=== PATIENT | female | born 1960 | race Caucasian/White ===

== ENCOUNTER 2017-12-06 08:52 | Emergency (ER) | payer MEDICAID, SELFPAY ==
[2017-12-06 09:07] VITALS: BP 156/81; PULSE 72; RESP 14; TEMP 36.6; O2SAT 96
[2017-12-06 09:58] LABS: Abs Immature Grans 0.02 k/cumm (0.0-0.09); Absolute Basophil Count 0.05 k/cumm (0.0-0.2); Absolute Eosinophil Count 0.11 k/cumm (0.0-0.7); Absolute Lymphocyte Count 1.39 k/cumm (1.2-3.4); Absolute Monocyte Count 0.47 k/cumm (0.11-0.7); Absolute Neutrophil Count 5.14 k/cumm (1.2-6.7); Basophils % 0.7; Eosinophils % 1.5; HCT 44.2 % (36.0-46.0); HGB 15.1 g/dL (12.0-15.5); Immature Grans % 0.3; Lymphocytes % 19.4; Mean Corp. HGB Concentration 34.2 g/dL (32.0-36.0); Mean Corpuscular Volume 96.5 fL (80-95); Mean Platelet Volume 9.9 fL (8.0-11.0); Monocytes % 6.5; Neutrophils % 71.6; Platelet Count 199 x1000/uL (130-400); RBC 4.58 m/cumm (4.00-5.20); RBC Distribution Width 12.3 % (11.7-14.6); White Blood Cell Count 7.18 k/cumm (4.4-10.8)
[2017-12-06] MEDS: Normal Saline 1,000 ML 1000 ML IV (10:01)
[2017-12-06] MEDS: Ketorolac 30 MG/ML VIAL IM (10:02)
[2017-12-06] MEDS: methylPREDNISolone SUCC 125 MG VIAL IVP (10:02)
[2017-12-06] MEDS: diphenhydrAMINE 50 MG/ML VIAL 25 MG IVP (10:04)
[2017-12-06] MEDS: Metoclopramide 10 MG/2 ML VIAL IVP (10:05)
[2017-12-06] MEDS: Acetaminophen 500 MG TAB 1000 MG PO (10:06)
[2017-12-06 10:13] LABS: ALT 24 U/L (12-78); AST 14 U/L (15-37); Albumin 3.6 g/dL (3.4-5.0); Alkaline Phosphatase 65 U/L (46-116); Anion Gap 9.1 mmol/L (3-11); BUN 12 mg/dL (7-18); Bilirubin, Total 0.4 mg/dL (0.2-1.0); CO2 24.9 mmol/L (21.0-32.0); CREATININE 0.87 mg/dL (0.55-1.02); Calcium 9.3 mg/dL (8.5-10.1); Chloride 106 mmol/L (98-107); Glucose 108 mg/dL (70-100); Lipase 142 U/L (73-393); Sodium 140 mmol/L (136-145); Total Protein 7.5 g/dL (6.4-8.2)
--- NOTE | 2017-12-06 10:36 | ED.GENADUL_ITS ---
Disposition Clinical Impression: Migraine Disposition: HOME Condition: Good Instructions: Migraine Headache (ED) Additional Instructions: If you notice any worsening of your symptoms, or any new symptoms such as vomiting, diarrhea, fever, chills, shortness of breath, chest pain, numbness, weakness, or fainting , please return immediately to the emergency department for reevaluation. Please follow up with your primary care provider as soon as possible for reassessment and reevaluation. As always, it was a pleasure participating in your medical care today. Referrals: Moira Arriaza MD [Primary Care Provider] - Medical Decision Making - Lab Data Laboratory Tests 12/06/17 12/06/17 09:49 09:49 WBC 7.18 RBC 4.58 Hgb 15.1 Hct 44.2 MCV 96.5 H MCH 33.0 MCHC 34.2 RDW 12.3 Plt Count 199 MPV 9.9 Immature Gran % 0.3 Neutrophils % 71.6 Lymphocytes % 19.4 Monocytes % 6.5 Eosinophils % 1.5 Basophils % 0.7 Absolute Neutrophils 5.14 Absolute Lymphocytes 1.39 Absolute Monocytes 0.47 Absolute Eosinophils 0.11 Absolute Basophils 0.05 Lipase Cancelled - Medical Decision Making This is a 57-year-old female with a past medical history of hypertension, and migraines who presents for evaluation of headache. The patient states that she has had a headache since this morning, it was gradual in onset, it was not thunderclap in onset. It is not the worst headache she has ever experienced. It is similar to her previous migraines. She did have one episode of nausea and vomiting, with some associated chills and sweats which she states is a little atypical for her. Physical exam demonstrates no red flags concerning for meningitis, no signs of trauma. She has no chest pain , pleuritic chest pain arm or neck pain. We will treat with migraine cocktail. Because of her diaphoresis I feel it is unlikely to be caused by a cardiac etiology, but with her family history and risk factors of obesity, and tobacco abuse and hypertension we will get an EKG and troponin although I feel this is not the cause of her current symptoms. If the patient's headache improves after rehydration a migraine cocktail and her workup is benign I feel she can be safely discharged home with close follow-up. Of note the patient's presentation name was Suzan Frank, however the name was changed during her stay to Suzan hamlin. Patient's laboratory workup has returned normal. EKG is benign. Troponin is negative. The patient's headache is completely resolved. I feel her symptoms are secondary to a migraine. Patient's neurologic exam remains intact and normal. Patient will be discharged home with close follow-up with her PCP. We discussed red flags which to return she understands. I have extensively reviewed the treatment plan and discharge instructions with the patient. I have addressed all patient concerns at this time. The patient was made aware of what symptoms to monitor for that would warrant a return to the emergency department. Discussed the plan with the patient, they demonstrate verbal understanding and agreement with our assessment and plan at this time. EKG 9: 45 Rate 66, intervals normal, normal sinus rhythm. No ST elevations or depressions. No T wave inversions. No Q waves. History of Present Illness - General Chief complaint: Headache Stated complaint: COLD SWEATS/NAUSEA/HEADACHE Time Seen by Provider: 12/06/17 09:21 - History of Present Illness Initial comments: A 57-year-old female with a past medical history of hypertension, tobacco abuse, and chronic migraines who presents for evaluation of headache, and one episode of nausea, vomiting. She does admit to recent episode of cold sweats that also occurred during this episode. She had no associated chest pain arm pain neck pain. She denies any numbness, tingling, weakness, vision changes. She states that this headache is very similar to her other ones that she often has. Patient does report having a negative CT scan within the last 6 months. She denies any previous cardiac history. She does admit to a family history of cardiac disease. She denies any recent surgeries, pertinent family history of polycystic kidney disease, Marfan syndrome, Hiram-Danlos syndrome, intracranial aneurysms. She has no other complaints at this time. - Related Data Albuterol Sulfate [Proair Hfa] 1 puff IH Q4H PRN inhaler 06/02/16 Furosemide [Lasix] 20 mg PO DAILY PRN tab-cap 06/02/16 Hydrocodone/Acetaminophen [Hydrocodone-Acetamin 7.5-325] 1 tab-cap PO Q4H PRN tab-cap 06/02/16 Lorazepam 0.5 mg PO BID PRN tab-cap 06/02/16 Ergocalciferol [Vitamin D] 50,000 unit PO .2 X WEEK/winter06/25/16 Lisinopril [Prinivil] 5 mg PO QAM 08/05/17 Omeprazole [PriLOSEC] 1 tab PO DAILY 08/05/17 Ranitidine [Zantac] 150 mg PO HS 12/06/17 Allergies Allergy/AdvReac Type Severity Reaction Status Date / Time adhesive Allergy Unverified 08/05/17 21:06 amphetamine aspartate Allergy Unverified 08/05/17 21:06 [From Adderall] amphetamine sulfate Allergy Unverified 08/05/17 21:06 [From Adderall] bupropion HCl Allergy Unverified 08/05/17 21:06 [From Wellbutrin] dextroamphetamine saccharate Allergy Unverified 08/05/17 21:06 [From Adderall] dextroamphetamine sulfate Allergy Unverified 08/05/17 21:06 [From Adderall] divalproex sodium Allergy Unverified 08/05/17 21:06 [From Depakote] sertraline HCl [From Zoloft] Allergy Unverified 08/05/17 21:06 sumatriptan [From Imitrex] Allergy Unverified 08/05/17 21:06 sumatriptan succinate Allergy Unverified 08/05/17 21:06 [From Imitrex] eggs Allergy Uncoded 08/05/17 21:06 Review of Systems Other: 10 point review of systems was performed, pertinent positives and negatives are noted in the history of present illness. Past Medical History - Past Medical History Medical history: GERD, hypertension ibs, hypertension - Social History Alcohol use: rarely Drug use: none General Exam - Other Other exam information: 1.Const: Well-nourished, Well-developed, appearing stated age 2.Eyes: PERRL, no conjunctival injection, and symmetrical lids. 3.ENT: Atraumatic external nose and ears. Moist MM. Neck: Symmetric, trachea midline, No thyromegaly. Patient demonstrates good movement of cervical neck. There is no nuchal rigidity, no nuchal tenderness. Patient is able to flex the neck without any difficulty or significant pain. Negative Kernig's and Brudzinski sign. 4.CVS: +S1/S2, No murmurs or gallops. Peripheral pulses 2+ and equal in all extremities. Brisk capillary refill in all extremities. 5.RESP: Unlabored respiratory effort. Clear to auscultation bilaterally. No wheezes rales or rhonchi 6.GI: Soft, Nontender/Nondistended, No hepatosplenomegaly. No guarding or rebound. 7.MSK: Normocephalic/Atraumatic, Extremities w/o deformity or ttp No cyanosis or clubbing, Normal movement of all extremities 8.Skin: Warm, Dry. No rashes or lesions. 9.Neuro: cook station II-XII grossly intact. Sensation grossly intact, no focal neurologic deficits. All 6 cardinal planes of vision or fully intact. No evidence of horizontal or vertical nystagmus. The patient demonstrated a normal [id number], good dexterity. There was no evidence of dysdiadochokinesia. Patient was able to ambulate without difficulty. There was no wide-based gait. Romberg, and cqdm-[id number] are both normal on testing. Sensation was intact bilaterally as well as muscle strength bilaterally for all extremities. Patient was able to verbalize butter cup with no slurring, or miss pronunciation. 10.Psych: (AAO) x3. Appropriate mood and affect Course Vital Signs - 24 hr 12/06/17 09:07 Temperature 36.6 C Pulse 72 Respiratory 14 Rate Blood Pressure 156/81 Pulse Oximetry 96
[2017-12-06 10:37] LABS: Troponin I < 0.02 ng/mL (0.00-0.06)
[2017-12-06 10:48] VITALS: BP 134/69; PULSE 68; RESP 14; TEMP 36.6; O2SAT 94
[2017-12-06 10:56] VITALS: BP 134/69; PULSE 68; RESP 14; TEMP 36.6; O2SAT 94
== END 2017-12-06 11:00 | disposition home or self-care (01) ==
PROVIDERS: Emergency Provider Student in an Organized Health Care Education/Training Program; PCP Family Medicine
DX: G43.909 Migraine, unspecified, not intractable, without status migrainosus (principal); R11.2 Nausea with vomiting, unspecified; I10 Essential (primary) hypertension; F17.210 Nicotine dependence, cigarettes, uncomplicated; Z82.49 Family history of ischemic heart disease and other diseases of the circulatory system
CPT/HCPCS: 36415; 80053; 83690; 93005; 96361; 96372; 96374; 96375; 99284; 84484; 85025; 93010; 99285; J1200; J1885; J2765; J2930

== ENCOUNTER 2018-05-26 13:24 | Emergency (ER) | payer OTHER, SELFPAY ==
[2018-05-26 13:32] VITALS: BP 115/68; PULSE 90; RESP 18; TEMP 36.6; O2SAT 93
--- NOTE | 2018-05-26 14:03 | ED.GENADUL_ITS ---
Discharge Plan Disposition Patient Disposition: HOME Condition: Fair Discharge Details Chief Complaint: RespSymp Clinical Impression: Flu-like symptoms Primary Care Provider: Moira Arriaza V ED Provider: Janice Jiménez Home Meds and New Rx's Prescriptions: New ipratropium-albuterol 0.5 mg-3 mg(2.5 mg base)/3 mL solution for nebulization 3 ml IH QID PRN (Reason: shortness of breath or wheezing) Qty: 15 RF: 0 Continued lorazepam 0.5 MG tablet 0.5 mg PO BID PRNRF: 0 hydrocodone-acetaminophen 1 EACH tablet 1 tab-cap PO Q4H PRN RF: 0 furosemide [Lasix] 20 MG tablet 20 mg PO DAILY PRNRF: 0 ProAir HFA 8.5 GM HFA aerosol inhaler 1 puff Inhalation Q4H PRN RF: 0 ergocalciferol (vitamin D2) [Vitamin D2] 50,000 UNITS capsule 50,000 unit PO .2 X WEEK/WINTER RF: 0 omeprazole 40 MG capsule,delayed release(DR/EC) 1 tab PO DAILY RF: 0 lisinopril 10 MG tablet 5 mg PO QAM RF: 0 ranitidine HCl [Zantac] 150 MG tablet 150 mg PO HS RF: 0 Discharge Instructions Instructions: Influenza (ED) Additional Instructions: Encourage hydration. Tylenol and/or ibuprofen as needed for discomfort. He may try lozenges, honey and warm water to help soothe your sore throat. Duo nebulizer as previously prescribed, you may use this every 6 hours as needed. If you develop shortness of breath, difficulty breathing, chest pain, inability to stay hydrated or other new/worsening symptoms please seek care urgently once again. This is very contagious, please wash your hands frequently and try to limit people you expose. Please follow up with primary care if not improving in one week. Referrals: Moira Arriaza MD [Primary Care Provider] - Discharge Data Discharge Date/Time-TO BE ENTERED AT DEPARTURE: 05/26/18 14:16 Medical Decision Making Patient is a 58 year old female, accompanied by , with c/c of flu like illness. She reports a significant 4 days ago. States she had a sudden onset of fevers, chills, cough, sore throat and body aches. Reports that symptoms have remained the same since onset. Is feeling quite fatigued. Diminished appetite but has been hydrating well. States is been using [id number] medications to help symptomatic management. Was previously prescribed duo nebulizer states her medications approximate 5 years old. States that this has helped with symptomatic management. Patient is a active smoker. No diagnosis of respiratory illness. Has albuterol inhaler she uses daily. States she has had SOB with cough. On exam, lungs are clear. She does appear fatigued. Appears well-hydrated. Oxygen is only 93% on room air, this is typical for the patient on review of her previous visits. History exam is most consistent with diagnosis of influenza. However, the patient is out of the window for treatment. I do not find any physical exam findings concerning for pneumonia. No respiratory distress. Patient is requesting that I refill her DuoNeb and this has been working well for her at home. We will do this. Encourage hydration. Tylenol and ibuprofen as needed for discomfort. We discussed new/worsening symptoms when to seek care urgently once again. All of her questions and concerns were addressed and she is in agreement this plan HPI General Mode of arrival: ambulatory . Date/Time Provider Initiated Documentation: 05/26/18 13:26 . Limitations to Documentation: no limitations . Information obtained by: patient, family and RN notes reviewed . History of Present Illness 58 year old F presents to the emergency department with the chief complaint of flu like illness, described as moderate, Quality is described as aching (diffuse body aches), Patient started experiencing this day(s) (4) and it has been constant. other things that improve symptom(s), (felt improved this AM after duoneb) No exacerbating factors reported . Patient notes cough, fever/chills, loss of appetite and shortness of breath (associates primrily with cough); denies chest pain, headaches, nausea/vomiting, rash and weakness. Patient did receive the following treatments prior to arrival, NSAID Related Data Home Medications Medication Instructions Recorded Confirmed ProAir HFA 1 puff INHALATION Q4H PRN inhaler 06/02/16 05/26/18 furosemide [Lasix] 20 mg PO DAILY PRN tab-cap 06/02/16 05/26/18 hydrocodone-acetaminophen 1 tab-cap PO Q4H PRN tab-cap 06/02/16 05/26/18 lorazepam 0.5 mg PO BID PRN tab-cap 06/02/16 05/26/18 ergocalciferol (vitamin D2) 50,000 unit PO .2 X WEEK/winter06/25/16 05/26/18 [Vitamin D2] lisinopril 5 mg PO QAM 08/05/17 05/26/18 omeprazole 1 tab PO DAILY 08/05/17 05/26/18 ranitidine HCl [Zantac] 150 mg PO HS 12/06/17 05/26/18 ipratropium-albuterol 3 ml IH QID PRN #15 ml 05/26/18 Previous Rx's Medication Instructions Recorded ipratropium-albuterol 3 ml IH QID PRN #15 ml 05/26/18 Allergies Allergy/AdvReac Type Severity Reaction Status Date / Time adhesive Allergy Unverified 05/26/18 14:04 amphetamine aspartate Allergy Unverified 05/26/18 14:04 [From Adderall] amphetamine sulfate Allergy Unverified 05/26/18 14:04 [From Adderall] bupropion HCl Allergy Unverified 05/26/18 14:04 [From Wellbutrin] dextroamphetamine saccharate Allergy Unverified 05/26/18 14:04 [From Adderall] dextroamphetamine sulfate Allergy Unverified 05/26/18 14:04 [From Adderall] divalproex sodium Allergy Unverified 05/26/18 14:04 [From Depakote] sertraline HCl [From Zoloft] Allergy Unverified 05/26/18 14:04 sumatriptan [From Imitrex] Allergy Unverified 05/26/18 14:04 sumatriptan succinate Allergy Unverified 05/26/18 14:04 [From Imitrex] eggs Allergy Uncoded 05/26/18 14:04 General Stated Complaint: RespSymp CLINT: 4 Review of Systems Constitutional Reports as per HPI, Reports chills, Reports fatigue, Reports fever(s), Denies headache(s) and Reports poor appetite Eyes Reports as per HPI, Denies eye discharge and Denies irritation ENT Denies change in voice, Denies ear discharge, Denies otalgia, Denies headache(s), Reports nasal congestion, Reports nasal discharge, Reports sinus pressure, Reports sore throat (worse with cough), Denies throat swelling and Denies tongue swelling Cardiovascular Reports as per HPI, Denies chest pain and Reports dyspnea (with cough) Respiratory Reports as per HPI, Reports cough, Denies hemoptysis, Reports dyspnea (with cough), Denies stridor and Reports wheezing Gastrointestinal Reports as per HPI, Denies abdominal pain, Denies change in bowel habits, Denies nausea and Denies vomiting Integumentary/Breasts Reports as per HPI and Denies rash Neurologic Denies headache(s) Endocrine Reports fatigue Allergic/Immunologic Denies throat swelling, Denies tongue swelling and Reports wheezing Exam Const General: cooperative, healthy appearing, comfortable, no acute distress, well developed and well groomed Nutritional Appearance: well nourished and overweight Orientation: alert and awake [facility] Head: normal to inspection, normocephalic and atraumatic Ears: hearing grossly normal bilaterally, external ears normal and TM's normal bilaterally General nose exam: external nose normal and nares normal Face and sinus: normal facial exam, sinuses nontender and face symmetric Mouth: oral mucosae normal, lip normal, tongue normal, oropharynx normal and moist mucous membranes Teeth and gingiva: dentition normal Throat: posterior oropharynx normal, tonsils normal and uvula midline Eyes General: appearance normal, both eyes and all related structures Neck Neck: normal visual inspection, full ROM, no lymphadenopathy and no meningeal signs Resp Effort & Inspection: normal respiratory effort, able to speak in complete sentences and no respiratory distress Auscultation: clear to auscultation bilaterally, no rales, no rhonchi and no wheezes Cardio Rate: regular rate Rhythm: regular rhythm Heart Sounds: S1 normal and S2 normal Skin General skin exam: no rashes or lesions noted Neuro General: alert and awake Cognition: normal cognition Speech: speech normal Gait: normal gait Psych Appearance: grossly normal and well kempt Mental Status: mental status grossly normal Speech and Movement: speech and movement normal Course Vital Signs Temperature 36.6 C 05/26/18 13:32 Pulse 90 05/26/18 13:32 Respiratory Rate 18 05/26/18 13:32 Blood Pressure 115/68 05/26/18 13:32 Pulse Oximetry 93 L 05/26/18 13:32 Temperature 36.6 C 05/26/18 13:32 Pulse 90 05/26/18 13:32 Respiratory Rate 18 05/26/18 13:32 Blood Pressure 115/68 05/26/18 13:32 Pulse Oximetry 93 L 05/26/18 13:32 Oxygen Delivery Method Room Air 05/26/18 13:32 Oxygen Flow Rate 0 05/26/18 13:32 Pain Level 3 05/26/18 13:32 Comment 05/26/18 13:32
== END 2018-05-26 14:16 | disposition home or self-care (01) ==
LOC: ER 14:07
PROVIDERS: Emergency Provider Physician Assistant; PCP Family Medicine
DX: J11.1 Influenza due to unidentified influenza virus with other respiratory manifestations (principal); R06.02 Shortness of breath
CPT/HCPCS: 99283

== ENCOUNTER 2018-07-11 15:22 | Outpatient (REF) | payer OTHER, SELFPAY ==
[2018-07-11 22:15] LABS: FREE T4 0.98 ng/dL (0.76-1.46); Hemoglobin A1C 6.1 % (4.5-6.2)
== END 2018-07-11 15:42 ==
LOC: NCHCN 15:22
PROVIDERS: PCP Family Medicine; Visit Provider Family Medicine
DX: R73.09 Other abnormal glucose (principal); R63.5 Abnormal weight gain
CPT/HCPCS: 83036; 84439; 84443

== ENCOUNTER 2018-11-02 22:34 | Emergency (ER) | payer OTHER, SELFPAY ==
[2018-11-02] VITALS (8 sets, daily range): BP systolic 145–156; BP diastolic 87–92; PULSE 66–82; RESP 10–22; TEMP 36.7; O2SAT 93–97
--- NOTE | 2018-11-02 22:35 | DI.COMBO_ITS ---
SYMPTOM/DIAGNOSIS: SYNCOPAL EPISODE, RT HEAD TRAUMA AP AND LATERAL CHEST: The heart is not enlarged. There are some linear radiodensities in the left lower lung field which may represent areas of atelectasis or scarring. Otherwise the lungs are clear. No pleural effusion is seen. CONCLUSION: Left basilar atelectasis versus scarring, findings may be a little more prominent than on examination of 08/05/17. Follow up film may be obtained if clinically appropriate. NONCONTRAST HEAD CT: A noncontrast cranial CT was performed. There are subtle questionable patchy areas of decreased attenuation in periventricular white matter raising the possibility of microvascular ischemic change. Otherwise the brain is unremarkable. No evidence of acute intracranial hemorrhage, mass effect or midline shift. Mild mucoperiosteal thickening noted in ethmoid air cells. Otherwise paranasal sinuses and mastoid air cells are clear. The orbital and temporal bone structures appear intact. CONCLUSION: No evidence of acute intracranial injury.
--- NOTE | 2018-11-02 22:36 | W.ED.GENAD ---
Discharge Plan Disposition Patient Disposition: HOME Condition: Stable Discharge Details Clinical Impression: Vasovagal syncope Primary Care Provider: Moira Arriaza V ED Provider: Yoel Roa Home Meds and New Rx's Prescriptions: Continued lorazepam 0.5 MG tablet 0.5 mg PO BID PRNRF: 0 hydrocodone-acetaminophen 1 EACH tablet 1 tab-cap PO Q4H PRN RF: 0 furosemide [Lasix] 20 MG tablet 20 mg PO DAILY PRNRF: 0 albuterol sulfate [ProAir HFA] 8.5 GM HFA aerosol inhaler 1 puff Inhalation Q4H PRN RF: 0 ergocalciferol (vitamin D2) [Vitamin D2] 50,000 UNITS capsule 50,000 unit PO .2 X WEEK/WINTER RF: 0 omeprazole 40 MG capsule,delayed release(DR/EC) 1 tab PO DAILY RF: 0 lisinopril 10 MG tablet 5 mg PO QAM RF: 0 ranitidine HCl [Zantac] 150 MG tablet 150 mg PO HS RF: 0 ipratropium-albuterol 0.5 mg-3 mg(2.5 mg base)/3 mL solution for nebulization 3 ml IH QID PRN (Reason: shortness of breath or wheezing) Qty: 15 RF: 0 Discharge Instructions Instructions: Syncope (ED) Additional Instructions: Home to rest today. Your CAT scan of the head, chest x-ray, blood work were reassuring. Small, frequent sips of fluids to maintain hydration. Return to the emergency department for any acute concerns. Medical Decision Making 58-year-old female presents from home with attending to her niece of whom she has guardianship. While here, she became lightheaded and had a brief witnessed syncopal event in which she struck a piece of furniture with her right baptism. She did not have a prolonged loss of consciousness. There is no vomiting, chest pain, palpitations. She was witnessed to resume her normal mental status within seconds. She was placed on a monitoring coordinator, IV access established. She noted being out in the hot sun all day and fluids were initiated empirically. Screening EKG, laboratories, chest x-ray, CT scan of the head obtained. Patient's diagnostic studies are reassuring. CT scan of the head, chest x-ray unremarkable. Laboratory analysis with negative troponin, reassuring chemistries, unremarkable CBC. Improved with IV fluid. She is stable and appropriate discharged home. Consistent with a vagal mediated reaction Lab Data Lab results reviewed: Yes I reviewed the patient's lab results. Laboratory Results - last 24 hr 11/02/18 11/02/18 22:40 22:40 WBC 10.21 RBC 4.67 Hgb 15.7 H Hct 45.2 MCV 96.8 H MCH 33.6 H MCHC 34.7 RDW 12.1 Plt Count 213 MPV 9.9 Immature Gran % 0.3 Neutrophils % 48.2 Lymphocytes % 40.8 Monocytes % 6.3 Eosinophils % 3.5 Basophils % 0.9 Absolute Neutrophils 4.92 Absolute Lymphocytes 4.17 H Absolute Monocytes 0.64 Absolute Eosinophils 0.36 Absolute Basophils 0.09 Sodium 141 Potassium 4.1 Chloride 106 Carbon Dioxide 24.9 Anion Gap 10.1 BUN 11 Creatinine 0.93 Estimated GFR/1.73 m2 >= 60.00 Glucose 96 Calcium 9.7 Magnesium 1.9 Total Bilirubin 0.3 AST 16 ALT 29 Alkaline Phosphatase 63 Troponin I < 0.05 Total Protein 7.5 Albumin 3.8 ECG Data Attestation: I personally reviewed and interpreted this ECG (s) as follows: Interpretation: Normal sinus rhythm with a rate of 73, the QRS is narrow, there is no ST segment elevation present HPI General Mode of arrival: ambulatory. Date/Time Provider Initiated Documentation: 11/02/18 22:35. Limitations to Documentation: no limitations. Information obtained by: patient. History of Present Illness 58 year old F presents to the emergency department with the chief complaint of syncopal event while with family in ER, described as mild, and is localized to the head. Patient reports no radiation. Patient started experiencing this minute(s) and it has been now resolved. No relieving factors improve symptom(s), No exacerbating factors reported . Patient notes denies chest pain, diaphoresis, headaches, loss of appetite and nausea/vomiting. Patient did receive the following treatments prior to arrival, none Related Data Home Medications Medication Instructions Recorded Confirmed albuterol sulfate [ProAir HFA] 1 puff INHALATION Q4H PRN inhaler 06/02/16 11/02/18 furosemide [Lasix] 20 mg PO DAILY PRN tab-cap 06/02/16 11/02/18 hydrocodone-acetaminophen 1 tab-cap PO Q4H PRN tab-cap 06/02/16 11/02/18 lorazepam 0.5 mg PO BID PRN tab-cap 06/02/16 11/02/18 ergocalciferol (vitamin D2) 50,000 unit PO .2 X WEEK/winter06/25/16 11/02/18 [Vitamin D2] lisinopril 5 mg PO QAM 08/05/17 11/02/18 omeprazole 1 tab PO DAILY 08/05/17 11/02/18 ranitidine HCl [Zantac] 150 mg PO HS 12/06/17 11/02/18 ipratropium-albuterol 3 ml IH QID PRN #15 ml 05/26/18 11/02/18 Previous Rx's Medication Instructions Recorded ipratropium-albuterol 3 ml IH QID PRN #15 ml 05/26/18 Allergies Allergy/AdvReac Type Severity Reaction Status Date / Time adhesive Allergy Unverified 11/02/18 22:45 amphetamine aspartate Allergy Unverified 11/02/18 22:45 [From Adderall] amphetamine sulfate Allergy Unverified 11/02/18 22:45 [From Adderall] bupropion HCl Allergy Unverified 11/02/18 22:45 [From Wellbutrin] dextroamphetamine saccharate Allergy Unverified 11/02/18 22:45 [From Adderall] dextroamphetamine sulfate Allergy Unverified 11/02/18 22:45 [From Adderall] divalproex sodium Allergy Unverified 11/02/18 22:45 [From Depakote] sertraline HCl [From Zoloft] Allergy Unverified 11/02/18 22:45 sumatriptan [From Imitrex] Allergy Unverified 11/02/18 22:45 sumatriptan succinate Allergy Unverified 11/02/18 22:45 [From Imitrex] eggs Allergy Uncoded 11/02/18 22:45 General CLINT: 4 Review of Systems Review of Systems Denies chest pain, palpitations. Now improved. Struck her right head. Witnessed by staff. 6 systems reviewed and otherwise [facility] Medical History Cholecystectomy planned (Acute) History of IBS (Acute) Social History Smoking/Tobacco Use Status: Current every day Alcohol Intake: current Alcohol Intake frequency: a few times a week Alcohol type: wine Substance use type: does not use Do you feel safe at home: Yes Do you feel safe in your relationship?: Yes Exam Narrative Exam Narrative: GEN: awake, alert, oriented 3. Pleasant, well groomed, interactive. HEAD: Normocephalic, atraumatic, tender right baptism, no underlying bony focal tenderness ENT: Mucous membranes moist, oropharynx unremarkable, External ear exam unremarkable EYES: PERRL, EOMI NECK: Full ROM, no JASMIN, no menigismus CHEST/RESP: Nontender, clear to auscultation bilateral, no wheeze/rhonchi/rales CARDIOVASCULAR: RRR, no murmur, rub na. 2+ Rad pulse bilateral ABDOMEN: Soft, nontender, no mass. +Bowel sounds EXT: Full ROM, no edema, no rash Neuro: Grossly normal neurologic exam, conversant, interactive. Cranial nerves II through XII intact Psych: Speech fluent, thoughts congruent, affect normal
--- NOTE | 2018-11-02 22:39 | ED.GENADUL_ITS ---
Discharge Plan Disposition Patient Disposition: HOME Condition: Stable Discharge Details Clinical Impression: Vasovagal syncope Primary Care Provider: Moira Arriaza V ED Provider: Yoel Roa Home Meds and New Rx's Prescriptions: Continued lorazepam 0.5 MG tablet 0.5 mg PO BID PRNRF: 0 hydrocodone-acetaminophen 1 EACH tablet 1 tab-cap PO Q4H PRN RF: 0 furosemide [Lasix] 20 MG tablet 20 mg PO DAILY PRNRF: 0 albuterol sulfate [ProAir HFA] 8.5 GM HFA aerosol inhaler 1 puff Inhalation Q4H PRN RF: 0 ergocalciferol (vitamin D2) [Vitamin D2] 50,000 UNITS capsule 50,000 unit PO .2 X WEEK/WINTER RF: 0 omeprazole 40 MG capsule,delayed release(DR/EC) 1 tab PO DAILY RF: 0 lisinopril 10 MG tablet 5 mg PO QAM RF: 0 ranitidine HCl [Zantac] 150 MG tablet 150 mg PO HS RF: 0 ipratropium-albuterol 0.5 mg-3 mg(2.5 mg base)/3 mL solution for nebulization 3 ml IH QID PRN (Reason: shortness of breath or wheezing) Qty: 15 RF: 0 Discharge Instructions Instructions: Syncope (ED) Additional Instructions: Home to rest today. Your CAT scan of the head, chest x-ray, blood work were reassuring. Small, frequent sips of fluids to maintain hydration. Return to the emergency department for any acute concerns. Medical Decision Making 58-year-old female presents from home with attending to her niece of whom she has guardianship. While here, she became lightheaded and had a brief witnessed syncopal event in which she struck a piece of furniture with her right mormonism. She did not have a prolonged loss of consciousness. There is no vomiting, chest pain, palpitations. She was witnessed to resume her normal mental status within seconds. She was placed on a phototypesetting equipment monitor, IV access established. She noted being out in the hot sun all day and fluids were initiated empirically. Screening EKG, laboratories, chest x-ray, CT scan of the head obtained. Patient's diagnostic studies are reassuring. CT scan of the head, chest x-ray unremarkable. Laboratory analysis with negative troponin, reassuring chemistries, unremarkable CBC. Improved with IV fluid. She is stable and appropriate discharged home. Consistent with a vagal mediated reaction Lab Data Lab results reviewed: Yes I reviewed the patient's lab results. Laboratory Results - last 24 hr 11/02/18 11/02/18 22:40 22:40 WBC 10.21 RBC 4.67 Hgb 15.7 H Hct 45.2 MCV 96.8 H MCH 33.6 H MCHC 34.7 RDW 12.1 Plt Count 213 MPV 9.9 Immature Gran % 0.3 Neutrophils % 48.2 Lymphocytes % 40.8 Monocytes % 6.3 Eosinophils % 3.5 Basophils % 0.9 Absolute Neutrophils 4.92 Absolute Lymphocytes 4.17 H Absolute Monocytes 0.64 Absolute Eosinophils 0.36 Absolute Basophils 0.09 Sodium 141 Potassium 4.1 Chloride 106 Carbon Dioxide 24.9 Anion Gap 10.1 BUN 11 Creatinine 0.93 Estimated GFR/1.73 m2 >= 60.00 Glucose 96 Calcium 9.7 Magnesium 1.9 Total Bilirubin 0.3 AST 16 ALT 29 Alkaline Phosphatase 63 Troponin I < 0.05 Total Protein 7.5 Albumin 3.8 ECG Data Attestation: I personally reviewed and interpreted this ECG (s) as follows: Interpretation: Normal sinus rhythm with a rate of 73, the QRS is narrow, there is no ST segment elevation present HPI General Mode of arrival: ambulatory . Date/Time Provider Initiated Documentation: 11/02/18 22:35 . Limitations to Documentation: no limitations . Information obtained by: patient . History of Present Illness 58 year old F presents to the emergency department with the chief complaint of syncopal event while with family in ER, described as mild, and is localized to the head. Patient reports no radiation. Patient started experiencing this minute(s) and it has been now resolved. No relieving factors improve symptom(s), No exacerbating factors reported . Patient notes denies chest pain, diaphoresis, headaches, loss of appetite and nausea/vomiting. Patient did receive the following treatments prior to arrival, none Related Data Home Medications Medication Instructions Recorded Confirmed albuterol sulfate [ProAir HFA] 1 puff INHALATION Q4H PRN inhaler 06/02/16 11/02/18 furosemide [Lasix] 20 mg PO DAILY PRN tab-cap 06/02/16 11/02/18 hydrocodone-acetaminophen 1 tab-cap PO Q4H PRN tab-cap 06/02/16 11/02/18 lorazepam 0.5 mg PO BID PRN tab-cap 06/02/16 11/02/18 ergocalciferol (vitamin D2) 50,000 unit PO .2 X WEEK/winter06/25/16 11/02/18 [Vitamin D2] lisinopril 5 mg PO QAM 08/05/17 11/02/18 omeprazole 1 tab PO DAILY 08/05/17 11/02/18 ranitidine HCl [Zantac] 150 mg PO HS 12/06/17 11/02/18 ipratropium-albuterol 3 ml IH QID PRN #15 ml 05/26/18 11/02/18 Previous Rx's Medication Instructions Recorded ipratropium-albuterol 3 ml IH QID PRN #15 ml 05/26/18 Allergies Allergy/AdvReac Type Severity Reaction Status Date / Time adhesive Allergy Unverified 11/02/18 22:45 amphetamine aspartate Allergy Unverified 11/02/18 22:45 [From Adderall] amphetamine sulfate Allergy Unverified 11/02/18 22:45 [From Adderall] bupropion HCl Allergy Unverified 11/02/18 22:45 [From Wellbutrin] dextroamphetamine saccharate Allergy Unverified 11/02/18 22:45 [From Adderall] dextroamphetamine sulfate Allergy Unverified 11/02/18 22:45 [From Adderall] divalproex sodium Allergy Unverified 11/02/18 22:45 [From Depakote] sertraline HCl [From Zoloft] Allergy Unverified 11/02/18 22:45 sumatriptan [From Imitrex] Allergy Unverified 11/02/18 22:45 sumatriptan succinate Allergy Unverified 11/02/18 22:45 [From Imitrex] eggs Allergy Uncoded 11/02/18 22:45 General CLINT: 4 Review of Systems Review of Systems Denies chest pain, palpitations. Now improved. Struck her right head. Witnessed by staff. 6 systems reviewed and otherwise [facility] Medical History Cholecystectomy planned (Acute) History of IBS (Acute) Social History Smoking/Tobacco Use Status: Current every day Alcohol Intake: current Alcohol Intake frequency: a few times a week Alcohol type: wine Substance use type: does not use Do you feel safe at home: Yes Do you feel safe in your relationship?: Yes Exam Narrative Exam Narrative: GEN: awake, alert, oriented 3. Pleasant, well groomed, interactive. HEAD: Normocephalic, atraumatic, tender right mormonism, no underlying bony focal tenderness ENT: Mucous membranes moist, oropharynx unremarkable, External ear exam unremarkable EYES: PERRL, EOMI NECK: Full ROM, no JASMIN, no menigismus CHEST/RESP: Nontender, clear to auscultation bilateral, no wheeze/rhonchi/rales CARDIOVASCULAR: RRR, no murmur, rub na. 2+ Rad pulse bilateral ABDOMEN: Soft, nontender, no mass. +Bowel sounds EXT: Full ROM, no edema, no rash Neuro: Grossly normal neurologic exam, conversant, interactive. Cranial nerves II through XII intact Psych: Speech fluent, thoughts congruent, affect normal
[2018-11-02 22:45] LABS: Abs Immature Grans 0.03 k/cumm (0.0-0.09); Absolute Basophil Count 0.09 k/cumm (0.0-0.2); Absolute Eosinophil Count 0.36 k/cumm (0.0-0.7); Absolute Lymphocyte Count 4.17 k/cumm (1.2-3.4); Absolute Monocyte Count 0.64 k/cumm (0.11-0.7); Absolute Neutrophil Count 4.92 k/cumm (1.2-6.7); Basophils % 0.9; Eosinophils % 3.5; HCT 45.2 % (36.0-46.0); HGB 15.7 g/dL (12.0-15.5); Immature Grans % 0.3; Lymphocytes % 40.8; Mean Corp. HGB Concentration 34.7 g/dL (32.0-36.0); Mean Corpuscular Hemoglobin 33.6 pg (27.0-33.0); Mean Corpuscular Volume 96.8 fL (80-95); Mean Platelet Volume 9.9 fL (8.0-11.0); Monocytes % 6.3; Neutrophils % 48.2; Platelet Count 213 x1000/uL (130-400); RBC 4.67 m/cumm (4.00-5.20); RBC Distribution Width 12.1 % (11.7-14.6); White Blood Cell Count 10.21 k/cumm (4.4-10.8)
[2018-11-02] MEDS: Ondansetron O.D.T. 4 MG TABEF (22:53)
[2018-11-02] MEDS: Normal Saline 1,000 ML 1000 ML IV (22:53)
[2018-11-02 23:07] LABS: ALT 29 U/L (12-78); AST 16 U/L (15-37); Albumin 3.8 g/dL (3.4-5.0); Alkaline Phosphatase 63 U/L (46-116); Anion Gap 10.1 mmol/L (3-11); BUN 11 mg/dL (7-18); Bilirubin, Total 0.3 mg/dL (0.2-1.0); CO2 24.9 mmol/L (21.0-32.0); CREATININE 0.93 mg/dL (0.55-1.02); Calcium 9.7 mg/dL (8.5-10.1); Chloride 106 mmol/L (98-107); Glucose 96 mg/dL (70-100); Magnesium 1.9 mg/dL (1.8-2.4); Potassium 4.1 mmol/L (3.5-5.1); Sodium 141 mmol/L (136-145); Total Protein 7.5 g/dL (6.4-8.2); Troponin I < 0.05 ng/mL (0.00-0.06)
--- NOTE | 2018-11-02 23:21 | DI.VRAD_ITS ---
EXAM: CT Head Without Contrast EXAM DATE/TIME: 11/02/2018 10:36 PM CLINICAL HISTORY: 58 years old, female; Syncope and collapse; Patient HX: Syncopal episode, right head trauma TECHNIQUE: Imaging protocol: Axial computed tomography images of the head without contrast. Coronal and sagittal reformatted images were created and reviewed. COMPARISON: MRI - BRAIN WO CONTRAST 01/17/2017 11:18 AM FINDINGS: Brain: There are areas of diminished density in the white matter bilaterally consistent with chronic small vessel ischemic changes. Vann-white matter differentiation is intact and unremarkable. No mass lesion. No evidence of intracranial hemorrhage. Ventricles: Normal. No ventriculomegaly. Bones/joints: No evidence of fracture. Sinuses: Mild mucosal thickening in bilateral ethmoid sinus. No fluid level. Mastoid air cells: Visualized mastoid air cells are well aerated. No mastoid effusion. Soft tissues: Unremarkable. IMPRESSION: 1. No evidence of fracture. No evidence of acute intracranial bleed. 2. Chronic ischemic changes bilaterally. Dictated and Authenticated by: Sheila Brown MD. Ordering:GINNY Diallo MD
--- NOTE | 2018-11-02 23:22 | DI.VRAD_ITS ---
EXAM: XR Chest, 2 Views EXAM DATE/TIME: 11/02/2018 10:36 PM CLINICAL HISTORY: 58 years old, female; Patient HX: Syncopal episode with right head trauma TECHNIQUE: Imaging protocol: XR of the chest, 2 views. COMPARISON: CR CHEST 2 VIEWS PA,LAT 08/05/2017 9:37 PM FINDINGS: Lungs: Left lower lobe atelectasis versus scarring. No infiltrates. No mass lesion or nodule seen. Pleural space: Unremarkable. No pleural effusion. No pneumothorax. Heart/Mediastinum: Unremarkable. No cardiomegaly. Bones/joints: Unremarkable. IMPRESSION: No evidence of acute pathology. Dictated and Authenticated by: Sheila Brown MD. Ordering:GINNY Diallo MD
== END 2018-11-02 23:39 | disposition home or self-care (01) ==
PROVIDERS: Emergency Provider Emergency Medicine; PCP Family Medicine
DX: R55 Syncope and collapse (principal)
CPT/HCPCS: 36415; 80053; 93005; 96360; 99285; 70450; 71046; 83735; 84484; 85025; 93010; 99284

== ENCOUNTER 2018-11-18 08:43 | Outpatient (CLI) | payer OTHER, SELFPAY | END 2018-11-18 09:03 | PROVIDERS: PCP Family Medicine; Visit Provider Family Medicine | DX: R69 Illness, unspecified (principal) ==

== ENCOUNTER 2018-11-29 14:23 | Outpatient (CLI) | payer OTHER, SELFPAY ==
[2018-11-29 16:45] LABS: Clarity Clear (Clear)
[2018-11-29 16:46] LABS: Glucose Negative (Negative); Ketones Negative (Negative); Leukocyte Esterase Negative (Negative); Nitrite Negative (Negative); Urobilinogen 0.2 EU/dL (Up TO 0.2); pH 6.5 (5-8)
[2018-11-29 16:47] LABS: Bilirubin Negative (Negative); Blood Trace (Negative)
[2018-11-29 16:48] LABS: Bacteria Few HPF (Negative); Epithelial Cells Rare HPF (Negative); RBC 0-2 (0-2); WBC Negative HPF (0-5)
[2018-11-29 16:49] LABS: C & S Indicated? No; Casts Negative LPF (Negative); Crystals Negative HPF (Negative); Mucus Negative (Negative)
== END 2018-11-29 14:43 ==
PROVIDERS: PCP Family Medicine; Visit Provider Family Medicine
DX: M54.9 Dorsalgia, unspecified (principal)
CPT/HCPCS: 81003; 81015

== ENCOUNTER 2019-02-23 20:43 | Emergency (ER) | payer MEDICAID, SELFPAY ==
[2019-02-23 20:52] VITALS: BP 124/74; PULSE 85; RESP 18; TEMP 37.1; O2SAT 97
--- NOTE | 2019-02-23 20:54 | W.ED.GENAD ---
Discharge Plan Disposition Patient Disposition: HOME Condition: Stable Discharge Details Chief Complaint: Chest Pain Clinical Impression: Chest pain, Gastroesophageal reflux disease, Abnormality of lung Primary Care Provider: Moira Arriaza V ED Provider: Don Baca Home Meds and New Rx's Prescriptions: No Action lorazepam 0.5 MG tablet 0.5 mg PO BID PRNRF: 0 hydrocodone-acetaminophen 1 EACH tablet 1 tab-cap PO Q4H PRN RF: 0 furosemide [Lasix] 20 MG tablet 20 mg PO DAILY PRNRF: 0 albuterol sulfate [ProAir HFA] 8.5 GM HFA aerosol inhaler 1 puff Inhalation Q4H PRN RF: 0 ergocalciferol (vitamin D2) [Vitamin D2] 50,000 UNITS capsule 50,000 unit PO .2 X WEEK/WINTER RF: 0 omeprazole 40 MG capsule,delayed release(DR/EC) 1 tab PO DAILY RF: 0 lisinopril 10 MG tablet 5 mg PO QAM RF: 0 ranitidine HCl [Zantac] 150 MG tablet 150 mg PO HS RF: 0 ipratropium-albuterol 0.5 mg-3 mg(2.5 mg base)/3 mL solution for nebulization 3 ml IH QID PRN (Reason: shortness of breath or wheezing) Qty: 15 RF: 0 Discharge Instructions Instructions: Chest Pain (ED), Gastroesophageal Reflux Disease (ED) Additional Instructions: At this time your cardiac work-up shows no evidence of an acute heart attack. This is likely secondary to the your reflux, however as we discussed you do have significant risk factors for heart disease. We are scheduling a stress test for you. Please do not miss this appointment. Please avoid any tomato-based foods, citrus foods, mint foods, or spicy foods. If you notice any worsening of your symptoms, or any new symptoms such as vomiting, diarrhea, fever, chills, shortness of breath, chest pain, numbness, weakness, or fainting , please return immediately to the emergency department for reevaluation. Please follow up with your primary care provider as soon as possible for reassessment and reevaluation. As always, it was a pleasure participating in your medical care today. Referrals: Moira Arriaza MD [Primary Care Provider] - Medical Decision Making This is a pleasant 58-year-old female with a past medical history of hypertension, tobacco abuse, strong family history of cardiac disease who presents today for evaluation of burning sensation in her chest which radiates straight to her back in conjunction with a mild tearing sensation. She denies any nausea vomiting diarrhea cough fever or chills. Vital signs are unremarkable. Pain does seem to come and go but only for a brief moment. She denies any history of symptoms like this in the past. At this time pain is notably improved on its own. EKG shows no evidence of STEMI. Exam is otherwise unremarkable with normal pulses and blood pressures throughout. Signs and symptoms are most concerning for severe reflux, however differential certainly does include aortic pathology as well as cardiac pathology and atypical ACS. She does not want anything for pain at this time. We will give her GI cocktail, evaluate for concerning life-threatening chest etiologies, and reassess. 12:48 AM Patient's laboratory work-up has returned, serial troponins and serial EKGs are unremarkable and unchanged. No white count, no bandemia or left shift. Electrolytes normal, renal function normal. proBNP is normal. CT angios of the chest demonstrates no evidence of pulmonary embolism. The patient's right ear was evaluated and using suction pituitary hemostats wax was removed, and the patient had complete resolution of her hearing. Patient continues to be symptom-free, she does have a small bit of mild burning sensation in her left chest which she attributes to reflux. With the patient's benign cardiac work-up and repeat troponins, I did discuss with her my recommendations for admission, continued evaluation and cardiac stress testing. She did have a stress test a year and a half ago which was normal at that time. However I still feel that observation is indicated in this scenario. However despite my request, patient requested to be discharged. We had a long discussion regarding the risks and benefits of this, at this time understanding the risks and benefits including the potential for missing etiology which could cause and lifelong disability the patient understands and is still requesting to be discharged. Patient is of sound mind. We will respect her wishes. We will set up an outpatient stress test for her. I have extensively reviewed the treatment plan and discharge instructions with the patient and their family. I have addressed all patient concerns at this time. The patient and family was made aware of what symptoms to monitor for that would warrant a return to the emergency department. Discussed the plan with the patient and family, they demonstrate verbal understanding and agreement with our assessment and plan at this time. Also of note the patient's CT scan shows evidence of subsegmental atelectasis in the pulmonary bases as well as a 1 cm thyroid nodule and an irregular contour of the left kidney. Recommended repeat imaging in 3 months. I did discuss all of these findings with the patient and her at bedside, and discussed with her also the importance of follow-up and repeat imaging. The patient's primary care provider will be copied to the note as well. EKG 20: 51 Rate 84, intervals normal, sinus rhythm, no significant ST elevations or depressions, no T wave inversions, no Q waves. EKG 00: 17 Rate 77, IL 140, QTc 466, sinus rhythm, no significant ST elevations or depressions, no significant T wave inversions. No changes from prior EKG earlier today. No evidence of STEMI. FINDINGS: Pulmonary arteries: Subsegmental atelectatic changes at the pulmonary bases. Aorta: 1 cm or less left thyroid nodules aortic atherosclerosis. Lungs: 1.2 cm nodule in the apical segment of the right lower lobe (4/24). 5 mm nodule along the left major fissure (4/41). Pleural space: Unremarkable. No pneumothorax. No pleural effusion. Heart: Unremarkable. No cardiomegaly. No pericardial effusion. Gallbladder and bile ducts: Cholecystectomy. Kidneys and ureters: Partially viewed irregular contour of the anterior left kidney. Underlying mass is not excluded. Consider dedicated exam. Lymph nodes: Unremarkable. No enlarged lymph nodes. Bones/joints: Unremarkable. No acute fracture. Soft tissues: Unremarkable. IMPRESSION: 1. Subsegmental atelectatic changes at the pulmonary bases. For both low risk and high risk patients, consider CT at 3 months, PET/CT or biopsy. (Cierra et al., Fleischner Society, 2017) 2. Pulmonary nodules. 3. 1 cm or less left thyroid nodules aortic atherosclerosis. 4. Partially viewed irregular contour of the anterior left kidney. Underlying mass is not excluded. Consider dedicated exam. Thank you for allowing us to participate in the care of your patient. Dictated and Authenticated by: Fred Keith MD 02/23/2019 11:04 PM Eastern Time ([place] & [place]) HPI General Date/Time Provider Initiated Documentation: 02/23/19 20:44. HPI Narrative: This is a 58-year-old female with a past medical history of reflux, reactive airway disease, notable bowel syndrome, hypertension, and chronic migraines who presents today for evaluation of chest pain. The patient states that 20 to 30 minutes ago she developed a sudden onset burning ripping pain in her right chest that radiates to her back. She states that it feels atypical from her normal reflux as that usually occurs on the left and does not radiate to the back at all. She denies any shortness of breath. She denies any fever, chills, headache, neck pain, cough, vomiting or diarrhea. She denies any recent trauma. She is a tobacco smoker. She denies any history of symptoms like this before. Past family history is positive for STEMI at the age of 32 and her mother. She denies any aggravating or relieving factors. She does note that the pain will sometimes go away but then comes back shortly thereafter. Patient denies any other complaints at this time. Of note the patient is on amoxicillin for a right-sided ear infection. Related Data Home Medications Medication Instructions Recorded Confirmed albuterol sulfate [ProAir HFA] 1 puff INHALATION Q4H PRN inhaler 06/02/16 11/02/18 furosemide [Lasix] 20 mg PO DAILY PRN tab-cap 06/02/16 02/23/19 hydrocodone-acetaminophen 1 tab-cap PO Q4H PRN tab-cap 06/02/16 02/23/19 lorazepam 0.5 mg PO BID PRN tab-cap 06/02/16 02/23/19 ergocalciferol (vitamin D2) 50,000 unit PO .2 X WEEK/winter06/25/16 02/23/19 [Vitamin D2] lisinopril 5 mg PO QAM 08/05/17 02/23/19 omeprazole 1 tab PO DAILY 08/05/17 02/23/19 ranitidine HCl [Zantac] 150 mg PO HS 12/06/17 02/23/19 ipratropium-albuterol 3 ml IH QID PRN #15 ml 05/26/18 02/23/19 Previous Rx's Medication Instructions Recorded ipratropium-albuterol 3 ml IH QID PRN #15 ml 05/26/18 Allergies Allergy/AdvReac Type Severity Reaction Status Date / Time adhesive Allergy Unverified 02/23/19 20:55 amphetamine aspartate Allergy Unverified 02/23/19 20:55 [From Adderall] amphetamine sulfate Allergy Unverified 02/23/19 20:55 [From Adderall] bupropion HCl Allergy Unverified 02/23/19 20:55 [From Wellbutrin] dextroamphetamine saccharate Allergy Unverified 02/23/19 20:55 [From Adderall] dextroamphetamine sulfate Allergy Unverified 02/23/19 20:55 [From Adderall] divalproex sodium Allergy Unverified 02/23/19 20:55 [From Depakote] sertraline HCl [From Zoloft] Allergy Unverified 02/23/19 20:55 sumatriptan [From Imitrex] Allergy Unverified 02/23/19 20:55 sumatriptan succinate Allergy Unverified 02/23/19 20:55 [From Imitrex] eggs Allergy Uncoded 02/23/19 20:55 General CLINT: 2 Review of Systems All systems reviewed & are unremarkable except as noted in HPI and below PFSH Medical History (Updated 11/02/18 @ 22:45 by Manuelito Ambrose) Cholecystectomy planned (Acute) History of IBS (Acute) Social History Smoking/Tobacco Use Status: Current every day Alcohol Intake: current Alcohol Intake frequency: a few times a week Alcohol type: wine Drug use: Never Substance use type: does not use Do you feel safe at home: Yes Do you feel safe in your relationship?: Yes Exam Narrative Exam Narrative: 1.Const: Well-nourished, Well-developed, appearing stated age 2.Eyes: PERRL, no conjunctival injection, and symmetrical lids. 3.ENT: Atraumatic external nose and ears. Moist MM. Neck: Symmetric, trachea midline, No thyromegaly. Left ear demonstrates a abbott unremarkable tympanic membrane, right ear demonstrates notable cerumen obstruction. No evidence of drainage or discharge. 4.CVS: +S1/S2, No murmurs or gallops. Peripheral pulses 2+ and equal in all extremities. Brisk capillary refill in all extremities. 5.RESP: Unlabored respiratory effort. Clear to auscultation bilaterally. No wheezes rales or rhonchi 6.GI: Soft, Nontender/Nondistended, No hepatosplenomegaly. No guarding or rebound. No epigastric pain or tenderness. 7.MSK: Normocephalic/Atraumatic, Extremities w/o deformity or ttp No cyanosis or clubbing, Normal movement of all extremities 8.Skin: Warm, Dry. No rashes or lesions. 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 Sensation grossly intact, no focal neurologic deficits. 10.Psych: (AAO) x3. Appropriate mood and affect
[2019-02-23 21:05] VITALS: RESP 18
[2019-02-23] MEDS: Aspirin 81 MG CHEW 324 MG CH (21:12)
[2019-02-23 21:13] LABS: Abs Immature Grans 0.03 k/cumm (0.0-0.09); Absolute Basophil Count 0.06 k/cumm (0.0-0.2); Absolute Eosinophil Count 0.34 k/cumm (0.0-0.7); Absolute Lymphocyte Count 3.72 k/cumm (1.2-3.4); Absolute Monocyte Count 0.74 k/cumm (0.11-0.7); Absolute Neutrophil Count 4.46 k/cumm (1.2-6.7); Basophils % 0.6; Eosinophils % 3.6; HCT 43.3 % (36.0-46.0); HGB 14.5 g/dL (12.0-15.5); Immature Grans % 0.3; Lymphocytes % 39.8; Mean Corp. HGB Concentration 33.5 g/dL (32.0-36.0); Mean Corpuscular Hemoglobin 33.2 pg (27.0-33.0); Mean Corpuscular Volume 99.1 fL (80-95); Mean Platelet Volume 9.6 fL (8.0-11.0); Monocytes % 7.9; Neutrophils % 47.8; Platelet Count 248 x1000/uL (130-400); RBC 4.37 m/cumm (4.00-5.20); RBC Distribution Width 12.6 % (11.7-14.6); White Blood Cell Count 9.35 k/cumm (4.4-10.8)
[2019-02-23 21:17] LABS: PTT Activated 26.7 sec (21.0-31.4); Prothrombin Time 9.7 sec (9.3-11.0)
[2019-02-23 21:28] LABS: ALT 32 U/L (14-59); AST 16 U/L (15-37); Albumin 3.6 g/dL (3.4-5.0); Alkaline Phosphatase 59 U/L (46-116); Anion Gap 9.1 mmol/L (3-11); BUN 13 mg/dL (7-18); Bilirubin, Total 0.2 mg/dL (0.2-1.0); CO2 24.9 mmol/L (21.0-32.0); CREATININE 1.09 mg/dL (0.55-1.02); Calcium 9.6 mg/dL (8.5-10.1); Chloride 105 mmol/L (98-107); Estimated GFR 51.92 (mL/min/1.73m2); Glucose 99 mg/dL (70-100); Lipase 154 U/L (73-393); NT-proBNP 30 pg/mL; Potassium 3.9 mmol/L (3.5-5.1); Sodium 139 mmol/L (136-145); Total Protein 7.4 g/dL (6.4-8.2)
[2019-02-23 21:31] LABS: Troponin I < 0.05 ng/mL (0.00-0.06)
--- NOTE | 2019-02-23 22:27 | DI.CT_ITS ---
EXAM: CT THORAX CTA CLINICAL HISTORY: tearing chest pain radiating to back TECHNIQUE: Axial CT angiography was performed with multi-slice acquisition and multi-planar and/or 3 D reconstructions. The exam was performed according to the usual protocol with 100 cc's of Omnipaque 350. COMPARISON: No exams were available for comparison FINDINGS: The thoracic aorta is intact. No aneurysm or dissection is present. The visualized pulmonary arterie s appear grossly unremarkable. Heart size is within normal limits. No pericardial effusion is seen. No pleural effusion or pneumothorax is present. Dependent atelectasis is seen in the lung bases. No focal consolidating infiltrates are present to suggest pneumonia. There is a 1.2 cm noncalcified pulmonary nodule in the superior segment of the right lower lobe. There is a 0.5 cm nodule along the left major fissure inferiorly. In the upper abdomen, there is an irregular contour at the inferior most images of the left kidney. This may represent renal scarring but mass cannot be excluded. The patient is status post cholecystectomy. Degenerative changes are seen in the spine. Left thyroid no dules are present. IMPRESSION: 1. No evidence of thoracic aortic injury. 2. 1.2 cm noncalcified pulmonary nodule in the superior segment of the right lower lobe. Follow-up i s recommended based on patient's risk factors. Consider repeat CT scan in 3 months or PET/CT or biop sy. 3. Irregular contour of the left kidney anteriorly. This is only partially imaged on this examinatio n. Consider dedicated examination. This may include a CT scan of the abdomen or ultrasound.
[2019-02-23] MEDS: Omnipaque 350 MG/ML 100 ML BTL IJ (22:29)
--- NOTE | 2019-02-23 23:04 | DI.VRAD_ITS ---
PROCEDURE INFORMATION: Exam: CT Angiography Chest With Contrast Exam date and time: 02/23/2019 10:20 PM Clinical history: 58 years old, female; Chest pain; Type not specified TECHNIQUE: Imaging protocol: Computed tomographic angiography of the chest with intravenous contrast. 3D rendering: MIP reconstructed images were created and reviewed. Radiation optimization: All CT scans at this facility use at least one of these dose optimization techniques: automated exposure control; mA and/or kV adjustment per patient size (includes targeted exams where dose is matched to clinical indication); or iterative reconstruction. Contrast material: [id number]; Contrast volume: 100 ml; Contrast route: IV; COMPARISON: CR XR CHEST 2V PA LATERAL 11/02/2018 11:03 PM FINDINGS: Pulmonary arteries: Subsegmental atelectatic changes at the pulmonary bases. Aorta: 1 cm or less left thyroid nodules aortic atherosclerosis. Lungs: 1.2 cm nodule in the apical segment of the right lower lobe (4/24). 5 mm nodule along the left major fissure (4/41). Pleural space: Unremarkable. No pneumothorax. No pleural effusion. Heart: Unremarkable. No cardiomegaly. No pericardial effusion. Gallbladder and bile ducts: Cholecystectomy. Kidneys and ureters: Partially viewed irregular contour of the anterior left kidney. Underlying mass is not excluded. Consider dedicated exam. Lymph nodes: Unremarkable. No enlarged lymph nodes. Bones/joints: Unremarkable. No acute fracture. Soft tissues: Unremarkable. IMPRESSION: 1. Subsegmental atelectatic changes at the pulmonary bases. For both low risk and high risk patients, consider CT at 3 months, PET/CT or biopsy. (Cierra et al., Fleischner Society, 2017) 2. Pulmonary nodules. 3. 1 cm or less left thyroid nodules aortic atherosclerosis. 4. Partially viewed irregular contour of the anterior left kidney. Underlying mass is not excluded. Consider dedicated exam. Dictated and Authenticated by: Fred Keith MD. Ordering:CONSTANTINE Ochoa MD
[2019-02-24 02:00] VITALS: BP 124/74; PULSE 85; RESP 18; TEMP 37.1; O2SAT 97
== END 2019-02-24 01:10 | disposition home or self-care (01) ==
PROVIDERS: Emergency Provider Student in an Organized Health Care Education/Training Program; PCP Family Medicine
DX: R07.9 Chest pain, unspecified (principal); R91.8 Other nonspecific abnormal finding of lung field; K21.9 Gastro-esophageal reflux disease without esophagitis; I10 Essential (primary) hypertension
CPT/HCPCS: 36415; 71275; 80053; 83690; 93005; 99285; 83880; 84484; 85025; 85610; 85730; 93010; J3490

== ENCOUNTER 2019-03-04 01:28 | Outpatient (CLI) | payer MEDICAID, SELFPAY ==
--- NOTE | 2019-03-04 09:00 | DI.US_ITS ---
EXAM: US RENAL CLINICAL HISTORY: F/U ABNL FINDINGS ON DIAGNOSTIC IMAGING OF LT KIDNEY,R93.422 TECHNIQUE: Ultrasound performed using standard protocol. COMPARISON: ABDOMEN ULTRASOUND from 07/26/2009 CT THORAX CTA from 02/23/2019 FINDINGS: The CT questioned a contour deformity of the left kidney. The right kidney measures 11.6 cm in layton th. The left kidney measures 10.2 cm in length. There is normal renal parenchymal thickness and ech ogenicity. There is a duplex collecting system bilaterally. There is a slight lobulation of the con tour of the left kidney. This appears unchanged when compared with an ultrasound from 2009. No mass or hydronephrosis is seen. The prevoid bladder volume measured 84 cc. There is a 6 cc postvoid res idual. Both ureteral jets were visualized. IMPRESSION: Mildly lobulated contour of the left kidney. No evidence of a mass. A duplex collecting system is seen.
== END 2019-03-04 01:48 ==
PROVIDERS: PCP Family Medicine; Visit Provider Family Medicine
DX: R93.422 Abnormal radiologic findings on diagnostic imaging of left kidney (principal); N28.89 Other specified disorders of kidney and ureter
CPT/HCPCS: 76770

== ENCOUNTER 2019-12-03 19:52 | Outpatient (REF) | payer MEDICAID, SELFPAY ==
[2019-12-03 21:30] LABS: Abs Immature Grans 0.03 10^3/uL (0.0-0.06); Absolute Basophil Count 0.11 10^3/uL (0.0-0.2); Absolute Eosinophil Count 0.28 10^3/uL (0.0-0.7); Absolute Lymphocyte Count 3.44 10^3/uL (1.2-3.4); Absolute Monocyte Count 0.66 10^3/uL (0.1-0.8); Absolute Neutrophil Count 4.83 10^3/uL (1.2-6.7); Basophils % 1.2; HCT 46.8 % (36.0-46.0); HGB 15.2 g/dL (11.2-15.7); Immature Grans % 0.3; Lymphocytes % 36.8; MCH 32.1 pg (27.0-33.0); MCHC 32.5 % (32.0-36.0); MCV 98.7 fL (80-95); MPV 10.4 fL (8.0-11.0); Monocytes % 7.1; Neutrophils % 51.6; Nucleated RBC 0 %; Platelet Count 259 10^3/uL (130-400); RBC 4.74 10^6/uL (3.93-5.22); RDW 11.9 % (11.7-14.6); RDW-SD 43.5 fL; WBC 9.35 10^3/uL (4.4-10.8)
[2019-12-03 21:48] LABS: TSH (W/Ref FT4) 1.83 uIU/mL (0.36-3.74)
== END 2019-12-03 20:12 ==
LOC: NCHCN 19:52
PROVIDERS: PCP Family Medicine; Visit Provider Physician Assistant Medical
DX: R22.1 Localized swelling, mass and lump, neck (principal)
CPT/HCPCS: 84443; 85025

== ENCOUNTER 2019-12-15 00:44 | Outpatient (CLI) | payer MEDICAID, SELFPAY ==
--- NOTE | 2019-12-15 | DI.US_ITS ---
EXAM: US SOFT TISSUE HEAD OR NECK CLINICAL HISTORY: NECK MASS,R22.1. TECHNIQUE: Ultrasound was performed using standard protocol. COMPARISON: US CAROTID ULTRASOUND from 08/18/2013 FINDINGS: Sonographic assessment utilizing grayscale and color Doppler imaging was performed and targeted to th e area of clinical concern. The left lateral neck, there is a hypoechoic ovoid circumscribed lesion measuring 2.7 x 1.3 x 1.4 cm . There is a small amount of internal blood flow. The findings could represent a necrotic or reacti ve lymph node. Malignancy cannot be excluded. There is an adjacent lymph node which maintains a fat ty hilum measuring 1.2 cm. IMPRESSION: 2.7 centimeter low-density lesion may represent an abnormally enlarged lymph node. Biopsy could be c onsidered for further evaluation. DATA REPOSITORY:
== END 2019-12-15 01:04 ==
PROVIDERS: PCP Family Medicine; Visit Provider Physician Assistant Medical
DX: R22.1 Localized swelling, mass and lump, neck (principal)
CPT/HCPCS: 76536

== ENCOUNTER 2019-12-30 00:50 | Outpatient (CLI) | payer MEDICAID, SELFPAY ==
--- NOTE | 2019-12-30 14:42 | DI.MAMMO_ITS ---
EXAM: MG MAMMO SCREENING CLINICAL HISTORY: SCREENING, Z12.31 TECHNIQUE: Bilateral full field digital CC and MLO mammographic images were obtained with 3D tomosyn thesis and utilizing computer aided detection (CAD). COMPARISON: Available for comparison. FINDINGS: Masses/Architectural Distortion: None seen. Microcalcifications: No suspicious pleomorphic-type are seen. Skin Thickening/Nipple Retraction: None. IMPRESSION: 1. No significant interval change with no specific features of malignancy noted. 2. Unless there is more urgent need, screening mammography is recommended, as per [employer] guidelines. BI-RADS Category 1 - Negative Breast Density - Category A - Almost entirely fatty A negative radiographic report should not delay biopsy if a dominant or clinically suspicious mass is present. Up to ten percent of cancers are not identified on mammography. A negative report may reinforce clinical impression. Adenosis and dense breasts may obscure an underlying neoplasm. False positive reports average 6 to 10%. Patient will receive a letter notifying them of these results.
== END 2019-12-30 01:10 ==
PROVIDERS: PCP Family Medicine; Visit Provider Family Medicine
DX: Z12.31 Encounter for screening mammogram for malignant neoplasm of breast (principal)
CPT/HCPCS: 77063; 77067

== ENCOUNTER 2020-03-12 14:21 | Outpatient (REF) | payer MEDICAID, SELFPAY ==
[2020-03-12 20:18] LABS: Anion Gap 9.6 mmol/L (3-11); BUN 11 mg/dL (7-18); CO2 25.4 mmol/L (21.0-32.0); CREATININE 0.86 mg/dL (0.55-1.02); Calcium 9.7 mg/dL (8.5-10.1); Chloride 105 mmol/L (98-107); Glucose 90 mg/dL (74-106); Potassium 4.8 mmol/L (3.5-5.1); Sodium 140 mmol/L (136-145)
[2020-03-12 20:43] LABS: Hemoglobin A1C 5.9 % (<5.7)
== END 2020-03-12 14:41 ==
LOC: NCHCN 14:21
PROVIDERS: PCP Family Medicine; Visit Provider Family Medicine
DX: N28.9 Disorder of kidney and ureter, unspecified (principal); R73.03 Prediabetes
CPT/HCPCS: 80048; 83036

== ENCOUNTER 2020-07-13 01:20 | Outpatient (CLI) | payer MEDICAID, SELFPAY ==
--- NOTE | 2020-07-13 09:15 | DI.CT_ITS ---
EXAM: CT CHEST WO CLINICAL HISTORY: F/U LUNG NODULE, R91.8 TECHNIQUE: CT examination of the chest was performed without contrast administration. COMPARISON: CT CT THORAX CTA from 02/23/2019 FINDINGS: Images obtained through the upper abdomen show unremarkable appearance of visualized portions of the liver and spleen. Note is made of a prior cholecystectomy. Visualized portions of the pancreas, ad renals, and kidneys appear normal. There is no mediastinal or hilar adenopathy. Mediastinal vascular structures appear intact by noncon trast criteria. Tracheobronchial tree appears intact. No pleural effusion or pleural-based mass. The lungs are predominantly clear. A previously described 12 millimeter in diameter well-circumscrib ed mildly lobulated pulmonary nodule of the superior segment of the right lower lobe is again seen an d is essentially unchanged in appearance comparison with prior CT of January 2019. No other focal in trapulmonary nodule identified. IMPRESSION: Stable 12 millimeter right intrapulmonary nodule. No other significant findings. If the patient is a smoker, annual screening chest CT would be recommended. RADIATION DOSE DELIVERED: LINK-TO-SR Total DLP 837.49mGy.cm Total DLP
== END 2020-07-13 01:40 ==
PROVIDERS: PCP Family Medicine; Visit Provider Nurse Practitioner Family
DX: R91.1 Solitary pulmonary nodule (principal)
CPT/HCPCS: 71250

== ENCOUNTER 2020-07-15 18:47 | Outpatient (REF) | payer MEDICAID, SELFPAY ==
[2020-07-20 13:11] LABS: Codeine Negative ng/mL (Cutoff: 25); Dihydrocodeine 25 ng/mL (Cutoff: 25); Hydrocodone Negative ng/mL (Cutoff: 25); Hydromorphone Negative ng/mL (Cutoff: 25); Morphine Negative ng/mL (Cutoff: 25); Naloxone Negative ng/mL (Cutoff: 25); Norhydrocodone 42 ng/mL (Cutoff: 25); Noroxycodone Negative ng/mL (Cutoff: 25); Noroxymorphone Negative ng/mL (Cutoff: 25); Opiates Interpretation Positive.
== END 2020-07-15 18:48 | disposition home or self-care (01) ==
LOC: NCHCN 18:47
PROVIDERS: PCP Family Medicine; Visit Provider Family Medicine
DX: Z79.899 Other long term (current) drug therapy (principal)
CPT/HCPCS: 80361; 80362

== ENCOUNTER 2020-09-16 20:51 | Outpatient (REF) | payer MEDICAID, SELFPAY ==
[2020-09-16 18:36] LABS: Bilirubin Negative (Negative); Blood Small (Negative); Clarity Clear (Clear); Glucose Negative (Negative); Ketones Negative (Negative); Leukocyte Esterase Negative (Negative); Nitrite Negative (Negative); Specific Gravity 1.015 (1.005-1.025); Urobilinogen 0.2 EU/dL (Up TO 0.2); pH 5.5 (5-8)
[2020-09-16 18:55] LABS: Bacteria Negative HPF (Negative); Crystals Negative HPF (Negative); Epithelial Cells Few HPF (Negative); Mucus Negative (Negative)
[2020-09-16 18:56] LABS: C & S Indicated? No; Casts Negative LPF (Negative)
== END 2020-09-16 20:52 | disposition home or self-care (01) ==
LOC: NCHCN 20:51
PROVIDERS: PCP Family Medicine; Visit Provider Family Medicine
DX: R31.29 Other microscopic hematuria (principal)
CPT/HCPCS: 81003; 81015

== ENCOUNTER 2020-11-09 02:08 | Outpatient (CLI) | payer MEDICAID, SELFPAY ==
--- NOTE | 2020-11-09 08:30 | DI.CT_ITS ---
Exam(s) CT ABDOMEN PELVIS WO/W EXAM: CT ABDOMEN PELVIS WO/W TECHNIQUE: Imaging Protocol: Axial computed tomography images with coronal and sagittal reformatted images were created and reviewed CONTRAST MATERIAL: Intravenous: Omnipaque 350 Contrast volume:100 cc Oral:no COMPARISON: CT CT THORAX CTA from 02/23/2019 FINDINGS: ABDOMEN: Lung Bases: Normal where visualized. Liver: Enlarged. Fatty infiltration.. No measurable mass. Gallbladder and biliary tract: Status post cholecystectomy no radiodense calculus or dilation. Pancreas: Normal density, no abnormal calcifications or inflammatory process. Spleen: Normal. Kidneys: Significant scarring lower pole left kidney. Duplex left collecting system. Parapelvic cys t lower pole left kidney.. 9 millimeter stone lower pole left kidney. Mild scarring posterior infer ior right kidney. No masses seen. Adrenal glands: No masses seen. Lymph nodes: Within normal limits. Abdominal Aorta: Abdominal portion non-dilated. Moderate atherosclerotic changes mid to lower abdomi nal aorta and common iliac arteries. Soft tissues: Small fatty containing hernia superior to the umbilicus. PELVIS: Bladder: Symmetric distention, no gross wall thickening. No focal mass or calcification. Bowel: Appendix normal. Diverticulosis prominent in the descending and sigmoid colon. No diverticul itis. No obstruction or bowel wall thickening. Peritoneal cavity: No ascites, collection or mesenteric inflammatory response. Bones: Degenerative changes greater in the lower lumbar spine. Reproductive organs: Within normal limits. IMPRESSION: 9 millimeter nonobstructing stone lower pole left kidney. Left renal scarring and duplex collecting system. Parapelvic cyst lower pole left kidney. RADIATION DOSE DELIVERED: 3,493.31mGy.cm Total DLP DATA REPOSITORY: All CT scans at this facility are submitted to the National Radiology Data Registry (NRDR) Dose Index Registry (DIR) with the [employer] (A[employer]). RADIATION OPTIMIZATION: All CT scans at this facility use at least one of these dose optimization te chniques: automated exposure control; mA and/or kV adjustment per patient size (includes targeted exa ms where dose is matched to clinical indication); or iterative reconstruction.
[2020-11-09 09:44] LABS: Estimated GFR 56.95 (mL/min/1.73m2)
[2020-11-09] MEDS: Normal Saline - Diluent 50 ML VIAL IV (10:59)
[2020-11-09] MEDS: Omnipaque 350 MG/ML 100 ML BTL IJ (10:59)
[2020-11-09] MEDS: Normal Saline Flush 10 ML SYR IVP (11:00)
== END 2020-11-09 02:28 ==
PROVIDERS: PCP Family Medicine; Visit Provider Nurse Practitioner Gerontology
DX: N20.0 Calculus of kidney (principal); N28.1 Cyst of kidney, acquired; N28.89 Other specified disorders of kidney and ureter
CPT/HCPCS: 74178; 82565; J3490

== ENCOUNTER 2020-11-19 03:04 | Outpatient (CLI) | payer MEDICAID, SELFPAY ==
[2020-11-19 11:36] LABS: Source Nasal/Nares
[2020-11-19 15:04] LABS: COVID-19 PCR Negative (Negative)
== END 2020-11-19 03:05 | disposition home or self-care (01) ==
LOC: LBO 03:04
PROVIDERS: Urology; PCP Family Medicine; Visit Provider Nurse Practitioner Gerontology
DX: Z20.822 Contact with and (suspected) exposure to COVID-19 (principal); Z01.818 Encounter for other preprocedural examination
CPT/HCPCS: 87635

== ENCOUNTER 2020-11-22 07:17 | Day surgery (SDC) | payer MEDICAID, SELFPAY ==
[2020-11-22] VITALS (8 sets, daily range): BP systolic 117–160; BP diastolic 74–99; PULSE 66–79; RESP 16–24; TEMP 36.2–36.8; O2SAT 6–96; BMI 41.7
--- NOTE | 2020-11-22 08:00 | ANES.PREOP_ITS ---
General Info Date of Service Date Performed: 11/22/20 Height: 5 ft 4.75 in Weight: 112.8 kg Body Mass Index (BMI): 41.7 Surgical Procedure: Operation Date: 11/22/20 08:40 Proposed Procedures Side Surgeon p Cystoscopy/Laser/Retrograde/Ureteroscopy, STONE MANIPULATION Left Castillo Hill MD s Transurethral Resection Bladder Tumor, POSSIBLE Castillo Hill MD Meds Allergies and Home Medications Allergies Allergy/AdvReac Type Severity Reaction Status Date / Time adhesive Allergy Verified 11/22/20 07:27 amphetamine aspartate Allergy Verified 11/22/20 07:27 [From Adderall] amphetamine sulfate Allergy Verified 11/22/20 07:27 [From Adderall] bupropion HCl Allergy Verified 11/22/20 07:27 [From Wellbutrin] dextroamphetamine saccharate Allergy Verified 11/22/20 07:27 [From Adderall] dextroamphetamine sulfate Allergy Verified 11/22/20 07:27 [From Adderall] divalproex sodium Allergy Verified 11/22/20 07:27 [From Depakote] sertraline HCl [From Zoloft] Allergy Verified 11/22/20 07:27 sumatriptan [From Imitrex] Allergy Verified 11/22/20 07:27 sumatriptan succinate Allergy Verified 11/22/20 07:27 [From Imitrex] eggs Allergy Uncoded 11/22/20 07:27 Home Medication Medication Instructions Recorded albuterol sulfate [ProAir HFA] 1 puff INHALATION Q4H PRN inhaler 06/02/16 hydrocodone-acetaminophen 1 tab-cap PO Q4H PRN tab-cap 06/02/16 lorazepam 0.5 mg PO BID PRN tab-cap 06/02/16 ergocalciferol (vitamin D2) 50,000 unit PO .2 X WEEK/winter06/25/16 [Vitamin D2] losartan 25 mg tablet 25 mg PO DAILY 08/25/19 cetirizine 10 mg capsule 10 mg PO DAILY PRN 09/22/20 fluticasone propionate 50 2 spray INTRANASAL DAILY 09/22/20 mcg/actuation nasal spray,suspension [id number] 3.3 4 drp OTIC (EAR) TID 09/22/20 mg-3 mg-10 mg-0.5 mg/mL ear drops,susp Current Visit Medications: Current Medications Generic Name Dose Route Start Last Admin Trade Name Godfrey PRN Reason Stop Dose Admin Ringer's Solution 1,000 mls @ 80 mls/hr 11/22/20 06:00 IV 12/19/20 23:59 INFUSION WALTER Cefazolin Sodium/Dextrose 1 gm in 50 mls @ 100 mls/hr 11/22/20 06:00 Ancef Duplex IVPB 11/22/20 16:00 PREOP WALTER IV Miscellaneous Supplies 1 each 11/22/20 06:00 Iv Access IV 12/19/20 23:59 DIRECTED WALTER Sodium Chloride 0 ml 11/22/20 06:00 Normal Saline Flush 10 Ml Syr IV 12/19/20 23:59 PRN PRN Sodium Chloride 0 ml 11/22/20 06:00 Normal Saline 10 Ml Vial IJ 12/19/20 23:59 DIRECTED PRN Sterile Water 0 ml 11/22/20 06:00 Water,Injection,Sterile 10 Ml Vial IJ 12/19/20 23:59 DIRECTED PRN PFSH Active Problems Active Problems: Problem Status Onset Code 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 states this is related to lower esophagus acid reflux, had it fully worked up Irritable bowel syndrome Lightheadedness Lipoma of intrathoracic organs Mild memory disturbance pt. unsure of this Parotid mass Prediabetes PTSD (post-traumatic stress disorder) Rectocele Renal insufficiency Right knee pain Situational anxiety Sleep apnea Tension headache Thoracic aortic aneurysm pt. stated they are monitoring it and it is not large enough to operate Thyroid nodule Vertigo Warthin's tumor Weight gain Tobacco Smoking/Tobacco Use Status: Current every day Tobacco Type: cigarettes Smoking cigarettes per day: 15 Alcohol Alcohol Intake: current Alcohol intake frequency: a few times a week Alcohol type: wine Substance Use Substance use: Never Substance use type: does not use Vital Signs and Lab Results Vital Signs Most Recent Vital Signs in EMR: Most Recent Vital Signs Temp Pulse Resp BP Pulse Ox 36.4 C L 70 18 117/74 94 11/22/20 07:44 11/22/20 07:44 11/22/20 07:44 11/22/20 07:44 11/22/20 07:44 Lab Results Blood Type / Crossmatch: No Data to Display Complete Blood Count: No Data to Display Complete Metabolic Panel: Creatinine 1.0 mg/dL (0.55-1.02) 11/09/20 09:20 11/09/20 Estimated GFR/1.73 m2 56.95 (mL/min/1.73m2) 11/09/20 09:20 11/09/20 Liver Function Panel: No Data to Display Coagulation Panel: No Data to Display Cardiac Panel: No Data to Display Arterial Blood Gas: No Data to Display Venous Blood Gas: No Data to Display Pancreas Panel: No Data to Display Thyroid Panel: No Data to Display Infectious Disease: Coronavirus (COVID-19)(PCR) Negative (Negative) 11/19/20 08:35 11/19/20 Coronavirus 2019 Source Nasal/Nares 11/19/20 08:35 11/19/20 Blood Cultures: No Data to Display Toxicology Panel: No Data to Display Imaging and Studies Imaging and Studies Stress Test Summary: 2019: normal study after maximal exercise. Echocardiogram Summary: 04/2020: mild concentric hypertrophy, no LVOT. LVEF 62%. no hemodynamically sig valve lesions. 4.4 cm ascending Ao dilation. CT Summary: [address]: 1.2 cm pulmonary nodule. Carotid Artery Summary:: 2013 no evidence of significant stenosis. Anesthesia Assessment and Plan Anesthesia History Personal History: No History of Anesthesia Complications Family History: No Family History of Anesthesia Complications Exercise Tolerance Exercise Tolerance: Metabolic Equivalents>4 Cardiac & Pulmonary Exam Cardiac Exam: Normal S1/S2 Heart Sounds Pulmonary Exam: Clear Bilateral Breath Sounds Airway Exam Known Difficult Airway: No Mallampati Class: 4 Mouth Opening: Narrow (< 3cm) Thyromental Distance: Less than 3 cm Neck Range of Motion: Limited ROM Neck Circumference: Thick Teeth Condition: Normal Dentition ASA Classification ASA Score: ASA 3 Emergency Case?: No NPO Status NPO Status: NPO Clears >2 hours, Solids >8 hours Anesthesia Plan Resuscitation Status: Full Code Anesthesia Technique: General Anesthesia Airway Planned: LMA Monitors Used: Standard Monitors Preoperative Comments:: 60 yo female for kidney stone. significant PMhx for GERD (well controlled, no meds noted), HTN (losartan), sleep apnea (uses CPAP), 4.4 ascedning Ao dilation (being watched at this time), and parotid tumor (scheduled for surgury at [facility] [place]).
[2020-11-22] MEDS: Lactated Ringers 1,000 ML 80 ML IV (08:03)
--- NOTE | 2020-11-22 08:13 | W.PM.HP.N ---
Date of service: 11/22/20 Time of Service: 08:14 Assessment and Plan Assessment and plan (1) Microscopic hematuria: Status: Acute (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 Assessment and plan: We will perform cystoscopy to rule out any lower urinary tract issues. As long as there is no evidence of bladder tumor, we will do a left retrograde pyelogram and attempt to pass the flexible ureteroscope up to the lower pole moiety on the left side. If we can visualize her stone, we will treated with holmium laser and likely leave a ureteral stent. History of Present Illness History of Present Illness Chief Complaint: Microscopic hematuria Narrative: This is a 60-year-old woman who was being evaluated for microscopic hematuria. She underwent a CT urogram which showed a duplicated system on the left with loss of paranchyma and a 9 mm stone in the lower pole moiety. She presents now for cystoscopy to complete her hematuria work-up. We will attempt to run a flexible ureteroscope up to the lower pole moiety in the left kidney. If we are able to visualize the stone, we can treat it with the holmium laser. Review of Systems Narrative: No fevers or chills Sinus drainage. No vision change or dysphasia No diabetes or thyroid Chronic cough, shortness of breath. No hemoptysis No chest pain or palpitations No nausea, vomiting, hepatitis, ulcers, jaundice Migraine FIGUEROA. No seizures, strokes or peripheral neuropathy No bleeding disorders or anemia No gout PFSH Medical History (Updated 11/22/20 @ 08:21 by Castillo Hill MD) Abdominal pain ADD (attention deficit disorder) Cholecystectomy planned Chronic diarrhea Depression with anxiety GERD (gastroesophageal reflux disease) Hemoptysis Hernia History of IBS Hypertension Hypoglycemia Intermittent chest pain Pt. states this is related to lower esophagus acid reflux, had it fully worked up Irritable bowel syndrome Lightheadedness Lipoma of intrathoracic organs Mild memory disturbance pt. unsure of this Parotid mass Prediabetes PTSD (post-traumatic stress disorder) Rectocele Renal insufficiency Right knee pain Situational anxiety Sleep apnea Tension headache Thoracic aortic aneurysm pt. stated they are monitoring it and it is not large enough to operate Thyroid nodule Vertigo Warthin's tumor Weight gain Social History Smoking/Tobacco Use Status: Current every day Tobacco Type: cigarettes Smoking risk assessment performed?: Yes Alcohol Intake: current Alcohol Intake frequency: a few times a week Alcohol type: wine Drug use: Never Substance use type: does not use Do you feel safe at home: Yes Do you feel safe in your relationship?: Yes Meds Allergies and Home Medications Allergies Allergy/AdvReac Type Severity Reaction Status Date / Time adhesive Allergy Verified 11/22/20 07:27 amphetamine aspartate Allergy Verified 11/22/20 07:27 [From Adderall] amphetamine sulfate Allergy Verified 11/22/20 07:27 [From Adderall] bupropion HCl Allergy Verified 11/22/20 07:27 [From Wellbutrin] dextroamphetamine saccharate Allergy Verified 11/22/20 07:27 [From Adderall] dextroamphetamine sulfate Allergy Verified 11/22/20 07:27 [From Adderall] divalproex sodium Allergy Verified 11/22/20 07:27 [From Depakote] sertraline HCl [From Zoloft] Allergy Verified 11/22/20 07:27 sumatriptan [From Imitrex] Allergy Verified 11/22/20 07:27 sumatriptan succinate Allergy Verified 11/22/20 07:27 [From Imitrex] eggs Allergy Uncoded 11/22/20 07:27 Home Medications Medication Instructions Recorded Confirmed Type albuterol sulfate [ProAir HFA] 1 puff INHALATION Q4H PRN inhaler 06/02/16 11/22/20 History hydrocodone-acetaminophen 1 tab-cap PO Q4H PRN tab-cap 06/02/16 11/22/20 History lorazepam 0.5 mg PO BID PRN tab-cap 06/02/16 11/22/20 History ergocalciferol (vitamin D2) 50,000 unit PO .2 X WEEK/winter06/25/16 11/22/20 History [Vitamin D2] losartan 25 mg tablet 25 mg PO DAILY 08/25/19 11/22/20 History cetirizine 10 mg capsule 10 mg PO DAILY PRN 09/22/20 11/22/20 History fluticasone propionate 50 2 spray INTRANASAL DAILY 09/22/20 11/22/20 History mcg/actuation nasal spray,suspension [id number]-[id number] 3.3 4 drp OTIC (EAR) TID 09/22/20 11/22/20 History mg-3 mg-10 mg-0.5 mg/mL ear drops,susp Exam Const General: cooperative Nutritional Appearance: obese Neck Neck: supple Resp Effort & Inspection: normal respiratory effort Auscultation: clear to auscultation bilaterally Cardio Rate: regular rate Rhythm: regular rhythm GI Inspection: normal to inspection Palpation: soft and no masses Neuro General: patient alert, patient awake and patient oriented x3 Results Last Vital Signs Temp 36.4 C L 11/22/20 07:44 Pulse 70 11/22/20 07:44 Resp 18 11/22/20 07:44 BP 117/74 11/22/20 07:44 Pulse Ox 94 11/22/20 07:44
[2020-11-22] MEDS: ceFAZolin 1 GM/50 ML BAG IVPB (09:04)
[2020-11-22] MEDS: Lidocaine 2% Jelly 6 ML SYR (09:27)
[2020-11-22] MEDS: Omnipaque 300 MG/ML 50 ML BTL (09:30)
--- NOTE | 2020-11-22 10:17 | DI.RAD_ITS ---
Exam(s) XR RETROGRADE IN OR EXAM: XR RETROGRADE IN OR CLINICAL HISTORY: MICROSCOPIC HEMATURIA. TECHNIQUE: 2D digital imaging was performed. COMPARISON: No exams were available for comparison FINDINGS: Proximally invited during urology procedure. See procedure note for details. Total fluoroscopy time 15 9 seconds. Clipped of dose 0.20mGY IMPRESSION: DATA REPOSITORY: RADIATION DOSE DELIVERED:
--- NOTE | 2020-11-22 10:21 | W.PM.DSUDISC ---
Discharge Plan Disposition Patient Disposition: HOME Condition: Stable Discharge Details Reason For Visit: Left kidney stones Attending Provider: Castillo Hill Primary Care Provider: Moira Arriaza V Home Meds and New Rx's Prescriptions: No Action losartan 25 mg tablet 25 mg PO DAILY RF: 0 lorazepam 0.5 MG tablet 0.5 mg PO BID PRNRF: 0 hydrocodone-acetaminophen 1 EACH tablet 1 tab-cap PO Q4H PRN RF: 0 albuterol sulfate [ProAir HFA] 8.5 GM HFA aerosol inhaler 1 puff Inhalation Q4H PRN RF: 0 fluticasone propionate [Flonase Allergy Relief] 50 mcg/actuation spray,suspension 2 spray intranasal DAILY RF: 0 Zyrtec 10 mg capsule 10 mg PO DAILY PRNRF: 0 Cortisporin-TC 3.3-3-10-0.5 mg/mL drops,suspension 4 drp otic (ear) TID RF: 0 ergocalciferol (vitamin D2) [Vitamin D2] 50,000 UNITS capsule 50,000 unit PO .2 X WEEK/WINTER RF: 0 Discharge Instructions Additional Instructions: No need to strain urine Followup in my office @ 1 week for stent removal (tell my staff there is a string on pt's stent) Followup appt with me or [facility] in 4 to 6 weeks with renal US/stone composition discussion Activity:: Activity as Tolerated Shower/Bathe:: 24 hours Diet:: As Tolerated Discharge Orders Discharge Orders: Discharge Order (Routine); Ordered 11/22/20 Ordered By: Castillo Hill DS: Diagnosis Discharge Diagnosis (1) Microscopic hematuria: Status: Acute (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
--- NOTE | 2020-11-22 10:26 | W.PM.OP ---
Date of service: 11/22/20 Time of Service: 10:29 Operative Note Operative Note DATE OF PROCEDURE: 11/22/20 PRE-OP DIAGNOSIS: Microscopic hematuria Left renal stone POST-OP DIAGNOSIS: same PROCEDURE: Cystoscopy, left retrograde pyelogram, left flexible ureteroscopy with stone manipulation, insert left ureteral stent ANESTHESIA TYPE: Local By Surgeon and General LMA/ETT Refer to Anesthesia Record ESTIMATED BLOOD LOSS: 20 PATHOLOGY: other (stones for chemical analysis) COMPLICATIONS: None Patient was transported to: PACU Patient's condition: stable Implants: 4.8 Sammarinese by 22 to 30 cm left ureteral stent Indications: This is a 60-year-old woman who was identified as having microscopic hematuria. She was evaluated with a CT urogram. She has a duplicated system on the left side and a 9 mm stone in the lower pole calyx presents for cystoscopy to evaluate her lower urinary tract. We will be prepared to do a transurethral resection of any bladder tumor that is visible. We will also be prepared to run a flexible ureteroscope up to the lower pole moiety and address her kidney stone if possible. Findings: Multiple small stones in left lower pole moiety (rather than one large lower pole stone) Procedure Description: The patient was brought to the operating room on 11/22/2020. She was given preoperative IV antibiotics. After successful induction of general anesthesia she was placed in the dorsal lithotomy position. Genitalia was prepped and draped. 2% Xylocaine jelly was instilled into the urethra to act as a local anesthetic. A 22 Sammarinese rigid cystoscope was passed through the urethra into the bladder. The urethra and bladder were inspected with a 30 degree lens. A single ureteral orifice was visualized on the right. Clear urine was seen coming from the orifice. On the left side, 2 distinct orifices were identified. Clear urine was seen coming from the more medially located orifice. No urine was seen coming from the more laterally located orifice. The bladder was then inspected using both a 30 and a 70 degree lens. No papillary or nodular lesions were seen within the bladder Or laterally located orifice was cannulated with a 6 Sammarinese access catheter. Retrograde film was obtained by injecting Omnipaque through the access catheter under fluoroscopic guidance. In this manner, we were able to outline the calyces in the lower pole moiety. A Glidewire was passed through the access catheter and the catheter was removed leaving the wire in place. A dual-lumen catheter was advanced over the wire and a second wire was positioned. The dual-lumen catheter was then removed. We chose one of the wires as a working wire the other as a safety wire. We passed a ureteral access sheath over the working wire leaving the safety wire in place. We then passed the flexible ureteroscope through the access sheath and maneuvered the scope up to the lower pole moiety. We inspected each of the calyces. No large stone was identified, but there were multiple small stones present lower pole calyx. We grasped most of the stones and extracted them he is 0 tip stone basket. The stone fragments were sent to pathology for chemical analysis. At the completion of the procedure, there were still multiple small stones present, but they are all of such a size that they should pass spontaneously. I removed the ureteral access sheath and passed a 4.8 Sammarinese variable length stent over the safety wire. The proximal end was curled in the lower pole moiety and the distal and was curled within the bladder. Positioning of the stent was confirmed both fluoroscopically and cystoscopically. The safety string was left in place and brought through the urethra. The end of the safety string was tucked into the patient's vaginal cavity. Will be made to remove the stent in 3 to 7 days.
--- NOTE | 2020-11-22 11:09 | W.ANESPOSTOP ---
Postoperative Evaluation Date, Time and Location Date Performed: 11/22/20 Time Performed: 11:09 Patient Location: Day Surgery Unit Vital Signs Most Recent Imported Vital Signs: Most Recent Vital Signs Temp Pulse Resp BP Pulse Ox 36.3 C L 78 16 140/80 95 11/22/20 11:00 11/22/20 11:00 11/22/20 11:00 11/22/20 11:00 11/22/20 11:00 Pain Score Most Recent Pain Score: Most Recent Pain Score Pain Level 3 11/22/20 11:00 Assessment Mental Status: Awake (Alert & Oriented to Patient Baseline) Airway and Respiratory Function: Patent airway with normal (patient baseline) respiratory exam Cardiovascular Function: Hemodynamically Stable Hydration Status: Adequately Hydrated Nausea & Vomiting: No Nausea or Vomiting Pain: Pain is tolerable per patient Peripheral Nerve Block: Patient did not receive a nerve block
[2020-11-22] MEDS: HYDROcodone 5/Acetaminophen 325 TAB PO (11:17)
[2020-11-22] MEDS: Phenazopyridine 200 MG TAB PO (11:44)
--- NOTE | 2020-11-22 11:52 | W.PM.DSUDISC ---
Discharge Plan Disposition Patient Disposition: HOME Condition: Stable Discharge Details Reason For Visit: Left kidney stones Attending Provider: Castillo Hill Primary Care Provider: Moira Arriaza V Home Meds and New Rx's Prescriptions: No Action losartan 25 mg tablet 25 mg PO DAILY RF: 0 lorazepam 0.5 MG tablet 0.5 mg PO BID PRNRF: 0 hydrocodone-acetaminophen 1 EACH tablet 1 tab-cap PO Q4H PRN RF: 0 albuterol sulfate [ProAir HFA] 8.5 GM HFA aerosol inhaler 1 puff Inhalation Q4H PRN RF: 0 fluticasone propionate [Flonase Allergy Relief] 50 mcg/actuation spray,suspension 2 spray intranasal DAILY RF: 0 Zyrtec 10 mg capsule 10 mg PO DAILY PRNRF: 0 Cortisporin-TC 3.3-3-10-0.5 mg/mL drops,suspension 4 drp otic (ear) TID RF: 0 ergocalciferol (vitamin D2) [Vitamin D2] 50,000 UNITS capsule 50,000 unit PO .2 X WEEK/WINTER RF: 0 Discharge Instructions Additional Instructions: No need to strain urine Followup in my office for stent removal (tell my staff there is a string on pt's stent) Followup appt with me or 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
--- NOTE | 2020-11-24 11:16 | PDOC.ANES ---
Date of service: 11/24/20 Time of Service: 11:16 Anesthesia Note Report Anesthesia Note: I called Suzan to discuss her previous anesthesia/OR experience. She states that she was uncomfortable as she was going off to sleep for a variety of factors. She was reassured about her concerns and was encouraged to reach out if she has any further concerns. She also expressed that her lip was pinched and that it has been very uncomfortable. I encouraged her to rinse her mouth out with a gentle mouthwash after eating until it heals. She has been using salt water with good results. She states that she may have a chipped tooth as well and has not yet seen her dentist. I reviewed her airway note which states that she was a difficult intubation and that unfortunately could be why her tooth may be chipped. I also encouraged her to tell her anesthesia staff for any future anesthetics that she was a difficult intubation. after all of her questions were answered, she was encouraged to reach out if she has any further questions or concerns.
[2020-11-26 00:08] LABS: Source: Left Kidney
== END 2020-11-22 12:30 | disposition home or self-care (01) ==
PROVIDERS: PCP Family Medicine; Visit Provider Urology
PROC: (CPT 52352; principal; 2020-11-22 08:30)
DX: R31.29 Other microscopic hematuria (principal); Q63.0 Accessory kidney; N20.0 Calculus of kidney; K21.9 Gastro-esophageal reflux disease without esophagitis; I10 Essential (primary) hypertension
CPT/HCPCS: 52352; 52332; 74420; 82365; J0690; J2001; J2704; Q9967

== ENCOUNTER 2020-11-29 13:48 | Outpatient (CLI) | payer MEDICAID, SELFPAY ==
--- NOTE | 2020-11-29 11:00 | DI.RAD_ITS ---
Exam(s) XR KNEE RT 4V AP,LAT,TONYA,PAT EXAM: XR KNEE RT 4V AP,LAT,TONYA,PAT CLINICAL HISTORY: pain. TECHNIQUE: 2D digital imaging was performed. COMPARISON: No exams were available for comparison FINDINGS: There is no evidence of fracture but there appears to a small joint effusion. This may signify an in ternal derangement.. There are no degenerative changes evident. No osteochondral defects. Calcifie d fabella is noted. IMPRESSION: No fracture. No degenerative narrowing but there does appear to be a small joint effusion. DATA REPOSITORY: RADIATION DOSE DELIVERED:
== END 2020-11-29 13:49 | disposition home or self-care (01) ==
LOC: DIORS 13:49
PROVIDERS: PCP Family Medicine; Referring Provider Family Medicine; Visit Provider Physician Assistant Surgical
DX: M25.561 Pain in right knee (principal)
CPT/HCPCS: 73564

== ENCOUNTER 2020-12-03 15:34 | Emergency (ER) | payer MEDICAID, SELFPAY ==
[2020-12-03] VITALS (23 sets, daily range): BP systolic 119–136; BP diastolic 72–96; PULSE 87–99; RESP 13–22; TEMP 36.6; O2SAT 90–97
--- NOTE | 2020-12-03 15:30 | RT.EKG_ITS ---
APPROVED REPORT Exam: Resting ECG Reason for Exam: Shortness of Breath Patient Location: E HR:89 bpm ECG Measurements Heart Rate 89 AXIS HI 138 P 68 QRSd 91 QRS 82 QT 357 T 63 QTc 434 Conclusion Sinus rhythm...normal P axis, V-rate 60- 99
--- NOTE | 2020-12-03 16:00 | DI.RAD_ITS ---
Exam(s) XR PORTABLE CHEST AP EXAM: XR PORTABLE CHEST AP CLINICAL HISTORY: Cough, smoker TECHNIQUE: COMPARISON: CR XR CHEST 2V PA LATERAL from 11/02/2018 FINDINGS: Portable AP view at 1625 hours. Cardiac size is within normal limits. Slight prominence of pulmonar y interstitial markings throughout, nonspecific. Question slight superimposed increased radiodensity , left lung base, with blunting of left costophrenic angle, findings may represent small areas of ate lectasis or consolidation. Left pleural effusion not excluded. IMPRESSION: Possible left basilar infiltrate. PA and lateral chest suggested for follow-up. RADIATION DOSE DELIVERED: Total DLP
--- NOTE | 2020-12-03 16:03 | W.ED.GENAD ---
Discharge Plan Disposition Patient Disposition: HOME Condition: Improving Discharge Details Clinical Impression: Pneumonia involving left lung Primary Care Provider: Moira Arriaza V ED Provider: Yoel Roa Home Meds and New Rx's Prescriptions: New cefdinir 300 mg capsule 300 mg PO Q12H 10 Days Qty: 20 RF: 0 prednisone 50 mg tablet 50 mg PO DAILY 5 Days Qty: 5 RF: 0 Continued losartan 25 mg tablet 25 mg PO DAILY RF: 0 lorazepam 0.5 MG tablet 0.5 mg PO BID PRNRF: 0 hydrocodone-acetaminophen 1 EACH tablet 2 tab-cap PO TID RF: 0 albuterol sulfate [ProAir HFA] 8.5 GM HFA aerosol inhaler 2 puff Inhalation Q4H PRN RF: 0 fluticasone propionate [Flonase Allergy Relief] 50 mcg/actuation spray,suspension 2 spray intranasal DAILY RF: 0 Zyrtec 10 mg capsule 10 mg PO DAILY PRNRF: 0 ergocalciferol (vitamin D2) [Vitamin D2] 50,000 UNITS capsule 50,000 unit PO QWEEK RF: 0 ipratropium-albuterol 0.5 mg-3 mg(2.5 mg base)/3 mL solution for nebulization 3 ml INHALATION Q6H PRNRF: 0 diclofenac sodium 1 % gel 1 applic TOPICAL BID PRNRF: 0 Discharge Instructions Additional Instructions: Continue your regular medications. Small, frequent sips of fluids that you maintain hydration. Please take prednisone and antibiotic as prescribed. Return to the emergency department for any acute concerns. Stand Alone Forms: PENDING COVID-19 TESTING Medical Decision Making 60-year-old female presents from home with 4 days of cough, congestion, shortness of breath and wheezing. No significant fever or chills. Relates her and daughter had similar symptoms. Includes reactive airway disease exacerbation, bronchitis, pneumonia, viral syndrome. Patient IV access established, given parenteral steroids, DuoNeb updraft, referred for laboratories and x-ray. Labs are reassuring with unremarkable CBC, chemistries, and normal troponin. COVID-19 test NEG Chest x-ray with opacity at left lung base likely pneumonia. See formal report. Patient improved with inhaled beta agonist. Given 1 g ceftriaxone, will place her on a burst of steroid, ongoing oral antibiotic. She understands homecare. HPI General Mode of arrival: ambulatory. Date/Time Provider Initiated Documentation: 12/03/20 15:43. Limitations to Documentation: no limitations. Information obtained by: patient. History of Present Illness 60 year old F presents to the emergency department with the chief complaint of Cough and shortness of breath 4 days, described as moderate, Quality is described as dull, and is localized to the chest. Patient reports no radiation. Patient started experiencing this day(s) and it has been intermittent. No relieving factors improve symptom(s), No exacerbating factors reported . Patient notes cough and shortness of breath; denies chest pain and fever/chills. Patient did receive the following treatments prior to arrival, none Related Data Home Medications Medication Instructions Recorded Confirmed albuterol sulfate [ProAir HFA] 2 puff INHALATION Q4H PRN inhaler 06/02/16 12/03/20 hydrocodone-acetaminophen 2 tab-cap PO TID tab-cap 06/02/16 12/03/20 lorazepam 0.5 mg PO BID PRN tab-cap 06/02/16 12/03/20 ergocalciferol (vitamin D2) 50,000 unit PO QWEEK 06/25/16 12/03/20 [Vitamin D2] losartan 25 mg tablet 25 mg PO DAILY 08/25/19 12/03/20 cetirizine 10 mg capsule 10 mg PO DAILY PRN 09/22/20 12/03/20 fluticasone propionate 50 2 spray INTRANASAL DAILY 09/22/20 12/03/20 mcg/actuation nasal spray,suspension cefdinir 300 mg PO Q12H 10 Days #20 cap 12/03/20 diclofenac sodium 1 applic TOPICAL BID PRN 12/03/20 12/03/20 ipratropium-albuterol 3 ml INHALATION Q6H PRN 12/03/20 12/03/20 prednisone 50 mg PO DAILY 5 Days #5 tab 12/03/20 Previous Rx's Medication Instructions Recorded cefdinir 300 mg PO Q12H 10 Days #20 cap 12/03/20 prednisone 50 mg PO DAILY 5 Days #5 tab 12/03/20 Allergies Allergy/AdvReac Type Severity Reaction Status Date / Time adhesive Allergy Verified 12/03/20 15:43 amphetamine aspartate Allergy Verified 12/03/20 15:43 [From Adderall] amphetamine sulfate Allergy Verified 12/03/20 15:43 [From Adderall] bupropion HCl Allergy Verified 12/03/20 15:43 [From Wellbutrin] dextroamphetamine saccharate Allergy Verified 12/03/20 15:43 [From Adderall] dextroamphetamine sulfate Allergy Verified 12/03/20 15:43 [From Adderall] divalproex sodium Allergy Verified 12/03/20 15:43 [From Depakote] sertraline HCl [From Zoloft] Allergy Verified 12/03/20 15:43 sumatriptan [From Imitrex] Allergy Verified 12/03/20 15:43 sumatriptan succinate Allergy Verified 12/03/20 15:43 [From Imitrex] varenicline [From Chantix] Allergy Unverified 12/03/20 15:43 eggs Allergy Uncoded 12/03/20 15:43 General Stated Complaint: SOB CLINT: 3 Review of Systems Narrative: Sick contacts with family members. No travel or known sick contacts beyond that. Denies GI symptoms. Smoker. 8 systems reviewed and otherwise negative. [facility] Medical History Abdominal pain ADD (attention deficit disorder) Cholecystectomy planned Chronic diarrhea Depression with anxiety GERD (gastroesophageal reflux disease) Hemoptysis Hernia History of IBS Hypertension Hypoglycemia Intermittent chest pain Pt. states this is related to lower esophagus acid reflux, had it fully worked up Irritable bowel syndrome Lightheadedness Lipoma of intrathoracic organs Mild memory disturbance pt. unsure of this Parotid mass Prediabetes PTSD (post-traumatic stress disorder) Rectocele Renal insufficiency Right knee pain Situational anxiety Sleep apnea Tension headache Thoracic aortic aneurysm pt. stated they are monitoring it and it is not large enough to operate Thyroid nodule Vertigo Warthin's tumor Weight gain Social History Smoking/Tobacco Use Status: Current every day Tobacco Type: cigarettes Smoking risk assessment performed?: Yes Alcohol Intake: current Alcohol Intake frequency: a few times a week Alcohol type: wine Drug use: Never Substance use type: does not use Do you feel safe at home: Yes Do you feel safe in your relationship?: Yes Exam Narrative Exam Narrative: GEN: awake, alert, oriented 3. Pleasant, well groomed, interactive. HEAD: Normocephalic, atraumatic ENT: Mucous membranes moist, oropharynx unremarkable, External ear exam unremarkable EYES: PERRL, EOMI NECK: Full ROM, no JASMIN, no menigismus CHEST/RESP: Nontender, bilateral wheezes, expiratory CARDIOVASCULAR: RRR, no murmur, rub na. 2+ Rad pulse bilateral ABDOMEN: Soft, nontender, no mass. +Bowel sounds EXT: Full ROM, no edema, no rash Neuro: Grossly normal neurologic exam, conversant, interactive. Psych: Speech fluent, thoughts congruent, affect normal Course Vital Signs Vital signs: Vital Signs Temperature 36.6 C 12/03/20 15:44 Pulse 91 H 12/03/20 15:44 Respiratory Rate 22 12/03/20 15:44 Blood Pressure 135/82 12/03/20 15:44 Pulse Oximetry 93 12/03/20 15:44 Temperature 36.6 C 12/03/20 15:44 Temperature Source Skin 12/03/20 15:44 Pulse 90 12/03/20 15:49 Pulse 98 H 12/03/20 15:50 Respiratory Rate 21 12/03/20 15:50 Respiratory Effort 12/03/20 15:46 Blood Pressure 135/82 12/03/20 15:49 Blood Pressure Mean 96 12/03/20 15:49 Blood Pressure Position Sitting 12/03/20 15:44 Pulse Oximetry 94 12/03/20 15:50 Oxygen Delivery Method Room Air 12/03/20 15:44 Oxygen Flow Rate 0 12/03/20 15:44 Pain Level 0 12/03/20 15:44
[2020-12-03 16:10] LABS: Abs Immature Grans 0.03 10^3/uL (0.0-0.06); Absolute Basophil Count 0.07 10^3/uL (0.0-0.2); Absolute Eosinophil Count 0.27 10^3/uL (0.0-0.7); Absolute Lymphocyte Count 2.79 10^3/uL (1.2-3.4); Absolute Monocyte Count 0.68 10^3/uL (0.1-0.8); Absolute Neutrophil Count 5.48 10^3/uL (1.2-6.7); Basophils % 0.8; Eosinophils % 2.9; HCT 44.6 % (36.0-46.0); Immature Grans % 0.3; Lymphocytes % 29.9; MCHC 33.6 % (32.0-36.0); MCV 98.2 fL (80-95); MPV 9.5 fL (8.0-11.0); Monocytes % 7.3; Neutrophils % 58.8; Nucleated RBC 0 %; Platelet Count 178 10^3/uL (130-400); RBC 4.54 10^6/uL (3.93-5.22); RDW 11.8 % (11.7-14.6); RDW-SD 42.8 fL; WBC 9.32 10^3/uL (4.4-10.8)
[2020-12-03 16:25] LABS: Source Nasal/Nares
[2020-12-03 16:26] LABS: ALT 39 U/L (14-59); AST 19 U/L (15-37); Albumin 3.7 g/dL (3.4-5.0); Alkaline Phosphatase 63 U/L (46-116); Anion Gap 9.9 mmol/L (3-11); BUN 8 mg/dL (7-18); Bilirubin, Total 0.2 mg/dL (0.2-1.0); CO2 25.1 mmol/L (21.0-32.0); CREATININE 0.8 mg/dL (0.55-1.02); Calcium 9.8 mg/dL (8.5-10.1); Chloride 105 mmol/L (98-107); Glucose 99 mg/dL (74-106); Potassium 4.1 mmol/L (3.5-5.1); Sodium 140 mmol/L (136-145); Total Protein 7.9 g/dL (6.4-8.2)
[2020-12-03 16:27] LABS: Troponin I < 0.05 ng/mL (<0.06)
[2020-12-03] MEDS: Normal Saline Flush 10 ML SYR IVP (16:36)
[2020-12-03] MEDS: methylPREDNISolone SUCC 125 MG VIAL IVP (16:36)
[2020-12-03] MEDS: Albuterol/Ipratropium 3 ML UPD VIAL UPD (16:36)
--- NOTE | 2020-12-03 16:53 | DI.VRAD_ITS ---
PROCEDURE INFORMATION: Exam: XR Chest Exam date and time: 12/03/2020 4:03 PM Age: 60 years old Clinical indication: Patient HX: Cough, smoker TECHNIQUE: Imaging protocol: XR of the chest. Views: 1 view. COMPARISON: CT CHEST WO 07/13/2020 9:15 AM FINDINGS: Lungs: Ill-defined opacity seen at the left lung base. Lungs otherwise clear. Pleural spaces: No pneumothorax. Blunting of the left costophrenic angle. Heart/Mediastinum: Cardiomediastinal silhouette within normal limits. Bones/joints: No acute displaced fracture. IMPRESSION: 1. Ill-defined opacity left lung base would be concerning for pneumonia in the appropriate clinical setting. Differentials include atelectasis and/or scarring. 2. Blunting of the left costophrenic angle may be related to small effusion, atelectasis, or scarring. Dictated and Authenticated by: Glen Banegas MD. Ordering:GINNY Diallo MD
[2020-12-03 17:20] LABS: COVID-19 PCR Negative (Negative)
[2020-12-03] MEDS: cefTRIAXone 1 GM/50 ML BAG IVPB (17:20)
== END 2020-12-03 18:05 | disposition home or self-care (01) ==
PROVIDERS: Emergency Provider Emergency Medicine; PCP Family Medicine
DX: J18.9 Pneumonia, unspecified organism (principal); F17.210 Nicotine dependence, cigarettes, uncomplicated; Z20.822 Contact with and (suspected) exposure to COVID-19
CPT/HCPCS: 36415; 80053; 87635; 93005; 94640; 96365; 96375; 99284; 71045; 83735; 84484; 85025; 93010; J0696; J2930; J7620

== ENCOUNTER 2020-12-15 01:06 | Outpatient (CLI) | payer MEDICAID, SELFPAY ==
--- NOTE | 2020-12-15 08:00 | DI.MRI_ITS ---
Exam(s) MR LOWER JOINT RT WO EXAM: MR LOWER JOINT RT WO CLINICAL HISTORY: KNEE PAIN, INTERNAL DERANGEMENT,M23.91 TECHNIQUE: Multiplanar multisequence MRI of the knee was performed. COMPARISON: CR XR KNEE RT 4V AP,LAT,TONYA,PAT from 11/29/2020 CR XR KNEE RT 4V AP,LAT,TONYA,PAT from 11/29/2020 FINDINGS: EFFUSION: There is a moderate-sized joint effusion. There is no Menchaca cyst in the popliteal fossa. MARROW:There is no evidence of fracture, bone contusion, nor osteochondral defects.. . There is a d egenerative subarticular cyst in the posterior tibial plateau adjacent to the PCL insertion site, thi s measuring 6 x 5 millimeters. There is also an area of signal abnormality in lateral aspect of the proximal tibial epiphysis-metaphysis junction adjacent to the tibial fibular joint measures approxima tely 1.3 by 1.2 cm., nonexpansile and having the appearance of a conglomeration of cysts small cysts. No prominent surrounding bone edema. No signal abnormality in the adjacent fibular head and neck. No abnormal intraosseous signal in the femoral condyles. PATELLOFEMORAL COMPARTMENT: The quadriceps tendon is intact. The patellar ligament is intact. There is moderate thinning of the retropatellar cartilage, more prominent over the lateral facet wher e there also small degenerative subarticular foci of intraosseous signal abnormality. Milder narrowi ng of the retropatellar cartilage is seen over the medial facet. There is some increased signal abno rmality evident within the suprapatellar quadriceps fat pad, without significant signal abnormality i n the quadriceps tendon itself.No intraosseous signal to suggest recent patellar dislocation. There are no patellar retinacular tears. CRUCIATE LIGAMENTS: The anterior cruciate ligament is intact.The posterior cruciate ligament is intac t. MEDIAL COMPARTMENT/MEDIAL MENISCUS: There is myxoid degeneration signal in the posterior horn of the medial meniscus. On 1 coronal and oblique coronal image the signal violates inferior articular surfa ce and therefore may represent a tear. There is no bucket-handle configuration. The root is intact. The anterior horn is intact.No significant meniscocapsular separation.. There is thinning and fissuring of the Maury cartilage over the main weight-bearing surface of the medial femoral condyle. There is no distinct osteochondral defect at this level nor subarticular juan pablo ne edema.. It is tiny marginal osteophyte is seen off the inner aspect of the medial femoral condyle . MEDIAL COLLATERAL LIGAMENT: There is thin fluid signal between the deep and superficial bands of the MCL within the bursa at this level. No high-grade tear of the MCL. LATERAL COMPARTMENT/LATERAL MENISCUS: There is no evidence of lateral meniscal tear.Minimal if any si gnificant high lined cartilage findings over the lateral femoral condyle. No osteochondral defects. No marginal osteophytes. ILIOTIBIAL BAND: Intact LATERAL COLLATERAL LIGAMENT COMPLEX: The fibular collateral ligament is intact. The biceps femoris t endon is intact.Popliteus muscle and tendon are intact. IMPRESSION: 1. There is myxoid degeneration signal in the posterior horn of the medial meniscus and subtle tearin g of this structure which violates inferior articular surface on 1 image. There is no bucket-handle configuration. No meniscal extrusion. No meniscocapsular separation. No degenerative meniscal cyst . There is a 6 x 5 millimeter degenerative subarticular cyst in the posterior tibial plateau, this s ubjacent to the root insertion posterior horn medial meniscus and just medial to the PCL insertion si te. There is also focal cartilage fissuring and narrowing over the main weight-bearing surface of th e medial femoral condyle but no associated subarticular bone edema nor osteochondral defect. 2. There are no tears of the lateral meniscus. There are minimal if any significant degenerative josefina nges in the hyaline cartilage over the lateral femoral condyle. 3. Anterior and posterior cruciate ligaments are intact. Iliotibial band also is intact as are the c omponents of the lateral collateral ligament complex. There is a sliver of fluid within the bursa be tween the superficial and deep bands of the MCL, but no high-grade MCL tear. 4. There is a moderate-sized joint effusion. No loose intra-articular body. No Menchaca cyst. 5. There is an area of intraosseous signal abnormality in the lateral aspect of the tibia adjacent t o the tibial fibular joint which approximately 12 x 13 millimeters and does not exhibit a sclerotic b order there also without prominent surrounding edema. This may be related to degenerative changes in the tibial fibular joint as the main component appears to be a 5 x 4 millimeter degenerative subarti cular cyst at this level. There is no abnormal signal in the adjacent fibular head. DATA REPOSITORY:
== END 2020-12-15 01:26 ==
PROVIDERS: PCP Family Medicine; Visit Provider Student in an Organized Health Care Education/Training Program
DX: M23.91 Unspecified internal derangement of right knee (principal); M25.461 Effusion, right knee; M85.68 Other cyst of bone, other site
CPT/HCPCS: 73721

== ENCOUNTER 2021-01-04 02:37 | Outpatient (CLI) | payer MEDICAID, SELFPAY ==
--- NOTE | 2021-01-04 08:00 | DI.US_ITS ---
Exam(s) US RENAL EXAM: US RENAL CLINICAL HISTORY: r/o hydronephrosis after ureteroscopy,KIDNEY STONES,DUPLICATION OF RENAL. TECHNIQUE: Vann scale, color and spectral Doppler were used. COMPARISON: CT CT ABDOMEN PELVIS WO/W from 11/09/[address] ABDOMEN PELVIS WO/W from 11/09/2020 FINDINGS: Renal size in cm: Right: 10.6 Left: 12.5 scarring lower pole left kidney. ParaPelvic cyst lower pole. Echogenicity: Normal Hydronephrosis: No Nephrolithiasis: 4 millimeter stone lower pole left kidney Bladder:Normal Prevoid vol: 128 cc Postvoid vol:12 cc Ureteral jets were not visualized. IMPRESSION: Stable parapelvic cyst lower pole left kidney. Nonobstructing stone lower pole left kidney. No hydr onephrosis DATA REPOSITORY:
== END 2021-01-04 02:57 ==
PROVIDERS: PCP Family Medicine; Visit Provider Urology
DX: N20.0 Calculus of kidney (principal); Q63.0 Accessory kidney; N28.1 Cyst of kidney, acquired
CPT/HCPCS: 76770

== ENCOUNTER 2021-03-15 12:15 | Outpatient (REF) | payer MEDICAID, SELFPAY ==
[2021-03-15 14:29] LABS: Anion Gap 10.2 mmol/L (3-11); BUN 11 mg/dL (7-18); CO2 24.8 mmol/L (21.0-32.0); CREATININE 0.8 mg/dL (0.55-1.02); Calcium 9.8 mg/dL (8.5-10.1); Chloride 106 mmol/L (98-107); Glucose 112 mg/dL (74-106); Potassium 4.4 mmol/L (3.5-5.1); Sodium 141 mmol/L (136-145)
[2021-03-15 14:34] LABS: Hemoglobin A1C 6.1 % (<5.7)
== END 2021-03-15 12:16 | disposition home or self-care (01) ==
LOC: NCHCN 12:15
PROVIDERS: PCP Family Medicine; Visit Provider Nurse Practitioner Family
DX: R73.03 Prediabetes (principal); N28.9 Disorder of kidney and ureter, unspecified
CPT/HCPCS: 80048; 83036

== ENCOUNTER 2021-06-15 16:30 | Emergency (ER) | payer MEDICAID, SELFPAY ==
[2021-06-15 16:37] VITALS: BP 150/87; PULSE 108; RESP 18; TEMP 36.3; O2SAT 97
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
[2021-06-15 17:22] VITALS: BP 113/81; PULSE 100; RESP 16; TEMP 36.8; O2SAT 96
== END 2021-06-15 17:27 | disposition home or self-care (01) ==
PROVIDERS: Emergency Provider Physician Assistant; PCP Family Medicine
DX: R51.9 Headache, unspecified (principal); V43.62XA Car passenger injured in collision with other type car in traffic accident, initial encounter
CPT/HCPCS: 99282

== ENCOUNTER 2021-06-15 16:38 | Outpatient (REF) | payer MEDICAID, SELFPAY | END 2021-06-15 16:39 | disposition home or self-care (01) | LOC: LBN 16:38 | PROVIDERS: PCP Family Medicine; Visit Provider Nurse Practitioner Gerontology | DX: N20.0 Calculus of kidney (principal); R31.29 Other microscopic hematuria | CPT/HCPCS: 87086 ==

== ENCOUNTER 2021-08-09 17:23 | Outpatient (REF) | payer MEDICAID, SELFPAY ==
[2021-08-11 11:26] LABS: COVID-19 RT-PCR UVMMC Result Negative (Negative)
== END 2021-08-09 17:24 | disposition home or self-care (01) ==
LOC: NCHCN 17:23
PROVIDERS: PCP Family Medicine; Visit Provider Family Medicine
DX: Z20.822 Contact with and (suspected) exposure to COVID-19 (principal); J06.9 Acute upper respiratory infection, unspecified
CPT/HCPCS: U0003

== ENCOUNTER → 2022-01-06 00:05 | Outpatient (CLI) | payer MEDICAID, SELFPAY ==
--- NOTE | 2022-01-06 07:30 | DI.US_ITS ---
Exam(s) US RENAL EXAM: US RENAL CLINICAL HISTORY: monitoring kidney stones,n20.0. TECHNIQUE: Vann scale, color and spectral Doppler were used. COMPARISON: US US RENAL from 01/04/2021 FINDINGS: Renal size in cm: Right: 11.5. Left: 11.3. Echogenicity: Normal. Hydronephrosis: No. Cyst or mass: No. Nephrolithiasis: No stones are seen on the current examination. The previously noted left renal ston e is not visualized. Other findings: None. Bladder:Normal. Ureteral jets: Right: Visualized and unremarkable. Left: Visualized and unremarkable. Prevoid vol:543 cc Postvoid vol:8 cc Renal color flow: Symmetric and within normal limits. IMPRESSION: No evidence of nephrolithiasis or hydronephrosis. DATA REPOSITORY:
== END ==
PROVIDERS: PCP Family Medicine; Visit Provider Nurse Practitioner Gerontology
DX: N20.0 Calculus of kidney (principal)
CPT/HCPCS: 76770

== ENCOUNTER 2022-12-05 19:01 | Outpatient (REF) | payer MEDICAID, SELFPAY ==
[2022-12-10 03:19] LABS: Codeine Negative ng/mL (Cutoff: 25); Dihydrocodeine Negative ng/mL (Cutoff: 25); Hydrocodone 256 ng/mL (Cutoff: 25); Hydromorphone 46 ng/mL (Cutoff: 25); Morphine Negative ng/mL (Cutoff: 25); Naloxone Negative ng/mL (Cutoff: 25); Norhydrocodone 212 ng/mL (Cutoff: 25); Noroxycodone Negative ng/mL (Cutoff: 25); Noroxymorphone Negative ng/mL (Cutoff: 25); Opiates Interpretation Positive.
== END 2022-12-05 19:02 | disposition home or self-care (01) ==
LOC: NCHCN 19:01
PROVIDERS: PCP Family Medicine; Visit Provider Family Medicine
DX: Z51.81 Encounter for therapeutic drug level monitoring (principal)
CPT/HCPCS: 80361; 80362; 80365

== ENCOUNTER → 2023-01-03 02:37 | Outpatient (CLI) | payer MEDICAID, SELFPAY ==
--- NOTE | 2023-01-03 07:30 | DI.US_ITS ---
Exam(s) US RENAL EXAM: US RENAL CLINICAL HISTORY: monitoring renal calculi,kidney stones,n20.0,r31.28. TECHNIQUE: Vann scale, color and spectral Doppler were used. COMPARISON: CT CT ABDOMEN PELVIS WO/W from 11/09/2020 CR,XR XR PORTABLE CHEST AP from 12/03/2020 US US RENAL from 01/06/2022 FINDINGS: Renal size in cm: Right: 11.7. Left: 12.7. Echogenicity: Normal. Hydronephrosis: No. Cyst or mass: No. Nephrolithiasis: There is a question of an echogenic focus in the inferior pole of the left kidney. This may represent a nonobstructing stone. Other findings: None. Bladder:Normal. Ureteral jets: Right: Visualized and unremarkable. Left: Visualized and unremarkable. Prevoid vol:450 cc Postvoid vol:0 cc Renal color flow: Symmetric and within normal limits. IMPRESSION: Question of a nonobstructing stone in the inferior pole of the left kidney. A renal colic CT should be obtained for better characterization of this finding and to confirm the presence of a stone. DATA REPOSITORY:
== END ==
PROVIDERS: PCP Family Medicine; Visit Provider Nurse Practitioner Gerontology
DX: N20.0 Calculus of kidney (principal); R31.29 Other microscopic hematuria
CPT/HCPCS: 76770

== ENCOUNTER 2023-01-10 11:13 | Outpatient (REF) | payer MEDICAID, SELFPAY ==
[2023-01-10 11:33] LABS: Bilirubin Negative (Negative); Blood Trace-lysed (Negative); Clarity Clear (Clear); Glucose Negative (Negative); Ketones Negative (Negative); Leukocyte Esterase Negative (Negative); Nitrite Negative (Negative); Urobilinogen 0.2 mg/dL (Up to 0.2)
[2023-01-10 11:44] LABS: Bacteria Negative HPF (Negative); Crystals Negative HPF (Negative); Epithelial Cells Rare HPF (Negative); Mucus Negative (Negative); RBC 0-2 HPF (0-2); WBC Negative HPF (0-5)
[2023-01-10 11:45] LABS: C & S Indicated? No; Casts Negative LPF (Negative)
== END 2023-01-10 11:14 | disposition home or self-care (01) ==
LOC: LBN 11:13
PROVIDERS: PCP Family Medicine; Visit Provider Nurse Practitioner Gerontology
DX: R31.29 Other microscopic hematuria (principal)
CPT/HCPCS: 81003; 81015

== ENCOUNTER → 2023-02-01 02:40 | Outpatient (CLI) | payer MEDICAID, SELFPAY ==
--- NOTE | 2023-02-01 | DI.US_ITS ---
APPROVED REPORT EXAM: Stress Echocardiogram Ordering Provider: GREG CAT, Contact Number: Stress Test Details Rest Stress HR Resting HR Supine: 86 bpm Max Heart Rate (APMHR): 160 bpm Target HR (85% APMHR): 136 bpm Max HR Achieved: 160 bpm % of APMHR: 100 HR response to stress: Normal HR response to stress BP Resting BP Supine: 120/82 mmHg Max BP: 146/82 mmHg Recovery BP: 102/62 mmHg BP response to stress: Normal blood pressure response to stress. ECG Resting ECG: Sinus Rhythm Stress ECG: Sinus Tachycardia Recovery ECG: Sinus Rhythm Clinical Reason for Termination: Target HR Achieved Highest Stage Reached: Stage 3: 3.4 mph at 14% grade. Exercise capacity: 10 METs Rate Pressure Product: 35219 Stress ECG Conclusion 1. Resting electrocardiogram was within normal limits 2. Patient exercised on the Charles protocol and completed a workload of 10 METS 3. Normal heart rate and blood pressure response to exercise. The patient achieved 100% of predicted heart rate for age 4. There was no electrocardiographic evidence of myocardial ischemia 5. There were no significant dysrhythmias 6. There was no echocardiographic evidence of myocardial ischemia. Echo Findings The Pre-Stress Echocardiogram showed normal left ventricular contractility with an estimated Ejection Fraction of about 55-60%. The Peak-Stress Echocardiogram showed normal left ventricular contractility with an estimated Ejectio n Fraction of about 65-70%. Conclusion Resting electrocardiogram was within normal limits Patient exercised on the Charles protocol and completed a workload of 10 METS Normal heart rate and blood pressure response to exercise. The patient achieved 100% of predicted he art rate for age There was no electrocardiographic evidence of myocardial ischemia There were no significant dysrhythmias There was no echocardiographic evidence of myocardial ischemia.
== END ==
PROVIDERS: PCP Family Medicine; Visit Provider Family Medicine
DX: R07.89 Other chest pain (principal)
CPT/HCPCS: 93306; 93350; 93017

== ENCOUNTER 2023-02-01 11:28 | Outpatient (CLI) | payer MEDICAID, SELFPAY ==
[2023-02-01 09:59] LABS: HCT 48.2 % (36.0-46.0); HGB 16.4 g/dL (11.2-15.7)
[2023-02-01 10:23] LABS: Hemoglobin A1C 5.7 % (<5.7)
[2023-02-01 10:40] LABS: Vitamin D 25 Total 38.6 ng/mL (30-100)
[2023-02-01 10:43] LABS: Anion Gap 10.9 mmol/L (3-11); BUN 13 mg/dL (7-18); CO2 24.1 mmol/L (21.0-32.0); CREATININE 0.8 mg/dL (0.55-1.02); Calcium 10.3 mg/dL (8.5-10.1); Calculated LDL 98 mg/dL (<100); Chloride 103 mmol/L (98-107); Cholesterol 164 mg/dL (<200); Glucose 119 mg/dL (74-106); HDL Cholesterol 46 mg/dL (40-60); Potassium 4.1 mmol/L (3.5-5.1); Sodium 138 mmol/L (136-145); TSH (W/Ref FT4) 1.61 uIU/mL (0.36-3.74); Triglyceride 102 mg/dL (<150); Vitamin B12 860 pg/mL (193-986)
[2023-02-06 08:30] LABS: Ascorbic Acid (Vit C), Plasma 0.9 mg/dL (0.4 - 2.0)
[2023-02-11 04:09] LABS: Leptin 17 ng/mL
== END 2023-02-01 11:29 | disposition home or self-care (01) ==
PROVIDERS: PCP Family Medicine; Visit Provider Family Medicine
DX: I10 Essential (primary) hypertension (principal); R73.03 Prediabetes; R68.84 Jaw pain; D11.7 Benign neoplasm of other major salivary glands; K52.89 Other specified noninfective gastroenteritis and colitis; N28.89 Other specified disorders of kidney and ureter; E04.1 Nontoxic single thyroid nodule; K58.9 Irritable bowel syndrome, unspecified
CPT/HCPCS: 36415; 80048; 80061; 82306; 82533; 83520; 82180; 82607; 83036; 84443; 85014; 85018

== ENCOUNTER 2023-12-06 22:06 | Outpatient (REF) | payer MEDICAID, SELFPAY ==
--- NOTE | 2023-12-06 12:05 | PAPFT_PTH ---
PATIENT: Suzan Chaudhary LOC: [facility]#:[id number] AGE/SX: 63/F ROOM: RE12/06/[address]: Moira Arriaza V : 1960 BED: DIS: 12/06/2023 SPEC #: [id number] RECD: 12/07/23 12:38 STATUS: [place] REPamela #: [id number] MARTIN: 12/06/23 12:[address]: Moira Arriaza V DEPT: [facility] Cytology RECD BY: Kassandra Velasquez Tissues: 1 - CX/ENDOCX FOR PAP SMEARS Procedures: PAP THIN PREP/UVM Screening HPV DNA PROBE Comments: [id number] (HPV 16 & 18/45)
[2023-12-06 16:37] LABS: ALT 23 U/L (14-59); AST 19 U/L (15-37); Albumin 3.7 g/dL (3.4-5.0); Alkaline Phosphatase 60 U/L (46-116); Anion Gap 9.7 mmol/L (3-11); BUN 11 mg/dL (7-18); Bilirubin, Total 0.32 mg/dL (0.2-1.0); CO2 25.3 mmol/L (21.0-32.0); CREATININE 0.8 mg/dL (0.55-1.02); Calculated LDL 94 mg/dL (<100); Chloride 106 mmol/L (98-107); Cholesterol 170 mg/dL (<200); Estimated GFR 83.78 (mL/min/1.73m2); Glucose 99 mg/dL (74-106); HDL Cholesterol 37 mg/dL (40-60); Potassium 4.3 mmol/L (3.5-5.1); Sodium 141 mmol/L (136-145); TSH (W/Ref FT4) 2.35 uIU/mL (0.36-3.74); Total Protein 7.7 g/dL (6.4-8.2); Triglyceride 198 mg/dL (<150); Vitamin D 25 Total 38.3 ng/mL (30-100)
[2023-12-06 17:00] LABS: Hemoglobin A1C 5.9 % (<5.7)
--- OUTSIDE RECORDS SUMMARY | 2023-12-06 22:14 | XMS_ITS | Encounter Summary ---
Author Organization [facility] [place] [address] Care Team Providers Care Wood Cutter Name Role Phone Moira Arriaza MD Primary Care Provider [phone] Reason for Referral * Diagnostic Test (Routine) - Closed Specialty Diagnoses / Procedures Referred By Contac t Referred To Contact Cardiology Diagnoses Thoracic aortic aneurysm without rupture Procedures Echocardiogram Transthoracic([facility]) Kirill Gill PA [facility] [place] [address] [facility] [place] [address] Referral ID Status Reason Start Date Expiration Date V isits Requested Visits Authorized [id number] Closed Specialty Service Requested 03/22/2020 03/22/2021 1 1 Encounter Details Date Type Department Care Team (Late st Contact Info) Description 03/22/2020 Orders [place] [address] Kirill Gill PA [facility] [place] [address] Thoracic aortic aneurysm without rupture Social History Tobacco Use Types Packs/Day Years Used Date Smoking Tobacco: Every Day Cigarettes Smokeless Tobacco: Never Comments:quit previously. st arted back august 16 2016 Alcohol Use Standard Drinks/Week Comments Yes 1 (1 standard drink = 0.6 oz pur e alcohol) Sex and Gender Information Value Date Recorded Sex Assigned at Not on file Gender Identity Female 05/18/2021 8:52 PM EST Sexual Orientation Not on file documented as of this encounter Plan of Treatment Not on file documented as of this encounter Results * ECHO COMPLETE (05/21/2020 10:37 AM EST) EF 62 HEARTLAB SYSTEM Anatomical Region Laterality Modality Other 05/21/2020 Narrative 05/21/2020 11:07 AM EST Procedure: ?Transthoracic Echocardiogram Patient: ?PANDA Marroquin ?(Age): 1960(60y) Med Rec#: ? [id number] ?Sex: ?F ? Site Loc: ? [place] ?Ht / Wt: ??165(cm)/106(kg) Pt. Loc: ?Echo Lab ?BSA: ?2.11 Study Date: ?? 05/21/2020 ?Pt. Type: Outpatient Tape: ? Referring: Ebenezer Nguyen Referring: MIGUE Reading: Dung Frazier ([id number]) Public Policy Coordinator: Pierre Connor RDCS Interpreting Fellow: Leslie Davis ([id number]) Interpreting Fellow: Rupal Medrano ([id number]) Diagnosis: *Thoracic aortic aneurysm, without rupture (I71.2) BP: ? 145/97 SUMMARY: 1. The left ventricular chamber size is normal. There is mild concentric left ventricular hypertrophy is observed with no evidence of LVOT obstruction. There is normal global left ventricular systolic function with estimated ejection fraction of 62% by Pulido's biplane method. There are no left ventricular segmental wall motion abnormalities. 2. The right ventricular chamber size, wall thickness, and systolic function are within normal limits. The estimated pulmonary artery systolic pressure is 27 mmHg. 3. The atria are normal in size. 4. There is no hemodynamically significant valvular disease. 5. There is moderate dilatation of the ascending aorta (4.4 cm). 6. There is no prior study available for comparison. Findings ? : Study Quality: ? Adequate Left Ventricle: ? The left ventricular chamber size is normal. ?Mild concentric left ventricular hypertrophy is observed. ?There is no evidence of LVOT obstruction. ?No ventricular septal defect is visualized. ?There is normal global left ventricular systolic function. ?The quantitative left ventricular ejection fraction by biplane Pulido's method is 62%. ?There are no left ventricular segmental wall motion abnormalities. ?The left ventricular diastolic filling pattern is consistent with impaired LV relaxation. ?Doppler assessment is consistent with normal left sided filling pressure. Left Atrium: ? The left atrium is normal in size. ?The inter-atrial septum appears lipomatous. Right Ventricle: ? Right ventricular chamber size, wall thickness, and systolic function are within normal limits. ?The estimated pulmonary artery systolic pressure is 27 mmHg. ?The estimated right atrial pressure is 8 mmHg. Right Atrium: ? The right atrium appears normal. Aortic Valve: ? The aortic valve is tricuspid. ?The aortic valve leaflets are mildly thickened. ?Systolic excursion of the aortic valve is normal. ?There is no evidence of aortic valve stenosis. ?There is no evidence of aortic regurgitation. Mitral Valve: ? The mitral valve appears normal in structure and function. ?There is trace mitral regurgitation present. Tricuspid Valve: ? The tricuspid valve appears normal in structure and function. ?There is trace tricuspid regurgitation present. Pulmonic Valve: ? The pulmonic valve appears normal in structure and function. ?There is trace pulmonic regurgitation present. Pericardium: ? The pericardium appears normal and there is no evidence of a pericardial effusion. ?A pericardial fat pad is visualized. Aorta: ? The aortic root is normal in size. ?There is moderate dilatation of the ascending aorta. 4.4cm ?The aortic arch is normal in size. ?The abdominal aorta is normal in size. ?There is no evidence of coarctation of the aorta. Pulmonary Artery: ? The main pulmonary artery appears normal. Venous: ? The inferior vena cava appears normal in size. ?There is less than 50% respiratory change in the inferior vena cava dimension consistent with elevated right atrial pressure. Misc: ? There is no hemodynamically significant valve disease. ?See remainder of report for additional findings. ?Two-dimensional echo, spectral Doppler and color Doppler performed. Chambers 2D ?Value ?Units (Range) ? IVSd (2D) ? 1.52 ? cm ? LVPWd (2D) ?1.19 ? cm ? IVS:LVPW ratio (2D) 1.28 ? ratio ? RWT (2D) ?0.62 ? ratio ? RWT PW (2D) ? 0.55 ? ratio ? LVIDd (2D) ?4.34 ? cm ? LVIDs (2D) ?2.6 ?cm ? LVIDd (2D) index ?2.05 ? cm/m2 ? LVIDs (2D) index ?1.23 ? cm/m2 ? LV FS (2D) ?40.01 ?% ? EF Teichholz (2D) ?? 70.92 ?% ? Ao root diameter (2D3.27 ? cm (2.1 - 3.6) ? Ascending Ao ?4.36 ? cm (2 - 3.5) ? Volumes/Mass ?Value ?Units (Range) ? LA Area 4 CH ?18.4 ? cm2 (<21) ? LA ESV BP (A/L) inde25.57 ?ml/m2 ? RA AREA 4CH ? 14.7 ? cm2 ? LV ESV SP 4CH (MOD) 29.63 ?ml ? LV ESV SP 2CH (MOD) 26.15 ?ml ? LV EDV BP ? 74.04 ?ml ? LV ESV BP ? 28.36 ?ml ? LV EDV BP index ? 35.05 ?ml/m2 ? LV ESV BP index ? 13.42 ?ml/m2 ? BP EF (MOD) ? 61.7 ? % ? LV mass (2D) ?223.79 ? g ? LV mass (2D) index ??105.93 ? g/m2 ? Diastolic/Systolic Function ?Value ?Units (Range) ? MV E-wave Vmax ?0.69 ? m/sec ? MV deceleration dobd183.21 ? msec ? MV A-wave Vmax ?0.94 ? m/sec ? MV E:A ratio ?0.73 ? ratio ? LV septal e' Vmax ?? 0.05 ? m/sec ? LV lateral e' Vmax ??0.05 ? m/sec ? LV average e' Vmax ??0.05 ? m/sec ? LV E:e' septal ratio13.86 ?ratio ? LV E:e' lateral rati13.86 ?ratio ? LV average E:e' rati13.86 ?ratio ? Tricuspid Valve ?Value ?Units (Range) ? TR Vmax ? 2.19 ? m/sec ? TR peak gradient ?19.25 ?mmHg ? RAP ? 8 ?mmHg ? RVSP ?27 ? mmHg ? Wall Motion: Segment Name ?Rest ? Base-Anteroseptal ?? Normal ? Base-Anterior ? Normal ? Base-Anterolateral ??Normal ? Base-Posterolateral Normal ? Base-Inferior ? Normal ? Base-Inferoseptal ?? Normal ? Mid-Anteroseptal ?Normal ? Mid-Anterior ?Normal ? Mid-Anterolateral ?? Normal ? Mid-Posterolateral ??Normal ? Mid-Inferior ?Normal ? Mid-Inferoseptal ?Normal ? [place]-Septal ? Normal ? [place]-Anterior ? Normal ? [place]-Lateral ?Normal ? [place]-Inferior ? Normal ? [place]-Tip ?Normal ? This report has been electronically signed by: Dung Frazier M.D. ? 05/21/2020 11:06:46 Images reviewed and interpretation verified [facility] Procedure Note Dung Frazier MD - 05/21/2020 Procedure: Transthoracic Echocardiogram Patient: PANDA Marroquin DOB(Age): 1960(60y) Med Rec#: [id number] Sex: F Site Loc: [place] Ht / Wt: 165(cm)/106(kg) Pt. Loc: Echo Lab BSA: 2.11 Study Date: 05/21/2020 Pt. Type: Outpatient Tape: Referring: Ebenezer Nguyen Referring: MIGUE Reading: Dung Frazier ([id number]) Public Policy Coordinator: Pierre Connor [facility] Interpreting Fellow: Leslie Davis ([id number]) Interpreting Fellow: Rupal Medrano ([id number]) Diagnosis: *Thoracic aortic aneurysm, without rupture (I71.2) BP: 145/97 SUMMARY: 1. The left ventricular chamber size is normal. There is mild concentric left ventricular hypertrophy is observed with no evidence of LVOT obstruction. There is normal global left ventricular systolic function with estimated ejection fraction of 62% by Pulido's biplane method. There are no left ventricular segmental wall motion abnormalities. 2. The right ventricular chamber size, wall thickness, and systolic function are within normal limits. The estimated pulmonary artery systolic pressure is 27 mmHg. 3. The atria are normal in size. 4. There is no hemodynamically significant valvular disease. 5. There is moderate dilatation of the ascending aorta (4.4 cm). 6. There is no prior study available for comparison. Findings : Study Quality: Adequate Left Ventricle: The left ventricular chamber size is normal. Mild concentric left ventricular hypertrophy is observed. There is no evidence of LVOT obstruction. No ventricular septal defect is visualized. There is normal global left ventricular systolic function. The quantitative left ventricular ejection fraction by biplane Pulido's method is 62%. There are no left ventricular segmental wall motion abnormalities. The left ventricular diastolic filling pattern is consistent with impaired LV relaxation. Doppler assessment is consistent with normal left sided filling pressure. Left Atrium: The left atrium is normal in size. The inter-atrial septum appears lipomatous. Right Ventricle: Right ventricular chamber size, wall thickness, and systolic function are within normal limits. The estimated pulmonary artery systolic pressure is 27 mmHg. The estimated right atrial pressure is 8 mmHg. Right Atrium: The right atrium appears normal. Aortic Valve: The aortic valve is tricuspid. The aortic valve leaflets are mildly thickened. Systolic excursion of the aortic valve is normal. There is no evidence of aortic valve stenosis. There is no evidence of aortic regurgitation. Mitral Valve: The mitral valve appears normal in structure and function. There is trace mitral regurgitation present. Tricuspid Valve: The tricuspid valve appears normal in structure and function. There is trace tricuspid regurgitation present. Pulmonic Valve: The pulmonic valve appears normal in structure and function. There is trace pulmonic regurgitation present. Pericardium: The pericardium appears normal and there is no evidence of a pericardial effusion. A pericardial fat pad is visualized. Aorta: The aortic root is normal in size. There is moderate dilatation of the ascending aorta. 4.4cm The aortic arch is normal in size. The abdominal aorta is normal in size. There is no evidence of coarctation of the aorta. Pulmonary Artery: The main pulmonary artery appears normal. Venous: The inferior vena cava appears normal in size. There is less than 50% respiratory change in the inferior vena cava dimension consistent with elevated right atrial pressure. Misc: There is no hemodynamically significant valve disease. See remainder of report for additional findings. Two-dimensional echo, spectral Doppler and color Doppler performed. Chambers 2D Value Units (Range) IVSd (2D) 1.52 cm LVPWd (2D) 1.19 cm IVS:LVPW ratio (2D) 1.28 ratio RWT (2D) 0.62 ratio RWT PW (2D) 0.55 ratio LVIDd (2D) 4.34 cm LVIDs (2D) 2.6 cm LVIDd (2D) index 2.05 cm/m2 LVIDs (2D) index 1.23 cm/m2 LV FS (2D) 40.01 % EF Teichholz (2D) 70.92 % Ao root diameter (2D3.27 cm (2.1 - 3.6) Ascending Ao 4.36 cm (2 - 3.5) Volumes/Mass Value Units (Range) LA Area 4 CH 18.4 cm2 (<21) LA ESV BP (A/L) inde25.57 ml/m2 RA AREA 4CH 14.7 cm2 LV ESV SP 4CH (MOD) 29.63 ml LV ESV SP 2CH (MOD) 26.15 ml LV EDV BP 74.04 ml LV ESV BP 28.36 ml LV EDV BP index 35.05 ml/m2 LV ESV BP index 13.42 ml/m2 BP EF (MOD) 61.7 % LV mass (2D) 223.79 g LV mass (2D) index 105.93 g/m2 Diastolic/Systolic Function Value Units (Range) MV E-wave Vmax 0.69 m/sec MV deceleration jjkh089.21 msec MV A-wave Vmax 0.94 m/sec MV E:A ratio 0.73 ratio LV septal e' Vmax 0.05 m/sec LV lateral e' Vmax 0.05 m/sec LV average e' Vmax 0.05 m/sec LV E:e' septal ratio13.86 ratio LV E:e' lateral rati13.86 ratio LV average E:e' rati13.86 ratio Tricuspid Valve Value Units (Range) TR Vmax 2.19 m/sec TR peak gradient 19.25 mmHg RAP 8 mmHg RVSP 27 mmHg Wall Motion: Segment Name Rest Base-Anteroseptal Normal Base-Anterior Normal Base-Anterolateral Normal Base-Posterolateral Normal Base-Inferior Normal Base-Inferoseptal Normal Mid-Anteroseptal Normal Mid-Anterior Normal Mid-Anterolateral Normal Mid-Posterolateral Normal Mid-Inferior Normal Mid-Inferoseptal Normal [place]-Septal Normal [place]-Anterior Normal [place]-Lateral Normal [place]-Inferior Normal [place]-Tip Normal This report has been electronically signed by: Dung Frazier M.D. 05/21/2020 11:06:46 Images reviewed and interpretation verified [facility] Ebenezer Nguyen MD ECHO ORDERABLES documented in this encounter Visit Diagnoses Diagnosis Thoracic aortic aneurysm without rupture Thoracic aneurysm without mention of rupture Thoracic aortic aneurysm without rupture Thoracic aneurysm without mention of rupture documented in this encounter Care Teams Wood Cutter Relationship Specialty Start Date End Date Moira Arriaza MD [address] [place] [address] PCP - General 03/22/10 documented as of this encounter
--- OUTSIDE RECORDS SUMMARY | 2023-12-06 22:14 | XMS_ITS | Encounter Summary ---
Author Organization [facility] Address [address] [place] [address] Care Team Providers Care Assembling Machine Operator Name Role Phone Unavailable Primary Care Provider Unavailabl e Encounter Details Date Type Department Care Team (Late st Contact Info) Description 2004 Results Only [facility] conversion [address] [place] [address] Moira Arriaza MD [address] [place], [place] [id number] Social History Tobacco Use Types Packs/Day Years Used Date Smoking Tobacco: Never Assessed Sex and Gender Information Value Date Recorded Sex Assigned at Not on file Gender Identity Not on file Sexual Orientation Not on file documented as of this encounter Plan of Treatment Not on file documented as of this encounter Procedures Procedure Name Priority Date/Time Associated Diagnosis Comments CYTOPATHOLOGY Routine 2004 0:00 EST documented in this encounter Results * CYTOPATHOLOGY (2004 0:00 EST) Pathology Report: CYTOPATHOLOGY REPORT Reports generated via electronic interface contain original data; however they are lacking the format of the original report. Caution should be taken when reading/interpreti ng unformatted reports. Name: ? SUZAN MOLINA ? Accession #: ? [id number] : ? 1960 (Age: 44) ??F ?Collect Date: ? 2004 Location: ? [facility] ? Receive Date: ? 03/17/2004 Provider: ?MOIRA ARRIAZA MD Copy to: ? Specimen/Source: ?ThinPrep Pap Test, Cervix/Endocervix Last Menstrual Period: ? 03/27/04 ? SPECIMEN ADEQUACY ? Satisfactory for Evaluation - transformation zone component present GENERAL CATEGORIZATION ? Negative for Intraepithelial Lesion or Malignancy INTERPRETATION ? Shift in yvette present suggestive of bacterial vaginosis. ? Document reviewed and electronically signed by: ? NASREEN Morgan(ASCP) ? Report Date: ??03/25/2004 13:54 End of Report DOMINIK GALARZA 2004 03/17/2004 Moira Arriaza MD PATHOLOGY ORDERABLES DOMINIK GALARZA [address] [place] [address] documented in this encounter Visit Diagnoses Not on filedocumented in this encounter
--- OUTSIDE RECORDS SUMMARY | 2023-12-06 22:14 | XMS_ITS | Encounter Summary ---
[place] [address] Care Team Providers Care It Audit Manager Name Role Phone Moira Arriaza MD Primary Care Provider [phone] Encounter Details Date Type Department Care Team (Latest Contact Info) Description 05/20/2021 12:00 PM EST Laboratory Appointment Lab [address] [place] [address] Thoracic aortic aneurysm without rupture Social History Tobacco Use Types Packs/Day Years Used Date Smoking Tobacco: Every Day Cigarettes 2 39 Smokeless Tobacco: Never Comments:quit previously. st arted [...] Procedure Name Priority Date/Time Associated Diagnosis Comments HC CREATININE Routine 05/20/2021 12:10 PM EST Thoracic aortic aneurysm without rupture documented in this encounter Results * Creatinine (05/20/2021 12:10 PM EST) Creatinine 0.86 0.70 - 1.20 mg/dL [facility] Est Glomerular Filtration Rate 74 >=60 mL/min/1. 73 m?? [facility] Comment: This patient? s estimated glomerular filtration rate (eGFR) is between 74 mL/min/1.73 m2 (patients with less muscle mass) and 86 mL/min/1.73 m2 (patients with more muscle mass) as determined by the CKD-EPI equation. Assessment of eGFR is not appropriate when creatinine concentrations are rapidly changing. For clinical decisions where creatinine clearance will affect therapy, a 24-hour urine creatinine clearance may be advised. Assignment of CKD stage 1 - 5 for patients with an eGFR near the transition point between stages may be based on clinical assessment of muscle mass and symptoms in addition to eGFR. Blood 05/20/2021 12:1 0 PM EST 05/20/2021 12:14 PM EST Narrative Resulting Agency Comment Spec In Lab Ebenezer Nguyen MD CHEMISTRY ORDERABL ES [facility] [place] [address] documented in this encounter Visit Diagnoses Diagnosis Thoracic aortic aneurysm without rupture Thoracic aneurysm without mention of rupture documented in this encounter Care Teams It Audit Manager Relationship Specialty Start Date End Date Moira Arriaza MD [address] [place] [address] PCP - General 03/22/10 documented as of this encounter
--- OUTSIDE RECORDS SUMMARY | 2023-12-06 22:14 | XMS_ITS | Encounter Summary ---
Author Organization [facility] [place] [address] Care Team Providers Care Firearms Instructor Name Role Phone Moira Arriaza MD Primary Care Provider [phone] Encounter Details Date Type Department Care Team (Late st Contact Info) Description 03/22/2020 [place] [id number] Makayla Mayers Social History Tobacco Use Types Packs/Day Years [...] on file documented as of this encounter Visit Diagnoses Not on filedocumented in this encounter Care Teams Firearms Instructor Relationship Specialty Start Date End Date Moira Arriaza MD [address] [place] [address] PCP - General 03/22/10 documented as of this encounter
--- OUTSIDE RECORDS SUMMARY | 2023-12-06 22:14 | XMS_ITS | Encounter Summary ---
Author Organization [facility] Address [facility] [place] [address] Care Team Providers Care Electronic Game Developer Name Role Phone Moira Arriaza MD Primary Care Provider [phone] Reason for Visit * Reason Comments Follow-up Left ear bothering, aching. Encounter Details Date Type Department Care Team (Late Contact Info) Description 11/08/2020 2:00 PM EDT Office Visit [place] [address] [facility] [place] [place] [address] Warthin's tumor Social History Tobacco Use Types Packs/Day Years [...] on file documented as of this encounter Last Filed Vital Signs Vital Sign Reading Time Taken Comments Blood Pressure - - Pulse - - Temperature - - Respiratory Rate - - Oxygen Saturation - - Inhaled Oxygen Concentration - - Weight 112.9 kg (248 lb 14.4 oz) 11/08/2020 1:31 PM EDT Height 164.5 cm (5' 4.75) 11/08/2020 1:31 PM ED T Body Mass Index 41.74 11/08/2020 1:31 PM EDT documented in this encounter Progress Notes * Moira Garrett MD - 11/08/2020 2:00 PM EDT [facility] Otolaryngology - Head and Neck Surgery Moira Garrett MD 11/08/20 2:01 PM [place] [address] Office Patient Name: Suzan Chaudhary Date of : 1960 PCP: Moira Arriaza MD Chief Complaint/History of Present Illness: Suzan Chaudhary is a 60 y.o. year old seen in follow up. 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 At the time of her initial visit she had had other family events that precluded her from proceeding with surgery. She is back here for another evaluation. The mass has not really changed that much since her last visit. It can wax and wane in terms of size periodicallybut nothing significant. No marquez pain. No fevers or chills. No weight changes. She does note just a mild sensation of discomfort in relation to the mass though. No dysphagia or odynophagia. No fevers or chills. Otherwise doing okay. 10 point Review of Systems was normal except for pertinent positives and negatives included in the History of Present Illness. Past Medical and Surgical History Patient Active Problem List Diagnosis Code ??? Nicotine dependence F17.200 ??? Obesity E66.9 ??? Incisional hernia K43.2 ??? Abdominal pannus E65 ??? Pulmonary nodule R91.1 ??? Warthin's tumor D11.9 Current Outpatient Medications on File Prior to Visit Medication Sig Dispense Refill ??? mahtewtq-rhazkxjem-vqctcjgrvfxkup (CORTISPORIN) 3.5-10,000-1 mg/mL-unit/mL-% Drops, Suspension SHAKE LIQUID AND INSTILL 4 DROPS TO AFFECTED EAR FOUR TIMES DAILY ??? losartan (Cozaar) 25 mg Tablet TK 1 T PO D ??? ipratropium-albuteroL (DUONEB) 0.5 mg-3 mg(2.5 mg base)/3 mL Solution for Nebulization INHALE THE CONTENTS OF 1 AMPLUE VIA NEBULIZER Q 6 H PRN ??? ergocalciferoL, vitamin D2, (vitamin D2) 50,000 unit Capsule TAKE 1 CAPSULE BY MOUTH ONCE WEEKLY ??? diclofenac (VOLTAREN) 1 % Gel APPLY TOPICALLY TO CHEST WALL BID PRN ??? HYDROcodone-acetaminophen (NORCO) 7.5-325 mg Tablet take 2 tablets by mouth three times a day 0 ??? albuterol (PROVENTIL HFA;VENTOLIN HFA) 90 mcg/actuation HFA Aerosol Inhaler Inhale 2 puffs intothe lungs every 4 hours as needed. Use with spacer ??? LORazepam (ATIVAN) 0.5 mg Tablet Take 0.5 mg by mouth every 6 hours as needed. ??? furosemide (LASIX) 20 mg Tablet take 1 tablet by mouth once daily if needed for LEG EDEMA. DO NOT USE DAILY 0 No current facility-administered medications on file prior to visit. Allergies: Adhesive tape Surgical History: Past Surgical History: Procedure Laterality Date ??? PRO COLONOSCOPY, BIOPSY 09/14/2010 COLONOSCOPY FLEXIBLE, WITH BX performed by LUIS FABIAN I at [facility] ??? PRO COLONOSCOPY, BIOPSY N/A 10/15/2017 COLONOSCOPY FLEXIBLE, WITH BX (WRVU 3.66) performed by Brie Sheets MD at [facility] ??? PRO UPPER GI ENDOSCOPY, BIOPSY 09/14/2010 UPPER GASTROINTESTINAL ENDOSCOPY,WITH BIOPSY SINGLE OR MULTIPLE performed by LUIS FABIAN I at [facility] ??? PRO UPPER GI ENDOSCOPY, DIAGNOSTIC N/A 10/15/2017 EGD, UPPER GI ENDOSCOPY performed by Brie Sheets MD at [facility] Family and Social History Family History: No family history on file. Social History: [place] [facility] [facility] [address] Social History Socioeconomic History ??? Marital status: Spouse name: Not on file ??? Number of children: Not on file ??? Years of education: Not on file ??? Highest education level: Not on file Occupational History ??? Not on file Tobacco Use ??? Smoking status: Current Every Day Smoker Packs/day: 1.50 Types: Cigarettes ??? Smokeless tobacco: Never Used ??? Tobacco comment: quit previously. started back august 16 2016 Vaping Use ??? Vaping Use: Never used Substance and Sexual Activity ??? Alcohol use: Yes Alcohol/week: 1.0 - 2.0 standard drink Types: 1 - 2 Glasses of wine per week ??? Drug use: Yes Types: Other pain meds Comment: oxycodone daily ??? Sexual activity: Not on file Other Topics Concern ??? Not on file Social History Narrative ??? Not on file Social Determinants of Health Financial Resource Strain: ??? Difficulty of Paying Living Expenses: Food Insecurity: ??? Worried About Running Out of Food in the Last Year: ??? Ran Out of Food in the Last Year: Transportation Needs: ??? Lack of Transportation (Medical): ??? Lack of Transportation (Non-Medical): Physical Activity: ??? Days of Exercise per Week: ??? Minutes of Exercise per Session: Physical Exam Temperature: Heart Rate: Blood Pressure: Respiratory Rate: SpO2: General: Awake, alert, and oriented to person, place and time. No acute distress Head and Face: Head is normocephalic, atraumatic. Facial resting tone symmetric. Eyes: Conjugate gaze, ocular motility intact bilaterally. PERRL. Neurologic: Cranial Nerves II-XII grossly intact and symmetric. Ears: External ear and ear canal are without deformity. Hearing is grossly normal. Nose: External nose is midline without deformity or lesion. Anterior rhinoscopy reveals a straight septum, healthy mucosa, turbinates normal in size. Oral: There are no visible or palpable buccal, gingival, lingual, or palatal lesions. The floor of mouth is soft and flat. Oropharynx: Symmetric without tonsillar pathology. No other concerning lesions or masses Larynx:No hoarseness or stridor. External laryngeal structures normal to palpation. Face and sinuses are non tender. Left parotid gland notable for a oblong mass centered over the tail of the parotid gland. This measures about 2 x 2 cm in size. No overlying erythema or induration. No temporomandibular joint grinding or locking. Neck: Symmetric. No scars, palpable masses, or crepitus. Midline trachea. Thyroid normal in size, non tender, no palpable mass. Lymphatic: no palpable cervical lymphadenopathy. Pulmonary: Breathing comfortably. Symmetric chest expansion without use of accessory muscles or retraction. Skin: Good skin turgor, no pallor, no icterus. Extremities: No gross deformities, no peripheral edema. Labs and Imaging Significant lab values are as follows: I reviewed the following imaging studies: Procedures ASSESSMENT & RECOMMENDATIONS Suzan Chaudhary is a 60 y.o. with left-sided parotid mass. She is ready to proceed with excision at this point in time. Recommendations: 1. Risks and benefits of left parotidectomy with facial nerve monitoring were discussed with the patient in detail. She understands them and would like to proceed. Consent was obtained today. We willschedule this at her convenience. 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
--- OUTSIDE RECORDS SUMMARY | 2023-12-06 22:14 | XMS_ITS | Encounter Summary ---
[facility] [place] [address] Care Team Providers Care Vinegar Maker Name Role Phone Moira Arriaza MD Primary Care Provider [phone] Encounter Details Date Type Department Care Team (Latest Contact Info) Description 06/05/2022 Travel Social History Tobacco Use Types Packs/Day Years [...] on filedocumented in this encounter Care Teams Vinegar Maker Relationship Specialty Start Date End Date Moira Arriaza MD [address] [place] [address] PCP - General 03/22/10 documented as of this encounter
--- OUTSIDE RECORDS SUMMARY | 2023-12-06 22:14 | XMS_ITS | Encounter Summary ---
Author Organization [facility] [place] [address] Care Team Providers Care Airplane Fueler Name Role Phone Moira Arriaza MD Primary Care Provider [phone] Reason for Referral * Diagnostic Test (Routine) - Closed Specialty Diagnoses / Procedures Referred By Contac t Referred To Contact Radiology Diagnoses Thoracic aortic aneurysm without rupture Procedures CT Angiogram Chest (Non-Coronary) w Contrast CT Angiogram Chest (Non-Coronary) wwo Contrast Marquis Harry PA [facility] [place] [address] [facility] [place] [address] Referral ID Status Reason Start Date Expiration Date V isits Requested Visits Authorized [id number] Closed Specialty Service Requested 03/30/2021 09/28/2022 1 1 Reason for Visit * Diagnostic Test (Routine) - Closed Specialty Diagnoses / Procedures Referred By Contac t Referred To Contact Radiology Diagnoses Thoracic aortic aneurysm without rupture Procedures CT Angiogram Chest (Non-Coronary) w Contrast CT Angiogram Chest (Non-Coronary) wwo Contrast Marquis Harry PA [facility] [place] [address] [facility] [place] [address] Referral ID Status Reason Start Date Expiration Date V isits Requested Visits Authorized [id number] Closed Specialty Service Requested 03/30/2021 09/28/2022 1 1 Encounter Details Date Type Department Care Team (Latest Contact Info) Description 05/20/2021 1:34 PM EST - 05/20/2021 11:59 PM EST Hospital Encounter CT Scan at [facility] [place] [address] Ebenezer Nguyen MD [facility] [place] [address] Thoracic aortic aneurysm without rupture Discharge Disposition: Home Social History Tobacco Use Types Packs/Day Years Used Date Smoking Tobacco: Every Day Cigarettes 2 39 Smokeless Tobacco: Never Comments:quit previously. [facility] back august 16 2016 Alcohol Use Standard Drinks/Week Comments Yes 1 (1 standard drink = 0.6 oz pur e alcohol) Sex and Gender Information Value Date Recorded Sex Assigned at Not on file Gender Identity Female 05/18/2021 8:52 PM EST Sexual Orientation Not on file documented as of this encounter Medications at Time of Discharge Medication Sig Dispensed Refills Start Date End Date losartan (Cozaar) 25 mg Tablet TK 1 T PO D 03/26/2020 ipratropium-albuteroL (DUONEB) 0.5 mg-3 mg(2.5 mg base)/3 mL Solution for Nebulization INHALE THE CONTENTS OF 1 AMPLUE VIA NEBULIZER Q 6 H PRN 01/23/2020 ergocalciferoL, vitamin D2, (vitamin D2) 50,000 unit Capsule TAKE 1 CAPSULE BY MOUTH ONCE WEEKLY 05/13/2020 diclofenac (VOLTAREN) 1 % Gel APPLY TOPICALLY TO CHEST WALL BID PRN 02/05/2020 HYDROcodone-acetaminophen (NORCO) 7.5-325 mg Tablet take 2 tablets by mouth three times a day 0 09/12/2015 albuterol (PROVENTIL HFA;VENTOLIN HFA) 90 mcg/actuation HFA Aerosol Inhaler Inhale 2 puffs into the lungs every 4 hours as needed. Use with spacer LORazepam (ATIVAN) 0.5 mg Tablet Take 0.5 mg by mouth every 6 hours as needed. documented as of this encounter Plan of Treatment Not on file documented as of this encounter Procedures Procedure Name Priority Date/Time Associated Diagnosis Comments CT ANGIOGRAM OF CHEST (NON-CORONARY) W CONTRAST Routine 05/20/2021 2:00 PM EST Thoracic aortic aneurysm without rupture documented in this encounter Results * CT Angiogram Chest (Non-Coronary) w Contrast (05/20/2021 2:00 PM EST) Anatomical Region Laterality Modality Chest Computed Tomogra phy 05/20/2021 2:22 PM EST Impressions 05/20/2021 4:17 PM EST 1. ??Mildly ectatic ascending aorta and proximal aortic arch. No significant change since 02/23/2019. 2. ??Stable 12 mm right lung nodule since 02/23/2019. Previously non-FDG avid. Management options include continued surveillance or biopsy. Thank you for letting us participate in the care of this patient. ??If you are a health care provider and have any questions regarding this report, please contact the number below. ??For patients who have questions please contact the health career placement services counselor that requested your imaging first. ? Electronically signed by: Michael Denis MD, [facility] ([phone]), at 05/20/2021 4:17 PM Narrative 05/20/2021 4:17 PM EST EXAMINATION: CT ANGIOGRAM CHEST (NON-CORONARY)W CONTRAST CLINICAL HISTORY: Aortic disease, nontraumatic TECHNIQUE: Helical CT angiogram of the chest was performed following the intravenous administration of 85.0 ml of OMNIPAQUE 350.00 mg/ml. Maximum intensity projection (MIP) were reformatted. 3D images were generated on an independent workstation. COMPARISON: Outside CT of the chest 01/29/2020 FINDINGS: VASCULAR Heart: Normal size. No pericardial effusion. Incidentally noted lipomatous hypertrophy of the interatrial septum. Aorta: Mildly ectatic ascending aorta and proximal arch. The ascending aorta measures up to 4.4 cm maximum diameter, not significantly changed from hand drawn measurements on the 02/23/2019 examination, however that examination was marred by cardiac motion artifact. The proximal arch measures up to 4.0 cm. The remainder of the thoracic aorta is within normal size limits (additional measurements are listed in PACS). Great vessels: No proximal stenosis. Combined origins of the right brachiocephalic and left common carotid arteries. Celiac/SMA: No stenosis or aneurysm. NON-VASCULAR Lungs and large airways: 12 mm nodule in the superior segment of the right lower lobe is stable in size since 02/23/2019. Pleura: No effusions. Mediastinum and avila: No mass or lymphadenopathy. Limited views of the upper abdomen: Cholecystectomy clips. No significant findings. Osseous structures: Mild discogenic degenerative changes. No suspicious lesions. Procedure Note Michael Denis MD - 05/20/2021 EXAMINATION: CT ANGIOGRAM CHEST (NON-CORONARY)W CONTRAST CLINICAL HISTORY: Aortic disease, nontraumatic TECHNIQUE: Helical CT angiogram of the chest was performed following the intravenous administration of 85.0 ml of OMNIPAQUE 350.00 mg/ml. Maximum intensity projection (MIP) were reformatted. 3D images were generated kunal independent workstation. COMPARISON: Outside CT of the chest 01/29/2020 FINDINGS: VASCULAR Heart: Normal size. No pericardial effusion. Incidentally notedlipomatous hypertrophy of the interatrial septum. Aorta: Mildly ectatic ascending aorta and proximal arch. The ascendingaorta measures up to 4.4 cm maximum diameter, not significantly changed fromhand drawn measurements on the 02/23/2019 examination, however that examinationwas marred by cardiac motion artifact. The proximal arch measures up to 4.0cm. The remainder of the thoracic aorta is within normal size limits (additional measurements are listed in PACS). Great vessels: No proximal stenosis. Combined origins of the right brachiocephalic and left common carotid arteries. Celiac/SMA: No stenosis or aneurysm. NON-VASCULAR Lungs and large airways: 12 mm nodule in the superior segment of the rightlower lobe is stable in size since 02/23/2019. Pleura: No effusions. Mediastinum and avila: No mass or lymphadenopathy. Limited views of the upper abdomen: Cholecystectomy clips. Nosignificant findings. Osseous structures: Mild discogenic degenerative changes. No suspiciouslesions. IMPRESSION 1. Mildly ectatic ascending aorta and proximal aortic arch. Nosignificant change since 02/23/2019. 2. Stable 12 mm right lung nodule since 02/23/2019. Previously non-FDGavid. Management options include continued surveillance or biopsy. Thank you for letting us participate in the care of this patient. If youare a health care provider and have any questions regarding this report,please contact the number below. For patients who have questions please contactthe health career placement services counselor that requested your imaging first. Ebenezer Nguyen MD IMG CT ORDERABLES documented in this encounter Visit Diagnoses Diagnosis Thoracic aortic aneurysm without rupture Thoracic aneurysm without mention of rupture documented in this encounter Administered Medications Inactive Administered Medications - up to 3 most recent administrations Medication Order MAR Action Action Date Dose Rate Site iohexoL (Omnipaque) (350 mg/mL) solution 0-200 mL 0-200 mL, Intravenous, ONCE PRN, 1 dose, Starting on Sun05/20/21 at 1545, Until Sun05/20/21 at 1545, Per Protocol, Warning Vesicant/Irritant Medication , Radiology Contrast, Routine Given 05/20/2021 3:45 PM EST 120 mLs documented in this encounter Care Teams Airplane Fueler Relationship Specialty Start Date End Date Moira Arriaza MD [address] [place] [address] PCP - General 03/22/10 documented as of this encounter
--- OUTSIDE RECORDS SUMMARY | 2023-12-06 22:14 | XMS_ITS | Encounter Summary ---
Author [place] [address] Care Team Providers Care Hand Shoe Cutter Name Role Phone Moira Arriaza MD Primary Care Provider [phone] Reason for Referral * Diagnostic Test (Routine) - Closed Specialty Diagnoses / Procedures Referred By Contac t Referred To Contact Radiology Diagnoses Warthin's tumor Procedures NM PET CT Standard Plus Extremities and Head Watson Nick PA [address] [place] [address] [place] [address] Referral ID Status Reason Start Date Expiration Date V isits Requested Visits Authorized [id number] Closed Specialty Service Requested 02/11/2020 08/09/2020 1 1 Reason for Visit * Diagnostic Test (Routine) - Closed Specialty Diagnoses / Procedures Referred By Contac t Referred To Contact Radiology Diagnoses Warthin's tumor Procedures NM PET CT Standard Plus Extremities and Head Watson Nick PA [address] [place] [address] [place] [address] Referral ID Status Reason Start Date Expiration Date V isits Requested Visits Authorized [id number] Closed Specialty Service Requested 02/11/2020 08/09/2020 1 1 Encounter Details Date Type Department Care Team (Late st Contact Info) Description 02/20/2020 2:28 PM EDT Hospital Encounter [place] [address] Watson Nick PA [address] [place] [address] Warthin's tumor Discharge Disposition: Home Social History Tobacco Use Types Packs/Day Years Used Date Smoking Tobacco: Every Day Cigarettes Smokeless Tobacco: Never Comments:quit previously. st opald [...] Sig Dispensed Refills Start Date End Date ipratropium-albuteroL (DUONEB) 0.5 mg-3 mg(2.5 mg base)/3 mL Solution for Nebulization INHALE THE CONTENTS OF 1 AMPLUE VIA NEBULIZER Q 6 H PRN 01/23/2020 diclofenac (VOLTAREN) 1 % Gel APPLY TOPICALLY TO CHEST WALL BID PRN 02/05/2020 HYDROcodone-acetaminophe n (NORCO) 7.5-325 mg Tablet take 2 tablets by mouth three times a day 0 09/12/2015 albuterol (PROVENTIL HFA;VENTOLIN HFA) 90 mcg/actuation HFA Aerosol Inhaler Inhale 2 puffs into the lungs every 4 hours as needed. Use with spacer LORazepam (ATIVAN) 0.5 mg Tablet Take 0.5 mg by mouth every 6 hours as needed. furosemide (LASIX) 20 mg Tablet take 1 tablet by mouth once daily if needed for LEG EDEMA. DO NOT USE DAILY 0 08/14/2015 05/20/2021 documented as of this encounter Plan of Treatment Not on file documented as of this encounter Procedures Procedure Name Priority Date/Time Associated Diagnosis Comments NM PET CT STANDARD PLUS EXTREMITIES AND HEAD Routine 02/20/2020 4:11 PM EDT Warthin's tumor documented in this encounter Results * NM PET CT Standard Plus Extremities and Head (02/20/2020 4:11 PM EDT) Anatomical Region Laterality Modality Positron Emissio n Tomography (PET) Impressions 02/20/2020 5:13 PM EDT 1. ??Non-FDG avid 10 mm superior segment right lower lobe solid pulmonary nodule. An indolent-type malignancy is not excluded. A follow-up chest CT in 3 months is recommended. 2. ??Bilateral, left greater in number than right, intensely FDG avid intraparotid nodules. These may represent Warthin's tumors as indicated in the clinical history. Pleomorphic adenomas, intraparotid lymph nodes/lymphoma or intraparotid jackie metastases could also have a similar appearance. 3. ??Mild aneurysmal dilatation of the ascending thoracic aorta. 4. ??Largely similar left inferior pole renal cortical scarring with interval increased size of nonobstructing subcentimeter inferior pole nephrolithiasis. Thank you for letting us participate in the care of this patient. For questions regarding this report, please contact the number below. ? Narrative 02/20/2020 5:13 PM EDT EXAMINATION: NM PET CT STANDARD PLUS EXTREMITIES AND HEAD CLINICAL HISTORY: Warthin's tumor Additional history per scanned in documents: Lung mass TECHNIQUE: Procedure: Following IV injection of 51-gpjxud-4-deoxyglucose (FDG) a standard uptake of approximately 60 minutes, a noncontrast CT scan followed by a PET scan were acquired from the top of head to bottom of feet. The noncontrast CT was used for anatomic localization and photon attenuation correction of the PET scan. No oral contrast was administered. Blood glucose level: 94 (mg/dL) FDG dose: 16.6 mCi COMPARISON: CT abdomen/pelvis 10/25/2015 FINDINGS: HEAD/NECK: Bilateral, left greater in number than right, intensely FDG avid nodular foci seen in the inferior parotid glands, measuring up to 13 mm in diameter on the left. Sub-6 mm in short axis bilateral level 1 cervical lymph nodes with FDG avidity similar to background mediastinal blood pool, favored to represent reactive nodes. Normal activity throughout the head. Incidental 7 mm left thyroid lobe hypodense nodule without FDG avidity. CHEST: 10 mm well-circumscribed solid nodule in the superior segment of the right lower lobe (axial image 143) demonstrates no significant FDG avidity. Small bilateral nonpathologically enlarged axillary lymph nodes show FDG activity similar to that of background mediastinal blood pool, and are favored to represent reactive nodes. Normal activity in all other soft tissue regions. Incidental mild dilatation of the ascending thoracic aorta measuring up to 44 mm. Aortic arch calcifications and scattered calcification of the proximal right subclavian artery. ABDOMEN/PELVIS: Nonpathologically enlarged bilateral inguinal lymph nodes showing metabolic activity similar to that of background liver, likely reactive nodes. Normal activity in all other soft tissue regions. Similar hepatomegaly, liver measuring 22 cm in length. Post cholecystectomy surgical clips again noted. Cortical scarring of the inferior pole of the left kidney redemonstrated, with enlarging nonobstructing subcentimeter inferior pole renal calculus. Previously demonstrated left inferior pole/parapelvic renal cysts are largely stable or decreased in size. Similar small fat-containing periumbilical hernia. Moderate infrarenal abdominal aortic and bilateral common and internal iliac calcified atherosclerosis. Sigmoid and descending colonic predominant diverticulosis without acuity. SKELETON/EXTREMITIES: Lower lumbar spine interspinous activity, consistent with Baastrup's disease. Left sternoclavicular degenerative uptake. CT visualized arc-like densities in the left distal femoral diaphysis, compatible with enchondroma versus bone infarct. Activity in the left foot likely represents muscular strain. Procedure Note She Orta MD - 02/20/2020 EXAMINATION: UT PET CT STANDARD PLUS EXTREMITIES AND HEAD CLINICAL HISTORY: Warthin's tumor Additional history per scanned in documents: Lung mass TECHNIQUE: Procedure: Following IV injection of 22-qilgxa-4-deoxyglucose(FDG) a standard uptake of approximately 60 minutes, a noncontrast CT scanfollowed by a PET scan were acquired from the top of head to bottom of feet. Thenoncontrast CT was used for anatomic localization and photon attenuation correction ofthe PET scan. No oral contrast was administered. Blood glucose level: 94 (mg/dL) FDG dose: 16.6 mCi COMPARISON: CT abdomen/pelvis 10/25/2015 FINDINGS: HEAD/NECK: Bilateral, left greater in number than right, intensely FDG avid nodularfoci seen in the inferior parotid glands, measuring up to 13 mm in diameter onthe left. Sub-6 mm in short axis bilateral level 1 cervical lymph nodes with FDGavidity similar to background mediastinal blood pool, favored to representreactive nodes. Normal activity throughout the head. Incidental 7 mm left thyroid lobe hypodense nodule without FDG avidity. CHEST: 10 mm well-circumscribed solid nodule in the superior segment of the rightlower lobe (axial image 143) demonstrates no significant FDG avidity. Small bilateral nonpathologically enlarged axillary lymph nodes show FDG activity similar to that of background mediastinal blood pool, and arefavored to represent reactive nodes. Normal activity in all other soft tissue regions. Incidental mild dilatation of the ascending thoracic aorta measuring up to44 mm. Aortic arch calcifications and scattered calcification of the proximalright subclavian artery. ABDOMEN/PELVIS: Nonpathologically enlarged bilateral inguinal lymph nodes showingmetabolic activity similar to that of background liver, likely reactive nodes. Normal activity in all other soft tissue regions. Similar hepatomegaly, liver measuring 22 cm in length. Postcholecystectomy surgical clips again noted. Cortical scarring of the inferior pole of theleft kidney redemonstrated, with enlarging nonobstructing subcentimeterinferior pole renal calculus. Previously demonstrated left inferior pole/parapelvicrenal cysts are largely stable or decreased in size. Similar smallfat-containing periumbilical hernia. Moderate infrarenal abdominal aortic and bilateralcommon and internal iliac calcified atherosclerosis. Sigmoid and descendingcolonic predominant diverticulosis without acuity. SKELETON/EXTREMITIES: Lower lumbar spine interspinous activity, consistent with Baastrup'sdisease. Left sternoclavicular degenerative uptake. CT visualized arc-like densities in the left distal femoral diaphysis, compatible with enchondroma versus bone infarct. Activity in the left foot likely represents muscular strain. IMPRESSION 1. Non-FDG avid 10 mm superior segment right lower lobe solid pulmonarynodule. An indolent-type malignancy is not excluded. A follow-up chest CT in 3months is recommended. 2. Bilateral, left greater in number than right, intensely FDG avid intraparotid nodules. These may represent Warthin's tumors as indicated inthe clinical history. Pleomorphic adenomas, intraparotid lymph nodes/lymphomaor intraparotid jackie metastases could also have a similar appearance. 3. Mild aneurysmal dilatation of the ascending thoracic aorta. 4. Largely similar left inferior pole renal cortical scarring withinterval increased size of nonobstructing subcentimeter inferior polenephrolithiasis. Thank you for letting us participate in the care of this patient. Forquestions regarding this report, please contact the number below. 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
--- OUTSIDE RECORDS SUMMARY | 2023-12-06 22:14 | XMS_ITS | Encounter Summary ---
Author Organization [facility] Address [address] [place] [address] Care Team Providers Care Pacu Nurse Name Role Phone None, Provider Primary Care Provider Unavailabl e Encounter Details Date Type Department Care Team (Late st Contact Info) Description 01/30/2020 Lab Requisition [facility] Pathology & Laboratory Medicine - [address] [address] Watson Nick, [address] [id number] Localized swelling, mass and lump, head; Localized swelling, mass and lump, neck; Solitary pulmonary nodule Social History Tobacco Use Types Packs/Day Years Used Date Smoking Tobacco: Never Assessed Sex and Gender Information Value Date Recorded Sex Assigned at Not on file Gender Identity Not on file Sexual Orientation Not on file documented as of this encounter Plan of Treatment Not on file documented as of this encounter Procedures Procedure Name Priority Date/Time Associated Diagnosis Comments NON CLINICAL TRIALS DATA COORDINATOR/FNA CYTOLOGY Today 01/29/2020 10:20 EDT Localized swelling, mass and lump, head Localized swelling, mass and lump, neck Solitary pulmonary nodule documented in this encounter Results * NON CLINICAL TRIALS DATA COORDINATOR/FNA CYTOLOGY (01/29/2020 10:20 EDT) Final Diagnosis A. SUBMITTED LEFT NECK MASS, SUPERFICIAL, ULTRASOUND-GUIDED NEEDLE ASPIRATION: - Features suggestive of Warthin tumor. See comment. B. SUBMITTED LEFT NECK MASS, DEEP, ULTRASOUND-GUIDED FINE NEEDLE ASPIRATION: - Hypocellular with scant lymphocytes and rare bland epithelioid cells. See comment. 02/03/2020 17:51 EDT [facility] Diagnosis Comment This case was discussed with the ordering provider, NADEEM Mercado on 02/03/2020 at 08:20 hours who indicated per CT report, the location of lesion (A) within the inferior aspect of the left parotid gland and noted that lesion (B) appeared to represent a second lesion medial to specimen (A) which appeared partially necrotic. Cytologic evaluation of specimen (A) shows scattered groups of bland oncocytic cells which are best visualized on the ThinPrep material, admixed with lymphocytes in a background of scant proteinaceous debris and blood. A cell block was processed in order to increase the diagnostic yield and shows extremely rare oncocytic cells in a background of blood clot and granular debris. Given the location of this lesion in the inferior aspect of the parotid gland, these findings are suggestive of a Warthin tumor. Specimen (B) is hypocellular and shows lymphoid cells on the air dry smears and extremely rare intact epithelioid cells on the ThinPrep material. There are some similarities of the epithelioid cells to the oncocytic cells present in specimen (A). In addition, granular debris is present in the background which may represent cystic debris or necrosis. Given some overlapping morphologic features to specimen (A), these findings may represent a second Warthin tumor however the scant nature of the material precludes a definitive diagnosis. Correlation with radiographic imaging is essential. Paper Folding Machine Operator slides of this case were reviewed at the intradepartmental consultation conference. 02/03/2020 17:51 [facility] Attestation There was significant resident/fellow involvement in the diagnostic evaluation of this case. By the signature below, the attending physician certifies that they have personally conducted a gross and/or microscopic examination of the described specimens and rendered or confirmed the above diagnosis. 02/03/2020 17:51 [facility] at 1751 Rapid Diagnosis A. LEFT NECK MASS, SUPERFICIAL, ULTRASOUND GUIDED FINE NEEDLE ASPIRATION: Evaluation episode #1: Pass 1: Adequate. Three passes directly placed in RPMI for cell block. B. LEFT NECK MASS, DEEP, ULTRASOUND GUIDED FINE NEEDLE ASPIRATION: Evaluation episode #1: Pass 1: Marginal, favor lymph node. Dr. Jennifer Lai 01/29/2020 Rapid evaluation of this Fine Needle Aspiration sample was performed by Pathologists at [facility], [address] [place] [id number] 02/03/2020 17:51 EDT [facility] Clinical History Left neck mass; lymphadenopathy; smoker 02/03/2020 17:51 EDT [facility] Gross Description A. 1 fixed prepared slide, 2 Diff Quik prepared slides, 1 tube of RPMI for cell block, and 1 tube of CytoLyt were received and processed by selective cellular enhancement technique. B. 1 fixed prepared slide, 2 air dried prepared slides, and 1 tube of CytoLyt were received and processed by selective cellular enhancement technique. 02/03/2020 17:51 EDT [facility] Resident/Fell ow: Lisa Hollis MD 02/03/2020 17:51 EDT [facility] Performing Lab [facility] 02/03/2020 17:51 EDT [facility] Scanned Images 02/03/2020 17:51 EDT [facility] Fine Needle Aspirate SOFT TISSUE / Unknown 01/29/2020 10:20 EDT 01/30/2020 6:33 EDT Specimen obtained by fine needle aspiration procedure (specimen) SOFT TISSUE / Unknown 01/29/2020 10:20 EDT 01/30/2020 6:33 EDT Watson SILVER PATHOLOGY ORDERABL ES [facility] [address] [place] [address] documented in this encounter Visit Diagnoses Diagnosis Localized swelling, mass and lump, head Localized swelling, mass and lump, neck Swelling, mass, or lump in head and neck Solitary pulmonary nodule documented in this encounter Care Teams Pacu Nurse Relationship Specialty Start Date End Date None, Provider PCP - General 07/27/11 documented as of this encounter
--- OUTSIDE RECORDS SUMMARY | 2023-12-06 22:14 | XMS_ITS | Encounter Summary ---
Author Organization [facility] Address [address] [place] [address] Care Team Providers Care X Ray Service Engineer Name Role Phone None, Provider Primary Care Provider Unavailabl e Encounter Details Date Type Department Care Team (Latest Contact Info) Description 09/11/2014 9:41 EDT - 09/11/2014 23:59 EDT Hospital Encounter [facility] - [address] [address] Unknown, Provider, Discharge Disposition: Home or Self Care Social History Tobacco Use Types Packs/Day Years Used Date Smoking Tobacco: Never Assessed Sex and Gender Information Value Date Recorded Sex Assigned at Not on file Gender Identity Not on file Sexual Orientation Not on file documented as of this encounter Discharge Disposition Disposition Code Departure Means Destination Home or Self Correction documented in this encounter Plan of Treatment Not on file documented as of this encounter Visit Diagnoses Not on filedocumented in this encounter Care Teams X Ray Service Engineer Relationship Specialty Start Date End Date None, Provider PCP - General 07/27/11 documented as of this encounter
--- OUTSIDE RECORDS SUMMARY | 2023-12-06 22:14 | XMS_ITS | Encounter Summary ---
Author Organization [facility] [place] [address] Care Team Providers Care Architectural Draftsperson Name Role Phone Moira Arriaza MD Primary Care Provider [phone] Encounter Details Date Type Department Care Team (Late st Contact Info) Description 05/04/2020 Telephone [place] [phone] Veronica Aponte Social History Tobacco Use Types Packs/Day Years [...] on file documented as of this encounter Miscellaneous Notes * Telephone Encounter - Veronica Aponte - 05/04/2020 11:21 AM EST I informed patient that there is a no visitors policy in effect due to the current pandemic, Patient understands. documented in this encounter Plan of Treatment Not on file documented as of this encounter Visit Diagnoses Not on filedocumented in this encounter Care Teams Architectural Draftsperson Relationship Specialty Start Date End Date Moira Arriaza MD [address] [place] [address] PCP - General 03/22/10 documented as of this encounter
--- OUTSIDE RECORDS SUMMARY | 2023-12-06 22:14 | XMS_ITS | Encounter Summary ---
Author Organization [facility] [place] [address] Care Team Providers Care Ham Doctor Name Role Phone Moira Arriaza MD Primary Care Provider [phone] Reason for Referral * Diagnostic Test (Routine) - Authorized Specialty Diagnoses / Procedures Referred By Contac t Referred To Contact Radiology Diagnoses Thoracic aortic aneurysm without rupture, unspecified part Procedures CT Chest wo Contrast (Generic) Thony Hermosillo PA [facility] [place] [address] [facility] [place] [address] Referral ID Status Reason Start Date Expiration Date Visits Requested Visits Authorized [id number] Authorized Specialty Service Requested 06/29/2023 12/29/2024 1 1 Encounter Details Date Type Department Care Team (Late st Contact Info) Description 06/29/2023 Orders [place] [address] Guillermo Gandhi MD [facility] [address] [place] [address] Thoracic aortic aneurysm without rupture, unspecified part (Primary Dx) Social History Tobacco Use Types Packs/Day Years [...] as of this encounter Plan of Treatment Scheduled Orders Name Type Priority Associated Diagnoses Orde r Schedule CT Chest wo Contrast (Generic) Imaging Routine Thoracic aortic aneurysm without rupture, unspecified part Expected: 06/30/2023, Expires: 12/30/2023 documented as of this encounter Visit Diagnoses Diagnosis Thoracic aortic aneurysm without rupture, unspecified part- Primary documented in this encounter Care Teams Ham Doctor Relationship Specialty Start Date End Date Moira Arriaza MD [address] [place] [address] PCP - General 03/22/10 documented as of this encounter
--- OUTSIDE RECORDS SUMMARY | 2023-12-06 22:14 | XMS_ITS | Encounter Summary ---
Author Organization [facility] [place] [address] Care Team Providers Care Oil Bay Technician Name Role Phone Moira Arriaza MD Primary Care Provider [phone] Encounter Details Date Type Department Care Team (Late st Contact Info) Description 01/17/2021 Telephone [place] [phone] Sharmila Aleman Social History Tobacco Use Types Packs/Day Years [...] encounter Miscellaneous Notes * Telephone Encounter - Sharmila Aleman - 01/17/2021 12:03 PM EDT Clark, Patient is scheduled to have surgery on 03/16/2021 and the packet has been mailed to the verified address on file. Follow up appointment is as follows: F/u appt 1-2 weeks postop, thanks! Thank you!! documented in this encounter Plan of Treatment Not on file documented as of this encounter Visit Diagnoses Not on filedocumented in this encounter Care Teams Oil Bay Technician Relationship Specialty Start Date End Date Moira Arriaza MD [address] [place] [address] PCP - General 03/22/10 documented as of this encounter
--- OUTSIDE RECORDS SUMMARY | 2023-12-06 22:14 | XMS_ITS | Encounter Summary ---
[place] [address] Care Team Providers Care Labor Contractor Name Role Phone Moira Arriaza MD Primary Care Provider [phone] Reason for Referral * Diagnostic Test (Routine) - Closed Specialty Diagnoses / Procedures Referred By Contac t Referred To Contact Radiology Diagnoses Thoracic aortic aneurysm without rupture Procedures CT Angiogram Chest (Non-Coronary) w Contrast CT Angiogram Chest (Non-Coronary) wwo Contrast Marquis Harry PA [facility] [place]ARD[place] [address] [facility] [place] [address] Referral ID Status Reason Start Date Expiration Date V isits Requested Visits Authorized [id number] Closed Specialty Service Requested 03/30/2021 09/28/2022 1 1 Encounter Details Date Type Department Care Team (Late st Contact Info) Description 03/30/2021 Orders [place] [address] Marquis Harry PA [facility] DR [place]AC[place] [address] Thoracic aortic aneurysm without rupture [...] documented as of this encounter Results * CT Angiogram Chest [...] who have questions please contact the health personal care worker that requested your imaging first. ? Electronically signed by: Michael Denis MD, [facility] ([phone]), at 05/20/2021 4:17 PM Narrative 05/20/2021 4:17 [...] patients who have questions please contactthe health personal care worker that requested your imaging first. Electronically signed by: Michael Denis MD, [facility]([phone]), at 05/20/2021 4:17 PM Ebenezer Nguyen MD IMG CT ORDERABLES * Creatinine (05/20/2021 12:10 PM EST) Creatinine 0.86 0.70 - 1.20 mg/dL [facility] Est Glomerular Filtration Rate 74 >=60 mL/min/1. 73 m?? [facility] Comment: This patient? s estimated glomerular [...] Lab Ebenezer Nguyen MD CHEMISTRY ORDERABL ES [facility] [place] [address] documented in this encounter Visit Diagnoses Diagnosis Thoracic aortic aneurysm without rupture Thoracic aneurysm without mention of rupture Thoracic aortic aneurysm without rupture Thoracic aneurysm without mention of rupture documented in this encounter Care Teams Labor Contractor Relationship Specialty Start Date End Date Moira Arriaza MD [address] [place] [address] PCP - General 03/22/10 documented as of this encounter
--- OUTSIDE RECORDS SUMMARY | 2023-12-06 22:14 | XMS_ITS | Encounter Summary ---
Author Organization [facility] Address [address] [place] [address] Care Team Providers Care Aircraft Maintenance Instructor Name Role Phone None, Provider Primary Care Provider Unavailabl e Encounter Details Date Type Department Care Team (Late st Contact Info) Description 10/08/2015 Results Only [facility] [phone] Moira Arriaza MD [address] [place] [address] Social History Tobacco Use Types Packs/Day Years Used Date Smoking Tobacco: Never Assessed Sex and Gender Information Value Date Recorded Sex Assigned at Not on file Gender Identity Not on file Sexual Orientation Not on file documented as of this encounter Plan of Treatment Not on file documented as of this encounter Procedures Procedure Name Priority Date/Time Associated Diagnosis Comments PAP TEST- RESULT ONLY Routine 10/08/2015 0:00 EDT documented in this encounter Results * PAP TEST- RESULT ONLY (10/08/2015 0:00 EDT) Pathology Report: CYTOPATHOLOGY REPORT Reports generated via electronic interface contain original data; however they are lacking the format of the original report. Caution should be taken when reading/interpreti ng unformatted reports. Name: ? SUZAN MOLINA ? Accession #: ? [id number] ? : ? 1960 (Age: 55) ??F ?Collect Date: ? 10/08/2015 ? Location: ? [facility] ? Receive Date: ? 10/12/2015 ? Provider: MOIRA ARRIAZA MD Copy to: ? Final Report SPECIMEN ADEQUACY ? Satisfactory for Evaluation - transformation zone component present GENERAL CATEGORIZATION ? Negative for Intraepithelial Lesion or Malignancy INTERPRETATION ? 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 Last Menstrual Period: Unknown Hormonal/Contracep tive status: Yes: implanon Other: Additional clinical information: negative but no pap for years Specimen/Source: ??Pap Test, Endocervix, ThinPrep Imaging System with manual evaluation Document reviewed and electronically signed by: ? Clarissa Conway, [place](ASCP) ? Report ??Date: 10/21/2015 11:14 HPV with Pap Test ? Date Ordered: ? 10/21/2015 ? Status: ?? Signed Out ?Date Complete: ? 10/22/2015 ? By: ??System Interface ? Date Reported: ? 10/22/2015 ? Interpretation RESULT: Negative for HPV. No E6 or E7 mRNA is detected from HPV types 16,18,31,33,35, 39,45,51,52,56,58, 59,66, and 68 by construction engineer mediated amplification. Comments Document reviewed and electronically signed by: ? System Interface ? Report date: 10/22/2015 By the signature above, the attending physician certifies that he/she has personally conducted a gross and/or microscopic examination of the described specimens and rendered or confirmed the above diagnosis. End of Report [facility] 10/08/2015 10/12/2015 Moira Arriaza MD PATHOLOGY ORDERABLES [facility] [address] [place] [address] documented in this encounter Visit Diagnoses Not on filedocumented in this encounter Care Teams Aircraft Maintenance Instructor Relationship Specialty Start Date End Date None, Provider PCP - General 07/27/11 documented as of this encounter
--- OUTSIDE RECORDS SUMMARY | 2023-12-06 22:14 | XMS_ITS | Encounter Summary ---
Author Organization [facility] Address [address] [place] [address] Care Team Providers Care Front End Web Developer Name Role Phone None, Provider Primary Care Provider Unavailabl e Encounter Details Date Type Department Care Team (Late st Contact Info) Description 08/10/2021 Lab Requisition [facility] Pathology & Laboratory Medicine - [facility] [address] [place] [address] Outr Resulting Lab, Provider Social History Tobacco Use Types Packs/Day Years Used Date Smoking Tobacco: Never Assessed Interpersonal Safety Answer Date Record ed Physically Hurt Never 02/22/2020 Verbally Threaten Not on file 02/22/2020 Sex and Gender Information Value Date Recorded Sex Assigned at Not on file Gender Identity Not on file Sexual Orientation Not on file documented as of this encounter Plan of Treatment Not on file documented as of this encounter Procedures Procedure Name Priority Date/Time Associated Diagnosis Comments ZZCOVID-19 TEST [facility] PCR Today 08/09/2021 10:20 EDT COVID-19 TESTING Routine 08/09/2021 10:2 0 EDT documented in this encounter Results * COVID-19 TEST [facility] LAB PCR (08/09/2021 10:20 EDT) Swab 08/09/2021 10:2 0 EDT 08/10/2021 16:32 EDT Provider Outr Resulting Lab MICROBIOLOGY - GENERAL ORDERABLES [facility] [address] [place] [address] * COVID-19 TESTING (08/09/2021 10:20 EDT) COVID-19 rt-PCR Result Negative Negative 08/11/2021 11:21 EDT [facility] Comment: This test has not been FDA cleared or approved. This test has been authorized by FDA under an EUA for use by authorized laboratories. This test has been authorized only for detection of nucleic acid from 2019-nCoV, not for any other viruses or pathogens. This test is only authorized for the duration of the declaration that circumstances exist justifying the authorization of emergency use of in vitro diagnostic tests for detection and/or diagnosis of 2019-nCoV under section 564(b)(1) of Act, 21 U.S.C ?? 360bbb-3(b) (1), unless the authorization is terminated or revoked sooner. Negative results do not preclude 2019-nCoV infection and should not be used as the sole basis for treatment or other patient management decisions. Negative results must be combined with clinical observations, patient history, and epidemiological information. Testing was performed using the supriya SARS-CoV-2 assay ([employer] on the Supriya 6800 System Performing Lab Supriya [address] [facility] 08/11/2021 11:21 EDT [facility] Swab 08/09/2021 10:2 0 EDT 08/10/2021 16:32 EDT Provider Outr Resulting Lab MICROBIOLOGY - GENERAL ORDERABLES Performing Organization Address City/State/[facility] Co de Phone Number [facility] [address] [place] [address] documented in this encounter Visit Diagnoses Not on filedocumented in this encounter Care Teams Front End Web Developer Relationship Specialty Start Date End Date None, Provider PCP - General 07/27/11 documented as of this encounter
--- OUTSIDE RECORDS SUMMARY | 2023-12-06 22:14 | XMS_ITS | Encounter Summary ---
Author Organization [facility] Address [address] [place] [address] Care Team Providers Care Crime Data Specialist Name Role Phone None, Provider Primary Care Provider Unavailabl e Encounter Details Date Type Department Care Team (Late st Contact Info) Description 09/11/2014 Results Only [facility] [phone] Anders Pillai MD [address] [place] [id number] Social History Tobacco Use Types Packs/Day Years Used Date Smoking Tobacco: Never Assessed Sex and Gender Information Value Date Recorded Sex Assigned at Not on file Gender Identity Not on file Sexual Orientation Not on file documented as of this encounter Plan of Treatment Not on file documented as of this encounter Procedures Procedure Name Priority Date/Time Associated Diagnosis Comments CYTOPATHOLOGY Routine 09/11/2014 0:00 EDT documented in this encounter Results * CYTOPATHOLOGY (09/11/2014 0:00 EDT) Pathology Report: CYTOPATHOLOGY REPORT Reports generated via electronic interface contain original data; however they are lacking the format of the original report. Caution should be taken when reading/interpret ing unformatted reports. Name: ? SUZAN MOLINA ? Accession #: ? [id number] : ? 1960 (Age: 54) ??F ?Collect Date: ? 09/11/2014 Location: ? [facility] ? Receive Date: ? 09/14/2014 Provider: ? ANDERS PILLAI MD Copy to: ? CYTOLOGIC DIAGNOSIS: URINE, VOIDED, CYTOLOGIC EVALUATION: - No malignant cells identified. - Benign urothelial cells noted. - Bacterial and fungal overgrowth (received three days post collection). - Fluid leaked in transit. Document reviewed and electronically signed by: ? TONYA MARIEE MD [facility] Report Date: ??09/16/2014 21:41 By the signature above, the attending physician certifies that he/she has personally conducted a gross and/or microscopic examination of the described specimens and rendered or confirmed the above diagnosis. Specimen Type: ? Urine, Voided Clinical History: ? Microscopic hematuria. Clinical diagnosis code: ??599.72 ? Gross Description: ? 100 cc of clear yellow fluid (Cytolyt added) were received and processed by selective cellular enhancement technique. ? End of Report [facility] 09/11/2014 09/14/2014 16: 11 EDT Anders Pillai MD PATHOLOGY ORDERABLES Performing Organization Address City/State/[facility] Co de Phone Number [facility] [address] [place] [address] documented in this encounter Visit Diagnoses Not on filedocumented in this encounter Care Teams Crime Data Specialist Relationship Specialty Start Date End Date None, Provider PCP - General 07/27/11 documented as of this encounter
--- OUTSIDE RECORDS SUMMARY | 2023-12-06 22:14 | XMS_ITS | Encounter Summary ---
Author Organization [facility] [place] [address] Care Team Providers Care Vinyl Flooring Installer Name Role Phone Moira Arriaza MD Primary Care Provider Encounter Details Date Type Department Care Team (Late st Contact Info) Description 08/01/2021 11:00 AM EDT Office [place] [phone] Moira Garrett MD [facility] [place] [address] Warthin tumor Social History Tobacco Use Types Packs/Day [...] - Inhaled Oxygen Concentration - - Weight 114.3 kg (252 lb) 08/01/2021 11:12 AM EDT Height 162.6 cm (5' 4) 08/01/2021 11:12 AM EDT Body Mass Index 43.26 08/01/2021 11:12 AM EDT documented in this encounter Progress Notes * Moira Garrett MD - 08/01/2021 11:00 AM EDT [facility] Otolaryngology - Head and Neck Surgery Moira Garrett MD 08/01/21 11:23 AM [place], [place] [address] Office Patient Name: Suzan Chaudhary Date of : 1960 PCP: Moira Arriaza MD Chief Complaint/History of Present Illness: Suzan Chaudhary is a 61 y.o. year old seen in follow up. 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 No issues since surgery. No pain, no new neck masses. She has noted a small bump along the inside of the cheek on the right. But no pain, no drainage, no ulceration. Otherwise doing ok. 10 point Review of Systems was normal [...] to Visit Medication Sig Dispense Refill ??? omeprazole (PriLOSEC) 10 mg Capsule, Delayed Release(E.C.) Take 10 mg by mouth daily. ??? losartan (Cozaar) 25 mg Tablet TK [...] by mouth every 6 hours as needed. No current facility-administered medications on file prior to visit. Allergies: Adhesive tape Surgical History: Past Surgical History: Procedure Laterality Date ??? PRG SOMATOSENSORY TEST, ANY/ALL PER. NERVES, TRUNK OR HEAD N/A 03/16/2021 FACIAL NERVE MONITORING, SETUP PERIPHERAL (WRVU 0.54) performed by [facility]ira [facility] MD [facility] ??? PRO COLONOSCOPY, BIOPSY 09/14/2010 COLONOSCOPY FLEXIBLE, WITH BX performed by LUIS FABIAN I at [facility] ??? PRO COLONOSCOPY, BIOPSY N/A 10/15/2017 COLONOSCOPY FLEXIBLE, WITH BX (WRVU 3.66) performed by Brie Sheets MD at [facility] ??? PRO EXC PAROTD, LAT LOBE, DISSECT 5TH NERV Left 03/16/2021 EXC.PAROTID TUMOR OR GLAND, LATERAL LOBE, W DISSECTION & PRESERVATION FACIAL NERVE (WRVU 17.16)performed by Moira Garrett MD at [facility] ??? PRO UPPER GI ENDOSCOPY, BIOPSY 09/14/2010 UPPER GASTROINTESTINAL ENDOSCOPY,WITH BIOPSY SINGLE OR MULTIPLE performed by LUIS FABIAN I at [facility] ??? PRO UPPER GI ENDOSCOPY, DIAGNOSTIC N/A 10/15/2017 EGD, UPPER GI ENDOSCOPY performed by Brie Sheets MD at [facility] Family and Social History Family History: No family history on file. Social History: Lives [place] [facility] [id number] Social History Socioeconomic History ??? Marital status: Spouse name: Not on file ??? Number of children: Not on file ??? Years of education: Not on file ??? Highest education level: Not on file Occupational History ??? Not on file Tobacco Use ??? Smoking status: Current Every Day Smoker Packs/day: 2.00 Years: 39.00 Pack years: 78.00 Types: Cigarettes ??? Smokeless tobacco: Never Used [...] Social Determinants of Health Financial Resource Strain: Not on file Food Insecurity: Not on file Transportation Needs: Not on file Physical Activity: Not on file Housing Stability: Not on file Physical Exam Temperature: Heart Rate: Blood Pressure: [...] healthy mucosa, turbinates normal in size. Oral: Buccal mucosa on the right with a small, 2x2mm submucosal lesion, it is very mobile and round, no overlying induration or erythema noted. The floor of mouth is soft and flat. Oropharynx: Symmetric without tonsillar pathology. No other concerning lesions or masses Larynx:No hoarseness or stridor. External laryngeal structures normal to palpation. Face and sinuses are non tender. Left parotidectomy incision has healed well, no masses noted. Neck: Symmetric. No scars, palpable masses, or [...] ASSESSMENT & RECOMMENDATIONS Suzan Chaudhary is a 61 y.o. s/p excision left parotid Warthin's tumor and likely benign inflamed minor salivary gland. Recommendations: 1. Exam was reviewed with the patient, it's certainly very reassuring. She will f/u with us prn. 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
--- OUTSIDE RECORDS SUMMARY | 2023-12-06 22:14 | XMS_ITS | Encounter Summary ---
[place] [address] Care Team Providers Care Benzol Still Operator Name Role Phone Moira Arriaza MD Primary Care Provider [phone] Encounter Details Date Type Department Care Team (Latest Contact Info) Description 06/06/2022 10:30 AM EST Laboratory Appointment Lab [address] [place] [phone] Thoracic aortic aneurysm without rupture, unspecified part Social History Tobacco Use Types Packs/Day Years [...] Procedure Name Priority Date/Time Associated Diagnosis Comments CREATININE Routine 06/06/2022 10:56 AM EST Thoracic aortic aneurysm without rupture, unspecified part documented in this encounter Results * Creatinine (06/06/2022 10:56 AM EST) Creatinine 0.76 0.70 - 1.20 mg/dL [facility] Est Glomerular Filtration Rate 90 >=60 mL/min/1. 73 m?? [facility] Comment: This patient's estimated GFR was calculated using the 2020 CKD-EPI equation. The estimated GFR can vary from the measured GFR by up to 30% in the absence of rapidly changing kidney function. Assessment of the estimated GFR is not appropriate when creatinine concentrations are rapidly changing. For clinical situations in which a more precise estimate of GFR is necessary, consider alternative methods of GFR estimation such as a 24-hour urine creatinine clearance. Assignment of CKD stage 1-5 for patients with an eGFR near the transition point between stages may be based on clinical assessment of muscle mass and symptoms in addition to eGFR. Blood 06/06/2022 10:5 6 AM EST 06/06/2022 11:08 AM EST Narrative Resulting Agency Comment Spec In Lab Ebenezer Nguyen MD CHEMISTRY ORDERABL ES [facility] [place] [address] documented in this encounter Visit Diagnoses Diagnosis Thoracic aortic aneurysm without rupture, unspecified part documented in this encounter Care Teams Benzol Still Operator Relationship Specialty Start Date End Date Moira Arriaza MD [address] [place] [address] PCP - General 03/22/10 documented as of this encounter
--- OUTSIDE RECORDS SUMMARY | 2023-12-06 22:14 | XMS_ITS | Encounter Summary ---
Author Organization Count Includes [facility] Address [facility] [place] [address] Care Team Providers Care Laundry Operator Wash Room Name Role Phone Moira Arriaza MD Primary Care Provider [phone] Reason for Visit * Consultation (Routine) - Closed Specialty Diagnoses / Procedures Referred By Contac t Referred To Contact Pulmonology Diagnoses Other nonspecific abnormal finding of lung field Moira Arriaza MD [address] [place] [address] [facility] [address] [place] [id number] Referral ID Status Reason Start Date Expiration Date V isits Requested Visits Authorized [id number] Closed Consult, Test & Treat Connection Center PCP Updated and/or Approved 03/12/2020 03/12/2021 6 6 Encounter Details Date Type Department Care Team (Late st Contact Info) Description 04/05/2020 1:00 PM EST TH Visit (TeleHealth) [place] [address] Jonnie ePdro MD [facility] [place] [address] Pulmonary nodule Social History Tobacco Use Types Packs/Day [...] on file documented as of this encounter Progress Notes * Jonnie Pedro MD - 04/05/2020 1:00 PM EST Images from the original note were not included. INTERVENTIONAL PULMONOLOGY OUTPATIENT TELE-CONSULT NOTE SECTION OF PULMONARY & CRITICAL CARE MEDICINE PATIENT NAME: Suzan Chaudhary : 1960 MEDICAL RECORD: [id number] DATE OF SERVICE: 04/04/2020 REFERRING PHYSICIAN: Moira Arriaza MD PRIMARY CARE PHYSICIAN: Moira Arriaza MD TELE-HEALTH INFO Patient identity was confirmed by name and date of at beginning of this telehealth visit. Patient was informed that this telehealth visit is a billable encounter and stated agreement to continue. The patient is at home in [place]. Reason for Tele-Consultation: Lung nodule Chief Complaint: I have a nodule in my chest History of Present Illness: Ms. Suzan Chaudhary is a 60 y.o. woman who has been sent to Interventional Pulmonology for consultation regarding a solitary pulmonary nodule. On 01/29/20, the patient underwent a CT chest as ordered by [facility] ENT. The listed indicationof the study was benign neoplasm of tongue with no available comparison studies. There is a 3.9 cm fat containing tumor within the right atrium. There is a non-calcified 9x11 mm pulmonary nodule inthe right lower lobe. There are no pleural effusions, no lymphadenopathy, and non-specific bilateral adrenal nodularity. A CT of the neck was performed on the same day and this demonstrated a 00y39x80 mm enhancing lesion of the L parotid with an adjacent [id number] mm lesion directly adjacent to thiswhich was suspicious for necrotic adenopathy. There are some ENT notes from [place] and she was last seen by them on 02/03/20 (based on doc[place]emntation sent to [place]) at which time she underwent repeat laryngoscopy showing thrush and some degree of inflammation of her true cords. At that time they ordered a PET/CT. On 02/20/20 she underwent the PET/CT which noted the 10 mm RLL nodule is non-FDG avid and a 3 month f/u CT was recommended. There were bilateral, L>R intensely FDG avid intraparotid no dules with a variety of differentials given (from Warthin's tumors to adenomas to lymphoma or mets). There was also mild aneurysmal dilation of the ascending aorta. A referral to pulmonary medicine was placed on 03/18/20. She had a 01/2019 CT chest performed which showed the nodule then as well which was 12 mm in size. There is a CT abdomen/pelvis from 2016 that does not go up high enough in the chest to visualize thenodule. In speaking to Ms. Chaudhary, she denies history of COPD or asthma. She reports/minimal dyspnea at baseline. She tells me I go 25 hours a day. 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 She used to walk 7 miles per day but hasn't been doing this since caring for her ndjane-od-zqi over the last year and a half due to time constraints. She describes herself as obese but very active. She reports daily cough. No sputum production. No chest tightness or wheezing. She can make it up a flight of stairs without dyspnea (walks up multiple flights per day). She weights 239 lbs. She has quit smoking historically but returned to smoking after significant weight gain. She is interested in quitting. She has been speaking to her PCP about this. She has tried Chantix (allowed her to stop 13 months but only used for <4 weeks due to stomach upset). She has tried nicotine gum before, and hasn't used the patches due to an adhesive allergy she reports. Review of Systems: A 12 point ROS was negative aside from as listed in the HPI. Past Medical/Surgical History: ?? Irritable bowel syndrome ?? Depression ?? Anxiety ?? Hypertension, controlled with exercise Medications: Prior to Admission medications Medication Sig Start Date End Date Taking? Authorizing Provider HYDROcodone-acetaminophen (NORCO) 7.5-325 mg Tablet take 2 tablets by mouth three times a day 09/12/15 PROVIDER, HISTORICAL furosemide (LASIX) 20 mg Tablet take 1 tablet by mouth once daily if needed for LEG EDEMA. DO NOT USE DAILY 08/14/15 PROVIDER, HISTORICAL albuterol (PROVENTIL HFA;VENTOLIN HFA) 90 mcg/actuation HFA Aerosol Inhaler Inhale 2 puffs into thelungs every 4 hours as needed. Use with spacer PROVIDER, HISTORICAL LORazepam (ATIVAN) 0.5 mg Tablet Take 0.5 mg by mouth every 6 hours as needed. PROVIDER, HISTORICAL Allergies: Allergies Allergen Reactions ??? 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 Labs: None to review PFTS: None to review Imaging: (Images personally reviewed) 02/20/20 PET/CT: 1. Non-FDG avid 10 mm superior segment right lower lobe solid pulmonary nodule. An indolent-type malignancy is not excluded. A follow-up chest CT in 3 months is recommended. 2. Bilateral, left greater in [...] size of nonobstructing subcentimeter inferior pole nephrolithiasis. 01/29/20 CT Chest: 9x11 mm non-calcified pulmonary nodule in the RLL; in addition, there is a 3.5x3.9x5.3 cm lipoma inthe right atrium. Assessment: Suzan Chaudhary is a 60 y.o. woman who has been sent to me for consultation in regards to a solitarypulmonary nodule. She is an active smoker without personal or FH of malignancy. She has good functional status without stigmata of COPD. This incidentally discovered 10 mm nodule is smooth bordered, non-calcified, in the right lower lobe without additional nodules or adenopathy. In review of prior imaging, it was also noted on a CT chest from 01/2019 at which time it was read as being 12 mm (but is likely more or less the same size). It is FDG negative on recent PET imaging. Based on the [facility] Model, the probability of malignancy for this lesion is estimated to be 3.6% which is considered a low (<5%) pre-test probability (Terri SJ et al. Arch Speech Language Pathologist Assistant Med.1996Aug 25;157(8):849-55); we talked about the differential diagnosis of solitary pulmonary nodules and the onus to follow pulmonary nodules longitudinally. It's reassuring that her nodule has not grown in the last one year. I suspect a benign etiology, but of course a neoplasm with very low metabolic activity remains on the differential (but with low current pre-test probability). I recommended her PCP obtain a CT chest w/o contrast in one year to follow-up on this. If stable at that time, recommend her PCP and her have a shared decision making conversation regarding LDCT screening which can begin the year after. We had a long conversation regarding the importance of smoking cessation. She reports failure on nicotine replacement, Chantix (severe GI upset on low dose), and Wellbutrin (suicidal ideations). She willtry nicotine replacement, I spoke to her about the [place] quits line, and encouraged her to follow-up with her PCP regarding smoking cessation. Recommendations: ?? Recommend Dr. Arriaza obtain a CT chest in 01/2021; if enlarging, refer back to me ?? Recommend shared decision making meeting for LDCT to begin 01/2022 ?? Discussed the importance of smoking cessation; Zyban/Chantix refused due to prior side-effects ?? Recommend continued f/u with ENT regarding parotid PET findings ?? Recommend f/u with Cardiology regarding atrial lipoma ?? Note to be sent to Moira Arriaza MD ?? Follow-up with me PRN; f/u CT with PCP in one year Problems addressed: ?? Solitary pulmonary nodule ?? Tobacco use Billing: I personally performed 75 minutes of aggregate time involved in patient evaluation, reviewing medical records, interpreting diagnostic tests (imaging and/or labs), formulating my plan, and documentation of this tele-health consultation. Jonnie Pedro MD, 04/04/2020, 5:37 PM Interventional Pulmonology Section of Pulmonary & Critical Care Pager: [phone] documented in this encounter Plan of Treatment Not on file documented as of this encounter Visit Diagnoses Diagnosis Pulmonary nodule Solitary pulmonary nodule documented in this encounter Care Teams Laundry Operator Wash Room Relationship Specialty Start Date End Date Moira Arriaza MD [address] [place] [address] PCP - General 03/22/10 documented as of this encounter
--- OUTSIDE RECORDS SUMMARY | 2023-12-06 22:14 | XMS_ITS | Encounter Summary ---
Author Organization [facility] [place] [address] Care Team Providers Care Validation Intern Name Role Phone Moira Arriaza MD Primary Care Provider [phone] Reason for Referral * Diagnostic Test (Routine) - Closed Specialty Diagnoses / Procedures Referred By Contac t Referred To Contact Cardiology Diagnoses Thoracic aortic aneurysm without rupture Procedures Echocardiogram Transthoracic([facility]) Kirill Gill PA [facility] DR CARDIOTHORACIC [place] [address] [facility] [place] [address] Referral ID Status Reason Start Date Expiration Date V isits Requested Visits Authorized [id number] Closed Specialty Service Requested 03/22/2020 03/22/2021 1 1 Reason for Visit * Diagnostic Test (Routine) - Closed Specialty Diagnoses / Procedures Referred By Contac t Referred To Contact Cardiology Diagnoses Thoracic aortic aneurysm without rupture Procedures Echocardiogram Transthoracic([facility]) Kirill Gill PA [facility] CARDIOTHORACIC [place] [address] [facility] [place] [address] Referral ID Status Reason Start Date Expiration Date V isits Requested Visits Authorized [id number] Closed Specialty Service Requested 03/22/2020 03/22/2021 1 1 Encounter Details Date Type Department Care Team (Latest Contact Info) Description 05/21/2020 9:38 AM EST - 05/21/2020 11:59 PM EST Hospital Encounter Non-Invasive Cardiology Lab [facility] [place] [address] Ebenezer Nguyen MD [facility] [place] [address] Thoracic aortic aneurysm without rupture Discharge Disposition: Home Social History Tobacco Use Types Packs/Day Years Used Date Smoking Tobacco: Every Day Cigarettes Smokeless Tobacco: Never Comments:quit previously. [facility] back august 16 2016 Alcohol Use Standard [...] Procedure Name Priority Date/Time Associated Diagnosis Comments ECHO COMPLETE Routine 05/21/2020 10:37 AM EST Thoracic aortic aneurysm without rupture documented in this encounter Results * ECHO COMPLETE (05/21/2020 10:37 AM EST) EF 62 HEARTLAB SYSTEM Anatomical Region Laterality Modality Other 05/21/2020 Narrative 05/21/2020 11:07 AM EST Procedure: ?Transthoracic Echocardiogram Patient: ?PANDA Marroquin ?(Age): 1960(60y) Med Rec#: ? [id number] ?Sex: ?F ? Site Loc: ? [facility] ?Ht / Wt: ??165(cm)/106(kg) Pt. Loc: ?Echo Lab ?BSA: ?2.11 Study Date: ?? 05/21/2020 ?Pt. Type: Outpatient Tape: ? Referring: Ebenezer Nguyen Referring: MIGUE Reading: Dung Frazier ([id number]) Childhood Development Teacher: Pierre Connor RDCS Interpreting Fellow: Leslie Davis ([id number]) Interpreting Fellow: Rupal Medrano ([id number]) Diagnosis: *Thoracic aortic aneurysm, without rupture (I71.2) [...] Vmax ?0.69 ? m/sec ? MV deceleration [id number] ? msec ? MV A-wave Vmax ?0.94 [...] ? Mid-Inferior ?Normal ? Mid-Inferoseptal ?Normal ? [place]-Septal ? Normal ? [place]-Anterior ? Normal ? [place]-Lateral ?Normal ? [place]-Inferior ? Normal ? [place]-Tip ?Normal ? This report has been electronically signed by: Dung Frazier M.D. ? 05/21/2020 11:06:46 Images reviewed and interpretation verified [facility] Cardiac Ultrasound Laboratory Procedure Note Dung Frazier MD - 05/21/2020 Procedure: Transthoracic Echocardiogram Patient: PANDA Marroquin (Age): 1960(60y) Med Rec#: [id number] Sex: F Site Loc: [facility] Ht / Wt: 165(cm)/106(kg) Pt. Loc: Echo Lab BSA: 2.11 Study Date: 05/21/2020 Pt. Type: Outpatient Tape: Referring: Ebenezer Nguyen Referring: MIGUE Reading: Dung Frazier ([id number]) Childhood Development Teacher: Pierre Connor RDCS Interpreting Fellow: Leslie Davis ([id number]) Interpreting Fellow: Rupal Medrano ([id number]) Diagnosis: *Thoracic aortic aneurysm, without rupture (I71.2) [...] MV E-wave Vmax 0.69 m/sec MV deceleration [id number] msec MV A-wave Vmax 0.94 m/sec MV [...] Normal Mid-Posterolateral Normal Mid-Inferior Normal Mid-Inferoseptal Normal [place]-Septal Normal [place]-Anterior Normal [place]-Lateral Normal [place]-Inferior Normal [place]-Tip Normal This report has been electronically signed by: Dung Frazier M.D. 05/21/2020 11:06:46 Images reviewed and interpretation verified [facility] Cardiac Ultrasound Laboratory Ebenezer Nguyen MD ECHO ORDERABLES documented in this encounter Visit Diagnoses Diagnosis Thoracic aortic aneurysm without rupture Thoracic aneurysm without mention of rupture documented in this encounter Care Teams Validation Intern Relationship Specialty Start Date End Date Moira Arriaza MD [address] [place] [address] PCP - General 03/22/10 documented as of this encounter
--- OUTSIDE RECORDS SUMMARY | 2023-12-06 22:14 | XMS_ITS | Encounter Summary ---
Author Organization [facility] [place] [address] Care Team Providers Care Shirt Ironer Name Role Phone Moira Arriaza MD Primary Care Provider [phone] Encounter Details Date Type Department Care Team (Latest Contact Info) Description 05/21/2020 4:50 PM EST TH Visit (TeleHealth) [place] [address] Ebenezer Nguyen MD [facility] [place] [address] Thoracic aortic aneurysm without rupture Social History [...] as of this encounter Progress Notes * Ebenezer Nguyen MD - 05/21/2020 4:50 PM EST Images from the original note were not included. Cardiac Surgery Consultation *Patient consents to telehealth* Date of Service: 05/27/2020 Time: 6:31 PM Referring Provider: Moira Arriaza Primary Care Provider: Moira Arriaza MD Reason for Consultation: Aortic aneurysm History of Present Illness: I am seeing Suzan Chaudhary at the request of Moira Arriaza for evaluation of an ascending aortic aneurysm Suzan Chaudhary is a 60 y.o. female with a history of tobacco use, obesity, pulmonary nodules, Warthin's tumor, and an ascending aortic aneurysm who presents for surgical evaluation of her ascending aorta. The patient's aortic aneurysm was discovered incidentally during evaluation of pulmonary nodules. The patient has no known family history of aortic dissection or rupture. She has no known history of connective tissue disease. She is an active smoker (1.5 to 2 packs/day). She reports that her blood pressure is well controlled at home, with a systolic pressure in the 120s. She had a negative stress test approximately 1 year ago. She has occasional nonspecific episodes of chest discomfort. She denies any episodes of dyspnea with exertion. Past Medical History: Patient Active Problem List Diagnosis Code ??? Nicotine dependence F17.200 ??? Obesity E66.9 ??? Incisional hernia K43.2 ??? Abdominal pannus E65 ??? Pulmonary nodule R91.1 ??? Warthin's tumor D11.9 Past Surgical History: Past Surgical History: Procedure Laterality Date ??? PRO COLONOSCOPY, BIOPSY 09/14/2010 COLONOSCOPY FLEXIBLE, WITH BX performed by LUIS FABIAN I at [facility] ??? PRO COLONOSCOPY, BIOPSY N/A 10/15/2017 COLONOSCOPY FLEXIBLE, WITH BX (WRVU 3.66) performed by Brie Sheets MD at [facility] ??? PRO UPPER GI ENDOSCOPY, BIOPSY 09/14/2010 UPPER GASTROINTESTINAL ENDOSCOPY,WITH BIOPSY SINGLE OR MULTIPLE performed by LUIS FABIAN I at [facility] ??? PRO UPPER GI ENDOSCOPY, DIAGNOSTIC N/A 10/15/2017 EGD, UPPER GI ENDOSCOPY performed by Brie Sheets MD at [facility] Family History: No family history on file. Social History: Social History Socioeconomic History ??? Marital status: Spouse name: Not on file ??? Number of children: Not on file ??? Years of education: Not on file ??? Highest education level: Not on file Occupational History ??? Not on file Social Needs ??? Financial resource strain: Not on file ??? Food insecurity Worry: Not on file Inability: Not on file ??? Transportation needs Medical: Not on file Non-medical: Not on file Tobacco Use ??? Smoking status: Current Every Day Smoker Packs/day: 1.50 Types: Cigarettes ??? Smokeless tobacco: Never Used ??? Tobacco comment: quit previously. started back august 16 2016 Substance and Sexual Activity ??? Alcohol use: Yes Alcohol/week: 1.0 - 2.0 standard drinks Types: 1 - 2 Glasses of wine per week ??? Drug use: Yes Types: Other pain meds Comment: oxycodone daily ??? Sexual activity: Not on file Lifestyle ??? Physical activity Days per week: Not on file Minutes per session: Not on file ??? Stress: Not on file Relationships ??? Social connections Talks on phone: Not on file Gets together: Not on file Attends latter-day service: Not on file Active member of club or organization: Not on file Attends meetings of clubs or organizations: Not on file Relationship status: Not on file ??? Intimate partner violence Fear of current or ex partner: Not on file Emotionally abused: Not on file Physically abused: Not on file Forced sexual activity: Not on file Other Topics Concern ??? Not on file Social History Narrative ??? Not on file Allergies: Allergies Allergen Reactions ??? Adhesive Tape Other (See Comments) blisters Current Medications: Current Outpatient Medications Ordered in [employer] Medication Sig Dispense Refill ??? losartan (Cozaar) 25 mg Tablet TK [...] mouth three times a day 0 ??? furosemide (LASIX) 20 mg Tablet take 1 tablet by mouth once daily if needed for LEG EDEMA. DO NOT USE DAILY 0 ??? albuterol (PROVENTIL HFA;VENTOLIN HFA) 90 mcg/actuation HFA Aerosol Inhaler Inhale 2 puffs intothe lungs every 4 hours as needed. Use with spacer ??? LORazepam (ATIVAN) 0.5 mg Tablet Take 0.5 mg by mouth every 6 hours as needed. No current Epic-ordered facility-administered medications on file. Review of Systems: Respiratory: negative for dyspnea on exertion Cardiovascular: positive for occasional, non-specific chest pain All other ROS negative Physical Exam: Last set of vitals: There were no vitals taken for this visit. Diagnostics: (I have independently visualized the following studies): CT scan: 4.4 cm aneurysm of the tubular ascending aorta. TTE: 1. The left ventricular chamber size is [...] is no prior study available for comparison. ?? Assessment & Plan of Management: Suzan Chaudhary is a 60-year-old woman with a 4.4 cm incidentally discovered ascending aortic aneurysm and a normally functioning aortic valve. She meets no indications for aortic surgery at this timebut will need ongoing surveillance imaging. ?? Return to clinic in 1 year for CTA of the chest ?? Patient counseled on smoking cessation ?? We will also evaluate on future CT for presence of right atrial lipoma, which was only seen on one previous CT scan and not on most recent transthoracic echo or PET/CT. Thank you for allowing me to participate in the care of Suzan Chaudhary Please do not hesitate to call with questions. Ebenezer Nguyen MD, MS military equipment specialist Section of Cardiac Surgery [facility] Office: [phone] Pager: [phone] I spent a total of 30 minutes today in record review, medical counseling, coordination of care, medical decision-making, and documentation. documented in this encounter Plan of Treatment Not on file documented as of this encounter Visit Diagnoses Diagnosis Thoracic aortic aneurysm without rupture Thoracic aneurysm without mention of rupture documented in this encounter Care Teams Shirt Ironer Relationship Specialty Start Date End Date Moira Arriaza MD [address] [place] [address] PCP - General 03/22/10 documented as of this encounter
--- OUTSIDE RECORDS SUMMARY | 2023-12-06 22:14 | XMS_ITS | Encounter Summary ---
Author Organization [facility] Address [address] [place] [address] Care Team Providers Care Manager Process Excellence Name Role Phone Unavailable Primary Care Provider Unavailabl e Encounter Details Date Type Department Care Team (Late st Contact Info) Description 07/24/2011 Results Only [facility] Laboratory Services - [facility] ([facility]) [address] [place] [address] [phone] Johnson Schroeder MD [address] [place] [address] Social History Tobacco Use Types Packs/Day Years Used Date Smoking Tobacco: Never Assessed Sex and Gender Information Value Date Recorded Sex Assigned at Not on file Gender Identity Not on file Sexual Orientation Not on file documented as of this encounter Plan of Treatment Not on file documented as of this encounter Procedures Procedure Name Priority Date/Time Associated Diagnosis Comments SURGICAL PATHOLOGY Routine 07/24/2011 0:00 EDT documented in this encounter Results * SURGICAL PATHOLOGY (07/24/2011 0:00 EDT) Pathology Report: SURGICAL PATHOLOGY REPORT Reports generated via electronic interface contain original data; however they are lacking the format of the original report. Caution should be taken when reading/interpreti ng unformatted reports. Name: ? SUZAN MOLINA ? Accession #: ? [id number] ? : ? 1960 (Age: 51) ??F ? Collect Date: ? 07/24/2011 ? Location: ? [facility] ? Receive Date: ? 07/26/2011 ? Provider: JOHNSON SCHROEDER MD Copy to: ? Final Pathologic Diagnosis: ? Tip of tongue lesion, excision: 1. ?Focal low grade squamous dysplasia. ??See comment. 2. ? Hyperplastic squamous mucosa with parakeratosis. Comment: ? Deeper levels have been examined. This case has been reviewed at the intradepartmental consultation conference. Dr. Damaso Rodriguez has reviewed this case in consultation and agrees with the above interpretation. (Dr. Cortez)/[facility] Document reviewed and electronically signed by: SHELDON CORTEZ MD Report ??Date: 08/01/2011 07:06 By the signature above, the attending physician certifies that he/she has personally conducted a gross and/or microscopic examination of the described specimens and rendered or confirmed the above diagnosis. Specimen(s) Received: ? Excisional bx Clinical History: ? Tongue tip lesion, smoker; clinical diagnosis code: 239.2 Gross Description: ? Received in formalin labelled [place], Suzan and tongue lesion is an apparent shave biopsy of a 0.7 x 0.5 x 0.3 cm, white, roughened mucosal nodule. The resection margin is inked black, the specimen is trisected and entirely submitted in a single cassette. ??(Td Silveira)/[facility] End of Report DOMINIK GALARZA 07/24/2011 07/26/2011 8:2 7 EDT Johnson Schroeder MD PATHOLOGY ORDERABLES [facility] [address] [place] [address] documented in this encounter Visit Diagnoses Not on filedocumented in this encounter
--- OUTSIDE RECORDS SUMMARY | 2023-12-06 22:14 | XMS_ITS | Encounter Summary ---
Author Organization [facility] [place] [address] Care Team Providers Care Technical Information Specialist Name Role Phone Moira Arriaza MD Primary Care Provider [phone] Reason for Visit * Diagnostic Test (Routine) - Closed Specialty Diagnoses / Procedures Referred By Contac t Referred To Contact Radiology Diagnoses Warthin's tumor Procedures NM PET CT Standard Plus Extremities and Head Watson Nick PA [address] [place] [address] [place] [address] Referral ID Status Reason Start Date Expiration Date V isits Requested Visits Authorized [id number] Closed Specialty Service Requested 02/11/2020 08/09/2020 1 1 Encounter Details Date Type Department Care Team (Late st Contact Info) Description 02/20/2020 2:29 PM EDT - 02/20/2020 11:59 PM EDT Hospital Encounter [place] [address] Watson Nick PA [address] [place] [address] Discharge Disposition: Home Social History Tobacco Use Types Packs/Day Years Used Date Smoking Tobacco: Every Day Cigarettes Smokeless Tobacco: Never Comments:quit previously. [facility] vel[facility] back august 16 2016 Alcohol Use Standard [...] Routine 02/20/2020 4:11 PM EDT Warthin's tumor POCT GLUCOSE Routine 02/20/2020 2:35 PM EDT documented in this encounter Results * POCT Glucose (02/20/2020 2:35 PM EDT) Glucose, POC 94 65 - 199 mg/dL [facility] Comment: Supplemental ranges: <140 mg/dL before meals <180 mg/dL all other times of the day Blood specimen (specimen) 02/20/2020 2:35 PM EDT 02/20/2020 2:35 PM EDT Watson SILVER POINT [place] [address] documented in this encounter Visit Diagnoses Not on filedocumented in this encounter Care Teams Technical Information Specialist Relationship Specialty Start Date End Date Moira Arriaza MD [address] [place] [address] PCP - General 03/22/10 documented as of this encounter
--- OUTSIDE RECORDS SUMMARY | 2023-12-06 22:14 | XMS_ITS | Encounter Summary ---
Author Organization [facility] [place] [address] Care Team Providers Care Actuary Manager Name Role Phone Moira Arriaza MD Primary Care Provider Reason for Referral * Diagnostic Test (Routine) - Closed Specialty Diagnoses / Procedures Referred By Contac t Referred To Contact Radiology Diagnoses Thoracic aortic aneurysm without rupture, unspecified part Procedures CT Angiogram Chest (Non-Coronary) w Contrast CT Angiogram Chest (Non-Coronary) wwo Contrast Moira Han PA [facility] [place] [address] [facility] [place] [address] Referral ID Status Reason Start Date Expiration Date V isits Requested Visits Authorized [id number] Closed Specialty Service Requested 02/22/2022 08/24/2023 1 1 Reason for Visit * Diagnostic Test (Routine) - Closed Specialty Diagnoses / Procedures Referred By Contac t Referred To Contact Radiology Diagnoses Thoracic aortic aneurysm without rupture, unspecified part Procedures CT Angiogram Chest (Non-Coronary) w Contrast CT Angiogram Chest (Non-Coronary) wwo Contrast Moira Han PA [facility] [place] [address] [facility] [place] [address] Referral ID Status Reason Start Date Expiration Date V isits Requested Visits Authorized [id number] Closed Specialty Service Requested 02/22/2022 08/24/2023 1 1 Encounter Details Date Type Department Care Team (Latest Contact Info) Description 06/06/2022 11:04 AM EST - 06/06/2022 11:59 PM EST Hospital Encounter CT Scan at [facility] [place] [address] Ebenezer Nguyen MD [facility] [place] [address] Thoracic aortic aneurysm without rupture, unspecified part Discharge Disposition: Home Social History Tobacco Use Types Packs/Day Years Used Date Smoking Tobacco: Every Day Cigarettes 2 39 Smokeless Tobacco: Never Comments:quit previously. [facility] [...] Sig Dispensed Refills Start Date End Date omeprazole (PriLOSEC) 10 mg Capsule, Delayed Release(E.C.) Take 10 mg by mouth daily. losartan (Cozaar) 25 mg Tablet TK 1 [...] ANGIOGRAM OF CHEST (NON-CORONARY) W CONTRAST Routine 06/06/2022 12:05 PM EST Thoracic aortic aneurysm without rupture, unspecified part documented in this encounter Results * CT Angiogram Chest (Non-Coronary) w Contrast (06/06/2022 12:05 PM EST) Anatomical Region Laterality Modality Chest Computed Tomogra phy Impressions 06/06/2022 4:34 PM EST 1. ??Stable 44 mm caliber smooth-walled ascending thoracic aorta. 2. ??I have remeasured the stable 13 mm right upper lobe nodule. This is been stable since January 2019. This was not PET avid in January 2020. Thank you for letting us participate in the care of this patient. ??If you are a health care provider and have any questions regarding this report, please contact the number below. ??For patients who have questions please contact the health personal care aide that requested your imaging first. ? Narrative 06/06/2022 4:34 PM EST EXAMINATION: CT ANGIOGRAM CHEST (NON-CORONARY)W CONTRAST CLINICAL HISTORY: Aortic aneurysm, known or suspected TECHNIQUE: Helical CT angiogram of the chest was performed following the intravenous administration of contrast. Administered 72.0 ml of OMNIPAQUE 350.00 mg/ml. Maximum intensity projection (MIP) were reformatted. 3D images were generated on an independent workstation. COMPARISON: May 20, 2021 FINDINGS: VASCULAR Heart: Normal size heart without pericardial effusion. Persistent incidental lipomatous hypertrophy of the interatrial septum. Aorta: Smooth-walled dilation of the ascending thoracic aorta. Mild partially calcified mural atherosclerotic disease at the arch and descending segments. No dissection. Maximum diameters of the aorta were measured at the following levels on center line reformatted images, are stable: * ??Sinuses of Valsalva: 38 mm, differences reflect angle of interrogation. * ??Sinotubular junction: 38 mm * ??Mid ascending aorta: 44 mm * ??Proximal aortic arch: 38 mm * ??Mid aortic arch: 30 mm * ??Proximal descending thoracic aorta: 28 mm * ??Mid descending aorta: 28 mm * ??Aorta at diaphragm: 26 mm * ??Abdominal aorta at celiac axis origin: 26 mm Great vessels: Conjoined origin of left common carotid and right brachiocephalic arteries. Right common carotid artery courses posteriorly in the low neck. Widely patent. No central pulmonary artery emboli. Celiac/SMA: No stenosis or aneurysm. NON-VASCULAR Lungs and large airways: Dependent atelectasis. 13 mm superior segment right lower lobe nodule is stable since February 23, 2019. Pleura: No pleural effusion Mediastinum and avila: Stable subcentimeter short axis lymph nodes Limited views of the upper abdomen: Normal adrenal gland contours Osseous structures: Within normal limits. Procedure Note Lizzy Ruffin MD - 06/06/2022 EXAMINATION: CT ANGIOGRAM CHEST (NON-CORONARY)W CONTRAST CLINICAL HISTORY: Aortic aneurysm, known or suspected TECHNIQUE: Helical CT angiogram of the chest was performed following the intravenous administration of contrast. Administered 72.0 ml of QOODHPJVX349.00 mg/ml. Maximum intensity projection (MIP) were reformatted. 3D imageswere generated on an independent workstation. COMPARISON: May 20, 2021 FINDINGS: VASCULAR Heart: Normal size heart without pericardial effusion. Persistentincidental lipomatous hypertrophy of the interatrial septum. Aorta: Smooth-walled dilation of the ascending thoracic aorta. Mildpartially calcified mural atherosclerotic disease at the arch and descendingsegments. No dissection. Maximum diameters of the aorta were measured at the following levels oncenter line reformatted images, are stable: * Sinuses of Valsalva: 38 mm, differences reflect angle ofinterrogation. * Sinotubular junction: 38 mm * Mid ascending aorta: 44 mm * Proximal aortic arch: 38 mm * Mid aortic arch: 30 mm * Proximal descending thoracic aorta: 28 mm * Mid descending aorta: 28 mm * Aorta at diaphragm: 26 mm * Abdominal aorta at celiac axis origin: 26 mm Great vessels: Conjoined origin of left common carotid and rightbrachiocephalic arteries. Right common carotid artery courses posteriorly in the lowneck. Widely patent. No central pulmonary artery emboli. Celiac/SMA: No stenosis or aneurysm. NON-VASCULAR Lungs and large airways: Dependent atelectasis. 13 mm superior segmentright lower lobe nodule is stable since February 23, 2019. Pleura: No pleural effusion Mediastinum and avila: Stable subcentimeter short axis lymph nodes Limited views of the upper abdomen: Normal adrenal gland contours Osseous structures: Within normal limits. IMPRESSION 1. Stable 44 mm caliber smooth-walled ascending thoracic aorta. 2. I have remeasured the stable 13 mm right upper lobe nodule. This isbeen stable since January 2019. This was not PET avid in January 2020. Thank you for letting us participate in the care of this patient. If youare a health care provider and have any questions regarding this report,please contact the number below. For patients who have questions please contactthe health personal care aide that requested your imaging first. Ebenezer Nguyen MD IMG CT ORDERABLES documented in this encounter Visit Diagnoses Diagnosis Thoracic aortic aneurysm without rupture, unspecified part documented in this encounter Administered Medications Inactive Administered Medications - up to 3 most recent administrations Medication Order MAR Action Action Date Dose Rate Site iohexoL (Omnipaque) (350 mg/mL) solution 0-200 mL 0-200 mL, Intravenous, ONCE PRN, 1 dose, Starting on Sun06/06/22 at 1200, Until Sun06/06/22 at 1200, Per Protocol, Warning Vesicant/Irritant Medication , Radiology Contrast, Routine Given 06/06/2022 12:00 PM EST 72 mLs documented in this encounter Care Teams Actuary Manager Relationship Specialty Start Date End Date Moira Arriaza MD [address] [place] [address] PCP - General 03/22/10 documented as of this encounter
--- OUTSIDE RECORDS SUMMARY | 2023-12-06 22:14 | XMS_ITS | Encounter Summary ---
Author Organization [facility] [place] [address] Care Team Providers Care Psychologist Social Name Role Phone Moira Arriaza MD Primary Care Provider [phone] Encounter Details Date Type Department Care Team (Late st Contact Info) Description 04/02/2020 Telephone [place] [phone] Kirstin Dunlap CMA Social History Tobacco Use Types Packs/Day Years [...] encounter Miscellaneous Notes * Telephone Encounter - Kirstin Dunlap MA - 04/02/2020 9:31 AM EST 5C Zipper Repairer Pre-Telemedicine Phone Note [x] Patient not reached [] Patient reached and the following information was reviewed/obtained per protocol: [] Confirmed patient name and date of [] Confirmed location of patient - TeleVisit is taking place in [] [place] [] [place] [] [place] [] [place] [] Confirmed Pt has MyDH [] Confirmed Pt has download ZOOM [] If not on myDH, working on signing up for myDH [] If no MyDH is made, how is Dr sending Pt the zoom link for video [] By Cell phone [] By E-mail [] Phone visit/ how is Dr contacting Pt if disconcert from [facility] [] Home phone [] Cell phone [] Other number [] Reviewed patient medications [] Documented self-reported vitals: [] Weight: [] Height: [] Other information or concerns documented in this encounter Plan of Treatment Not on file documented as of this encounter Visit Diagnoses Not on filedocumented in this encounter Care Teams Psychologist Social Relationship Specialty Start Date End Date Moira Arriaza MD [address] [place] [address] PCP - General 03/22/10 documented as of this encounter
--- OUTSIDE RECORDS SUMMARY | 2023-12-06 22:14 | XMS_ITS | Encounter Summary ---
Author Organization [facility] Address [address] [place] [address] Care Team Providers Care Head Bone Grinder Name Role Phone Unavailable Primary Care Provider Unavailabl e Encounter Details Date Type Department Care Team (Late st Contact Info) Description 08/22/2005 Results Only [facility] conversion [address] [place] [address] Latasha Sheridan, FIELD UNDERWRITER [facility] [address] [place] [address] Social History Tobacco Use Types Packs/Day Years Used Date Smoking Tobacco: Never Assessed Sex and Gender Information Value Date Recorded Sex Assigned at Not on file Gender Identity Not on file Sexual Orientation Not on file documented as of this encounter Plan of Treatment Not on file documented as of this encounter Procedures Procedure Name Priority Date/Time Associated Diagnosis Comments CYTOPATHOLOGY Routine 08/22/2005 0:00 EDT documented in this encounter Results * CYTOPATHOLOGY (08/22/2005 0:00 EDT) Pathology Report: CYTOPATHOLOGY REPORT Reports generated via electronic interface contain original data; however they are lacking the format of the original report. Caution should be taken when reading/interpreti ng unformatted reports. Name: ? SUZAN MOLINA ? Accession #: ? [id number] : ? 1960 (Age: 45) ??F ?Collect Date: ? 08/22/2005 Location: ? [facility] ? Receive Date: ? 08/24/2005 Provider: ?LATASHA SHERIDAN FIELD UNDERWRITER Copy to: ? Specimen/Source: ?ThinPrep Pap Test, Cervix/Endocervix, processed on [employer] ThinPrep Imaging System, with manual evaluation Last Menstrual Period: ? 08/04/05 Hormonal/Contracep tive Status: ? Yes: Norplant ? SPECIMEN ADEQUACY ? Satisfactory for Evaluation - transformation zone component present GENERAL CATEGORIZATION ? Negative for Intraepithelial Lesion or Malignancy ? Document reviewed and electronically signed by: ? PAYAM Campos(ASCP) ? Report Date: ??08/28/2005 12:51 End of Report DOMINIK GALARZA 08/22/2005 08/24/2005 Latasha Sheridan NP PATHOLOGY ORDERABLES DOMINIK GALARZA [address] [place] [address] documented in this encounter Visit Diagnoses Not on filedocumented in this encounter
--- OUTSIDE RECORDS SUMMARY | 2023-12-06 22:14 | XMS_ITS | Referral Summary ---
Author Organization [facility] Address [address] [place] [address] Care Team Providers Care Thread Puller Name Role Phone None, Provider Primary Care Provider Unavailabl e Social History Tobacco Use Types Packs/Day Years Used Date Smoking Tobacco: Never Assessed Interpersonal Safety Answer Date Record ed Physically Hurt Never 02/22/2020 Verbally Threaten Not on file 02/22/2020 Sex and Gender Information Value Date Recorded Sex Assigned at Not on file Gender Identity Not on file Sexual Orientation Not on file Plan of Treatment Not on file Care Teams Thread Puller Relationship Specialty Start Date End Date None, Provider PCP - General 07/27/11
--- OUTSIDE RECORDS SUMMARY | 2023-12-06 22:14 | XMS_ITS | Encounter Summary ---
Author Organization [facility] Address [facility] [place] [address] Care Team Providers Care Automatic Corn Grinder Operator Name Role Phone Moira Arriaza MD Primary Care Provider [phone] Encounter Details Date Type Department Care Team (Late st Contact Info) Description 06/06/2022 1:30 PM EST Office [place] [phone] Guillermo Gandhi MD [facility] DR CARDIOTH[place] [address] Ascending aortic aneurysm, unspecified whether ruptured Social History Tobacco Use Types Packs/Day Years [...] Sign Reading Time Taken Comments Blood Pressure 138/89 06/06/2022 1:20 PM EST Pulse 74 06/06/2022 1:20 PM EST Temperature - - Respiratory Rate - - Oxygen Saturation 95% 06/06/2022 1:20 PM EST Inhaled Oxygen Concentration - - Weight 110 kg (242 lb 8 oz) 06/06/2022 1:[address] Height 163.8 cm (5' 4.5) 06/06/2022 1:20 PM EST Body Mass Index 40.98 06/06/2022 1:20 PM EST documented in this encounter Progress Notes * Guillermo Gandhi MD - 06/06/2022 1:30 PM EST Cardiothoracic Surgery Consultation Suzan Chaudhary is seen at the request of Dr Arriaza for the evaluation of aortic anerysm. HPI: Suzan Chaudhary is a 62 y.o. year old female with no symptoms of angina, syncope or horne. Problem List: Patient Active Problem List Diagnosis ??? Warthin tumor ??? Pulmonary nodule ??? Abdominal pannus ??? Nicotine dependence ??? Obesity ??? Incisional hernia Past Medical History: Past Medical History: Diagnosis Date ??? Sleep apnea Past Surgical History: Past Surgical History: Procedure Laterality Date ??? PRG SOMATOSENSORY TEST, ANY/ALL PER. NERVES, TRUNK OR HEAD N/A 03/16/2021 FACIAL NERVE MONITORING, SETUP PERIPHERAL (WRVU 0.54) performed by Moira Garrett MD at [facility] MAIN OR ??? PRO COLONOSCOPY, BIOPSY 09/14/2010 COLONOSCOPY FLEXIBLE, WITH BX performed by LUIS FABIAN I at [facility] ENDOSCOPY ??? PRO COLONOSCOPY, BIOPSY N/A 10/15/2017 COLONOSCOPY FLEXIBLE, WITH BX (WRVU 3.66) performed by Brie Sheets MD at [facility] ENDOSCOPY ??? PRO EXC PAROTD, LAT LOBE, DISSECT 5TH NERV Left 03/16/2021 EXC.PAROTID TUMOR OR GLAND, LATERAL LOBE, W DISSECTION & PRESERVATION FACIAL NERVE (WRVU 17.16)performed by Moira Garrett MD at [facility] MAIN OR ??? PRO UPPER GI ENDOSCOPY, BIOPSY 09/14/2010 UPPER GASTROINTESTINAL ENDOSCOPY,WITH BIOPSY SINGLE OR MULTIPLE performed by LUIS FABIAN I at [facility] ENDOSCOPY ??? PRO UPPER GI ENDOSCOPY, DIAGNOSTIC N/A 10/15/2017 EGD, UPPER GI ENDOSCOPY performed by Brie Sheets MD at [facility] ENDOSCOPY Family History: No family history on file. Social History: Social History Socioeconomic History ??? Marital status: Spouse name: None ??? Number of children: None ??? Years of education: None ??? Highest education level: None Occupational History ??? None Tobacco Use ??? Smoking status: Every Day Packs/day: 2.00 Years: 39.00 Pack years: 78.00 Types: Cigarettes ??? Smokeless tobacco: Never ??? Tobacco comments: quit previously. started back august 16 2016 Vaping Use ??? Vaping Use: Never used Substance and Sexual Activity ??? Alcohol use: Yes Alcohol/week: 1.0 - 2.0 standard drink Types: 1 - 2 Glasses of wine per week ??? Drug use: Yes Types: Other pain meds Comment: oxycodone daily ??? Sexual activity: None Other Topics Concern ??? None Social History Narrative ??? None Social Determinants of Health Financial Resource Strain: Not on file Food Insecurity: Not on file Transportation Needs: Not on file Physical Activity: Not on file Housing Stability: Not on file Review of Systems: Constitutional - no weakness, fatigue, fevers HEENT - no visual changes; no hearing changes; no recent URI sx Neck - no new pain, limitation of motion Cardiovascular - no angina Pulmonary - no dyspnea, cough, bronchitis, pneumonias GI - no abdominal pain, constipation, diarrhea - no frequency, nocturia, dysuria Musculoskeletal - no muscle pain, new limitation of motion Extremities - no edema Neuro - no confusion, weakness, syncope, paresthesias Hematologic - no bruising, excessive bleeding Allergies: Allergies Allergen Reactions ??? Adhesive Tape Other (See Comments) blisters Meds: No outpatient medications have been marked as taking for the 06/06/22 encounter (Office Visit) with Guillermo Gandhi MD. Physical Exam: No data found. 110 kg (242 lb 8 oz) Constitutional:Well appearing in no acute distress. Skin: Warm, well perfused. HEENT: within normal limits. NC/AT EOMI Neck: supple, no JVD, no bruit. Heart: regular rate and rhythm, without murmurs. Lungs: clear bilaterally. Abdomen: soft, nontender, active bowel sounds, no masses noted. Extremities: full range of motion; no clubbing, cyanosis, or edema. Neuro exam: Alert and oriented x 3. Strength grossly normal. Diagnositcs: No results for input(s): WBC, NA, K, CL, CO2, GLUCOSE in the last 72 hours. Invalid input(s): HBG, HCT, PLATELETS, , BUN, CREATININE, TROP CT: 4.4cm uncomplicated fusiform ascending aortic anerusym ECHO: none Assessment and Plan: Suzan Chaudhary is a 62 yo female with a moderate size asx aortic aneurysm of her asending. She currently meets no indication for surgey. We reviewed bp control and no straining We reviewed what to do if signs and symptoms of dissection occur She will see me in [address] of the chest no contrast documented in this encounter Plan of Treatment Not on file documented as of this encounter Visit Diagnoses Diagnosis Ascending aortic aneurysm, unspecified whether ruptured documented in this encounter Care Teams Automatic Corn Grinder Operator Relationship Specialty Start Date End Date Moira Arriaza MD [address] [place] [address] PCP - General 03/22/10 documented as of this encounter
--- OUTSIDE RECORDS SUMMARY | 2023-12-06 22:14 | XMS_ITS | Clinical Summary ---
Author Organization [facility] Address [address] [place] [address] Care Team Providers Care Photographic Plate Maker Name Role Phone None, Provider Primary Care [...] Orientation Not on file Plan of Treatment Health Maintenance Due Date Last Done Comments Hepatitis C Screen 1960 RSV Immunization ( o r 60+ Years) (1 - 1-dose 60+ series) 2022 COVID-19 Vaccine (2022- season) 2022 Care Teams Photographic Plate Maker Relationship Specialty Start Date End Date None, Provider PCP - General 07/27/11
--- OUTSIDE RECORDS SUMMARY | 2023-12-06 22:14 | XMS_ITS | Encounter Summary ---
Author Organization [facility] [place] [address] Care Team Providers Care Talcer Name Role Phone Moira Arriaza MD Primary Care Provider [phone] Encounter Details Date Type Department Care Team (Late st Contact Info) Description 05/20/2021 3:30 PM EST Office Visit [place] [id number] Ebenezer Nguyen MD [facility] [place] [address] Thoracic aortic aneurysm without rupture Social History [...] Sign Reading Time Taken Comments Blood Pressure 133/84 05/20/2021 3:31 PM EST Pulse 95 05/20/2021 3:31 PM EST Temperature - - Respiratory Rate - - Oxygen Saturation 98% 05/20/2021 3:31 PM EST Inhaled Oxygen Concentration - - Weight 117.2 kg (258 lb 6.4 oz) 05/20/2021 3:31 PM EST Height 163.8 cm (5' 4.5) 05/20/2021 3:31 PM EST reported Body Mass Index 43.67 05/20/2021 3:31 PM EST documented in this encounter Progress Notes * Ebenezer Nguyen MD - 05/20/2021 3:30 PM EST Images from the original note were not included. Cardiac Surgery Aortic surveillance visit Date of Service: 05/20/2021 Time: 3.30 PM Referring Provider: Moira Arriaza Primary Care Provider: Moira Arriaza MD Progress: Suzan Chaudhary is a 61-year-old woman who presents for ongoing surveillance of a 4.4 cm insulin to that incidentally discovered ascending aortic aneurysm. She has no significant changes in overall health over the past year other than some neck surgery. She denies any episodes of chest pain or shortness of breath. Current Medications: Current Outpatient Medications Ordered in [facility] Medication Sig Dispense Refill ??? losartan (Cozaar) [...] every 6 hours as needed. No current [facility]-ordered facility-administered medications on file. Review of Systems: Respiratory: negative for dyspnea on exertion Cardiovascular: negative for chest pain and chest pressure/discomfort All other ROS negative Physical Exam: Last set of vitals: BP 133/84 (Patient Position: Sitting) Pulse 95 Ht 163.8 cm (5' 4.5) Comment: reported Wt 117.2 kg (258 lb 6.4 oz) SpO2 98% BMI 43.67 kg/m?? General appearance: alert, appears stated age and cooperative Lungs: clear to auscultation bilaterally Heart: regular rate and rhythm, S1, S2 normal, no murmur, click, rub or gallop Extremities: extremities normal, atraumatic, no cyanosis or edema CTA: VASCULAR Heart: Normal size. No pericardial effusion. [...] carotid arteries. Celiac/SMA: No stenosis or aneurysm. 1. Mildly ectatic ascending aorta and proximal aortic arch. No significant change since 02/23/2019. 2. Stable 12 mm right lung nodule since 02/23/2019. Previously non-FDG avid. Management options include continued surveillance or biopsy. Assessment & Plan of Management: Suzan Chaudhary is a 61-year-old woman with a stable, 4.4 cm ascending arctic aneurysm. She meets noindications for aortic surgery at this time but will need ongoing surveillance imaging. ?? Return to clinic in 1 year for CTA of the chest ?? Blood pressure well controlled in clinic today; no medication changes made Thank you for allowing me to participate in the care of Suzan Chaudhary Please do not hesitate to call with questions. Ebenezer Nguyen MD, MS machine designer Section of Cardiac Surgery [facility] Office: [phone] Pager: [phone] I spent a total of 20 minutes today in record review, medical counseling, coordination of care, medical decision-making, and documentation. documented in this encounter Plan of Treatment Not on file documented as of this encounter Visit Diagnoses Diagnosis Thoracic aortic aneurysm without rupture Thoracic aneurysm without mention of rupture documented in this encounter Care Teams Talcer Relationship Specialty Start Date End Date Moira Arriaza MD [address] [place] [address] PCP - General 03/22/10 documented as of this encounter
--- OUTSIDE RECORDS SUMMARY | 2023-12-06 22:14 | XMS_ITS | Encounter Summary ---
Author Organization [facility] [place] [address] Care Team Providers Care Waiter And Cashier Name Role Phone Moira Arriaza MD Primary Care Provider [phone] Encounter Details Date Type Department Care Team (Latest Contact Info) Description 06/06/2022 Travel Social History Tobacco Use Types Packs/Day [...] on filedocumented in this encounter Care Teams Waiter And Cashier Relationship Specialty Start Date End Date Moira Arriaza MD [address] [place] [address] PCP - General 03/22/10 documented as of this encounter
--- OUTSIDE RECORDS SUMMARY | 2023-12-06 22:14 | XMS_ITS | Encounter Summary ---
Author Organization [facility] Address [facility] [place] [address] Care Team Providers Care Counseling Center Director Name Role Phone Moira Arriaza MD Primary Care Provider [phone] Reason for Visit * Auth/Cert Specialty Diagnoses / Procedures Referred By Asim t Referred To Contact Diagnoses Warthin's tumor left parotid mass Procedures PRO EXC PAROTD, LAT LOBE, DISSECT 5TH NERV PRG SOMATOSENSORY TEST, ANY/ALL PER. NERVES, TRUNK OR HEAD EXC.PAROTID TUMOR OR GLAND, LATERAL LOBE, W DISSECTION & PRESERVATION FACIAL NERVE (WRVU 17.16) FACIAL NERVE MONITORING, SETUP PERIPHERAL (WRVU 0.54) Referral ID Status Reason Start Date Expiration Date Visits Re quested Visits Authorized [id number] 1 1 Encounter Details Date Type Department Care Team (Late st Contact Info) Description 03/16/2021 9:30 AM EST - 03/16/2021 12:45 PM EST Surgery [place] [phone] Moira Garrett MD [facility] [place] [address] EXC.PAROTID TUMOR OR GLAND, LATERAL LOBE, W DISSECTION & PRESERVATION FACIAL NERVE (WRVU 17.16) Social History Tobacco Use Types Packs/Day Years Used Date Smoking Tobacco: Every Day Cigarettes 2 39 Smokeless Tobacco: Never Tobacco Cessation:Ready to Q uit: Yes; Counseling Given: Yes Comments:quit previously. started back august 16 2016 Alcohol Use Standard Drinks/Week Comments Yes 1 (1 standard drink = 0.6 oz pur e alcohol) Sex and Gender Information Value Date Recorded Sex Assigned at Not on file Gender Identity Female 05/18/2021 8:52 PM EST Sexual Orientation Not on file documented as of this encounter Last Filed Vital Signs Vital Sign Reading Time Taken Comments Blood Pressure 169/91 03/16/2021 12:45 PM EST Pulse 77 03/16/2021 12:45 PM EST Temperature 36.5 ??C (97.7 ??F) 03/16/2021 12:[address] Respiratory Rate 14 03/16/2021 12:45 PM EST Oxygen Saturation 93% 03/16/2021 12:45 PM EST Inhaled Oxygen Concentration - - Weight 115.7 kg (255 lb) 03/16/2021 8:47 AM EST Height 164.5 cm (5' 4.76) 03/16/2021 8:47 AM ES T Body Mass Index 42.74 03/16/2021 8:47 AM EST documented in this encounter Discharge Instructions * Patient Instructions* Alisia Heard PA - 03/16/2021 11:43 AM EST Instructions for Patient at Discharge: What to expect: You will have soreness which will improve over the next several days. The area around the incision may be numb. This should recover over the next few months. Medications: Pain Control - use acetaminophen (Tylenol) and/or ibuprofen (Motrin, Advil) as needed. You can take 500 mg to 650 mg of Tylenol every 4-6 hours as needed. Do not exceed 4g acetaminophen per day and do not drink alcohol while taking tylenol. You can also take 400 to 600 mg of Ibuprofen (Motrin,Advil) every 6 hours as needed. Incision Care: Your incision was closed with sutures/becka. These will need to be removed in about 7-14 days, which will usually occur at your follow up appointment. Use diluted peroxide to clean the incision andapply Aquaphor/Vaseline twice daily. Keep the incision dry for the next two days. After that you may get the area wet and pat dry (it is okay to shower). Do not submerge the incision for at least 2 weeks. Facelift Dressing: Keep this dressing on for the next 48 hours at all time. Can remove the dressingfor meals/eating and for showering for 3 days after the 48 hours is completeted. It is most important to keep the dressing on the next 48 hours to prevent swelling and fluid collection in your neck. Activity: A good rule of thumb is if it hurts don't do it. Keep your head elevated when lying flat. No heavy lifting or straining for the next week. No smoking, this is important for wound healing. Diet: Resume baseline diet You should call your doctor if you develop: -Increasing pain and redness -Increasing drainage from the wound -Fever > 38.5Celsius or 101 Fahrenheit -Bleeding Contact: -You can reach the ENT clinic at [phone] for appointment questions. -The ENT triage nurse is available at [phone] -For urgent issues during evenings (5 PM - 7 AM) and weekends the ENT resident cooperative education coordinator can be reached through the main hospital gate shear operator at [phone] Follow Up: You will need to follow up with Dr. Garrett on 04/04/21. This appointment has been requested. You will be notified once it is scheduled, if you do not already see it below. If you do not hear from us in atimely manner, please call [phone] to receive your date and time. Currently Scheduled Appointments and VNA instructions: Future Appointments and Orders Future Appointments and Orders Future Appointments Provider Department Dept Phone 04/04/2021 10:40 AM Moira Garrett MD Otolaryngology at [facility] Arrive at: Staff Radiologist Area [phone] documented in this encounter Medications at Time of Discharge [...] by mouth every 6 hours as needed. guegixyc-ikpiszhjx-mijej cortisone (CORTISPORIN) 3.5-10,000-1 mg/mL-unit/mL-% Drops, Suspension SHAKE LIQUID AND INSTILL 4 DROPS TO AFFECTED EAR FOUR TIMES DAILY 10/26/2020 05/20/2021 furosemide (LASIX) 20 mg Tablet take 1 tablet by mouth once daily if needed for LEG EDEMA. DO NOT USE DAILY 0 08/14/2015 05/20/2021 documented as of this encounter Progress Notes * Geovanna Omalley RN - 03/16/2021 2:13 PM EST AVS reviewed with pt and with good understanding. Facelift dsg CDI. IV removed without difficulty. Pt meets discharge criteria at this time. Pt discharged home with . Sammy PALMER * Love Tyson RN - 03/16/2021 2:05 PM EST AVS reviewed w/ pt and spouse, both verbalized understanding. Patient up to bathroom, voided. Discomfort manageable. Love Tyson RN documented in this encounter H&P Notes * Moira Garrett MD - 03/16/2021 8:38 AM EST INTERVAL H&P S: Suzan Chaudhary's condition unchanged since H&P originally performed Denies any new ED visits, hospitalizations, trauma, or new events. Has been overall doing well. O: No data found. NAD, A&Ox3 Non-labored respirations, clear to auscultation bilaterally Regular rate and rhythm, no murmur on auscultation Site marked AP: 61 y.o. female with left parotid mass. - After extensive discussion of the risks, benefits, and alteratives of surgical intervention, the patient consented to proceed with surgery. - IV antibiotics ordered - Proceed to OR for: Procedure(s): EXC.PAROTID TUMOR OR GLAND, LATERAL LOBE, W DISSECTION & PRESERVATION FACIAL NERVE (WRVU 17.16) FACIAL NERVE MONITORING, SETUP PERIPHERAL (WRVU 0.54) Moira Garrett MD documented in this encounter Miscellaneous Notes * Brief Op Note - Alisia Heard PA - 03/16/2021 11:51 AM EST Brief Operative Note Patient Name: Suzan Chaudhary : [id number] MR#: [id number] Case Date: 03/16/2021 Surgeon: Surgeon(s) and Role: * Moira Garrett MD - Primary * Alisia Heard PA - Physician File Drawer Finisher Preoperative diagnosis: left parotid mass Postoperative diagnosis: left parotid mass Procedure(s) (LRB): EXC.PAROTID TUMOR OR GLAND, LATERAL LOBE, W DISSECTION & PRESERVATION FACIAL NERVE (WRVU 17.16)(Left) FACIAL NERVE MONITORING, SETUP PERIPHERAL (WRVU 0.54) (N/A) Anesthesia: General Local Findings: Left parotid mass Complications: none Estimated Blood Loss: * No values recorded between 03/16/2021 10:17 AM and 03/16/2021 11:38 AM * * No values recorded between 03/16/2021 10:17 AM and 03/16/2021 11:38 AM * Specimens removed during surgery: Left parotid mass Fluids: Intraprocedure Crystalloid Total Intake Lactated Ringers 600.00 mL Ondansetron 4.00 mL ceFAZolin (Ancef) 2 g in dextrose 5% 100 mL infusion 100.00 mL Total Intake 704 mL PRBCs: none (See Anesthesia Record/Report for Other Blood Products) Urine Output: (no urine output recorded) Drains: None Disposition: awakened from anesthesia, extubated and taken to the recovery room in a stable condition, having suffered no apparent untoward event. Condition: doing well without problems (Please see the Surgical Encounter Summary for any Implant and Specimen details pertinent to this patient.) Infection Bundle used? No * Op Note - Moira Garrett MD - 03/16/2021 10:17 AM EST [facility] Operative Note Patient Name: Suzan Chaudhary : [id number] MR#: [id number] Case Date: 03/16/2021 Surgeon: Surgeon(s) and Role: * Moira Garrett MD - Primary * Alisia Heard PA - Physician File Drawer Finisher Preoperative diagnosis: left parotid mass Postoperative diagnosis: left parotid mass Procedure(s) (LRB): EXC.PAROTID TUMOR OR GLAND, LATERAL LOBE, W DISSECTION & PRESERVATION FACIAL NERVE (WRVU 17.16)(Left) FACIAL NERVE MONITORING, SETUP PERIPHERAL (WRVU 0.54) (N/A) Anesthesia: General Estimated Blood Loss: * No values recorded between 03/16/2021 10:17 AM and 03/16/2021 11:38 AM * Specimens removed during surgery: Order Name Source Comment Collection Info Order Time SPECIMEN TO PATHOLOGY Left Parotid Mass Left Parotid Mass excision 03/16/2021 11:14 AM Time specimen removed from patient: 11:14 AM Number of tissue samples (in container) 1 Drains: * No LDAs found * Surgical Closure: Primary Closure - skin incision is completely closed without any wires, catalino, drains or other devices Disposition: awakened from anesthesia, extubated and taken to the recovery room in a stable condition, having suffered no apparent untoward event. Condition: doing well without problems (Please see the Surgical Encounter Summary for any Implant and Specimen details pertinent to this patient.) HPI/Surgical Indications: 61-year-old female with palpable left tail of parotid mass. Procedure Description: After informed consent was obtained, patient was brought to the operating room and placed supine on the operating room table. A time-out was performed and confirmed amongst theoperating room staff. General anesthesia was administered. Patient was prepped and draped in standard sterile fashion. The facial nerve monitor with leads in the frontalis, orbicularis oculi, zygomaticus major, and orbicularis jesusita muscles on the left side were attached and found to be working appropriately. Preauricular modified Min incision was demarcated with a marking pen and injected with 1% lidocaine with 1 to 100,000 units of epinephrine. Incision was made with a 15 blade and carried down to thelevel of the parotid fascia. Skin flap was raised just superficial to the layer of the parotid fascia and in the subplatysmal plane. The mass that was noted in the tail of the parotid gland was then identified and dissected off of the anterior border of the sternocleidomastoid muscle. The tragal pointer was identified in the posterior belly of the digastric muscle was identified. As the mass was found to be superficial to these 2 structures for motor facial nerve dissection was not performed. The mass was circumferentially dissected away from the rest of the tail of the parotid gland. Facial nerve monitor was not stimulated while this was performed. The wound bed was then copiously irrigated with normal saline. A few pieces of Surgicel were placed along the edges of the remaining parotid t issue. Parotid gland was then sutured back up to the tragal cartilage and the sternocleidomastoid muscle. And the skin incision was closed multiple layers with the 3-0 Vicryl in the deep dermal layerand 4-0 Prolene over the skin. Pressure dressing was applied and patient awoke in stable condition and extubated. Patient moving all branches were found to be functioning appropriately at the end of the case. Infection Bundle used? N/A Attestation: Case Date: 03/16/2021 I was present and I participated during the entire procedure (does not need to include opening and closing). Moira Garrett MD 03/18/2021 documented in this encounter Plan of Treatment Not on file documented as of this encounter Procedures Procedure Name Priority Date/Time Associated Diagnosis Comments SURGICAL PATHOLOGY REPORT Routine 03/16/2021 11:14 AM EST SPECIMEN TO PATHOLOGY Routine 03/16/2021 11:14 AM EST Somatosensory Test, Any/All Per. Nerves, Trunk Or Head ([id number]) 03/16/2021 9:43 AM EST Warthin's tumor Exc Parotd, Lat Lobe, Dissect 5Th Nerv ([id number]) 03/16/2021 9:43 AM EST Warthin's tumor POCT GLUCOSE Routine 03/16/2021 9:26 AM EST FACIAL NERVE MONITORING, SETUP Routine 03/16/2021 8:16 AM EST Warthin's tumor EXC.PAROTID TUMOR OR GLAND, LATERAL LOBE, W DISSECTION & PRESERVATION FACIAL NERVE Routine 03/16/2021 8:16 AM EST Warthin's tumor documented in this encounter Results * Surgical Pathology Report (03/16/2021 11:14 AM EST) Final Diagnosis [id number] ? Location: [facility]; A The signing pathologist has (i) examined the relevant preparation(s) for the specimen(s) and (ii) rendered or confirmed the diagnosis(es). . ?Surgical Pathology DIAGNOSIS A - Parotid, left, excision: ??- Warthin tumor, two (2) foci, 3.6 cm within parotid ?parenchyma and 1.8 cm within intraparotid lymph node. ??- Four (4) additional benign lymph nodes. Electronically signed by: ?Alyse Bermudez MD Verified: ??03/21/2021 14:47 ??Pathologist Performed at: ??-[facility] Dept. of Pathology, [place], [place] SPECIMEN(S) SUBMITTED A - Parotid, left, excision CLINICAL INFORMATION Left parotid mass SPECIMEN PROCESSING A - Labeled/Fixative: Left parotid mass, fresh. Quantity/Size: Single, 4.0 x 3.8 x 2.8 cm, 15.2 g. Tissue Description: Parotidectomy specimen with associated yellow adipose tissue. LESION Size: 3.6 x 2.4 x 1.8 cm Description: Well-circumscribe d, firm rowe mass with abbott to rowe cut surfaces Margins: The lesion capsule abuts the inked margins Remaining parenchyma is rowe and lobular with focal, mottled white discoloration. Identified within the associated adipose tissue are 4 possible rowe lymph nodes ranging from 0.4-0.6 cm in greatest dimension Inking: Inked black Sections/Processi ng: Bullet Lubricant Mixer sections in 7 cassettes as follows: ?A1-A4: ??Bullet Lubricant Mixer lesion ?A5: ??Bullet Lubricant Mixer glandular tissue with white mottling ?A6: ??2 intact lymph nodes ?A7: ??2 intact lymph nodes ??luis 03/21/2021 2:47 PM EST [facility] PAROTID GLAND STRUCTURE / Unknown 03/16/2021 11:14 AM EST 03/16/2021 11:14 AM EST Moira Garrett MD PATHOLOGY/CYTOLOGY O SEBASTIEN Performing Organization Address [facility] Co de Phone Number [facility] [place] [place] [address] * Specimen to Pathology (03/16/2021 11:14 AM EST) AP Specimen 03/16/2021 11:1 4 AM EST 03/16/2021 11:14 AM EST Narrative [facility] - 03/16/2021 11:14 AM EST Specimen requisition ordered. ??Separate Pathology report to follow Moira Garrett MD PATHOLOGY/CYTOLOGY O RDCHARANJIT Performing Organization Address [facility] Co de Phone Number [facility] [place] [address] * POCT Glucose (03/16/2021 9:26 AM EST) Glucose, POC 100 65 - 199 mg/dL [facility] Comment: Supplemental ranges: <140 mg/dL before meals <180 mg/dL all other times of the day Blood 03/16/2021 9:26 AM EST 03/16/2021 9:26 AM EST Moira Garrett MD POINT OF CARE TEST O RDERABLES [facility] [place] [address] documented in this encounter Visit Diagnoses Diagnosis 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 When ordered for pain, acetaminophen should be given even when other ordered pain medications are indicated. , Routine acetaminophen (Tylenol) tablet 1,000 mg 1,000 mg, Oral, ONCE, 1 dose, On Sun03/16/21 at 0915, Administer with SIP of H2O only., Day of Surgery (Day of Procedure), Routine Given 03/16/2021 9:11 AM EST 1,000 mg ibuprofen (Advil) tablet 600 mg 600 mg, Oral, EVERY 6 HOURS PRN, Starting on Sun03/16/21 at 1149, Until Sun03/16/21 at 1620, Pain, Administer orally with milk or food to minimize GI irritation. Maximum dose of 3,200 mg from all sources in 24 hours, Routine Given 03/16/2021 12:59 PM EST 600 mg lidocaine-EPINEPHrine (1% - 1:100,000) injection ONCE PRN, Starting on Sun03/16/21 at 1010, Until Sun03/16/21 at 1620, Intra-Operative (Intra-Procedure), Routine Given 03/16/2021 10:10 AM EST 10 mLs 19- Surgical Site oxyCODONE (Roxicodone) tablet 5 mg 5 mg, Oral, ONCE PRN, 1 dose, Starting on Sun03/16/21 at 1150, Until Sun03/16/21 at 1319, Pain, Routine Given 03/16/2021 1:19 PM EST 5 mg documented in this encounter Active and Recently Administered Medications Times are shown in EST. Scheduled Medication Order 03/14/2021 2021 03/16/2021 acetaminophen (Tylenol) tablet 1,000 mg (COMPLETED) 1,000 mg, Oral, ONCE, 1 dose, On Sun03/16/21 at 0915, Administer with SIP of H2O only., Day of Surgery (Day of Procedure), Routine 0911 (Given - Provid er: Zandra Aviles RN) ceFAZolin (Ancef) 2 g in dextrose 5% 100 mL infusion (COMPLETED) 2 g, Intravenous, ONCE, 1 dose, On Sun03/16/21 at 0900, Administer over 30 Minutes, Indication for (Active or Suspected): Prophylaxis 1008 (Given - Provid er: Randi Osorio MD) PRN Medication Order 03/14/2021 2021 03/16/2021 acetaminophen (Tylenol) (32.02 mg/mL) oral liquid 650 mg 650 mg, Oral, EVERY 4 HOURS PRN, Starting on Sun03/16/21 at 1149, Until Sun03/16/21 at 1620, Fever, Maximum dose of acetaminophen is 4000 mg from all sources in 24 hours. When ordered for pain, acetaminophen should be given even when other ordered pain medications are indicated. , Routine ibuprofen (Advil) tablet 600 mg 600 mg, Oral, EVERY 6 HOURS PRN, Starting on Sun03/16/21 at 1149, Until Sun03/16/21 at 1620, Pain, Administer orally with milk or food to minimize GI irritation. Maximum dose of 3,200 mg from all sources in 24 hours, Routine 1259 (Given - Provid er: Geovanna Omalley RN) lidocaine-EPINEPHrine (1% - 1:100,000) injection (CANCELED) ONCE PRN, Starting on Sun03/16/21 at 1010, Until Sun03/16/21 at 1620, Intra-Operative (Intra-Procedure), Routine 1010 (Given - Provid er: Moira Garrett MD) oxyCODONE (Roxicodone) tablet 5 mg (COMPLETED) 5 mg, Oral, ONCE PRN, 1 dose, Starting on Sun03/16/21 at 1150, Until Sun03/16/21 at 1319, Pain, Routine 1319 (Given - Provid er: Geovanna Omalley RN) documented in this encounter Care Teams Counseling Center Director Relationship Specialty Start Date End Date Moira Arriaza MD [address] [place] [address] PCP - General 03/22/10 documented as of this encounter
--- OUTSIDE RECORDS SUMMARY | 2023-12-06 22:14 | XMS_ITS | Encounter Summary ---
Author Organization [facility] Address [facility] [place] [address] Care Team Providers Care Mechanical Artist Name Role Phone Moira Arriaza MD Primary Care Provider [phone] Reason for Visit * Auth/Cert Specialty Diagnoses [...] Expiration Date Visits Re quested Visits Authorized [id number] 1 1 Encounter Details Date Type Department Care Team (Latest Contact Info) Description 03/16/2021 8:17 AM EST - 03/16/2021 2:20 PM [facility] Hospital [place]counter [place] [id number] Moira Garrett MD [facility] [place] [address] Warthin's tumor Discharge Disposition: Home Social History [...] Sign Reading Time Taken Comments Blood Pressure 123/86 03/16/2021 1:45 PM EST Pulse 72 03/16/2021 1:45 PM EST Temperature 36.5 ??C (97.7 ??F) 03/16/2021 12:[address] Respiratory Rate 20 03/16/2021 1:45 PM EST Oxygen Saturation 92% 03/16/2021 1:45 PM EST Inhaled Oxygen Concentration - - [...] -You can reach the ENT clinic at [phone] for appointment questions. -The ENT triage nurse is available at [phone] -For urgent issues during evenings (5 PM - 7 AM) and weekends the ENT resident family consultant can be reached through the main hospital electric sealing machine operator at [phone] Follow Up: You will need to follow up with Dr. Garrett on 04/04/21. This appointment has been requested. You will be notified once it is scheduled, if you do not already see it below. If you do not hear from us in atimely manner, please call [phone] to receive your date and time. Currently Scheduled Appointments and VNA instructions: Future Appointments and Orders Future Appointments and Orders Future Appointments Provider Department Dept Phone 04/04/2021 10:40 AM Moira Garrett MD Otolaryngology at [facility] Arrive at: Nurse Clinician Area [phone] documented in this encounter Medications at Time [...] by mouth every 6 hours as needed. wstwjcyn-dowzymrhp-zsojj cortisone (CORTISPORIN) 3.5-10,000-1 mg/mL-unit/mL-% Drops, Suspension SHAKE [...] Operative Note Patient Name: Suzan Chaudhary : [id number] MR#: [id number] Case Date: 03/16/2021 Surgeon: Surgeon(s) and Role: * Moira Garrett MD - Primary * Alisia Heard PA - Physician Aws Consultant Preoperative diagnosis: left parotid mass Postoperative diagnosis: [...] Garrett MD - 03/16/2021 10:17 AM EST [facility] Operative Note Patient Name: Suzan Chaudhary : [id number] MR#: [id number] Case Date: 03/16/2021 Surgeon: Surgeon(s) and Role: * Moira Garrett MD - Primary * Alisia Heard PA - Physician Aws Consultant Preoperative diagnosis: left parotid mass Postoperative diagnosis: [...] Test, Any/All Per. Nerves, Trunk Or Head ([id number]) 03/16/2021 9:43 AM EST Warthin's tumor Exc Parotd, Lat Lobe, Dissect 5Th Nerv ([id number]) 03/16/2021 9:43 AM EST Warthin's tumor POCT GLUCOSE Routine 03/16/2021 9:26 AM EST FACIAL NERVE MONITORING, SETUP Routine 03/16/2021 8:16 AM EST Warthin's tumor EXC.PAROTID TUMOR OR GLAND, LATERAL LOBE, W DISSECTION & PRESERVATION FACIAL NERVE Routine 03/16/2021 8:16 AM EST Warthin's tumor documented in this encounter Results * Surgical Pathology Report (03/16/2021 11:14 AM EST) Final Diagnosis [id number] ? Location: [facility]; A The signing pathologist has (i) [...] MD Verified: ??03/21/2021 14:47 ??Pathologist Performed at: ??-[facility] Dept. of Pathology, [place], [place] SPECIMEN(S) SUBMITTED A - Parotid, left, [...] greatest dimension Inking: Inked black Sections/Processi ng: Supervisor Dumping sections in 7 cassettes as follows: ?A1-A4: ??Supervisor Dumping lesion ?A5: ??Supervisor Dumping glandular tissue with white mottling ?A6: ??2 intact lymph nodes ?A7: ??2 intact lymph nodes ??luis 03/21/2021 2:47 PM EST [facility] PAROTID GLAND STRUCTURE / Unknown 03/16/2021 11:14 AM EST 03/16/2021 11:14 AM EST Moira Garrett MD PATHOLOGY/CYTOLOGY O SEBASTIEN Performing Organization Address City/[facility] Co de Phone Number [facility] [place] [address] * Specimen to Pathology (03/16/2021 11:14 AM EST) AP Specimen 03/16/2021 11:1 4 AM EST 03/16/2021 11:14 AM EST Narrative [facility] - 03/16/2021 11:14 AM EST Specimen requisition ordered. ??Separate Pathology report to follow Moira Garrett MD PATHOLOGY/CYTOLOGY O SEBASTIEN Performing Organization Address [facility] Co de Phone Number [facility] [place] [address] * POCT Glucose (03/16/2021 9:26 AM EST) Glucose, POC 100 65 - 199 mg/dL [facility] Comment: Supplemental ranges: <140 mg/dL before meals <180 mg/dL all other times of the day Blood 03/16/2021 9:26 AM EST 03/16/2021 9:26 AM EST Moira Garrett MD POINT OF CARE TEST O RDERABLES [facility] [place] [address] documented in this encounter Visit Diagnoses Diagnosis [...] Given 03/16/2021 12:59 PM EST 600 mg oxyCODONE (Roxicodone) tablet 5 mg 5 mg, [...] Day of Surgery (Day of Procedure), Routine 910 (Given - Provid er: Zandra Aviles RN) [...] RN) documented in this encounter Care Teams Mechanical Artist Relationship Specialty Start Date End Date Moira Arriaza MD [address] [place] [address] PCP - General 03/22/10 documented as of this encounter
--- OUTSIDE RECORDS SUMMARY | 2023-12-06 22:14 | XMS_ITS | Encounter Summary ---
Author Organization [facility] [place] [address] Care Team Providers Care Marina Sales And Service Supervisor Name Role Phone Moira Arriaza MD Primary Care Provider [phone] Encounter Details Date Type Department Care Team (Late st Contact Info) Description 04/04/2021 10:40 AM EST Office [place] [address] Moira aGrrett MD [facility] [place] [address] Warthin's tumor Social History Tobacco Use Types [...] as of this encounter Progress Notes * Moira Garrett MD - 04/04/2021 10:40 AM EST [facility] Otolaryngology - Head and Neck Surgery Moira Garrett MD 04/04/21 11:06 AM [place], [place] [address] Office Patient Name: Suzan Chaudhary Date of : 1960 PCP: Moira Arriaza MD Chief Complaint/History of Present Illness: Suzan Chaudhary is a 61 y.o. year old seen in follow up. She is status post excision of left parotidmass with facial nerve monitoring. She has noted some numbness over here earlobe but this seems to be improving. She is noticing some itching as well. No facial pain or pressure. No weakness. No swelling. Otherwise doing well. 10 point Review of Systems was normal [...] to Visit Medication Sig Dispense Refill ??? xufoinjr-kgmkffjcb-bgcbdrgxwaracc (CORTISPORIN) 3.5-10,000-1 mg/mL-unit/mL-% Drops, Suspension SHAKE LIQUID [...] 0.54) performed by Moira Garrett MD at [facility] MAIN OR ??? PRO COLONOSCOPY, BIOPSY 09/14/2010 COLONOSCOPY FLEXIBLE, WITH BX performed by LUIS FABIAN I at [facility] ENDOSCOPY ??? PRO COLONOSCOPY, BIOPSY N/A 10/15/2017 COLONOSCOPY FLEXIBLE, WITH BX (WRVU 3.66) performed by Brie Sheets MD at [facility] ENDOSCOPY ??? PRO EXC PAROTD, LAT LOBE, DISSECT 5TH NERV Left 03/16/2021 EXC.PAROTID TUMOR OR GLAND, LATERAL LOBE, W DISSECTION & PRESERVATION FACIAL NERVE (WRVU 17.16)performed by Moira Garrett MD at [facility] MAIN OR ??? PRO UPPER GI ENDOSCOPY, BIOPSY 09/14/2010 UPPER GASTROINTESTINAL ENDOSCOPY,WITH BIOPSY SINGLE OR MULTIPLE performed by LUIS FABIAN I at [facility] ENDOSCOPY ??? PRO UPPER GI ENDOSCOPY, DIAGNOSTIC N/A 10/15/2017 EGD, UPPER GI ENDOSCOPY performed by rBie Sheets MD at [facility] ENDOSCOPY Family and Social History Family History: No family history on file. Social History: [place] [address] Social History Socioeconomic History ??? Marital status: [...] palpation. Face and sinuses are non tender. Incision was clean dry and intact. The sutures were removed. No hematoma or fluid collections. Facial nerve is fully functional in all branches. Neck: Symmetric. No scars, palpable masses, or crepitus. Midline trachea. Thyroid normal in size, non tender, no palpable mass. Lymphatic: no palpable cervical lymphadenopathy. Pulmonary: Breathing comfortably. Symmetric chest expansion without use of accessory muscles or retraction. Skin: Good skin turgor, no pallor, no icterus. Extremities: No gross deformities, no peripheral edema. Labs and Imaging Significant lab values are as follows: Surgical Pathology DIAGNOSIS A - Parotid, left, excision: ?? - Warthin tumor, two (2) foci, 3.6 cm within parotid ? parenchyma and 1.8 cm within intraparotid lymph node. ?? - Four (4) additional benign lymph nodes. Electronically signed by: ?Alyse Bermudez MD Verified: ??03/21/2021 14:47 ??Pathologist Performed at: ??-[facility] Dept. [place], [place], [place] SPECIMEN(S) SUBMITTED A - Parotid, left, excision CLINICAL INFORMATION Left parotid mass I reviewed the following imaging studies: Procedures ASSESSMENT & RECOMMENDATIONS Suzan Chaudhary is a 61 y.o. status post left parotidectomy. Final pathology revealed a Warthin's tumor. She is reassured that this is a benign tumor. Recommendations: 1. She can resume full activity. I did advise her to use sunblock over the incision for the next year. Plan to follow-up with us in 3 to 4 months. Patient has noted intermittent hoarseness and would like to be followed for that. She also has a left thyroid cyst that was noted on her CT of the chestthough upon my review the seem to be cystic in 7 mm in size so likely no further work-up is necessary. 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
--- OUTSIDE RECORDS SUMMARY | 2023-12-06 22:14 | XMS_ITS | Encounter Summary ---
Author Organization [facility] [place] [address] Care Team Providers Care Sheriffs Detective Name Role Phone Moira Arriaza MD Primary Care Provider [phone] Reason for Visit * Consultation (Routine) - Specialty Diagnoses / Procedures Referred By Contviolet t Referred To Contact Otolaryngology Diagnoses Other diseases of salivary glands PAROTID MASS Moira Arriaza MD [address] [place] [address] [facility] Otolaryngology [address] [place] [phone] Referral ID Status Reason Start Date Expiration Date V isits Requested Visits Authorized [id number] Consult, Test & Treat Connection Center PCP Updated and/or Approved 03/12/2020 09/08/2020 6 6 Encounter Details Date Type Department Care Team (Late st Contact Info) Description 05/24/2020 1:30 PM EST Office [place] [address] Moira Garrett MD [facility] [address] Warthin's tumor Social History Tobacco Use Types [...] - Inhaled Oxygen Concentration - - Weight 111.1 kg (245 lb) 05/24/2020 1:20 PM EST Height 165.1 cm (5' 5) 05/24/2020 1:20 PM EST Body Mass Index 40.77 05/24/2020 1:20 PM EST documented in this encounter Progress Notes * Moira Garrett MD - 05/24/2020 1:30 PM EST Images from the original note were not included. [facility] Otolaryngology - Head and Neck Surgery Moira Garrett MD 05/24/20 1:56 PM [place] [address] Office Patient Name: Suzan Chaudhary Date of : 1960 PCP: Moira Arriaza MD Chief Complaint/ History of Present Illness: Suzan Chaudhary is a 60 y.o. year old who was seen today at the request of Moira Arriaza in consultation for parotid mass. Patient has had a known left parotid mass for a little over a year. Her had some of his own health problems around that time, she was able to address the mass this past fall. She noted a swollen lump over the left upper neck. No pain, no swallowing difficulty, it hasn't fluctuated in size much since she first noticed it. Does not seem to be growing. She notes a similar smaller lump on the right side. No fevers or chills. No weight changes. She had this biopsied in the fall, results are as described below. She currently smokes cigarettes. 10 point Review of Systems was normal except for pertinent positives and negatives included in the History of Present Illness. Past Medical and Surgical History Patient Active Problem List Diagnosis Code ??? Nicotine dependence F17.200 ??? Obesity E66.9 ??? Incisional hernia K43.2 ??? Abdominal pannus E65 ??? Pulmonary nodule R91.1 Current Outpatient Medications on File Prior to Visit Medication Sig Dispense Refill ??? losartan (Cozaar) [...] BX performed by LUIS FABIAN I at [facility] ENDOSCOPY ??? PRO COLONOSCOPY, BIOPSY N/A 10/15/2017 COLONOSCOPY FLEXIBLE, WITH BX (WRVU 3.66) performed by Brie Sheets MD at [facility] END[facility] ??? PRO UPPER GI ENDOSCOPY, BIOPSY 09/14/2010 UPPER GASTROINTESTINAL ENDOSCOPY,WITH BIOPSY SINGLE OR MULTIPLE performed by LUIS FABIAN I at [facility] ??? PRO UPPER GI ENDOSCOPY, DIAGNOSTIC N/A 10/15/2017 EGD, UPPER GI ENDOSCOPY performed by Brie Sheets MD at [facility] Family and Social History Family History: No family history on file. Social History: Lives [place] [address] Social History Socioeconomic History ??? Marital status: [...] file Gets together: Not on file Attends spiritism service: Not on file Active member of [...] Social History Narrative ??? Not on file Physical Exam Temperature: Heart Rate: Blood Pressure: Respiratory Rate: SpO2: General: Age appropriate, healthy appearing, well-groomed, independently mobile. Communicates easily, speech clear, voice is strong. Awake, alert, and oriented to person, place and time. Affect appropriate. Head and Face: Head is normocephalic, atraumatic. [...] floor of mouth is soft and flat. Dentition is in good repair. Oropharynx: Symmetric without tonsillar pathology. No other concerning lesions or masses Larynx: No stridor, no hoarseness. External laryngeal structures normal to palpation. Face and sinuses are non tender. There is a soft, well circumscribed fullness just under the tail of the left parotid gland measuring about 2.5 x 3cm in size. No overlying induration or erythema. Facial nerve is fully intact and symmetric. Neck: Symmetric. No scars, palpable masses, or crepitus. Midline trachea. Thyroid normal in size, non tender, no palpable mass. Lymphatic: no palpable cervical lymphadenopathy. Pulmonary: Breathing comfortably. Symmetric chest expansion without use of accessory muscles or retraction. Skin: Good skin turgor, no pallor, no icterus. Extremities: No gross deformities, no peripheral edema. Labs and Imaging Significant lab values are as follows: Final Diagnosis A. SUBMITTED LEFT NECK MASS, SUPERFICIAL, ULTRASOUND-GUIDED NEEDLE ASPIRATION: - Features suggestive of Warthin tumor. See comment. ?? B. SUBMITTED LEFT NECK MASS, DEEP, ULTRASOUND-GUIDED FINE NEEDLE ASPIRATION: - Hypocellular with scant lymphocytes and rare bland epithelioid cells. See comment. Diagnosis Comment This case was discussed with the ordering provider, NADEEM Mercado on 02/03/2020 at 08:[address] report, the location of lesion (A) within the inferior aspect of the left parotid gland and noted that lesion (B) appeared to represent a second lesion medial to specimen (A) which appeared partially necrotic. ?? Cytologic evaluation of specimen (A) shows scattered groups of bland oncocytic cells which are bestvisualized on the ThinPrep material, admixed with lymphocytes in a background of scant proteinaceous debris and blood. A cell block was processed in order to increase the diagnostic yield and shows ex tremely rare oncocytic cells in a background of blood clot and granular debris. Given the location of this lesion in the inferior aspect of the parotid gland, these findings are suggestive of a Warthin tumor. ?? Specimen (B) is hypocellular and shows lymphoid [...] diagnosis. Correlation with radiographic imaging is essential. ?? Medical File Clerk slides of this case were reviewed at the intradepartmental consultation conference. ?? Attestation There was significant resident/fellow involvement in the diagnostic evaluation of this case. By the signature below, the attending physician certifies that they have personally conducted a gross and/or microscopic examination of the described specimens??and rendered or confirmed the above diagnosis. Rapid Diagnosis A. LEFT NECK MASS, SUPERFICIAL, ULTRASOUND GUIDED FINE NEEDLE ASPIRATION: Evaluation episode #1: Pass 1: Adequate. Three passes directly placed in RPMI for cell block. ?? B. LEFT NECK MASS, DEEP, ULTRASOUND GUIDED FINE NEEDLE ASPIRATION: Evaluation episode #1: Pass 1: Marginal, favor lymph node. Dr. Jennifer Lai 01/29/2020 ?? Rapid evaluation of this Fine Needle Aspiration sample was performed by Pathologists at [facility], [address] [place] [address] I reviewed the following imaging studies: Procedures ASSESSMENT & RECOMMENDATIONS Suzan Chaudhary is a 60 y.o. with multicystic mass in the left parotid gland. FNA of the superficialmass consistent with Warthin's tumor. Recommendations: 1. Her history and presentation are consistent with a Warthin's tumor, and although the biopsy of the second deeper mass does not confirm this, it would be highly unusual for another parotid mass to occur concurrently with a separate Warthin's tumor in a current smoker. She has not noticed much change in the last year and was not ready to proceed with surgery at this time. We will continue to monitor for now. She understands that this is a benign growth, but can sometimes become larger and cause some local discomfort which often leads to surgical excision. But it is reasonable to watch for now. F/u in 6 months. 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
--- OUTSIDE RECORDS SUMMARY | 2023-12-06 22:14 | XMS_ITS | Encounter Summary ---
Author Organization [facility] Address [address] [place] [address] Care Team Providers Care Lapel Padder Name Role Phone None, Provider Primary Care Provider Unavailabl e Encounter Details Date Type Department Care Team (Late st Contact Info) Description 02/01/2023 Lab Requisition [facility] Pathology & Laboratory Medicine - [facility] [address] [place] [address] Outr Resulting Lab, Provider Social History Tobacco [...] Procedure Name Priority Date/Time Associated Diagnosis Comments CORTISOL Routine 02/01/2023 9:47 EDT documented in this encounter Results * CORTISOL (02/01/2023 9:47 EDT) Cortisol 11 See Note ug/dL 02/01/2023 21:28 EDT [facility] Comment: NOTE: Reference Ranges (from OCD IFU): Collected Before 10:00 AM: ??4 - 23 ug/dL Collected After 5:00 PM: ?2 - 14 ug/dL The results of this assay can be falsely elevated due to the consumption of Biotin. Blood VENOUS BLOOD / Unknown 02/01/2023 9:47 EDT 02/01/2023 20:43 EDT Provider Outr Resulting Lab CHEMISTRY & BLOOD GAS ORDERABLES [facility] [address] [place] [address] documented in this encounter Visit Diagnoses Not on filedocumented in this encounter Care Teams Lapel Padder Relationship Specialty Start Date End Date None, Provider PCP - General 07/27/11 documented as of this encounter
--- OUTSIDE RECORDS SUMMARY | 2023-12-06 22:14 | XMS_ITS | Encounter Summary ---
Author Organization [facility] [place] [address] Care Team Providers Care Speech Language Pathologist Name Role Phone Moira Arriaza MD Primary Care Provider [phone] Reason for Referral * Diagnostic Test (Routine) - Closed Specialty Diagnoses / Procedures Referred By Contac t Referred To Contact Radiology Diagnoses Thoracic aortic aneurysm without rupture, unspecified part Procedures CT Angiogram Chest (Non-Coronary) w Contrast CT Angiogram Chest (Non-Coronary) wwo Contrast Moira Han PA [facility] [place] [address] [facility] [place] [address] Referral ID Status Reason Start Date Expiration Date V isits Requested Visits Authorized [id number] Closed Specialty Service Requested 02/22/2022 08/24/2023 1 1 Encounter Details Date Type Department Care Team (Late st Contact Info) Description 02/22/2022 Orders [place] [address] Ebenezer Nguyen MD [facility] [place] [address] Thoracic aortic aneurysm without rupture, unspecified part [...] who have questions please contact the health overnight caregiver that requested your imaging first. ? Narrative [...] administration of contrast. Administered 72.0 ml of SSOBDCSUO644.00 mg/ml. Maximum intensity projection (MIP) were reformatted. [...] patients who have questions please contactthe health overnight caregiver that requested your imaging first. Ebenezer Nguyen MD IMG CT ORDERABLES * Creatinine (06/06/2022 10:56 AM EST) Creatinine 0.76 0.70 - 1.20 mg/dL [facility] Est Glomerular Filtration Rate 90 >=60 mL/min/1. 73 m?? [facility] Comment: This patient's estimated GFR [...] Lab Ebenezer Nguyen MD CHEMISTRY ORDERABL ES [facility] [place] [address] documented in this encounter Visit Diagnoses Diagnosis Thoracic aortic aneurysm without rupture, unspecified part Thoracic aortic aneurysm without rupture, unspecified part documented in this encounter Care Teams Speech Language Pathologist Relationship Specialty Start Date End Date Moira Arriaza MD [address] [place] [address] PCP - General 03/22/10 documented as of this encounter
--- OUTSIDE RECORDS SUMMARY | 2023-12-06 22:14 | XMS_ITS | Clinical Summary ---
Author Organization [facility] Address [facility] [place] [address] Care Team Providers Care Stave Inspector Name Role Phone Moira Arriaza MD Primary Care Provider [phone] Allergies Active Allergy Reactions Criticality Noted Date Comments Adhesive Tape Other (See Comments) 08/24/2010 blisters Medications Medication Sig Dispensed Refills Start Date End Date Status albuterol (PROVENTIL HFA;VENTOLIN HFA) 90 mcg/actuation HFA Aerosol Inhaler Inhale 2 puffs into the lungs every 4 hours as needed. Use with spacer Active LORazepam (ATIVAN) 0.5 mg Tablet Take 0.5 mg by mouth every 6 hours as needed. Active HYDROcodone-acetaminop hen (NORCO) 7.5-325 mg Tablet take 2 tablets by mouth three times a day 0 09/12/2015 Active losartan (Cozaar) 25 mg Tablet TK 1 T PO D 03/26/2020 Active ipratropium-albuteroL (DUONEB) 0.5 mg-3 mg(2.5 mg base)/3 mL Solution for Nebulization INHALE THE CONTENTS OF 1 AMPLUE VIA NEBULIZER Q 6 H PRN 01/23/2020 Active ergocalciferoL, vitamin D2, (vitamin D2) 50,000 unit Capsule TAKE 1 CAPSULE BY MOUTH ONCE WEEKLY 05/13/2020 Active diclofenac (VOLTAREN) 1 % Gel APPLY TOPICALLY TO CHEST WALL BID PRN 02/05/2020 Active omeprazole (PriLOSEC) 10 mg Capsule, Delayed Release(E.C.) Take 10 mg by mouth daily. 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 Pulmonary nodule 04/05/2020 Abdominal pannus 10/11/2015 Nicotine dependence 02/18/2014 Obesity 02/18/2014 Incisional hernia 02/18/2014 Social History Tobacco Use Types Packs/Day Years [...] PM EST Sexual Orientation Not on file Last Filed Vital Signs Vital Sign Reading Time Taken Comments Blood Pressure 138/89 06/06/2022 1:20 PM EST Pulse 74 06/06/2022 1:20 PM EST Temperature 36.5 ??C (97.7 ??F) 03/16/2021 12:[address] Respiratory Rate 20 03/16/2021 1:45 PM EST Oxygen Saturation 95% 06/06/2022 1:20 PM EST Inhaled Oxygen Concentration - - Weight 110 kg (242 lb 8 oz) 06/06/2022 1:[address] Height 163.8 cm (5' 4.5) 06/06/2022 1:20 PM EST Body Mass Index 40.98 06/06/2022 1:20 PM EST Plan of Treatment Health Maintenance Due Date Last Done Comments CT Colonography 1962 FIT DNA 1962 FIT 1962 Sigmoidoscopy 1962 Pneumococcal Vaccine: At-Ris k 5-64yrs (1 of 2 - PCV) 1968 HIV screen 1980 Hepatitis C Screening 1980 Lipid Screening 1980 Tdap adult 1981 Tetanus vaccine 1981 HPV test 1992 PAP Smear 1992 Breast Cancer Share Decision Needed 2002 Breast Cancer screening 2002 Zoster vaccine (1 of 2) 2012 Diabetes Screening (HgbA1C o r Glucose) 08/24/2013 08/24/2010 Advance Directive 2017 Covid-19 Vaccine (1 - 2022-2 4 season) 2022 Influenza (Flu) vaccine (1 o f 1 - Influenza standard series) 12/30/2023 Colonoscopy 10/16/2027 10/15/2017, 09/28, 09/15/2010, Additional history exists Colorectal Cancer Screening 10/16/2027 Sigmoidoscopy (10 year) with FIT yearly 10/16/2027 10/15/2017, 10/15/2017, 09/15/2010, Additional history exists Procedures Procedure Name Priority Date/Time Associated Diagnosis Comments COLONOSCOPY Routine 10/15/2017 2:15 PM EDT COMPREHENSIVE METABOLIC PANEL Routine 08/24/2010 12:33 PM EDT Abdominal pain from Last 3 Months or Most Recently Relevant to Health Maintenance Results * COLONOSCOPY (10/15/2017 2:15 PM EDT) COLONOSCOPY [facility] Endoscopy Procedure Date: 10/15/2017 2:15 PM ? Patient Name: Suzan Chaudhary ? N: [id number] ? Date of : 1960 ? Age: 57 ? Order #: [id number] ? Instrument Name: [id number] ? Procedure: ? Colonoscopy Indications: ? Chronic diarrhea Providers: ? Brie Sheets MD, Ania Marroquin, RN, ? Crys Esquivel, Knife Blade Polisher Referring MD: ?Moira Arriaza MD, Liliana Lester Medicines: ? Midazolam 1.5 mg IV, Fentanyl 50 ? micrograms IV, plus residual ? medication from EGD Complications: ? No immediate complications. Procedure: ? Pre-Anesthesia Assessment: ? - Prior to the procedure, a History ? and Physical was performed, and ? patient medications, allergies and ? sensitivities were reviewed. The ? patient's tolerance of previous ? anesthesia was reviewed. ? - The risks and benefits of the ? procedure and the sedation options ? and risks were discussed with the ? patient. All questions were answered ? and informed consent was obtained. ? The procedure, indications, benefits, ? risks and alternatives were explained ? to the patient. Specifically ? discussed were potential ? complications including, but not ? limited to, bleeding, perforation, ? infection, missing a cancer, and ? adverse medication reactions. The ? patient was placed in the left ? lateral decubitus position, and a ? digital rectal exam was performed. ? The Colonoscope was inserted in the ? anus and under direct visualization, ? advanced to the terminal ileum. ? Careful inspection was made as the ? colonoscope was withdrawn. The ? colonoscopy was performed without ? difficulty. The patient tolerated the ? procedure well. The quality of the ? bowel preparation was excellent. ? Findings: ? The colon (entire examined portion) appeared normal. ? Biopsies for histology were taken with a cold forceps ? for evaluation of microscopic colitis. ? The terminal ileum appeared normal. ? Numerous diverticula were noted in the sigmoid and ? descending colon. ? Moderate Sedation: ? I was present during the intraservice time as ? documented by the sedation RN. Impression: ?- The entire examined colon is ? normal. Biopsied. ? - The examined portion of the ileum ? was normal. Recommendation: ?Agree with trial of bile acid binder ? such as Welchol or Choletyramine. ? Attending Participation: ? I personally performed the entire procedure. ? I was present during the intraservice time as ? documented by the sedation RN. ? Brie Sheets MD 10/15/2017 3:18:32 PM This report has been signed electronically. Number of Addenda: 0 Note Initiated On: 10/15/2017 2:15 PM PROVATION 10/15/2017 2:15 PM EDT Moira Arriaza MD GENERAL SURGICAL ORD ERABLES PROVATION * (ABNORMAL) Comprehensive Metabolic Panel (08/24/2010 12:33 PM EDT) Glucose 94 60 - 199 mg/dL CERNER MILLENNIUM Comment:Diabetes: >=200 mg/d L plus symptoms Blood Urea Nitrogen 8 8 - 18 mg/dL CERNER MILLENNIUM Creatinine 0.80 0.70 - 1.20 mg/dL CERNER MILLENNIUM Sodium 138 135 - 145 mmol/L CERNER MILLENNIUM Potassium 4.2 3.5 - 5.0 mmol/L CERNER MILLENNIUM Comment: Please note: ??Patients with WBC >100,000 may have falsely elevated Potassium levels. ??For accurate Potassium quantification in these patients send serum separator tube (gold top) for subsequent determinations. ??Contact the Clinical Chemistry Laboratory if there are any questions. Chloride 106 98 - 107 mmol/L CERNER MILLENNIUM Carbon Dioxide 21(L) 22 - 31 mmol/L CERNER MILLENNIUM Anion Gap 11 5 - 15 mmol/L CERNER MILLENNIUM Calcium 9.7 8.5 - 10.5 mg/dL CERNER MILLENNIUM Protein, Total 7.1 6.4 - 8.3 gm/dL CERNER MILLENNIUM Albumin 4.1 3.2 - 5.2 gm/dL CERNER MILLENNIUM Aspartate Aminotransferase 21 0 - 30 unit/L CERNER MILLENNIUM Alanine Aminotransferase 23 0 - 30 unit/L CERNER MILLENNIUM Alkaline Phosphatase 75 40 - 104 unit/L CERNER MILLENNIUM Bilirubin, Total 0.2 0.2 - 1.3 mg/dL CERNER MILLENNIUM Bilirubin, Direct <0.1 0.0 - 0.3 mg/dL CERNER MILLENNIUM Est Glomerular Filtration Rate >60 >=60 CERNER MILLENNIUM Comment: The National Kidney Disease Education Program (NKDEP) has recommended all laboratories report estimated GFR (eGFR) along with plasma creatinine measurements to assist you with recognition of early kidney disease. Caveats: ??Plasma creatinine should be at steady-state (unchanged within the past week). For patients multiply eGFR by 1.2.MDRD equation has not been validated for pediatric patients and is only valid for patients with age >= 18 years. At present, NKDEP does NOT recommend using the MDRD equation for drug dosing purposes and pharmacists should continue to use their current dosing methods. In addition, numerical eGFR values greater than 60 ml/min/1.73 square meters should be treated as > 60, and not an exact number due to greater inaccuracies at these higher values. Per NKDEP, they classify normal renal function as any GFR >60ml/min/1.73 square meters; chronic kidney disease when GFR <60, and renal failure when GFR <15. ??This calculation may not be valid for patients with atypical muscle mass (very lean or obese), acute renal failure, and in patients with diabetic kidney disease. References: http://nkdep.nih.gov/resources/NKDEP_Suggestn4Labs_0606_508.pdf http://www.kidney.org/professionals/kls/pdf/faq_gfr.pdf Blood specimen (specimen) 08/24/2010 12:33 PM EDT 08/24/2010 12:36 PM EDT Chris Rodgers MD CHEMISTRY ORDERABLES CERNER MILLENNIUM from Last 3 Months or Most Recently Relevant to Health Maintenance Care Teams Stave Inspector Relationship Specialty Start Date End Date Moira Arriaza MD [address] [place] [address] PCP - General 03/22/10
--- OUTSIDE RECORDS SUMMARY | 2023-12-06 22:14 | XMS_ITS | Encounter Summary ---
Author Organization [facility] [place] [address] Care Team Providers Care X Ray Technologist Name Role Phone Moira Arriaza MD Primary Care Provider [phone] Reason for Visit * Auth/Cert Specialty Diagnoses / Procedures Referred By Asim batista Referred To Contact Diagnoses Warthin's tumor left parotid mass Procedures PRO EXC PAROTD, LAT LOBE, DISSECT 5TH NERV PRG SOMATOSENSORY TEST, ANY/ALL PER. NERVES, TRUNK OR HEAD EXC.PAROTID TUMOR OR GLAND, LATERAL LOBE, W DISSECTION & PRESERVATION FACIAL NERVE (WRVU 17.16) FACIAL NERVE MONITORING, SETUP PERIPHERAL (WRVU 0.54) Referral ID Status Reason Start Date Expiration Date Visits Re quested Visits Authorized [id number] 1 1 Encounter Details Date Type Department Care Team (Late st Contact Info) Description 03/16/2021 9:43 AM EST Anesthesia Event [place] [address] Marli Levine MD [facility] [place] [address] Randi Osorio MD [facility] [place] [address] Anesthesia Record Procedure Summary Procedure Name Responsible Anesthesiologist Anesthesia Start Time Anesthesia Stop Time EXC.PAROTID TUMOR OR GLAND, LATERAL LOBE, W DISSECTION & PRESERVATION FACIAL NERVE (WRVU 17.16) (Left: Neck) Marli Levine MD 03/16/21 0943 03/16/21 1203 Events Date Time Event Comment 03/16/2021 0932 0943 AN Verify 0943 Start 0946 An Start Data 0950 An Induction 0952 An Intubation 0953 Anesthesia Ready 1019 Procedure Start 1142 Procedure Stop 1149 Extubation/LMA Out 1151 an stop data 1203 Recovery or ICU Handoff Mansi ent care was transferred to the destination unit staff after review of the patient's medical history, current anesthetic/surgical status and plan, according to the Provider Handoff Checklist. 1203 Stop Meds Name Total fentaNYL 200 mcg IV Lidocaine 100 mg Propofol 300 mg Ondansetron 8 mg Succinylcholine 140 mg ceFAZolin (Ancef) 2 g in dextrose 5% 100 mL infusion 2 g Dexmedetomidine 8 mcg Lactated Ringers 600 mL Lactated Ringers 0 mL * Agents Name O2 Air N2O Sevoflurane (et) * Blood No blood administrations on file. Lines, Drains, and Airways Type Details Placement Removal Incision 03/16/21; 1017; Left ; face 03/16/21 1017 by Veronica Banda RN (RETIRED) Peripheral IV Line - Single Lumen 03/16/21; 0935; metacarpal vein (top of hand), left; [id number] catheter system; Anatomical Landmarks; 20 gauge; Zandra Aviles RN; distraction, tolerated well, appears comfortable; 03/16/21; 1404 03/16/21 0935 by Zandra Aviles RN 03/16/21 1404 by Love Tyson RN ETT Mask Ventilation: Adjunct (2); ETT Type: Cuffed, Oral; ETT Size: 7 mm; Indirect: Video; Notes: Asleep, Pre-O2, Stylette; Attempts: 1; Laryngoscopy Grade: n/a; ETT Placement Verified By: Auscultation, Capnometry, Visual; Secured at Teeth: 24 cm; Inserted by: Devon GREENBERG; Removal Date: 03/16/21; Removal Time: 1150 03/16/21 0952 by Randi Osorio MD 03/16/21 1150 by Randi Osorio MD (RETIRED) Peripheral IV Line - Single Lumen 03/16/21; 0955; (right forearm); [id number] catheter system; Anatomical Landmarks; 18 gauge; Devon GREENBERG; 03/16/21; 1417 03/16/21 0955 by Randi Osorio MD 03/16/21 1417 by Geovanna Omalley RN documented in this encounter Social History Tobacco Use Types Packs/Day Years Used Date Smoking Tobacco: Every Day Cigarettes 2 39 Smokeless Tobacco: Never Comments:quit previously. [facility] back august 16 2016 Alcohol Use Standard Drinks/Week Comments Yes 1 (1 standard drink = 0.6 oz pur e alcohol) Sex and Gender Information Value Date Recorded Sex Assigned at Not on file Gender Identity Female 05/18/2021 8:52 PM EST Sexual Orientation Not on file documented as of this encounter OR Notes * Anesthesia Postprocedure Evaluation - Randi Osorio MD - 03/16/2021 12:06 PM EST Department of Anesthesiology Post-procedure Note Patient: Suzan Chaudhary Procedure Summary Date: 03/16/21 Room / Location: [place] [address] [facility] MAIN OR Anesthesia Start: 942 Anesthesia Stop: 1203 Procedures: EXC.PAROTID TUMOR OR GLAND, LATERAL LOBE, W DISSECTION & PRESERVATION FACIAL NERVE (WRVU 17.16)(Left Neck) FACIAL NERVE MONITORING, SETUP PERIPHERAL (WRVU 0.54) (N/A Neck) Diagnosis: Warthin's tumor (left parotid mass) Surgeons: Moira Garrett MD Responsible Provider: Marli Levine MD Anesthesia Type: general ASA Status: 3 All Anesthesia Providers: Anesthesiologist: Marli Levine MD Shipyard Supervisor: Randi Osorio MD Vitals Value Taken Time BP 150/94 03/16/21 1200 Temp Pulse 77 03/16/21 1205 Resp 19 03/16/21 1205 SpO2 98 % 03/16/21 1205 Pain Level Vitals shown include unvalidated device data. Patient Location: PACU/[facility] Level of Consciousness: Conscious but Sleepy Pain Management: Satisfactory Analgesia PONV: None Cardiovascular Status: At Baseline and Hemodynamically Stable Respiratory Status: At Baseline and Room Air Postoperative Fluid Status: Intravascular EUvolemia Possible Anesthetic Complications: NONE apparent at time of evaluation Final Primary Anesthesia Type: General (The anesthetic type performed was the same as planned.) Comments: Randi Osorio MD * Anesthesia Preprocedure Evaluation - Marli Levine MD - 2021 7:18 PM EST Pre-Anesthesia Evaluation for: Suzan Chaudhary a 61 y.o. female. Procedure(s): EXC.PAROTID TUMOR OR GLAND, LATERAL LOBE, W DISSECTION & PRESERVATION FACIAL NERVE (WRVU 17.16) FACIAL NERVE MONITORING, SETUP PERIPHERAL (WRVU 0.54) Patient Active Problem List Diagnosis ??? Warthin's tumor ??? Pulmonary nodule ??? Abdominal pannus ??? Nicotine dependence ??? Obesity ??? Incisional hernia Past Medical History: Diagnosis Date ??? Sleep apnea Past Surgical History: Procedure Laterality Date ??? PRO COLONOSCOPY, BIOPSY 09/14/2010 COLONOSCOPY FLEXIBLE, WITH BX performed by LUIS FABIAN I at [facility] ENDOSCOPY ??? PRO COLONOSCOPY, BIOPSY N/A 10/15/2017 COLONOSCOPY FLEXIBLE, WITH BX (WRVU 3.66) performed by Brie Sheets MD at [facility] ENDOSCOPY ??? PRO UPPER GI ENDOSCOPY, BIOPSY 09/14/2010 UPPER GASTROINTESTINAL ENDOSCOPY,WITH BIOPSY SINGLE OR MULTIPLE performed by LUIS FABIAN I at [facility] ENDOSCOPY ??? PRO UPPER GI ENDOSCOPY, DIAGNOSTIC N/A 10/15/2017 EGD, UPPER GI ENDOSCOPY performed by Brie Sheets MD at [facility] ENDOSCOPY Social History Tobacco Use ??? Smoking status: Current Every Day Smoker Packs/day: 1.50 Types: Cigarettes ??? Smokeless tobacco: Never Used ??? Tobacco comment: quit previously. started back august 16 2016 Substance Use Topics ??? Alcohol use: Yes Alcohol/week: 1.0 - 2.0 standard drink Types: 1 - 2 Glasses of wine per week Social History Substance and Sexual Activity Drug Use Yes ??? Types: Other pain meds Comment: oxycodone daily Allergies Allergen Reactions ??? Adhesive Tape Other (See Comments) blisters Medications: MAR and/or home medications have been reviewed. Physical Exam: Preprocedure Vitals Current as of 03/15/211917 No BP, pulse, respiration, SpO2, or temperature recorded. Height: 164.5 cm (5' 4.75) (11/08/20) Weight: 112.9 kg (248 lb 14.4 oz) (11/08/20) BMI: 41.74 IBW: 56.5 kg (124 lb 7.4 oz) Airway Assessment: Mallampati: II TM distance: >3 FB Neck ROM: full Cardiovascular Assessment: Rhythm: regular Rate: normal Pulmonary Assessment: unlabored breathing Dental Assessment: Comment: Front incisor chipped from prior intubation Misc Assessment: IV access: Peripheral line Last Filed Perioperative Cognitive Screening None Anesthesia Plan: ASA 3 general, with a(n) intravenous induction 61 y.o. 112 kg (BMI 41.7) female smoker with morbid obesity, SHOBHA, HTN, COPD, ectasia of ascending aorta, left parotid tumor presenting for left parotidectomy with facial nerve monitoring. Anesthetic hx: No reported prior complications with anesthesia Airway hx: no records Functional Status: > 4 METS EKG: none Echocardiogram: 04/2020 mild concentric LVH without evidence of LVOT obstruction, normal LV function, EF 62%, RV normal function, PA systolic pressure 27mmHg, no valvulopathy, moderate dilation of ascending aorta (4.4cm) Lab Results Component Value Date HGB 14.4 08/24/2010 PLATELET 268 08/24/2010 NA 138 08/24/2010 K 4.2 08/24/2010 CREATININE 0.80 08/24/2010 NPO Status: appropriate Anesthetic Plan: GA with ETT Standard ASA monitoring PIV access Premedication with Tylenol Randi Osorio MD Pager: [phone] Region - Other Informed Consent: Anesthetic plan and risks discussed with patient. Use of blood products discussed with patient who consented to blood products. Plan discussed with resident and attending. Anesthesia Screening documented in this encounter Plan of Treatment Not on file documented as of this encounter Visit Diagnoses Not on filedocumented in this encounter Administered Medications Inactive Administered Medications - up to 3 most recent administrations Medication Order MAR Action Action Date Dose Rate Site ceFAZolin (Ancef) 2 g in dextrose 5% 100 mL infusion 2 g, Intravenous, ONCE, 1 dose, On Sun03/16/21 at 0900, Administer over 30 Minutes, Indication for (Active or Suspected): Prophylaxis Given 03/16/2021 10:08 AM EST 2 g dexmedetomidine (Precedex) (4 mcg/mL) bolus injection (Anesthsia) Intravenous, PRN, Starting on Sun03/16/21 at 1023, Until Sun03/16/21 at 1204, Anesthesia Intra-op, Routine Given 03/16/2021 10:23 AM EST 8 mcg fentaNYL (pf) (50 mcg/mL) multi-dose injection Intravenous, PRN, Starting on Sun03/16/21 at 1018, Until Sun03/16/21 at 1204, Anesthesia Intra-op, Routine Given 03/16/2021 11:22 AM EST 50 mcg Given 03/16/2021 10:58 AM EST 50 mcg Given 03/16/2021 10:18 AM EST 50 mcg lactated ringers infusion Intravenous, CONTINUOUS PRN, Starting on Sun03/16/21 at 0943, Until Sun03/16/21 at 1204, Anesthesia Intra-op New Bag 03/16/2021 9:43 AM EST lactated ringers infusion Intravenous, CONTINUOUS PRN, Starting on Sun03/16/21 at 0953, Until Sun03/16/21 at 1204, Anesthesia Intra-op New Bag 03/16/2021 9:53 AM EST lidocaine (pf) (Xylocaine) (20 mg/mL) 2% injection syringe Intravenous, PRN, Starting on Sun03/16/21 at 0950, Until Sun03/16/21 at 1204, Anesthesia Intra-op, Routine Given 03/16/2021 9:50 AM EST 100 mg ondansetron (pf) (Zofran) (2 mg/mL) injection Intravenous, PRN, Starting on Sun03/16/21 at 1116, Until Sun03/16/21 at 1204, Anesthesia Intra-op, Routine Given 03/16/2021 11:16 AM EST 8 mg propofoL (Diprivan) 10 mg/mL bolus injection (Anesthesia) Intravenous, PRN, Starting on Sun03/16/21 at 0950, Until Sun03/16/21 at 1204, Anesthesia Intra-op Given 03/16/2021 9:52 AM EST 50 mg Given 03/16/2021 9:51 AM EST 50 mg Given 03/16/2021 9:50 AM EST 200 mg succinylcholine (Anectine;Quelicin) (20 mg/mL) injection Intravenous, PRN, Starting on Sun03/16/21 at 0951, Until Sun03/16/21 at 1204, Anesthesia Intra-op, Routine Given 03/16/2021 9:51 AM EST 140 mg documented in this encounter Care Teams X Ray Technologist Relationship Specialty Start Date End Date Moira Arriaza MD [address] [place] [address] PCP - General 03/22/10 documented as of this encounter
--- OUTSIDE RECORDS SUMMARY | 2023-12-06 22:15 | XMS_ITS | Encounter Summary ---
[facility] [place] [address] Care Team Providers Care Teacher Learning Disabled Name Role Phone Moira Arriaza MD Primary Care Provider [phone] Encounter Details Date Type Department Care Team (Latest Contact Info) Description 09/14/2010 2:17 PM EDT - 09/14/2010 6:30 PM EDT Hospital En[place] [address] Chris Marie MD [facility] [place] [address] Yoel Borjas MD [facility] [place] [address] Discharge Disposition: Home Social History Tobacco Use Types Packs/Day Years Used Date Smoking Tobacco: Every Day Cigarettes Alcohol Use Standard Drinks/Week Comments No 0 (1 standard drink = 0.6 oz pur e alcohol) Sex and Gender Information Value Date Recorded Sex Assigned at Not on file Gender Identity Female 05/18/2021 8:52 PM EST Sexual Orientation Not on file documented as of this encounter Last Filed Vital Signs Vital Sign Reading Time Taken Comments Blood Pressure 143/97 09/14/2010 5:20 PM EDT Pulse 92 09/14/2010 5:25 PM EDT Temperature 36.3 ??C (97.3 ??F) 09/14/2010 3:43 PM ED T Respiratory Rate 27 09/14/2010 5:25 PM EDT Oxygen Saturation 92% 09/14/2010 5:25 PM EDT Inhaled Oxygen Concentration - - Weight - - Height - - Body Mass Index - - documented in this encounter Discharge Instructions * Patient Instructions* Yoel Borjas MD - 09/14/2010 5:25 PM EDT Please see Recommendations in the Provation procedure report which is documented in the procedural note in E-DH. documented in this encounter Medications at Time of Discharge Medication Sig Dispensed Refills Start Date End Date Dexlansoprazole 30 mg CpDM Take 30 mg by mouth daily. 02/18/2014 mirtazapine (REMERON) 30 mg tablet Take 45 mg by mouth nightly. 02/18/2014 lisinopril (PRINIVIL;ZESTRIL) 20 mg tablet Take 20 mg by mouth daily. 08/17/2014 diphenoxylate-atropine (LOMOTIL) 2.5-0.025 mg per tablet Take 1 tablet by mouth 4 times daily as needed. 08/17/2014 modafinil (PROVIGIL) 200 mg tablet Take 100 mg by mouth daily. 02/18/2014 modafinil (PROVIGIL) 100 mg tablet Take 100 mg by mouth daily as needed. 09/14/2010 02/18/2014 hydroCODone-acetaminophe n (VICODIN) 5-500 mg per tablet Take 1.5 tablets by mouth every 6 hours as needed. 02/18/2014 documented as of this encounter H&P Notes * Yoel Borjas MD - 09/14/2010 4:12 PM EDT H&P done prior to procedure and documented in the endoscopy report located in the Procedures tab in eDH. documented in this encounter Procedure Notes * Provider, Scanning - 09/15/2010 9:16 AM EDTAssociated Order(s): SCAN DOC: ORDS - PROVIDER CARE documented in this encounter Miscellaneous Notes * Miscellaneous - Provider, Scanning - 09/15/2010 9:01 AM EDT * Op Note - Yoel Borjas MD - 09/14/2010 5:24 PM EDT [facility] Operative Note Patient Name: Suzan Marie : [id number] MR#: [id number] Case Date: 09/14/2010 Surgeon: Surgeon(s) and Role: * YOEL BORJAS MD - Primary Preoperative diagnosis: diarrhea, coloni bx r/o colitis Postoperative diagnosis: * No post-op diagnosis entered * Procedure(s): COLONOSCOPY FLEXIBLE, WITH BX UPPER GASTROINTESTINAL ENDOSCOPY,WITH BIOPSY SINGLE OR MULTIPLE Please see Procedure note. * OR Attestation - Yoel Borjas MD - 09/14/2010 5:24 PM EDT Yoel Borjas MD * Miscellaneous - Provider, Scanning - 09/14/2010 5:04 PM EDT documented in this encounter Plan of Treatment Not on file documented as of this encounter Procedures Procedure Name Priority Date/Time Associated Diagnosis Comments ORDS - PROVIDER CARE SCAN 09/15/2010 9:16 AM EDT COLONOSCOPY FLEXIBLE-WITH BX (MSCHAD) Routine 09/15/2010 7:22 AM EDT UPPER GASTROINTESTINAL ENDOSCOPY,WITH BIOPSY SINGLE OR MULTIPLE Routine 09/15/2010 7:22 AM EDT SURGICAL PATHOLOGY REPORT Routine 09/14/2010 6:03 PM EDT SURGICAL PATHOLOGY REPORT Routine 09/14/2010 6:03 PM EDT UPPER GASTROINTESTINAL ENDOSCOPY,WITH BIOPSY SINGLE OR MULTIPLE (WRVU 2.39) 09/14/2010 4:27 PM EDT diarrhea, coloni bx r/o colitis COLONOSCOPY FLEXIBLE, WITH BX (WRVU 3.56) 09/14/2010 4:27 PM EDT diarrhea, coloni bx r/o colitis COLONOSCOPY Routine 09/14/2010 4:02 PM EDT UPPER GI ENDOSCOPY Routine 09/14/2010 4: 01 PM EDT documented in this encounter Results * SCAN DOC: ORDS - PROVIDER CARE (09/15/2010 9:16 AM EDT) Narrative 09/15/2010 9:16 AM EDT Procedure Note Provider, Scanning - 09/15/2010 9:16 AM EDT Scanning Provider MEDIA MGR SCAN EXT O RDR/RSLT * Surgical Pathology Report (09/14/2010 6:03 PM EDT) Surgical Pathology Report [id number] ? Location: 4T The signing pathologist has (i) examined the relevant preparation(s) for the specimen(s) and (ii) rendered or confirmed the diagnosis(es). . 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 Sparrow's with long-term GERD Gross Description A - ??Labeled/Fixat juancarlos: Ileum, formalin. Qty/Size/Weight : ?Five, averaging 0.2 x 0.2 x 0.2 cm. Tissue Description: ?? Soft, rowe tissues. Sections/Proces sing: ??(T1) B - ??Labeled/Fixat juancarlos: Random colon biopsies, formalin. Qty/Size/Weight : ?Multiple, averaging 0.2 x 0.2 x 0.2 cm. Tissue Description: ?? Soft, rowe tissues. Sections/Proces sing: ??(T2) C - ??Labeled/Fixat juancarlos: Ascending colon 1 cm polyp, formalin. Qty/Size/Weight : ?Single, 0.4 x 0.2 x 0.2 cm. Tissue Description: ?? Soft, rowe tissue. Sections/Proces sing: ??(T1) D - ??Labeled/Fixat juancarlos: Sigmoid polyp, formalin. Qty/Size/Weight : ?Single, 0.2 x 0.2 x 0.2 cm. Tissue Description: ?? Soft, rowe tissue. Sections/Proces sing: ??(T1) E - ??Labeled/Fixat juancarlos: Duodenum, formalin. Qty/Size/Weight : ?Six, averaging 0.2 x 0.2 x 0.2 cm. Tissue Description: ?? Soft, rowe tissues. Sections/Proces sing: ??(T2) F - ??Labeled/Fixat juancarols: Distal esophagus 42 to 41 cm, formalin. Qty/Size/Weight : ?Five, ranging from 0.1 cm to 0.4 cm in ?greatest dimension. Tissue Description: ?? Soft, rowe tissues. Sections/Proces sing: ??(T1) ??vms/SHB Microscopic Description Slides reviewed, microscopic description not recorded. Diagnosis A - Ileum, biopsy: ?Small intestinal mucosa with prominent lymphoid aggregates, ?within normal limits. B - Random colon biopsies: . Diagnosis ? Colonic mucosa within normal limits. C - Ascending colon, polyp: ?Hyperplastic polyp. D - Sigmoid, polyp: ?Hyperplastic polyp. E - Duodenum, biopsy: ?Duodenal mucosa with normal villous architecture, no ?diagnostic abnormality recognized. F - Distal esophagus, biopsy, 41 to 42 cm: ?Squamocolumna r junctional mucosa (cardia type) with no evidence ?of intestinal metaplasia. CR-PX 09/16/10 VMS 09/16/10 Verified by: ? Inocente GREENBERG, Zay ?Pathologist ?(Electronic Signature) The attending pathologist whose signature appears on this report has reviewed all diagnostic slides and has edited the gross and/or microscopic portion of the report in rendering the final pathologic diagnosis. IRENA ALEXIS 09/14/2010 6:03 PM EDT Yoel Nation MD PATHOLOGY/CYTOLO GY ORDERABLES IRENA ALEXIS * SURGICAL PATHOLOGY REPORT (09/14/2010 6:03 PM EDT) Surgical Pathology Report ? [facility] ? Provider: ?? YOEL BORJAS ??Pt. Name: ?? SUZAN MARIE ?I ? Acc #: ?[id number] ?Pt. ? Col Date: ?? 09/14/2010 ? /Sex: ?1960,(50 ? years),Female ? Rec Date: ?? 09/14/2010 ? LOC: ?4T ? SURGICAL PATHOLOGY ? ---Pathologic Diagnosis--- ? A - Ileum, biopsy: ? Small intestinal mucosa with prominent lymphoid aggregates, ? within normal limits. ? B - Random colon biopsies: ? Colonic mucosa within normal limits. ? C - Ascending colon, polyp: ? Hyperplastic polyp. ? D - Sigmoid, polyp: ? Hyperplastic polyp. ? E - Duodenum, biopsy: ? Duodenal mucosa with normal villous architecture, no ? diagnostic abnormality recognized. ? F - Distal esophagus, biopsy, 41 to 42 cm: ? Squamocolumnar junctional mucosa (cardia type) with no evidence ? of intestinal metaplasia. ? CR-PX ? 09/16/10 ? VMS ? 09/16/10 Verified by: ? Inocente GREENBERG, Zay ? Pathologist ? (Electronic Signature) ? The attending pathologist whose signature appears on this report has ? reviewed all diagnostic slides and has edited the gross and/or ? microscopic portion of the report in rendering the final pathologic ? diagnosis. ? ---Microscopic Description--- ? Slides reviewed, microscopic description not recorded. ? ---Gross Description--- ? A - Labeled/Fixative: Ileum, formalin. ? Qty/Size/Weight: ?Five, averaging 0.2 x 0.2 x 0.2 cm. ? Tissue Description: ?? Soft, rowe tissues. ? [facility] ? Provider: ?? YOEL BORJAS ??Pt. Name: ?? SUZAN MARIE ?I ? Acc #: ?[id number] ?Pt. ? Col Date: ?? 09/14/2010 ? /Sex: ?1960,(50 ? years),Female ? Rec Date: ?? 09/14/2010 ? LOC: ?4T ? Sections/Processi ng: ??(T1) ? SURGICAL PATHOLOGY ? B - Labeled/Fixative: Random colon biopsies, formalin. ? Qty/Size/Weight: ?Multiple, averaging 0.2 x 0.2 x 0.2 cm. ? Tissue Description: ?? Soft, rowe tissues. ? Sections/Processi ng: ??(T2) ? C - Labeled/Fixative: Ascending colon 1 cm polyp, formalin. ? Qty/Size/Weight: ?Single, 0.4 x 0.2 x 0.2 cm. ? Tissue Description: ?? Soft, rowe tissue. ? Sections/Processi ng: ??(T1) ? D - Labeled/Fixative: Sigmoid polyp, formalin. ? Qty/Size/Weight: ?Single, 0.2 x 0.2 x 0.2 cm. ? Tissue Description: ?? Soft, rowe tissue. ? Sections/Processi ng: ??(T1) ? E - Labeled/Fixative: Duodenum, formalin. ? Qty/Size/Weight: ?Six, averaging 0.2 x 0.2 x 0.2 cm. ? Tissue Description: ?? Soft, rowe tissues. ? Sections/Processi ng: ??(T2) ? F - Labeled/Fixative: Distal esophagus 42 to 41 cm, formalin. ? Qty/Size/Weight: ?Five, ranging from 0.1 cm to 0.4 cm in ? greatest dimension. ? Tissue Description: ?? Soft, rowe tissues. ? Sections/Processi ng: ??(T1) ??vms/SHB ? ---Clinical Information--- ? Specimen Submitted: ? A - Ileum ? B - Random colon biopsies ? C - Cm polyp ? D - Sigmoid polyp ? E - Duodenum ? F - Distal esophagus 42 to 41 ? Clinical History/Diagnosis : ? 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 Sparrow's with long-term GERD CERNER MILLENNIUM 09/14/2010 6:03 PM EDT Yoel Nation MD PATHOLOGY/CYTOLO GY ORDERABLES [facility] MILLEN[facility]UM * COLONOSCOPY (09/14/2010 4:02 PM EDT) COLONOSCOPY [facility] Endoscopy Patient Name: Suzan Marie ? Procedure Date: 09/14/2010 04:02:09 PM ? Date of : 1960 ? Age: 50 ? Procedure: ? Colonoscopy Indications: ? Chronic diarrhea Providers: ? Yoel Borjas MD, Ania ? Lopez, ESTELA, Latasha Jimenez, Manager Supply Chain Referring : ?Nuria Martínez MD Medicines: ? Midazolam 6 mg IV, Fentanyl 300 ? micrograms IV Complications: ? No immediate complications Procedure: ? Pre-Anesthesia Assessment: ? - Prior to the procedure, a History ? and Physical was performed, and ? patient medications, allergies and ? sensitivities have been reviewed. The ? patient's tolerance of previous ? anesthesia has been reviewed. ? - The risks and benefits of the ? procedure and the sedation options ? and risks were discussed with the ? patient. All questions were answered ? and informed consent was obtained. ? - Mental Status Examination: alert ? and oriented. ? - Airway Examination: normal ? oropharyngeal airway and neck ? mobility. ? - Respiratory Examination: clear to ? auscultation. ? - CV Examination: normal. ? - ASA Grade Assessment: II - A ? patient with mild systemic disease. ? - After reviewing the risks and ? benefits, the patient was deemed in ? satisfactory condition to undergo the ? procedure. ? - The anesthesia plan was to use ? moderate sedation/analgesia ? (conscious sedation). ? - Immediately prior to administration ? of medications, the patient was ? re-assessed for adequacy to receive ? sedatives. ? - The heart rate, respiratory rate, ? oxygen saturations, blood pressure, ? adequacy of pulmonary ventilation, ? and response to care were monitored ? throughout the procedure. ? - The physical status of the patient ? was re-assessed after the procedure. ? The procedure, indications, benefits, ? risks [...] The Colonoscope was inserted in the ? and under direct visualization, ? advanced to. Careful inspection was ? made as the colonoscope was ? withdrawn. The colonoscopy was ? performed without difficulty. The ? patient tolerated the procedure well. ? The quality of the bowel preparation ? was excellent. ? Findings: ? The terminal ileum appeared normal. Biopsies were ? taken with a cold forceps for histology. A sessile ? polyp was found in the ascending colon. The polyp was ? 1 mm in size. The polyp was removed with a cold ? biopsy forceps. Resection and retrieval were ? complete. A sessile polyp was found in the sigmoid ? colon. The polyp was 1 mm in size. The polyp was ? removed with a cold biopsy forceps. Resection and ? retrieval were complete. Multiple small-mouthed ? diverticula were found in the sigmoid colon and in ? the descending colon. The colon otherwise appeared ? normal. Biopsies were taken with a cold forceps for ? histology. Biopsies were taken with a cold forceps ? from the entire colon for evaluation of microscopic ? colitis. ? Impression: ?- The examined portion of the ileum ? was normal. This was biopsied. ? - One 1 mm polyp in the ascending ? colon. Resected and retrieved. ? - One 1 mm polyp in the sigmoid ? colon. Resected and retrieved. ? - Diverticulosis sigmoid colon and ? descending colon. ? - Otherwise the entire examined colon ? is normal. This was biopsied. Recommendation: ?- Await pathology results. ? - Return to referring physician after ? studies are complete. ? Yoel Borjas MD Signed Date: 09/14/2010 05:16:13 PM Number of Addenda: 0 ? Note initiated on 09/14/2010 04:02:09 PM PROVATION 09/14/2010 4:02 PM EDT Unknown GENERAL SURGICAL ORD ERABLES PROVATION * UPPER GI ENDOSCOPY (09/14/2010 4:01 PM EDT) UPPER GI ENDOSCOPY [facility] Endoscopy Patient Name: Suzan Marie ? Procedure Date: 09/14/2010 04:01:18 PM ? N: [id number] ? Date of : 1960 ? Age: 50 ? Procedure: ? Upper GI endoscopy Indications: ? Dyspepsia, Diarrhea Providers: ? Yoel Borjas MD, Ania ? Lopez, ESTELA, Latasha Jimenez, Manager Supply Chain Referring : ?Nuria Martínez MD Medicines: ? Midazolam 7 mg IV, Fentanyl 350 ? micrograms IV, Benzocaine spray Complications: ? No immediate complications Procedure: ? Pre-Anesthesia Assessment: ? - Prior to the procedure, a History ? and Physical was performed, and ? patient medications, allergies and ? sensitivities have been reviewed. The ? patient's tolerance of previous ? anesthesia has been reviewed. ? - The risks and benefits of the ? procedure and the sedation options ? and risks were discussed with the ? patient. All questions were answered ? and informed consent was obtained. ? - Mental Status Examination: alert ? and oriented. ? - Airway Examination: normal ? oropharyngeal airway and neck ? mobility. ? - Respiratory Examination: clear to ? auscultation. ? - CV Examination: normal. ? - ASA Grade Assessment: II - A ? patient with mild systemic disease. ? - After reviewing the risks and ? benefits, the patient was deemed in ? satisfactory condition to undergo the ? procedure. ? - After reviewing the risks and ? benefits, the patient was deemed in ? satisfactory condition to undergo the ? procedure. ? - The anesthesia plan was to use ? moderate sedation/analgesia ? (conscious sedation). ? - Immediately prior to administration ? of medications, the patient was ? re-assessed for adequacy to receive ? sedatives. ? - The heart rate, respiratory rate, ? oxygen saturations, blood pressure, ? adequacy of pulmonary ventilation, ? and response to care were monitored ? throughout the procedure. ? - The physical status of the patient ? was re-assessed after the procedure. ? The procedure, indications, benefits, ? risks and alternatives were explained ? to the patient. Specifically ? discussed were potential ? complications including, but not ? limited to, bleeding, perforation, ? infection, missing a cancer, and ? adverse medication reactions. The ? Endoscope was introduced through the ? mouth, and advanced to the second ? part of duodenum. The patient ? tolerated the procedure well. The ? upper GI endoscopy was accomplished ? without difficulty. ? Findings: ? The Z-line was variable and was found 42 cm from the ? incisors. Biopsies were taken with a cold forceps for ? histology. A small hiatus hernia was found. The ? proximal extent of the gastric folds (end of tubular ? esophagus) was 42 cm from the incisors. The hiatal ? narrowing was 44 cm from the incisors. The duodenal ? bulb and 2nd part of the duodenum were normal. ? Biopsies were taken with a cold forceps for histology. ? Impression: ?- Z-line variable, 42 cm from the ? incisors. Possible short segment ? intestinal metaplasia. ? - Hiatus hernia. Small ? - Normal duodenal bulb and 2nd part ? of the duodenum. This was biopsied. Recommendation: ?- Await pathology results. ? - Return to referring physician after ? studies are complete. ? Yoel Borjas MD Signed Date: 09/14/2010 05:41:40 PM Number of Addenda: 0 ? Note initiated on 09/14/2010 04:01:18 PM PROVATION 09/14/2010 4:01 PM EDT Unknown GENERAL SURGICAL ORD ERABLES PROVATION documented in this encounter Visit Diagnoses Not on filedocumented in this encounter Active and Recently Administered Medications Times are shown in EDT. PRN Medication Order 09/12/2010 09/13/2010 09/14/2010 fentaNYL 50mcg/mL injection (COMPLETED) ONCE PRN, 1 dose, Starting on Sun09/14/10 at 1629, Until Sun09/14/10 at 1629, Pain, Intra-Operative (Intra-Procedure), Routine 1629 (Given - Provid er: Ania Marroquin RN) fentaNYL 50mcg/mL injection (COMPLETED) Intravenous, ONCE PRN, 1 dose, Starting on Sun09/14/10 at 1633, Until Sun09/14/10 at 1633, Pain, Intra-Operative (Intra-Procedure), Routine 163 (Given - Provid er: Ania Marroquin RN) fentaNYL 50mcg/mL injection (COMPLETED) Intravenous, ONCE PRN, 1 dose, Starting on Sun09/14/10 at 1643, Until Sun09/14/10 at 1643, Pain, Intra-Operative (Intra-Procedure), Routine 164 (Given - Provid er: Ania Marroquin RN) fentaNYL 50mcg/mL injection (COMPLETED) Intravenous, ONCE PRN, 1 dose, Starting on Sun09/14/10 at 1644, Until Sun09/14/10 at 1644, Pain, Intra-Operative (Intra-Procedure), Routine 1644 (Given - Provid er: Ania Marroquin RN) fentaNYL 50mcg/mL injection (COMPLETED) Intravenous, ONCE PRN, 1 dose, Starting on Sun09/14/10 at 1647, Until Sun09/14/10 at 1647, Pain, Intra-Operative (Intra-Procedure), Routine 1647 (Given - Provid er: Ania Marroquin RN) fentaNYL 50mcg/mL injection (COMPLETED) Intravenous, ONCE PRN, 1 dose, Starting on Sun09/14/10 at 1712, Until Sun09/14/10 at 1712, Pain, Intra-Operative (Intra-Procedure), Routine 1712 (Given - Provid er: Ania Marroquin RN) midazolam (VERSED) injection (COMPLETED) ONCE PRN, 1 dose, Starting on Sun09/14/10 at 1633, Until Sun09/14/10 at 1633, Sleep, Intra-Operative (Intra-Procedure), Routine 1633 (Given - Provid er: Ania Marroquin RN) midazolam (VERSED) injection (COMPLETED) Intravenous, ONCE PRN, 1 dose, Starting on Sun09/14/10 at 1629, Until Sun09/14/10 at 1629, Sleep, Intra-Operative (Intra-Procedure), Routine 1629 (Given - Provid er: Ania Marroquin RN) midazolam (VERSED) injection (COMPLETED) Intravenous, ONCE PRN, 1 dose, Starting on Sun09/14/10 at 1643, Until Sun09/14/10 at 1643, Sleep, Intra-Operative (Intra-Procedure), Routine 1643 (Given - Provid er: Ania Marroquin RN) midazolam (VERSED) injection (COMPLETED) Intravenous, ONCE PRN, 1 dose, Starting on Sun09/14/10 at 1645, Until Sun09/14/10 at 1645, Sleep, Intra-Operative (Intra-Procedure), Routine 1645 (Given - Provid er: Ania Marroquin RN) midazolam (VERSED) injection (COMPLETED) Intravenous, ONCE PRN, 1 dose, Starting on Sun09/14/10 at 1652, Until Sun09/14/10 at 1652, Sleep, Intra-Operative (Intra-Procedure), Routine 1652 (Given - Provid er: Ania Marroquin RN) midazolam (VERSED) injection (COMPLETED) Intravenous, ONCE PRN, 1 dose, Starting on Sun09/14/10 at 1512, Until Sun09/14/10 at 1512, Sleep, Intra-Operative (Intra-Procedure), Routine 1512 (Given - Provid er: Ania Marroquin RN) documented in this encounter Care Teams Teacher Learning Disabled Relationship Specialty Start Date End Date Moira Arriaza MD [address] [place] [address] PCP - General 03/22/10 documented as of this encounter
--- OUTSIDE RECORDS SUMMARY | 2023-12-06 22:15 | XMS_ITS | Encounter Summary ---
[place] [address] Care Team Providers Care Proposal Analyst Name Role Phone Moira Arriaza MD Primary Care Provider [phone] Encounter Details Date Type Department Care Team (Late st Contact Info) Description 01/29/2020 Ancillary Procedure [place] [id number] Moira Arriaza MD [address] [place] [address] Social History Tobacco Use Types Packs/Day Years [...] Procedure Name Priority Date/Time Associated Diagnosis Comments FILM LIBRARY STORAGE ONLY ULTRASOUND STUDY Routine 01/29/2020 12:00 AM EDT documented in this encounter Results * Film Library- Storage Only Ultrasound Study (01/29/2020 12:00 AM EDT) Narrative [facility] - 03/12/2020 11:29 AM EST This exam is auto-finalizing. It's purpose is for storage only. Moira Arriaza MD [facility] FILM LIBRARY ORD ERABLES [place], [place] documented in this encounter Visit Diagnoses Not on filedocumented in this encounter Care Teams Proposal Analyst Relationship Specialty Start Date End Date Moira Arriaza MD [address] [place] [address] PCP - General 03/22/10 documented as of this encounter
--- OUTSIDE RECORDS SUMMARY | 2023-12-06 22:15 | XMS_ITS | Encounter Summary ---
Author Organization [facility] Address [facility] [place] [address] Care Team Providers Care Renal Medicine Physician Name Role Phone Moira Arriaza MD Primary Care Provider [phone] Reason for Visit * Reason Comments Establish Care Encounter Details Date Type Department Care Team (Late st Contact Info) Description 02/18/2014 11:20 AM EDT Office [place] [address] Isaura Tang MD [facility] [place] [address] Nicotine dependence; Obesity; Incisional hernia Discharge Disposition: Home Social History Tobacco Use [...] Sign Reading Time Taken Comments Blood Pressure 114/80 02/18/2014 11:48 AM EDT Pulse 68 02/18/2014 11:48 AM EDT Temperature 36.4 ??C (97.5 ??F) 02/18/2014 11:48 AM E DT Respiratory Rate 18 02/18/2014 11:48 AM EDT Oxygen Saturation 100% 02/18/2014 11:48 AM EDT Inhaled Oxygen Concentration - - Weight 85.3 kg (188 lb) 02/18/2014 11:48 AM EDT Height 165.1 cm (5' 5) 02/18/2014 11:48 AM EDT Body Mass Index 31.28 02/18/2014 11:48 AM EDT documented in this encounter Progress Notes * Isaura Tang MD - 02/18/2014 1:45 PM EDT Ms. Suzan Marie is a 53-year-old white female who presents today as a referral from Dr. Moira Arriaza at [facility] for evaluation of a ventral hernia. The patient reports that she underwent laparoscopic cholecystectomy four years ago and developed a hernia from this at her periumbilical incision approximately one year later. She sometimes has some discomfort at her hernia site, and this was also in the setting of severe IBS symptoms with cramping pain as well as diarrhea several times a day. She has great concern about her hernia, as her mother had hernias and multiple mesh repairs, and she also has a sister who developed a hernia from and was repaired with a mesh that was later recalled. The patient is wary of mesh placement and is also concerned about a hernia. The patient denies any incarceration or obstructive symptoms. She does have irregular bowel movements, and this is related to a longstanding history of irritable bowel syndrome. She denies any prior infection at her incision sites. The patient has been actively losing weight over the last year. She reports a weight loss of 101 pounds over the last one and a half years. She is a smoker. Allergies: Adhesive tape. Medications: Vicodin, albuterol, Ativan, Prinivil, and Lomotil. These were reviewed and are in eD-H. Past Medical History: 1. Irritable bowel syndrome. 2. Sleep apnea. 3. Depression. 4. Anxiety. 5. Posttraumatic stress disorder. 6. Hypertension. 7. Headaches. 8. Gastroesophageal reflux. Past Surgical History: Laparoscopic cholecystectomy approximately four years ago. The patient has had prior colonoscopy times two with the latest in 2010 showing diverticulosis. Social History: The patient presents with her . 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 The patient is a smoker, two packs per day, and has been thinking about quitting. She drinks very little alcohol. She used to have heavier alcohol use over 20 years ago. Family History: Denies any bleeding or clotting disorder. No anesthetic complications. Of note, the mother had hernias and is status post multiple mesh repairs. Her sister also had a hernia repair with a recall of mesh. Her sister also has diabetes. Review of Systems: 12-system review was performed and is significant for the above findings. The patient does report a tendency to bleed but has no diagnosed bleeding disorder. She is currently taking Vicodin for her cramping abdominal pain. She has a history of obesity but has lost over 100 pounds over the last one and a half years. The review of systems is otherwise significant for the above findings, including her past medical history. Exam: Blood pressure is 114/80, heart rate 68, respiratory rate 18, temperature 36.4 Celsius, oxygen saturation 100% on room air. BMI of 31.3. The patient is alert in no apparent distress. HEENT: NC/AT, no scleral icterus. Neck: Soft and supple without thyromegaly or mass. Pulmonary: Clear to auscultation bilaterally. Cardiovascular: Regular rate and rhythm without rub, murmur, or gallop. Abdomen: Soft, obese, nondistended. Mildly tender at a hernia extending from the umbilicus superiorly, which is soft and nontender. It is partially reducible. Extremities: Without edema. Neurologic: Grossly nonfocal. Psychiatric: The patient has appropriate speech and behavior. Was upset during the discussion about smoking cessation. Assessment and Plan: Ms. Suzan Marie is a 53-year-old woman with an incisional hernia in the setting of obesity, though she has lost considerable weight over the last one and a half years. This is commendable and certainly will decrease her risk for operative complications as well as hernia recurrence and wound complications. The patient does continue to smoke, and it was recommended that this be stopped, at least for the period of her surgery due to the high risk of wound complications and hernia recurrence. The patient has significant concerns, which are understandable, regarding mesh repair, given the experience in her family with this in both her mother and her sister. She is, therefore, not interested in the mesh repair, and certainly and open repair would require smoking cessation to be able to achieve this with a reasonable perioperative risk. This was discussed in detail, and weight loss and smoking cessation counseling was provided. The risk calculator was also used to discuss the elevation in her risk of complications in the setting of smoking. The patient is uncertain at this time whether she would be able to quit for surgery. However, she is understanding of the reasons for this. I have offered a followup for evaluation as well as consideration for surgery if she decided to quit smoking. In the interim, it is reassuring that her prior CT scan shows that this is a fat-containing hernia, although her most recent scan is not yet in our system for review. Discussed the signs and symptoms of incarceration and bowel obstruction, which would require more urgent treatment, even in the setting of smoking. The patient was given the opportunity to ask questions, and all were answered. Thank you for the kind referral. documented in this encounter Plan of Treatment Not on file documented as of this encounter Visit Diagnoses Diagnosis Nicotine dependence Tobacco use disorder Obesity Obesity, unspecified Incisional hernia Incisional hernia without mention of obstruction or gangrene documented in this encounter Care Teams Renal Medicine Physician Relationship Specialty Start Date End Date Moira Arriaza MD [address] [place] [address] PCP - General 03/22/10 documented as of this encounter
--- OUTSIDE RECORDS SUMMARY | 2023-12-06 22:15 | XMS_ITS | Encounter Summary ---
Author Organization [facility] Address [facility] [place] [address] Care Team Providers Care Repairer Auto Clocks Name Role Phone Moira Arriaza MD Primary Care Provider [phone] Reason for Visit * Reason Comments Follow-up f/u cat scan(hernia) Encounter Details Date Type Department Care Team (Late st Contact Info) Description 11/08/2015 11:45 AM EDT [place] [address] Guillermo Lewis MD [facility] [place] [address] Abdominal pannus Social History Tobacco Use Types Packs/Day Years Used Date Smoking Tobacco: Former Cigarettes Q uit: 07/13/2015 Alcohol Use Standard Drinks/Week Comments No 0 (1 standard drink = 0.6 oz pur e alcohol) Sex and Gender Information Value Date Recorded Sex Assigned at Not on file Gender Identity Female 05/18/2021 8:52 PM EST Sexual Orientation Not on file documented as of this encounter Patient Instructions * Patient Instructions* Tisha Craig, NEIL - 11/08/2015 11:46 AM EDT You were given written and verbal preoperative instructions today. To prepare for your upcoming surgery, please review the Pre-Operative Instruction brochure that youwere given at today's appointment. Feel free to call our office [phone] if you have any questions or concerns. We monitor the phones from 8-5 Sunday through Sunday. documented in this encounter Progress Notes * Tisha Craig LPN - 11/08/2015 11:45 AM EDT Pre-Op Teaching for Surgery Surgery: Abdominoplasty Written and verbal pre-operative instructions were given and reviewed with patient: Patient was advised to discontinue use of NSAIDS and aspirin products (unless otherwise advised by patient's PCP/Stucco Worker for cardiac symptoms), fish oil, Vitamin E and herbal supplements for 14 days prior to surgery, to perform the pre-op scrub, and to coordinate a ride home following surgery. Smoking status and medications were further reviewed to rule out/address current use of Nicotine, Coumadin, Plavix, Estrogen or Tamoxifen. Photos were taken Patient was instructed to call the clinic at with any questions or concerns prior tosurgery. * Guillermo Lewis MD - 11/08/2015 11:27 AM EDT Plastic Surgery Follow Up Note MOIRA ARRIAZA MD CC: Hernia repair/abdominal pannus HPI: Suzan Marie is a 55 y.o. female here in consultation at the request of Dr. Vora to discusscombination hernia repair and abdominoplasty. She reports she is interested in improving the contour of her abdomen, thighs and arms. She presents today in clinic for review of her CT scan results. Allergies Allergen Reactions ??? Adhesive Tape Other (See Comments) blisters Current Outpatient Prescriptions on File Prior to Visit Medication Sig Dispense Refill ??? HYDROcodone-acetaminophen (NORCO) 7.5-325 mg Tablet take [...] facility-administered medications on file prior to visit. Pulm: + Sleep apnea Examination: Constitutional: No acute distress Abdominal hernia measures 6 cm x 8 cm Excess skin of abdomen Excess mons Grade II pannus Moderate excess skin laterally Diagnostic Testing: CT scan on file from 2012 showed small umbilical hernia CT 10/25/15: IMPRESSION 1. Small ventral hernia above the umbilicus containing adipose tissue. 2. Contour deformity lower pole of the left kidney compatible with scarring, evidence for small cysts. 3. Arteriosclerosis. 4. Diverticulosis descending and sigmoid colon without evidence for acute diverticulitis. Impression: Suzan Marie 55 y.o. female patient with abdominal pannus and hernia. We discussed that she is a candidate for surgery, recommend panniculectomy at the time of hernia repair. Today she presented in clinic to review her CT results, coordinated with Dr. Padilla. I explained that I would only operate on her abdomen, not contouring her legs or arms. Dr. Padilla was in to examine the patient and discussed the risks of his part of the surgery. Plan: 1. Schedule surgery coordinated with Dr. Padilla 2. Recommend abdominoplasty with rectus plication and liposuction (to be coordinated with hernia repair)- will plan for prior authorization and provide pricing in case of denial Dr Lewis Duration: 3 hours Timeframe: Coordinated Coordinated with: Dr. Padilla Procedure: panniculectomy/abdominoplasty CPT: Panni: 22066 Surgical site: abdomen Side: Anesthesia: General Follow up: 7-10 Days PAT: No Leigha Nation, am acting as scribe for Dr. Lewis. All work documented was performed by Dr. Lewis. ???I performed the above scribed service and agree with the accuracy of the note?? Guillermo Lewis MD. documented in this encounter Plan of Treatment Not on file documented as of this encounter Visit Diagnoses Diagnosis Abdominal pannus Localized adiposity documented in this encounter Care Teams Repairer Auto Clocks Relationship Specialty Start Date End Date Moira Arriaza MD [address] [place] [address] PCP - General 03/22/10 documented as of this encounter
--- OUTSIDE RECORDS SUMMARY | 2023-12-06 22:15 | XMS_ITS | Encounter Summary ---
Author Organization [facility] [place] [address] Care Team Providers Care Champion Of Sustainable Design Name Role Phone Moira Arriaza MD Primary Care Provider [phone] Encounter Details Date Type Department Care Team (Late st Contact Info) Description 01/06/2013 Orders [place] [address] Rinku Vora MD [facility] [place] [address] Social History Tobacco Use Types Packs/Day Years [...] Associated Diagnosis Comments FILM LIBRARY STORAGE ONLY CT ABDOMEN AND PELVIS Routine 01/06/2013 9:15 AM EDT documented in this encounter Results * Film Library- Storage only CT abdomen & pelvis (01/06/2013 9:15 AM EDT) Anatomical Region Laterality Modality Abdomen, Pelvis Other 01/06/2013 9:15 AM EDT Narrative 08/17/2014 9:29 AM EDT This is a Non-reportable exam Procedure Note ALIN, UNSIGNED REPORT - 08/17/2014 This is a Non-reportable exam Rinku Vora MD [facility] FILM LIBRARY ORD ERABLES documented in this encounter Visit Diagnoses Not on filedocumented in this encounter Care Teams Champion Of Sustainable Design Relationship Specialty Start Date End Date Moira Arriaza MD [address] [place] [address] PCP - General 03/22/10 documented as of this encounter
--- OUTSIDE RECORDS SUMMARY | 2023-12-06 22:15 | XMS_ITS | Encounter Summary ---
Author Organization [facility] [place] [address] Care Team Providers Care Refining Still Operator Name Role Phone Moira Arriaza MD Primary Care Provider Reason for Visit * Reason Comments Abdominal Pain Diarrhea Encounter Details Date Type Department Care Team (Late st Contact Info) Description 08/24/2010 11:00 AM EDT Office [place] [address] Nuria Negrete [facility] [place] [address] Abdominal pain (Primary Dx) Discharge Disposition: Home Social History Tobacco Use Types Packs/Day Years Used Date Smoking Tobacco: Every Day Cigarettes Alcohol Use Standard Drinks/Week Comments Not Asked 0 (1 standard drink = 0.6 oz pur e alcohol) Sex and Gender Information Value Date Recorded Sex Assigned at Not on file Gender Identity Female 05/18/2021 8:52 PM EST Sexual Orientation Not on file documented as of this encounter Last Filed Vital Signs Vital Sign Reading Time Taken Comments Blood Pressure 120/80 08/24/2010 11:42 AM EDT Pulse - - Temperature - - Respiratory Rate - - Oxygen Saturation - - Inhaled Oxygen Concentration - - Weight 129.5 kg (285 lb 6.4 oz) 011 11:42 AM EDT Height 166.4 cm (5' 5.5) 08/24/2010 11 :42 AM EDT Body Mass Index 46.77 08/24/2010 11:42 AM EDT documented in this encounter Progress Notes * Nuria Negrete - 08/24/2010 11:30 AM EDT Section of Gastroenterology and Hepatology [address] [place] [id number] @[facility]@ .Suzan Marie : 1960 Patient is here for further evaluation of gastrointestinal symptoms at the request of Dr. Moira Arriaza. HPI:Pt here for LUQ pain and ongoing diarrhea. In November 2009 at [facility] underwent an upper and lower endoscopy. Per note normal, however, no biopsies mentioned, per pt does not recallbiopsies being done. Abdominal CT performed at [facility], beginning of 2010, per note this exam was normal except for kidney scarring and hepatic steatosis. LUQ pain: occurring for one year, at time of onset no changes, feels like it is going to break my rib out, pressure, intermittent, eating makes it worse, eating causes it to stab, can double over, occasionally awakes with this pain. Tried medication manipulation with no effect. Celiac testing negative. Diet changes no effect. Barb[place] food increases LUQ pain. Using Vicodin, helps the pain. Gerd: Long hx of reflux. Presently taking Dexilant 30mg bid, helps sx 100%. In the past tried protonix, prilosec, changes made due to insurance. No dysphagia, odynophagai, vomiting. Can experience waves of nausea ?trigger. No tx. Duration 1/2 to 1 hour. Anxiety heightens nausea. No chest pain or ent concerns. Appetite good. No food allergies. No nsaids. Reviewed diet: Most concerning is 4 large cups of coffee and liter of diet soda per day. Diarrhea: 10 years of diarrhea. Eating trigger. Associated abdominal distention, rectal pressure, then goes to the bathroom, watery stool. Emptying helps abdominal sx. No blood. Mucus. Hx of incontinence. Decreased urge. Goes 15-20x per day. Effects social activities. Can awake with sx. Incontinence during sleep. Lomotil prn. Helped slow stool down but did not cure. Gallbladder removal worsened diarrhea.Celiac negative. Stool studies negative. History Social History ??? Marital Status: Spouse Name: N/A Number of Children: N/A ??? Years of Education: N/A Occupational History ??? Not on file. Social History Main Topics ??? Smoking status: Not on file ??? Smokeless tobacco: Not on file ??? Alcohol Use: Not on file ??? Drug Use: Not on file ??? Sexually Active: Not on file Other Topics Concern ??? Not on file Social History Narrative ??? No narrative on file No past medical history on file.htn,depression, anxiety, headaches, excessive daytime sleep, gerd No past surgical history on file.cholecystectomy No family history on file. Brother: colon cancer, mets to liver, dx age 56; Mother: diverticulitis;Niece: diverticulosis Allergies not on fileAdhesive tape No current outpatient prescriptions on file. Review of Systems - Negative except General: Cardiac:htn controlled with current regimen Resp: GI:see above : MS: Neuro:headaches, no tx used Skin: Psyche:depression, anxiety, has therapist Sleep: Physical Exam:large, soft, +bsx4, tender on left side, no mass, organomegaly Impression: Abdominal pain of unclear etiology. Will obtain CT from [facility]. Obtain labs CBC, CMP, TSH,lipase. Given ongoing sx of abd pain and diarrhea, consider egd/colo. Obtain bx of colon to assess for microscopic colitis. Diet as directed, low fiber, avoid fructose, dairy, soy, art. Sweeteners, fat/greasy foods, caffeine, high corn syrup, dairy. Lomotil 1 tab tid. Gerd: dexilant 30mg bid. Diet and life style. I spent a total of 61 minutes face to face with this patient; 46 minutes were spent counseling the patient in the medical problems described above. Sincerely, Nuria Negrete NP Section of Gastroenterology and Hepatology documented in this encounter Plan of Treatment Not on file documented as of this encounter Procedures Procedure Name Priority Date/Time Associated Diagnosis Comments DIFFERENTIAL, AUTOMATED Routine 08/24/2010 12:33 PM EDT CBC (WITH DIFF) Routine 08/24/2010 12:33 PM EDT Abdominal pain TSH Routine 08/24/2010 12:33 PM EDT Abdominal pain LIPASE Routine 08/24/2010 12:33 PM EDT Abdominal pain COMPREHENSIVE METABOLIC PANEL Routine 08/24/2010 12:33 PM EDT Abdominal pain documented in this encounter Results * (ABNORMAL) REFLEX LAB-A-DIFF (08/24/2010 12:33 PM EDT) Neutrophil % 53.5 34.0 - 71.0 % CERNER MILLENNIUM Neutrophil Absolute 5.44 1.50 - 6.30 x10(3)/mc L CERNER MILLENNIUM Lymph % 36.3 19.0 - 53.0 % CERNER MILLENNIUM Lymphocytes Abs 3.7(H) 1.0 - 3.6 x10(3)/mc L CERNER MILLENNIUM Monocyte % 5.5 4.0 - 13.0 % CERNER MILLENNIUM Monocyte Abs 0.6 0.2 - 1.0 x10(3)/mc L CERNER MILLENNIUM Eos % 3.3 0.0 - 7.0 % CERNER MILLENNIUM Eosinophils Abs 0.3 0.0 - 0.5 x10(3)/mc L CERNER MILLENNIUM Basophil % 0.8 0.0 - 2.0 % CERNER MILLENNIUM Baso Absolute 0.1 0.0 - 0.2 x10(3)/mc L CERNER MILLENNIUM Immature Gran % 0.60 0.00 - 0.66 % CERNER MILLENNIUM Comment: Immature granulocytes(IG's)percentage and absolute count will include metamyelocytes, myelocytes, and promyelocytes. Blood smears from CBCs yielding IG's will be scanned manually for concordance. If this scan disagrees with the automated IG or if promyelocytes are noted, a manual differential will be performed. Immature Gran Absolute 0.06(H) 0.00 - 0.05 x10(3)/mc L CERNER MILLENNIUM Blood specimen (specimen) 08/24/2010 12:33 PM EDT 08/24/2010 12:36 PM EDT Chris Rodgers MD HEMATOLOGY ORDERABLE S Performing Organization Address [facility] Co de Phone Number CERLUISA DIASIUM * Lipase (08/24/2010 12:33 PM EDT) Lipase 39 0 - 60 unit/L CERNER MILLENNIUM Blood specimen (specimen) 08/24/2010 12:33 PM EDT 08/24/2010 12:36 PM EDT Chris Rodgers MD CHEMISTRY ORDERABLES Performing Organization Address [facility] Co de Phone Number CERLUISA BARKERENNIUM * TSH (08/24/2010 12:33 PM EDT) Thyroid Stimulating Hormone 2.64 0.27 - 4.20 mcIU/mL CERNER MILLENNIUM Blood specimen (specimen) 08/24/2010 12:33 PM EDT 08/24/2010 12:36 PM EDT Chris Rodgers MD CHEMISTRY ORDERABLES Performing Organization Address [facility] Co de Phone Number CERNER LUCEROENNIUM * (ABNORMAL) Comprehensive Metabolic Panel (08/24/2010 12:33 [...] PM EDT Chris Rodgers MD CHEMISTRY ORDERABLES IRENA ALEXIS * (ABNORMAL) CBC (With Diff) (08/24/2010 12:33 PM EDT) White Blood Cell 10.2(H) 4.0 - 10.0 x10(3)/mc L CERNER MILLENNIUM Red Blood Cell 4.45 3.93 - 5.22 x10(6)/mc L CERNER MILLENNIUM Hemoglobin 14.4 11.2 - 15.7 gm/dL CERNER MILLENNIUM Hematocrit 42.1 34.0 - 45.0 % CERNER MILLENNIUM Mean Cell Volume 94.6(H) 79.0 - 94.0 fL CERNER MILLENNIUM Mean Cell Hemoglobin 32.4(H) 26.6 - 32.2 pg CERNER MILLENNIUM Mean Cell Hemoglobin Concentration 34.2 32.0 - 36.5 gm/dL CERNER MILLENNIUM Platelet 268 145 - 370 x10(3)/mc L CERNER MILLENNIUM RDW Standard Deviation 42.8 35.0 - 46.0 fL CERNER MILLENNIUM RDW coefficient of variation 12.5 10.9 - 14.4 % CERNER MILLENNIUM Mean Platelet Volume 9.5 9.0 - 12.0 fL CERNER MILLENNIUM Blood specimen (specimen) 08/24/2010 12:33 PM EDT 08/24/2010 12:36 PM EDT Chris Rodgers MD HEMATOLOGY ORDERABLE S IRENA ALEXIS documented in this encounter Visit Diagnoses Diagnosis Abdominal pain- Primary Abdominal pain, unspecified site documented in this encounter Care Teams Refining Still Operator Relationship Specialty Start Date End Date Moira Arriaza MD [address] [place] [address] PCP - General 03/22/10 documented as of this encounter
--- OUTSIDE RECORDS SUMMARY | 2023-12-06 22:15 | XMS_ITS | Encounter Summary ---
[place] [address] Care Team Providers Care Online Marketing Specialist Name Role Phone Moira Arriaza MD Primary Care Provider [phone] Reason for Referral * Diagnostic Test (Routine) - Closed Specialty Diagnoses / Procedures Referred By Contac t Referred To Contact Radiology Diagnoses Incisional hernia, without obstruction or gangrene Procedures CT Abdomen & Pelvis Wo Contrast Guillermo Lewis MD [facility] [place] [address] [facility] [place] [address] Referral ID Status Reason Start Date Expiration Date V isits Requested Visits Authorized [id number] Closed Specialty Service Requested 10/20/2015 01/18/2016 1 1 Reason for Visit * Diagnostic Test (Routine) - Closed Specialty Diagnoses / Procedures Referred By Contac t Referred To Contact Radiology Diagnoses Incisional hernia, without obstruction or gangrene Procedures CT Abdomen & Pelvis Wo Contrast Guillermo Lewis MD [facility] [place] [address] [facility] [place] [address] Referral ID Status Reason Start Date Expiration Date V isits Requested Visits Authorized [id number] Closed Specialty Service Requested 10/20/2015 01/18/2016 1 1 Encounter Details Date Type Department Care Team (Latest Contact Info) Description 10/25/2015 1:35 PM EDT - 10/25/2015 11:59 PM EDT Hospital En[place] [id number] Guillermo Lewis MD [facility] [place] [address] Incisional hernia, without obstruction or gangrene Discharge Disposition: Home Social History Tobacco Use [...] Sig Dispensed Refills Start Date End Date HYDROcodone-acetaminophe n (NORCO) 7.5-325 mg Tablet take [...] Name Priority Date/Time Associated Diagnosis Comments CT ABDOMEN AND PELVIS WO CONTRAST Routine 10/25/2015 4:16 PM EDT Incisional hernia, without obstruction or gangrene documented in this encounter Results * CT Abdomen & Pelvis Wo Contrast (10/25/2015 4:16 PM EDT) Anatomical Region Laterality Modality Abdomen, Pelvis Computed Tomogra phy Impressions 10/25/2015 5:03 PM EDT 1. Small ventral hernia above the umbilicus containing adipose tissue. 2. Contour deformity lower pole of the left kidney compatible with scarring, evidence for small cysts. 3. Arteriosclerosis. 4. Diverticulosis descending and sigmoid colon without evidence for acute diverticulitis. Narrative 10/25/2015 5:03 PM EDT EXAMINATION: CT ABDOMEN AND PELVIS WO CONTRAST CLINICAL HISTORY: incisional hernia TECHNIQUE: Helical CT of the abdomen and pelvis was performed without the use of intravenous contrast. ??Multiplanar reformatted images were generated. COMPARISON: None FINDINGS: CT of the abdomen with oral contrast no intravenous contrast and CT the pelvis without intravenous contrast were obtained. At the superior margin of the umbilicus there is a small ventral hernia containing adipose tissue. The opening of the hernia defect at the anterior abdominal wall measures approximately 9.7 mm, the diameter of herniated fat is 3.6 cm vertical. No other anterior abdominal wall defect is seen, inguinal regions are clear. Lung bases are clear. The liver, spleen, stomach, pancreas, right and left adrenal glands and right and left kidneys appear normal except for evidence of cortical scarring at the lower pole left kidney with several small low-density foci consistent with cysts. This is described similarly in the report of the study 01/06/2013, the images of which are not available. The aorta and iliac arteries are arteriosclerotic. The small bowel is unremarkable. There is diverticulosis involving the descending and sigmoid colon without evidence of acute diverticulitis. The bladder is small in volume, the uterus is normal in size and is midline. Ileocecal junction and the appendix appear normal. No free fluid, free air or acute inflammatory changes are seen. There is no evidence for adenopathy Procedure Note Wyatt Philip MD - 10/25/2015 EXAMINATION: CT ABDOMEN AND PELVIS WO CONTRAST CLINICAL HISTORY: incisional hernia TECHNIQUE: Helical CT of the abdomen and pelvis was performed without theuse of intravenous contrast. Multiplanar reformatted images were generated. COMPARISON: None FINDINGS: CT of the abdomen with oral contrast no intravenous contrast andCT the pelvis without intravenous contrast were obtained. At the superiormargin of the umbilicus there is a small ventral hernia containing adipose tissue.The opening of the hernia defect at the anterior abdominal wall measures approximately 9.7 mm, the diameter of herniated fat is 3.6 cm vertical. No other anterior abdominal wall defect is seen, inguinal regions areclear. Lung bases are clear. The liver, spleen, stomach, pancreas, right and left adrenal glands andright and left kidneys appear normal except for evidence of cortical scarring atthe lower pole left kidney with several small low-density foci consistentwith cysts. This is described similarly in the report of the study 01/06/2013,the images of which are not available. The aorta and iliac arteries are arteriosclerotic. The small bowel is unremarkable. There is diverticulosis involving the descending and sigmoidcolon without evidence of acute diverticulitis. The bladder is small in volume,the uterus is normal in size and is midline. Ileocecal junction and theappendix appear normal. No free fluid, free air or acute inflammatory changes are seen. There isno evidence for adenopathy IMPRESSION 1. Small ventral hernia above the umbilicus containing adipose tissue. 2. Contour deformity lower pole of the left kidney compatible withscarring, evidence for small cysts. 3. Arteriosclerosis. 4. Diverticulosis descending and sigmoid colon without evidence foracute diverticulitis. Guillermo Lewis MD IMG CT ORDERABLES documented in this encounter Visit Diagnoses Diagnosis Incisional hernia, without obstruction or gangrene Incisional hernia without mention of obstruction or gangrene documented in this encounter Care Teams Online Marketing Specialist Relationship Specialty Start Date End Date Moira Arriaza MD [address] [place] [address] PCP - General 03/22/10 documented as of this encounter
--- OUTSIDE RECORDS SUMMARY | 2023-12-06 22:15 | XMS_ITS | Encounter Summary ---
Author Organization [facility] [place] [address] Care Team Providers Care Linen Room Supervisor Name Role Phone Moira Arriaza MD Primary Care Provider [phone] Encounter Details Date Type Department Care Team (Late st Contact Info) Description 09/14/2010 3:15 PM EDT - 09/14/2010 4:15 PM EDT Surgery [place] [address] Luis Borjas MD [facility] [place] [address] COLONOSCOPY FLEXIBLE, WITH BX (WRVU 3.56) Social History Tobacco Use Types Packs/Day Years [...] this encounter Discharge Instructions * Patient Instructions* Luis Borjas MD - 09/14/2010 5:25 PM EDT [...] as of this encounter H&P Notes * Luis Borjas MD - 09/14/2010 4:12 PM EDT [...] 9:01 AM EDT * Op Note - Luis Borjas MD - 09/14/2010 5:24 PM EDT [facility] Operative Note Patient Name: Suzan Molina : [id number] MR#: [id number] Case Date: 09/14/2010 Surgeon: Surgeon(s) and Role: * LUIS BORJAS MD - Primary Preoperative diagnosis: diarrhea, coloni bx r/o colitis Postoperative diagnosis: * No post-op diagnosis entered * Procedure(s): COLONOSCOPY FLEXIBLE, WITH BX UPPER GASTROINTESTINAL ENDOSCOPY,WITH BIOPSY SINGLE OR MULTIPLE Please see Procedure note. * OR Attestation - Luis Borjas MD - 09/14/2010 5:24 PM EDT Luis Borjas MD * Miscellaneous - Provider, Scanning [...] 6:03 PM EDT) Surgical Pathology Report [id number] ? Location: 4T The signing pathologist has [...] tissues. Sections/Proces sing: ??(T2) F - ??Labeled/Fixat juancarlos: Distal esophagus 42 to 41 cm, formalin. [...] diagnosis. IRENA ALEXIS 09/14/2010 6:03 PM EDT Luis Nation MD PATHOLOGY/CYTOLO GY ORDERABLES [facility] SURGICAL PATHOLOGY REPORT (09/14/2010 6:03 PM EDT) Surgical Pathology Report ? [facility] ? Provider: ?? LUIS BORJAS ??Pt. Name: ?? SUZAN MOLINA ?I ? Acc #: ?[id number] ?Pt. ? Col Date: ?? 09/14/2010 ? [...] 0.2 cm. ? Tissue Description: ?? Soft, rwoe tissues. ? [facility] ? Provider: ?? LUIS BORJAS ??Pt. Name: ?? SUZAN MOLINA ?I ? Acc #: ?[id number] ?Pt. ? Col Date: ?? 09/14/2010 ? [...] sprue and ? Sparrow's with long-term GERD IRENA DIASIUM 09/14/2010 6:03 PM EDT Luis Nation MD PATHOLOGY/CYTOLO GY ORDERABLES CERLUISA MILLENNIUM * COLONOSCOPY (09/14/2010 4:02 PM EDT) COLONOSCOPY [facility] End[facility] Patient Name: Suzan Molina ? Procedure Date: 09/14/2010 04:02:09 PM ? N: [id number] ? Date of : 1960 ? Age: 50 ? Procedure: ? Colonoscopy Indications: ? Chronic diarrhea Providers: ? Luis Borjas MD, Ania ? Lopez, ESTELA, Latasha Jimenez, Luster Applicator Referring MD: ?Nuria Martínez MD Medicines: ? Midazolam 6 [...] physician after ? studies are complete. ? Luis Borjas MD Signed Date: 09/14/2010 05:16:13 PM Number of Addenda: 0 ? Note initiated on 09/14/2010 04:02:09 PM PROVATION 09/14/2010 4:02 PM EDT Unknown GENERAL SURGICAL ORD ERABLES PROVATION * UPPER GI ENDOSCOPY (09/14/2010 4:01 PM EDT) UPPER GI ENDOSCOPY [facility] Endoscopy Patient Name: Suzan Molina ? Procedure Date: 09/14/2010 04:01:18 PM ? N: [id number] ? Date of : 1960 ? Age: 50 ? Procedure: ? Upper GI endoscopy Indications: ? Dyspepsia, Diarrhea Providers: ? Luis Borjas MD, Ania ? Lopez, ESTELA, Latasha Jimenez, Luster Applicator Referring MD: ?Nuria Martínez MD Medicines: ? Midazolam 7 [...] physician after ? studies are complete. ? Luis Borjas MD Signed Date: 09/14/2010 05:41:40 PM Number of Addenda: 0 ? Note initiated on 09/14/2010 04:01:18 PM PROVATION 09/14/2010 4:01 PM EDT Unknown GENERAL SURGICAL ORD ERABLES PROVATION documented in this encounter Visit Diagnoses Not on filedocumented in this encounter Administered Medications Inactive Administered Medications - up to 3 most recent administrations Medication Order MAR Action Action Date Dose Rate Site fentaNYL 50mcg/mL injection ONCE PRN, 1 dose, Starting on 09/14/10 at 1629, Until Sun09/14/10 at 1629, Pain, Intra-Operative (Intra-Procedure), Routine Given 09/14/2010 4:29 PM EDT 100 mcg fentaNYL 50mcg/mL injection Intravenous, ONCE PRN, 1 dose, Starting on Sun09/14/10 at 1633, Until Sun09/14/10 at 1633, Pain, Intra-Operative (Intra-Procedure), Routine Given 09/14/2010 4:33 PM EDT 50 mcg fentaNYL 50mcg/mL injection Intravenous, ONCE PRN, 1 dose, Starting on Sun09/14/10 at 1643, Until Sun09/14/10 at 1643, Pain, Intra-Operative (Intra-Procedure), Routine Given 09/14/2010 4:43 PM EDT 50 mcg fentaNYL 50mcg/mL injection Intravenous, ONCE PRN, 1 dose, Starting on Sun09/14/10 at 1644, Until Sun09/14/10 at 1644, Pain, Intra-Operative (Intra-Procedure), Routine Given 09/14/2010 4:44 PM EDT 50 mcg fentaNYL 50mcg/mL injection Intravenous, ONCE PRN, 1 dose, Starting on Sun09/14/10 at 1647, Until Sun09/14/10 at 1647, Pain, Intra-Operative (Intra-Procedure), Routine Given 09/14/2010 4:47 PM EDT 50 mcg fentaNYL 50mcg/mL injection Intravenous, ONCE PRN, 1 dose, Starting on Sun09/14/10 at 1712, Until Sun09/14/10 at 1712, Pain, Intra-Operative (Intra-Procedure), Routine Given 09/14/2010 5:12 PM EDT 50 mcg midazolam (VERSED) injection ONCE PRN, 1 dose, Starting on Sun09/14/10 at 1633, Until Sun09/14/10 at 1633, Sleep, Intra-Operative (Intra-Procedure), Routine Given 09/14/2010 4:33 PM EDT 1 mg midazolam (VERSED) injection Intravenous, ONCE PRN, 1 dose, Starting on Sun09/14/10 at 1629, Until Sun09/14/10 at 1629, Sleep, Intra-Operative (Intra-Procedure), Routine Given 09/14/2010 4:29 PM EDT 2 mg midazolam (VERSED) injection Intravenous, ONCE PRN, 1 dose, Starting on Sun09/14/10 at 1643, Until Sun09/14/10 at 1643, Sleep, Intra-Operative (Intra-Procedure), Routine Given 09/14/2010 4:43 PM EDT 1 mg midazolam (VERSED) injection Intravenous, ONCE PRN, 1 dose, Starting on Sun09/14/10 at 1645, Until Sun09/14/10 at 1645, Sleep, Intra-Operative (Intra-Procedure), Routine Given 09/14/2010 4:45 PM EDT 1 mg midazolam (VERSED) injection Intravenous, ONCE PRN, 1 dose, Starting on Sun09/14/10 at 1652, Until Sun09/14/10 at 1652, Sleep, Intra-Operative (Intra-Procedure), Routine Given 09/14/2010 4:52 PM EDT 1 mg midazolam (VERSED) injection Intravenous, ONCE PRN, 1 dose, Starting on Sun09/14/10 at 1512, Until Sun09/14/10 at 1512, Sleep, Intra-Operative (Intra-Procedure), Routine Given 09/14/2010 3:12 PM EDT 1 mg documented in this encounter Active and Recently Administered Medications Times are shown in EDT. PRN Medication Order 09/12/2010 09/13/2010 09/14/2010 fentaNYL 50mcg/mL injection (COMPLETED) ONCE PRN, 1 dose, Starting on Sun09/14/10 at 1629, Until Sun09/14/10 at 1629, Pain, Intra-Operative (Intra-Procedure), Routine 1629 (Given - Provid er: Ania Marroquni RN) fentaNYL 50mcg/mL injection (COMPLETED) Intravenous, ONCE PRN, 1 dose, Starting on Sun09/14/10 at 1633, Until Sun09/14/10 at 1633, Pain, Intra-Operative (Intra-Procedure), Routine 1633 (Given - Provid er: Ania Marroquin RN) fentaNYL 50mcg/mL injection (COMPLETED) Intravenous, ONCE PRN, 1 dose, Starting on Sun09/14/10 at 1643, Until Sun09/14/10 at 1643, Pain, Intra-Operative (Intra-Procedure), Routine 1643 (Given - Provid er: Ania Marroquin RN) fentaNYL 50mcg/mL injection (COMPLETED) Intravenous, ONCE PRN, 1 dose, Starting on Sun09/14/10 at 1644, Until Sun09/14/10 at 1644, Pain, Intra-Operative (Intra-Procedure), Routine 164 (Given - Provid er: Ania Marroquin RN) fentaNYL 50mcg/mL injection (COMPLETED) Intravenous, ONCE PRN, 1 dose, Starting on Sun09/14/10 at 1647, Until Sun09/14/10 at 1647, Pain, Intra-Operative (Intra-Procedure), Routine 164 (Given - Provid er: Ania Marroquin RN) fentaNYL 50mcg/mL injection (COMPLETED) Intravenous, ONCE PRN, 1 dose, Starting on Sun09/14/10 at 1712, Until Sun09/14/10 at 1712, Pain, Intra-Operative (Intra-Procedure), Routine 171 (Given - Provid er: Ania Marroquin RN) midazolam (VERSED) injection (COMPLETED) ONCE PRN, 1 dose, Starting on Sun09/14/10 at 1633, Until Sun09/14/10 at 1633, Sleep, Intra-Operative (Intra-Procedure), Routine 163 (Given - Provid er: Ania Marroquin RN) midazolam (VERSED) injection (COMPLETED) Intravenous, ONCE PRN, 1 dose, Starting on Sun09/14/10 at 1629, Until Sun09/14/10 at 1629, Sleep, Intra-Operative (Intra-Procedure), Routine 162 (Given - Provid er: Ania Marroquin RN) midazolam (VERSED) injection (COMPLETED) Intravenous, ONCE PRN, 1 dose, Starting on Sun09/14/10 at 1643, Until Sun09/14/10 at 1643, Sleep, Intra-Operative (Intra-Procedure), Routine 164 (Given - Provid er: Ania Marroquin RN) midazolam (VERSED) injection (COMPLETED) Intravenous, ONCE PRN, 1 dose, Starting on Sun09/14/10 at 1645, Until Sun09/14/10 at 1645, Sleep, Intra-Operative (Intra-Procedure), Routine 164 (Given - Provid er: Ania Marroquin RN) midazolam (VERSED) injection (COMPLETED) Intravenous, ONCE PRN, 1 dose, Starting on Sun09/14/10 at 1652, Until Sun09/14/10 at 1652, Sleep, Intra-Operative (Intra-Procedure), Routine 1651 (Given - Provid er: Ania Marroquin RN) midazolam (VERSED) injection (COMPLETED) Intravenous, ONCE PRN, 1 dose, Starting on Sun09/14/10 at 1512, Until Sun09/14/10 at 1512, Sleep, Intra-Operative (Intra-Procedure), Routine 1511 (Given - Provid er: Ania Marroquin RN) documented in this encounter Care Teams Linen Room Supervisor Relationship Specialty Start Date End Date Moira Arriaza MD [address] [place] [address] PCP - General 03/22/10 documented as of this encounter
--- OUTSIDE RECORDS SUMMARY | 2023-12-06 22:15 | XMS_ITS | Encounter Summary ---
Author Organization [facility] [place] [address] Care Team Providers Care Flume Tender Name Role Phone Moira Arriaza MD Primary Care Provider [phone] Reason for Visit * Reason Onset Date Comments Other 09/22/2010 results Encounter Details Date Type Department Care Team (Late st Contact Info) Description 09/22/2010 Telephone [place] [address] Nuria Negrete APRN [facility] [place] [address] Other (results) Social History Tobacco Use Types Packs/Day Years [...] encounter Miscellaneous Notes * Telephone Encounter - Emily Jones RN - 09/22/2010 10:30 AM EDT Called left message from Luann Rooney NP to call back: Path report normal egd normal except for hiatal hernia, small [place] hyperplastic polyps divertic ulosis cannot have fiber since IBS Repeat 5 years How is diet, lomotil and dexilant working? documented in this encounter Plan of Treatment Not on file documented as of this encounter Visit Diagnoses Not on filedocumented in this encounter Care Teams Flume Tender Relationship Specialty Start Date End Date Moira Arriaza MD [address] [place] [address] PCP - General 03/22/10 documented as of this encounter
--- OUTSIDE RECORDS SUMMARY | 2023-12-06 22:15 | XMS_ITS | Encounter Summary ---
Author Organization [facility] Address [facility] [place] [address] Care Team Providers Care Group Manager Name Role Phone Moira Arriaza MD Primary Care Provider [phone] Reason for Visit * Consultation (Routine) - Closed Specialty Diagnoses / Procedures Referred By Contviolet t Referred To Contact Gastroenterology Diagnoses GERD Li Brunson PA [address] [place] [id number] [facility] [address] [place] [address] Referral ID Status Reason Start Date Expiration Date V isits Requested Visits Authorized [id number] Closed Consult, Test & Treat Connection [facility] 08/18/2017 08/18/2018 1 1 Encounter Details Date Type Department Care Team (Late Contact Info) Description 09/27/2017 11:00 AM EDT Office [place] [phone] Liliana Lester PA [facility] [place] [address] Diarrhea, unspecified type; Gastroesophageal reflux disease, esophagitis presence not specified Social History Tobacco Use Types Packs/Day Years Used Date Smoking Tobacco: Former Cigarettes Smokeless Tobacco: Never Comments:quit previously. st arted back august 16 2016 Alcohol Use Standard Drinks/Week Comments No 0 (1 standard drink = 0.6 oz pur e alcohol) Sex and Gender Information Value Date Recorded Sex Assigned at Not on file Gender Identity Female 05/18/2021 8:52 PM EST Sexual Orientation Not on file documented as of this encounter Last Filed Vital Signs Vital Sign Reading Time Taken Comments Blood Pressure 130/91 09/27/2017 11:15 AM EDT Pulse 68 09/27/2017 11:15 AM EDT Temperature - - Respiratory Rate - - Oxygen Saturation - - Inhaled Oxygen Concentration - - Weight 106.1 kg (234 lb) 09/27/2017 11:15 AM EDT Height 165.1 cm (5' 5) 09/27/2017 11:15 AM EDT Body Mass Index 38.94 09/27/2017 11:15 AM EDT documented in this encounter Patient Instructions * Patient Instructions* Liliana Lester - 09/27/2017 11:00 AM EDT Thank you for coming in today. Here is a summary of what we discussed: 1. Follow GERD lifestyle measures - see handout 2. Schedule upper endoscopy and colonoscopy 3. Office follow up 4 wks after testing. documented in this encounter Progress Notes * Liliana Lester - 09/27/2017 11:00 AM EDT Gastroenterology & Hepatology New Patient Consultation Note PCP: Moira Arriaza MD Requesting Provider: NADEEM Graham Reason for consultation: Suzan Chaudhary is a 57 y.o. female with medical history significant for obesity, nicotine dependence. I am seeing her as a new patient today in consult for question of GERD. Subjective: HPI: She has had massive heartburn over the last three years. She has increased PPI to the maximum. This helps, but she still has symptoms. Taking omeprazole and ranitidine for the past month, and herGERD symptoms have improved, but previously was on another PPI (pantoprazole?) for years and had constant reflux and heartburn, nonstop. With current regimen she still has acid reflux and heartburn, especially with certain foods, at least once a week. If she misses even one dose, the heartburn isreally bad. No dysphagia, odynophagia. Notes that she chokes easily, once every ~3 weeks, dependingon foods -- thinks related to past surgery to soft palate and uvula in 1997. She just lost her sister to [place] and this is a very stressful time for her and she is concerned that heartburn symptoms may actually be cardiac. Recently saw cardiology at [facility] and had a stress test, was told everything was normal. Bowel habits: Has 3-4 bowel movements a day now. Wetzel scale 5-6. About once a week she has urgent, explosive watery stool, Wetzel scale 7 without warning. Has accidents. Has seepage during the day and night. Rarely has to wake at night with urge for bowel movement. - diarrhea is better now. In 2010 was 10 times daily. - stool is fluorescent yellow. GB removed 2008 - was severely enlarged but not ruptured. Diarrheaworsened after that. - Vaginal delivery with tearing that required stitches. - She thinks she had stool testing for infectious etiologies years ago. - She has a long history of IBS. CPAP since early Weight: increasing lately. Had lost weight (100% lbs) with diet in early . Diagnostic studies: 1. Colonoscopy, 09/14/10 (chronic diarrhea): The examined portion of the ileum was normal. One 1 mm polyp in the ascending colon. One 1 mm polyp in the sigmoid colon. Diverticulosis sigmoid colon and descending colon. Otherwise the entire examined colon is normal. Biopsies: Small intestinal mucosa with prominent lymphoid aggregates, within normal limits. Random colon biopsies normal. Ascending colon - hyperplastic polyp. Sigmoid-hyperplastic polyp. 2. EGD, 09/04/10 (dyspepsia, diarrhea) : Z-line variable, 42 cm from the incisors. Possible short segment intestinal metaplasia. Small hiatus hernia. Normal duodenal bulb and 2nd part of the duodenum. Biopsies: Squamocolumnar junctional mucosa (cardia type) with no evidence of intestinal metaplasia. Duodenal bx normal. ROS: Constitutional: + night sweats Denies unintended weight loss, fatigue, fever Eyes: Denies red or painful eyes ENT: Denies dysphagia, odynophagia Resp: Denies cough, shortness of breath, wheezing Cardio: Denies chest pain, palpitations : Denies dysuria, incontinence Integumentary: Denies new rashes, sores, lesions GI: see HPI Musculoskeletal: Denies new joint pain, stiffness, muscle aches Neuro: + ongoing headaches, ALL/IMMUNO: + Seasonal allergies. MEDICAL HISTORY: Patient Active Problem List Diagnosis Code ??? Nicotine dependence F17.200 ??? Obesity E66.9 ??? Incisional hernia K43.2 ??? Abdominal pannus E65 CURRENT MEDICATIONS: ??? HYDROcodone-acetaminophen (NORCO) 7.5-325 mg Tablet ??? furosemide (LASIX) 20 mg Tablet ??? albuterol (PROVENTIL HFA;VENTOLIN HFA) 90 mcg/actuation HFA Aerosol Inhaler ??? LORazepam (ATIVAN) 0.5 mg Tablet Omeprazole 20 mg BID Ranitidine 300 mg at night Rare NSAIDs Twilight- for pain and helps with diarrhea Ativan PRN ALLERGIES: Allergies Allergen Reactions ??? Adhesive Tape Other (See Comments) blisters SURGICAL HISTORY: Past Surgical History: Procedure Laterality Date ??? PRO COLONOSCOPY, BIOPSY 09/14/2010 COLONOSCOPY FLEXIBLE, WITH BX performed by LUIS FABIAN I at [facility] ENDOSCOPY ??? PRO UPPER GI ENDOSCOPY, BIOPSY 09/14/2010 UPPER GASTROINTESTINAL ENDOSCOPY,WITH BIOPSY SINGLE OR MULTIPLE performed by LUIS FABIAN I at [facility] ENDOSCOPY SOCIAL HISTORY: , 1 child , 3 step children HABITS: Alcohol: occasional glass of wine Tobacco: quit 13 months, restarted July 2016, 1.5 PPD FAMILY HISTORY: Sister- gluten sensitive Brother - of liver cancer and colon cancer Aunt- esophageal cancer. Brothers, sister, mother with diabetes Type 2 There is no known family history of inflammatory bowel disease, celiac disease, or GI cancer (esophagus, stomach, colon). There is no history of liver or pancreas disease. Objective: PHYSICAL EXAMINATION: Most Recent Vitals: 09/27/17 1115 Pulse: 68 Body mass index is 38.94 kg/(m^2). GEN: Alert, well-appearing, no acute distress. Obese. Appears stated age. Cooperates and answers questions appropriately. Accompanied by her . SKIN: No rashes or abnormal lesions. NECK: No lymphadenopathy, thyromegaly. HEENT: Normal sclera, PERRL, oropharynx clear without ulceration or lesions. LUNGS: Clear to auscultation bilaterally. COR: Regular, normal S1 and S2 without murmurs ABD: Normal active bowel sounds. Obese abdomen. Soft and non-distended. No tenderness to deep palpation in all 4 quadrants. No organomegaly, masses, rebound, guarding, ascites. Did not want rectal exam today. EXT: No upper extremity cyanosis, clubbing. +2 radial pulses. No peripheral edema. PSYCH: mood appropriate, good eye contact, normal interaction Impression/Recommendations: Suzan Chaudhary is a 57 y.o. year old female here for GERD and chronic diarrhea. She describes severe GERD for years that was not improved with daily PPI (does not recall which one). She was recently switched to omeprazole BID plus ranitidine and this has improved her symptoms although she does havefrequent breakthrough symptoms. We discussed an upper endoscopy to evaluate for esophagitis. GERD risk factors include hiatal hernia, obesity, smoking. She also endorses chronic diarrhea with urgent, explosive watery stool and leakage. These symptoms have been ongoing but she recently notes a bulge or lump in the rectum, mostly when she feels more constipated or backed up. She declined digital rectal exam today. Will do a colonoscopy at the same time as EGD to evaluate for mass and for microscopic colitis/inflammation. Risk factor for microscopic colitis includes current smoking (1.5 PPD) and daily use of ranitidine and omeprazole. Family history positive for colon cancer (her brother). We discussed that if above testing is negative, will consider stool testing for infectious causes of diarrhea, although this is unlikely since her symptoms are so chronic. Also consider treatment forbile acid diarrhea, as she had a cholecystectomy ~2008 and feels that diarrhea worsened after that.Consider low Fodmap diet, trial rifaximin for IBS-D. PLAN (printed for patient): 1. Follow GERD lifestyle measures - see handout 2. Schedule upper endoscopy and colonoscopy 3. Office follow up 4 wks after testing. The patient was given my contact information and will call me with concerns or questions. Liliana Lester PA-C Section of Gastroenterology [place] [address] documented in this encounter Plan of Treatment Scheduled Orders Name Type Priority Associated Diagnoses Orde r Schedule UPPER GI ENDOSCOPY Procedures Routine Diarrhea, Unspecified Type Gastroesophageal reflux disease, esophagitis presence not specified Ordered: 09/27/2017 COLONOSCOPY Procedures Routine Diarrhea, Unspecified Type Ordered: 09/27/2017 documented as of this encounter Visit Diagnoses Diagnosis Diarrhea, unspecified type Gastroesophageal reflux disease, esophagitis presence not specified documented in this encounter Care Teams Group Manager Relationship Specialty Start Date End Date Moira Arriaza MD [address] [place] [address] PCP - General 03/22/10 documented as of this encounter
--- OUTSIDE RECORDS SUMMARY | 2023-12-06 22:15 | XMS_ITS | Encounter Summary ---
[place] [address] Care Team Providers Care Media Technician Name Role Phone Moira Arriaza MD Primary Care Provider Encounter Details Date Type Department Care Team (Late st Contact Info) Description 10/11/2015 Telephone [place] [phone] Ernestina Rhodes Social History Tobacco Use Types Packs/Day Years [...] on filedocumented in this encounter Care Teams Media Technician Relationship Specialty Start Date End Date Moira Arriaza MD [address] [place] [address] PCP - General 03/22/10 documented as of this encounter
--- OUTSIDE RECORDS SUMMARY | 2023-12-06 22:15 | XMS_ITS | Encounter Summary ---
[place] [address] Care Team Providers Care Micro Computer Specialist Name Role Phone Moira Arriaza MD Primary Care Provider [phone] Encounter Details Date Type Department Care Team (Late st Contact Info) Description 02/23/2019 Ancillary Procedure [place] [phone] Moira Arriaza MD [address] [place] [address] Social History Tobacco Use Types Packs/Day Years [...] Diagnosis Comments FILM LIBRARY STORAGE ONLY CT CHEST Routine 02/23/2019 12:00 AM EDT documented in this encounter Results * Film Library- Storage Only CT Chest (02/23/2019 12:00 AM EDT) Narrative [facility] - 03/09/2020 2:53 PM EST This exam is auto-finalizing. It's purpose is for storage only. Moira Arriaza MD [facility] FILM LIBRARY ORD ERABLES [place], [place] documented in this encounter Visit Diagnoses Not on filedocumented in this encounter Care Teams Micro Computer Specialist Relationship Specialty Start Date End Date Moira Arriaza MD [address] [place] [address] PCP - General 03/22/10 documented as of this encounter
--- OUTSIDE RECORDS SUMMARY | 2023-12-06 22:15 | XMS_ITS | Encounter Summary ---
Author Organization [facility] Address [facility] [place] [address] Care Team Providers Care Implementation Lead Name Role Phone Moira Arriaza MD Primary Care Provider [phone] Encounter Details Date Type Department Care Team (Late st Contact Info) Description 10/15/2017 2:30 PM EDT - 10/15/2017 3:30 PM EDT [place] [address] Brie Sheets MD [facility] [place] [address] EGD, UPPER GI ENDOSCOPY (WRVU 2.09) Social History Tobacco Use Types Packs/Day Years [...] Sign Reading Time Taken Comments Blood Pressure 145/89 10/15/2017 3:45 PM EDT Pulse 84 10/15/2017 3:15 PM EDT Temperature - - Respiratory Rate 18 10/15/2017 3:50 PM EDT Oxygen Saturation 96% 10/15/2017 3:50 PM EDT Inhaled Oxygen Concentration - - Weight 106.1 kg (234 lb) 10/15/2017 2:19 PM EDT Height - - Body Mass Index 38.94 09/27/2017 11:15 AM EDT documented in this encounter Discharge Instructions * Discharge Instructions* Levi Blackburn, RN - 10/15/2017 3:40 PM EDT UPPER GI ENDOSCOPY WHAT TO EXPECT AFTER THE PROCEDURE After the test you may feel a little more gassy or bloated than usual, this is normal. ACTIVITY Because of the sedation that you received Your judgement and reaction time are affected ?? Go home and rest quietly for the remainder of the day. You may resume your normal activities tomorrow. ?? Change from one position to the next slowly. You may lose your balance unexpectedly Be careful on stairs, as you may be unsteady on your feet. FOR THE NEXT 24 HRS ?? DO NOT DRIVE OR OPERATE ANY MACHINERY ?? DO NOT DRINK ALCOHOLIC BEVERAGES ?? DO NOT SIGN LEGAL DOCUMENTS ?? If you are a smoker: DO NOT SMOKE WHILE YOU ARE ALONE Diet ?? Start by eating small portions of foods that ordinarily will not upset your stomach. Be gentle with what you choose to start with. ?? Drink plenty of fluids ( unless otherwise told not to) Medications You may have a mild sore throat. Ice chips, popsicles, over the counter throat lozenges or spray may help numb your throat. This procedure should not cause a fever. IV SITE-- slight redness or tenderness is normal, you can use warm compresses if you get concerned.If the tenderness +/or redness increases or foul drainage and a red streak occurs, please contact your PCP immediately. WHEN SHOULD YOU CALL FOR HELP? Call 911 anytime you think that you need emergency care. For example, call if: You passed out (lost consciousness). You cough up blood. You vomit blood or what looks like coffee grounds. You pass maroon or very bloody stools. Call your healthcare provider or seek immediate medical attention if: You have trouble swallowing. You have belly pain. Your stools are black or tarlike or have streaks of blood. You are sick to your stomach or cannot keep fluids down. Watch closely for changes in your health, and be sure to contact your doctor IF Your throat still hurts after a day or two You do not get better as expected. [facility] [phone] 7a-8p Otherwise contact [phone] and ask to speak to the sports book server propulsion machinery service engineer Follow-up care is a [place] part of your treatment and safety. Be sure to make and go to all appointments, and call your doctor if you are having problems. Instructions have been reviewed and patient expresses understanding Colonoscopy What to expect after the procedure You may feel a little more gassy or bloated than usual. This is normal. You should expect the return of normal bowel function in the 2 to 3 days. Activity Because of the sedation that you received your judgement and reaction time are effected ?? Go home and rest quietly for the remainder of the day. You may resume your normal activities tomorrow. ?? Change from one position to the next slowly. You may lose your balance unexpectedly ?? Be careful on stairs, as you may be unsteady on your feet FOR THE NEXT 24 HRS ?? DO NOT DRIVE OR OPERATE ANY MACHINERY ?? DO NOT DRINK ALCOHOLIC BEVERAGES ?? DO NOT SIGN LEGAL DOCUMENTS ?? If you are a smoker: DO NOT SMOKE WHILE YOU ARE ALONE Diet ?? Start by eating small portions of foods that ordinarily will not upset your stomach . Avoid gas producing foods for the next few days ?? Be gentle with what you choose to start with ?? Drink plenty of fluids ( unless your doctor has told you not to). IV SITE-- slight redness, or tenderness is normal. You can use warm compresses if you become concerned. If the tenderness +/or redness increases or foul drainage and a red streak occurs, please contact your PCP immediately When shoud you call for help? Call 911 anytime you think you may need emergency care. For example If you pass out ( loss of consciousness) If you pass maroon or bloody stools If you have severe belly pain Call your doctor now or seek immediate medical care If your stools are black and tarlike If your stools have streaks of blood, but you did not have a biopsy or any polyps removed If you have belly pain, or your belly is swollen and firm If you vomit If you have a fever If you are very dizzy Watch closely for changes in your health, and be sure to contact your doctor if you have any problems Your doctor will let you know when you will need your next colonoscopy. The results of your test and your risk for colorectal cancer will help your doctor decide how often you need to be checked. Sunday-[facility] [phone] 7a-8p Otherwise contact [phone] and ask to speak to the sports book server propulsion machinery service engineer Follow up care is a [place]o part of your treatment and safety. Be sure to make and go to all appointments, and call your doctor if you are having problems. Discharge instructions reviewed with patient who expresses understanding documented in this encounter Medications at Time [...] 08/14/2015 05/20/2021 documented as of this encounter H&P Notes * Brie Sheets MD - 10/15/2017 2:15 PM EDT Gastroenterology and Hepatology Pre-Procedure History and Physical Exam Procedure: EGD: Colonoscopy: Indication: GERD: diarrhea Patient Active Problem List Diagnosis Code ??? Nicotine dependence F17.200 ??? Obesity E66.9 ??? Incisional hernia K43.2 ??? Abdominal pannus E65 EXAM: HEENT: Airway examined, oropharynx clear Mallampati Score: II (soft palate, uvula, fauces visible) LUNGS: Clear to auscultation HEART: Regular rate and rhythm, normal S1, S2 ABDOMEN: Normal bowel sounds, soft, non tender, non distended, A/P Proceed with the planned endoscopic procedure. ASA 2 - Patient with mild systemic disease with no functional limitations Sedation Plan: moderate (conscious sedation) Risks and benefits of the procedure explained to the patient. Consent signed. documented in this encounter Plan of Treatment Not on file documented as of this encounter Procedures Procedure Name Priority Date/Time Associated Diagnosis Comments SPECIMEN TO PATHOLOGY Routine 10/15/2017 3:24 PM EDT SURGICAL PATHOLOGY REPORT Routine 10/15/2017 2:57 PM EDT COLONOSCOPY FLEXIBLE, WITH BX (WRVU 3.56) 10/15/2017 2:34 PM EDT Gastroesophageal reflux disease, esophagitis presence not specified Diarrhea, unspecified type EGD, UPPER GI ENDOSCOPY (WRVU 2.09) 10/15/2017 2:34 PM EDT Gastroesophageal reflux disease, esophagitis presence not specified Diarrhea, unspecified type COLONOSCOPY Routine 10/15/2017 2:15 PM EDT UPPER GI ENDOSCOPY Routine 10/15/2017 12 :41 PM EDT documented in this encounter Results * Specimen to Pathology (10/15/2017 3:24 PM EDT) AP Specimen 10/15/2017 3:24 PM EDT 10/15/2017 3:49 PM EDT Narrative [facility] - 10/15/2017 3:49 PM EDT Specimen requisition ordered. ??Separate Pathology report to follow Resulting Agency Comment Spec In Lab Brie Sheets MD PATHOLOGY/CYTOLOGY O RDERABLES [facility] [place] [address] * Surgical Pathology Report (10/15/2017 2:57 PM EDT) Final Diagnosis [id number] ? Location: 4T; EA13; A The signing pathologist has (i) examined the relevant preparation(s) for the specimen(s) and (ii) rendered or confirmed the diagnosis(es). . ?Surgical Pathology DIAGNOSIS Colon, random, ??biopsy: Colonic mucosa within normal limits. CR-PX Electronically signed by: ??Felicitas Knutson MD Verified: ??10/17/2017 ?Pathologist Performed at: ??-[facility] Dept. of Pathology, [place], [place] CLINICAL INFORMATION Specimen Submitted: A - Random colon bx r/o microscopic colitis Clinical History and Diagnosis: 57-year-old with long-standing history of diarrhea SPECIMEN PROCESSING A - Labeled/Fixativ e: Random colon biopsy, formalin. Quantity/Size: Multiple, 0.2-0.4 cm. Tissue Description: ??Soft, rowe-pink tissue ??. Sections/Proces sing: (T2) ??ejr 10/17/2017 4:37 PM EDT [facility] GI Biopsy 10/15/2017 2:57 PM EDT 10/15/2017 2:57 PM EDT Brie Sheets MD PATHOLOGY/CYTOLOGY O RDERABLES [facility] [place] [address] * COLONOSCOPY (10/15/2017 2:15 PM EDT) COLONOSCOPY [facility] Endoscopy Procedure Date: 10/15/2017 2:15 PM ? Patient Name: Suzan Chaudhary ? Date of : 1960 ? Age: 57 ? Order #: [id number] ? Instrument Name: [id number] ? Procedure: ? Colonoscopy Indications: ? Chronic diarrhea Providers: ? Brie Sheets MD, Ania Marroquin RN, ? Crys Esquivel, Separating Machine Operator Referring : ?Moiar Arriaza MD, Liliana Lester Medicines: ? Midazolam [...] MD GENERAL SURGICAL ORD ERABLES [employer] * UPPER GI ENDOSCOPY (10/15/2017 12:41 PM EDT) Pathologist [facility] UPPER GI ENDOSCOPY [facility] Endoscopy Procedure Date: 10/15/2017 12:41 PM ? Patient Name: Suzan Chaudhary ? Date of : 1960 ? Age: 57 ? Order #: [id number] ? Instrument Name: [id number] ? Procedure: ? Upper GI endoscopy Indications: ? Heartburn Providers: ? Brie Sheets MD, Ania Fadden, RN, ? Crys Esquivel, Separating Machine Operator Referring MD: ?Moira Arriaza MD, Liliana Lester Medicines: ? Midazolam 4 mg IV, Fentanyl 150 ? micrograms IV, Diphenhydramine 50 mg ? IV Complications: ? No immediate complications. Procedure: ? [...] the ? mouth, and advanced to the third part ? of duodenum. The patient tolerated ? the procedure well. The upper GI ? endoscopy was accomplished without ? difficulty. The patient tolerated the ? procedure well. ? Findings: ? The Z-line was irregular and was found 40 cm from the ? incisors. ? The stomach was normal. ? The examined duodenum was normal. ? Moderate Sedation: ? I was present during the intraservice time as ? documented by the sedation RN. Impression: ?- Z-line irregular, 40 cm from the ? incisors. ? - Normal stomach. ? - Normal examined duodenum. ? - No specimens collected. Recommendation: ?Symptoms are consistent with acid ? reflux with no signs of esophagitis ? while on acid blocking medications. ? Continue current medications. ? Keep head of bed elevated. ? Work on smoking cessation. ? Attending Participation: ? I personally performed the entire procedure. ? I was present during the intraservice time as ? documented by the sedation RN. ? Brie Sheets MD 10/15/2017 2:51:12 PM This report has been signed electronically. Number of Addenda: 0 Note Initiated On: 10/15/2017 12:41 PM [facility] 10/15/2017 12:4 1 PM EDT Moira Arriaza MD GENERAL SURGICAL ORD ERABLES [employer] documented in this encounter Visit Diagnoses Diagnosis Gastroesophageal reflux disease, esophagitis presence not specified Diarrhea, unspecified type documented in this encounter Administered Medications Inactive Administered Medications - up to 3 most recent administrations Medication Order MAR Action Action Date Dose Rate Site diphenhydrAMINE (BENADRYL) injection ONCE PRN, Starting on Sun10/15/17 at 1438, Until Sun10/15/17 at 1815, Intra-Operative (Intra-Procedure), Routine Given 10/15/2017 2:41 PM EDT 25 mg Given 10/15/2017 2:38 PM EDT 25 mg fentaNYL 50 mcg/mL multi-dose injection ONCE PRN, Starting on Sun10/15/17 at 1438, Until Sun10/15/17 at 1815, Intra-Operative (Intra-Procedure), Routine Given 10/15/2017 2:57 PM EDT 25 mcg Given 10/15/2017 2:54 PM EDT 25 mcg Given 10/15/2017 2:45 PM EDT 25 mcg lactated Ringers infusion 100 mL/hr, Intravenous, CONTINUOUS, Starting on Sun10/15/17 at 1445, Until Sun10/15/17 at 1609, Endoscopy (Day of Procedure) New Bag 10/15/2017 2:45 PM EDT 100 mL/hr 100 mL/hr midazolam (PF) (VERSED) 1 mg/mL multi-dose injection ONCE PRN, Starting on Sun10/15/17 at 1438, Until Sun10/15/17 at 1815, Intra-Operative (Intra-Procedure), Routine Given 10/15/2017 2:57 PM EDT 0.5 mg Given 10/15/2017 2:47 PM EDT 1 mg Given 10/15/2017 2:45 PM EDT 1 mg documented in this encounter Active and Recently Administered Medications Times are shown in EDT. Continuous Medication Order 10/13/2017 10/14/2017 10/15/2017 lactated Ringers infusion (CANCELED) 100 mL/hr, Intravenous, CONTINUOUS, Starting on Sun10/15/17 at 1445, Until Sun10/15/17 at 1609, Endoscopy (Day of Procedure) 1445 (New Bag - Prov ider: She Woods RN) PRN Medication Order 10/13/2017 10/14/2017 10/15/2017 diphenhydrAMINE (BENADRYL) injection (CANCELED) ONCE PRN, Starting on Sun10/15/17 at 1438, Until Sun10/15/17 at 1815, Intra-Operative (Intra-Procedure), Routine 1438 (Given - Provid er: Ania Marroquin RN)1441 (Given - Provider: Aina Marroquin RN) fentaNYL 50 mcg/mL multi-dose injection (CANCELED) ONCE PRN, Starting on Sun10/15/17 at 1438, Until Sun10/15/17 at 1815, Intra-Operative (Intra-Procedure), Routine 1438 (Given - Provid er: Ania Marroquin RN)1441 (Given - Provider: Ania Marroquin RN)1445 (Given - Provider: Ania Marroquin RN)1454 (Given - Provider: Ania Marroquin RN)1457 (Given - Provider: Ania Marroquin RN) midazolam (PF) (VERSED) 1 mg/mL multi-dose injection (CANCELED) ONCE PRN, Starting on Sun10/15/17 at 1438, Until Sun10/15/17 at 1815, Intra-Operative (Intra-Procedure), Routine 1438 (Given - Provid er: Ania Marroquin RN)1441 (Given - Provider: Ania Marroquin RN)1445 (Given - Provider: Ania Marroquin RN)1447 (Given - Provider: Ania Marroquin RN - Comment: for colo)1457 (Given - Provider: Ania Marroquin, ESTELA) documented in this encounter Care Teams Implementation Lead Relationship Specialty Start Date End Date Moira Arriaza MD [address] [place] [address] PCP - General 03/22/10 documented as of this encounter
--- OUTSIDE RECORDS SUMMARY | 2023-12-06 22:15 | XMS_ITS | Encounter Summary ---
Author [facility] [place] [address] Care Team Providers Care Plater Hot Dip Name Role Phone Moira Arriaza MD Primary Care Provider [phone] Encounter Details Date Type Department Care Team (Late st Contact Info) Description 01/29/2020 12:05 AM EDT Ancillary [place] [address] Moira Arriaza MD [address] [place] [address] Social History Tobacco Use Types Packs/Day Years [...] FILM LIBRARY STORAGE ONLY CT CHEST Routine 01/29/2020 12:05 AM EDT documented in this encounter Results * Film Library- Storage Only CT Chest (01/29/2020 12:05 AM EDT) Narrative [facility] - 03/12/2020 11:31 AM EST This exam is auto-finalizing. It's purpose is for storage only. Moira Arriaza MD [facility] FILM LIBRARY ORD ERABLES [place], [place] documented in this encounter Visit Diagnoses Not on filedocumented in this encounter Care Teams Plater Hot Dip Relationship Specialty Start Date End Date Moira Arriaza MD [address] [place] [address] PCP - General 03/22/10 documented as of this encounter
--- OUTSIDE RECORDS SUMMARY | 2023-12-06 22:15 | XMS_ITS | Encounter Summary ---
Author Organization [facility] [place] [address] Care Team Providers Care Wink Cutter Operator Name Role Phone Moira Arriaza MD Primary Care Provider [phone] Reason for Referral * Surgical (Routine) - Closed Specialty Diagnoses / Procedures Referred By Contac t Referred To Contact Plastic Surgery Diagnoses Incisional hernia, without obstruction or gangrene Rinku Vora MD [facility] [place] [address] [facility] [address] [address] Referral ID Status Reason Start Date Expiration Date V isits Requested Visits Authorized [id number] Closed Consult, Test & Treat 08/17/2014 08/17/2015 3 3 Reason for Visit * Reason Comments Establish Care [facility] Encounter Details Date Type Department Care Team (Late st Contact Info) Description 08/17/2014 1:00 PM EDT Office [place] [address] Rinku Vora MD [facility] [place] [address] Incisional hernia, without obstruction or gangrene Discharge [...] Sign Reading Time Taken Comments Blood Pressure 130/69 08/17/2014 12:47 PM EDT Pulse 89 08/17/2014 12:47 PM EDT Temperature - - Respiratory Rate 16 08/17/2014 12:47 PM EDT Oxygen Saturation 99% 08/17/2014 12:47 PM EDT Inhaled Oxygen Concentration - - Weight 88.5 kg (195 lb) 08/17/2014 12:47 PM EDT Height 165.1 cm (5' 5) 08/17/2014 12:47 PM EDT Body Mass Index 32.45 08/17/2014 12:47 PM EDT documented in this encounter H&P Notes * oMody Bishop MD - 08/17/2014 12:56 PM EDT Date of History and Physical: 08/17/2014 Service: [facility] Place of Service: Responsible Attending: Dr. Rinku Vora Patient Name: Suzan Marie Patient Age: 54 y.o. Birthdate: 1960 Admit date: (Not on file) Attending Physician: Rinku Vora MD PCP: MOIRA ARRIAZA MD Chief Complaint: Incisional hernia History of Present Illness: Suzan Marie 54 y.o. female presenting for evaluation of her incisional hernia associated with a laparoscopic cholecystectomy approximately 4.5 years ago. She reports losing 106 pounds over the last couple of years and has noticed that this hernia will make the contour of her dresses look abnormal. She intends to get in 12/2014 and is hoping to resolve this problem. She states that she has no change with her bowel function associated with the position of the hernia. Furthermore, it will occasionally be tender in the mornings, but generally is asymptomatic. Neverhas she been unable to reduced tissue incarcerated in the hernia. A large area of abdominal and bilateral thigh skin has become redundant since her weight loss; she is interested in resection of bothareas. Loose BM is her baseline, though she will occasionally become constipated. Another surgeon at [facility] did assess her for both issues and firmly reinforced smoking cessation. Suzan Marie states that this has been a stumbling block for her, as she is reluctant to use e-cigarettes due to health concerns and is once again smoking 2 packs per day up from 0.5 ppd. PMH: No past medical history on file. PSH: Past Surgical History Procedure Laterality Date ??? Colonoscopy, biopsy 09/14/2010 COLONOSCOPY FLEXIBLE, WITH BX performed by LUIS FABIAN I at [facility] ENDOSCOPY ??? Upper gi endoscopy, biopsy 09/14/2010 UPPER GASTROINTESTINAL ENDOSCOPY,WITH BIOPSY SINGLE OR MULTIPLE performed by LUIS FABIAN I at [facility] ENDOSCOPY Updated Allergies/ADRs: Allergies Allergen Reactions ??? Adhesive Tape Other (See Comments) blisters Pertinent Medications/Vaccines: Pain med, NOS for her loose bowel movements Family History: Non-contributory Social Hx: Smokes 2 ppd; was as low as 0.5 ppd during the winter. Has smoked for 35 years For alcoholic, quit in 1984, now drinks ~1 glass every 6 months No drug use Review of Systems: All 12 systems, including general exam, HEENT, psychological, neurological, CV, Resp, GI, , PV, MSK, Heme and integumentary are non-contributory unless noted in the HPI. Physical Exam: Last value Range last 12 hrs Temperature Heart Rate Heart Rate: 89 Heart Rate: [89] Blood Pressure BP: 130/69 mmHg BP: (130)/(69) Respiratory Rate Resp: 16 Resp: [16] SpO2 SpO2: 99 % SpO2: [99 %] Neuro: NAD, AOx3, sensation in tact to light touch b/l UE/LE/trunk HEENT: PERRL CV: RRR Pulm: adequate effort GI: soft, NT, ND Epigastric defect with easily-reducible incarcerated tissue, admits 1 fingertip MSK: 5/5 b/l UE/LE strength PV: b/l UE/LE warm and well-perfused Integ: no lesions or rashes on b/l UE/LE/trunk Redundant lower abdominal and b/l thigh skin Lab Data: none Microbiology none Radiology Studies: 12/2012 CT AP- 1 cm epigastric defect with incarcerated pre-peritoneal fat containing no bowel A/P: Suzan Marie is a 54 y.o. female with an epigastric incisional hernia associated with a laparoscopic cholecystectomy. Suzan Marie is interested in repairing both her incisional hernia and removing the excess fat associated with her significant weight loss over the last 18 months. We congratulated her on this accomplishment. She has concerns about a mesh repair, stating that both her mother and sister have had checkered histories with their own mesh repairs; given that we do not have primary chart information on their procedures, we could not offer Suzan Marie further information on these, suffice it to say that recurrence and infection are real concerns with any mesh repair. On that note, we stated that our preference would be for the patient to reduce or even discontinue her tobacco use; this is a pa rticularly fraught topic with Suzan Marie and we offered support and reassurance, as well as thesuggestion that she get in touch with her PCP, Dr. Arriaza, for further information on tobacco cessation. Ideally, she would have a 2-month tobacco-free period before a repair is attempted. Regarding her skin reduction, we commended her to Dr. Pennie Peterson and made sure she understood that our past experience with reconstructive surgery suggests that any tobacco use will diminish the chance that she is considered for this surgery; however, we did defer to Dr. Peterson on this topic. Suzan Marie agreed with these plans and accepted Dr. Vora's card. She stated she would be in touch after seeing Dr. Peterson. Signed: Moody Bishop MD 08/17/2014 12:56 PM CC: [address] / [place] [address] REF: Moira Arriaza MD [address] [place] [address] Patient Seen and examined. Agree with above note written by Dr. Villafana. We will await Ms. Marie's efforts at smoking cessation as well as consultation with Dr. Pennie Peterson of Plastic Surgery prior to planning any operative repair of this small incisional hernia. Rinku Vora MD #[id number] documented in this encounter Plan of Treatment Scheduled Referrals Name Type Priority Associated Diagnoses Orde r Schedule Referral to Plastic Surgery Outpatient Referral Routine Incisional Hernia, Without Obstruction Or Gangrene Ordered: 08/17/2014 documented as of this encounter Visit Diagnoses Diagnosis Incisional hernia, without obstruction or gangrene Incisional hernia without mention of obstruction or gangrene documented in this encounter Care Teams Wink Cutter Operator Relationship Specialty Start Date End Date Moira Arriaza MD [address] [place] [address] PCP - General 03/22/10 documented as of this encounter
--- OUTSIDE RECORDS SUMMARY | 2023-12-06 22:15 | XMS_ITS | Encounter Summary ---
Author Organization [facility] Address [facility] [place] [address] Care Team Providers Care Rug Underlay Machine Operator Name Role Phone Moira Arriaza MD Primary Care Provider [phone] Encounter Details Date Type Department Care Team (Latest Contact Info) Description 10/15/2017 2:02 PM EDT - 10/15/2017 4:15 PM EDT Hospital Encounter [place] [address] Brie Sheets MD [facility] [place] [address] Discharge Disposition: Home Social History Tobacco Use [...] encounter Discharge Instructions * Discharge Instructions* Levi Blackburn RN - 10/15/2017 3:40 PM EDT UPPER [...] You do not get better as expected. Sunday-Sunday Same Day Endo [phone] 7a-8p Otherwise contact [phone] and ask to speak to the superintendent fish hatchery employee communications intern Follow-up care is a [place] part of [...] to be checked. Sunday-Sunday Same Day Endo [phone] 7a-8p Otherwise contact [phone] and ask to speak to the superintendent fish hatchery employee communications intern Follow up care is a [place] part [...] PM EDT 10/15/2017 3:49 PM EDT Narrative [facility] - 10/15/2017 3:49 PM EDT Specimen requisition ordered. ??Separate Pathology report to follow Resulting Agency Comment Spec In Lab Brie Sheets MD PATHOLOGY/CYTOLOGY O RDERAWINSTON [facility] [place] [address] * Surgical Pathology Report (10/15/2017 2:57 PM EDT) Final Diagnosis [id number] ? Location: 4T; EA13; A The signing pathologist has (i) examined the relevant preparation(s) for the specimen(s) and (ii) rendered or confirmed the diagnosis(es). . ?Surgical Pathology DIAGNOSIS Colon, random, ??biopsy: Colonic mucosa within normal limits. CR-PX Electronically signed by: ??Eamon GREENBERG, Felicitas Verified: ??10/17/2017 ?Pathologist Performed at: ??-[facility] Dept. of Pathology, [place], [place] CLINICAL INFORMATION Specimen Submitted: A - Random colon bx r/o microscopic colitis Clinical History and Diagnosis: 57-year-old with long-standing history of diarrhea SPECIMEN PROCESSING A - Labeled/Fixativ e: Random colon biopsy, formalin. Quantity/Size: Multiple, 0.2-0.4 cm. Tissue Description: ??Soft, rowe-pink tissue ??. Sections/Proces sing: (T2) ??ejr 10/17/2017 4:37 PM EDT [facility] GI Biopsy 10/15/2017 2:57 PM EDT 10/15/2017 2:57 PM EDT Brie Sheets MD PATHOLOGY/CYTOLOGY O RDERABLES [facility] [place] [address] * COLONOSCOPY (10/15/2017 2:15 PM EDT) COLONOSCOPY [facility] Endoscopy Procedure Date: 10/15/2017 2:15 PM ? Patient Name: Suzan Chaudhary ? Date of : 1960 ? Age: 57 ? Order #: [id number] ? Instrument Name: [id number] ? Procedure: ? Colonoscopy Indications: ? Chronic diarrhea Providers: ? Brie Sheets MD, Ania Marroquin, RN, ? Crys Esquivel, Mica Plate Layer Referring : ?Moira Arriaza MD, Liliana Lester Medicines: ? [...] UPPER GI ENDOSCOPY (10/15/2017 12:41 PM EDT) UPPER GI ENDOSCOPY [facility] Endoscopy Procedure Date: 10/15/2017 12:41 PM ? Patient Name: Suzan Chaudhary ? Date of : 1960 ? Age: 57 ? Order #: [id number] ? Instrument Name: [id number] ? Procedure: ? Upper GI endoscopy Indications: ? Heartburn Providers: ? Brie Sheets MD, Ania Marroquin, ESTELA, ? Crys Esquivel, Mica Plate Layer Referring MD: ?Moira Arriaza MD, Liliana Lester [...] MAR Action Action Date Dose Rate Site lactated Ringers infusion 100 mL/hr, Intravenous, CONTINUOUS, Starting on Sun10/15/17 at 1445, Until Sun10/15/17 at 1609, Endoscopy (Day of Procedure) New Bag 10/15/2017 2:45 PM EDT 100 mL/hr 100 mL/hr documented in this encounter Active and Recently [...] Marroquin RN)1441 (Given - Provider: Ania Marroquin RN) fentaNYL 50 mcg/mL multi-dose injection [...] Comment: for colo)1457 (Given - Provider: Ania Marroquin RN) documented in this encounter Care Teams Rug Underlay Machine Operator Relationship Specialty Start Date End Date Moira Arriaza MD [address] [place] [address] PCP - General 03/22/10 documented as of this encounter
--- OUTSIDE RECORDS SUMMARY | 2023-12-06 22:15 | XMS_ITS | Encounter Summary ---
Author Organization [facility] Address [facility] [place] [address] Care Team Providers Care Assistant Finance Director Name Role Phone Moira Arriaza MD Primary Care Provider [phone] Reason for Referral * Consultation (Routine) - Closed Specialty Diagnoses / Procedures Referred By Contac t Referred To Contact General Surgery Diagnoses Incisional hernia, without obstruction or gangrene Guillermo Arriola MD [facility] [place] [address] Maricruz Padilla MD [facility] [place] [address] Referral ID Status Reason Start Date Expiration Date V isits Requested Visits Authorized [id number] Closed Consult, Test & Treat 10/11/2015 10/10/2016 1 1 * Diagnostic Test (Routine) - Closed Specialty Diagnoses / Procedures Referred By Contac t Referred To Contact Radiology Diagnoses Incisional hernia, without obstruction or gangrene Procedures CT Abdomen & Pelvis Wo Contrast Guillermo Arriola MD [facility] [place] [address] [facility] [place] [address] Referral ID Status Reason Start Date Expiration Date V isits Requested Visits Authorized [id number] Closed Specialty Service Requested 10/20/2015 01/18/2016 1 1 Reason for Visit * Reason Comments Advice Only consult for possible combo case for hernia repair and abdominoplasty * Consultation (Routine) - Specialty Diagnoses / Procedures Referred By Asim batista Referred To Contact Plastic Surgery Diagnoses Incisional Hernia ? Combined Incisional Hernia and Abdominoplasty Rinku Vora MD [facility] [place] [address] Pennie Beck MD [facility] [place] [address] Referral ID Status Reason Start Date Expiration Date V isits Requested Visits Authorized [id number] 09/20/2015 09/19/2016 1 1 Encounter Details Date Type Department Care Team (Late st Contact Info) Description 10/11/2015 2:30 PM EDT Office [place] [address] Guillermo Arriola MD [facility] [place] [address] Incisional hernia, without obstruction or gangrene (Primary Dx); Abdominal pannus Social History Tobacco Use Types [...] - Inhaled Oxygen Concentration - - Weight 96.6 kg (213 lb) 10/11/2015 2:28 PM EDT Height 165.1 cm (5' 5) 10/11/2015 2:28 PM EDT Body Mass Index 35.45 10/11/2015 2:28 PM EDT documented in this encounter Patient Instructions * Patient Instructions* Guillermo Arriola MD - 10/11/2015 3:01 PM EDT Plan: 1. Recommend repeat CT scan 2. Follow up to review CT scan in coordinated visit with Dr. Padilla. 3. Recommend abdominoplasty with rectus plication and liposuction (to be coordinated with hernia repair)- will plan for prior authorization and provide pricing in case of denial documented in this encounter Progress Notes * Guillermo Arriola MD - 10/11/2015 2:24 PM EDT Plastic Surgery Consultation Note MOIRA ARRIAZA MD CC: Hernia repair/abdominal pannus HPI: Szuan Marie is a 55 y.o. female here in consultation at the request of Dr. Vora to discusscombination hernia repair and abdominoplasty. Accompanied today by her . She reports that she has lost 106 lbs in the past, but has since gained back a small amount of weight due to quitting smoking. She reports the weight loss occurred over 3 years. Her weight remained stable for 3 years before she quit smoking. She is active and walks regularly. She reports she has a hernia from a prior gall bladder surgery. She report some pain with her hernia. Her last CT scan was 3 years ago. She reports she is interested in improving the contour of her abdomen, thighs and arms. Prior to her weight loss she had high blood pressure. Past Medical History Diagnosis Date ??? Sleep apnea Past Surgical History Procedure Laterality Date ??? Pro colonoscopy, biopsy 09/14/2010 COLONOSCOPY FLEXIBLE, WITH BX performed by LUIS FABIAN I at [facility] ENDOSCOPY ??? Pro upper gi endoscopy, biopsy 09/14/2010 UPPER GASTROINTESTINAL ENDOSCOPY,WITH BIOPSY SINGLE OR MULTIPLE performed by LUIS FABIAN I at [facility] ENDOSCOPY History Social History ??? Marital status: Spouse name: N/A ??? Number of children: N/A ??? Years of education: N/A Occupational History ??? Not on file. Social History Main Topics ??? Smoking status: Former Smoker Packs/day: 1.00 Types: Cigarettes Quit date: 07/13/2015 ??? Smokeless tobacco: Not on file ??? Alcohol use: No ??? Drug use: Not on file ??? Sexual activity: Not on file Other Topics Concern ??? Not on file Social History Narrative Allergies Allergen Reactions ??? Adhesive Tape Other (See Comments) blisters Current Outpatient Prescriptions on File Prior to Visit Medication Sig Dispense Refill ??? albuterol (PROVENTIL HFA;VENTOLIN HFA) 90 mcg/actuation HFA Aerosol Inhaler Inhale 2 puffs intothe lungs every 4 hours as needed. Use with spacer ??? LORazepam (ATIVAN) 0.5 mg Tablet Take 0.5 mg by mouth every 6 hours as needed. No current facility-administered medications on file prior to visit. ROS: Card, Endo, Heme, Neuro: negative Pulm: + Sleep apnea Examination: Ht 165.1 cm (5' 5) Wt 96.6 kg (213 lb) BMI 35.45 kg/m2 Constitutional: No acute distress Abdominal hernia measures 6 cm x 8 cm Excess skin of abdomen Excess mons Grade II pannus Moderate excess skin laterally Diagnostic Testing: CT scan on file from 2012 showed small umbilical hernia Impression: Suzan Marie 55 y.o. female patient with abdominal pannus and hernia. We discussed that she is a candidate for surgery, recommend panniculectomy at the time of hernia repair. I recommended repeat imaging prior to surgery to determine extent of hernia. I will plan to see abl in a coordinated visit with Dr. Padilla. Plan: 1. Recommend repeat CT scan 2. Follow up to review CT scan in coordinated visit with Dr. Padilla. 3. Recommend abdominoplasty with rectus plication and liposuction (to be coordinated with hernia repair)- will plan for prior authorization and provide pricing in case of denial IDeyanira, am acting as scribe for Dr Arriola. All work documented was performed by Dr Arriola. ???I performed the above scribed service and agree with the accuracy of the note?? GUILLERMO ARRIOLA MD documented in this encounter Plan of Treatment Scheduled Referrals Name Type Priority Associated Diagnoses Orde r Schedule Referral to General Surgery Outpatient Referral Routine Incisional hernia, without obstruction or gangrene Ordered: 10/11/2015 documented as of this encounter Results * CT Abdomen & [...] sigmoid colon without evidence foracute diverticulitis. Guillermo Arriola MD IMG CT ORDERABLES documented in this encounter Visit Diagnoses Diagnosis Incisional hernia, without obstruction or gangrene- Primary Incisional hernia without mention of obstruction or gangrene Abdominal pannus Localized adiposity Incisional hernia, without obstruction or gangrene Incisional hernia without mention of obstruction or gangrene documented in this encounter Care Teams Assistant Finance Director Relationship Specialty Start Date End Date Moira Arriaza MD [address] [place] [address] PCP - General 03/22/10 documented as of this encounter
== END 2023-12-06 22:07 | disposition home or self-care (01) ==
LOC: NCHCN 22:06
PROVIDERS: PCP Family Medicine; Visit Provider Family Medicine
DX: Z12.4 Encounter for screening for malignant neoplasm of cervix (principal); Z00.00 Encounter for general adult medical examination without abnormal findings; I10 Essential (primary) hypertension; E55.9 Vitamin D deficiency, unspecified; R73.03 Prediabetes
CPT/HCPCS: 80053; 80061; 82306; 88142; 83036; 84443; 87624

== ENCOUNTER 2024-01-01 01:41 | Outpatient (CLI) | payer MEDICAID, SELFPAY ==
--- NOTE | 2024-01-01 07:45 | DI.US_ITS ---
Exam(s) US RENAL EXAM: US RENAL CLINICAL HISTORY: monitoring left renal calculi,kidney stones,hematuria,r31.29,n20.0. TECHNIQUE: Vann scale, color and spectral Doppler were used. COMPARISON: US US RENAL from 01/03/2023 FINDINGS: Renal size in cm: Right: 11.4. Left: 11.7. Echogenicity: Normal. Hydronephrosis: No. Cyst or mass: No. Nephrolithiasis: There is an echogenic focus in the inferior pole of the left kidney measuring 1 cm. Other findings: None. Bladder:Normal. Ureteral jets: Right: Visualized and unremarkable. Left: Visualized and unremarkable. Prevoid vol:175 cc Postvoid vol:9 cc Renal color flow: Symmetric and within normal limits. IMPRESSION: Left nephrolithiasis. No obstructive uropathy. DATA REPOSITORY:
== END 2024-01-01 02:01 ==
LOC: DI 01:42
PROVIDERS: PCP Family Medicine; Visit Provider Nurse Practitioner Gerontology
DX: N20.0 Calculus of kidney (principal); R31.29 Other microscopic hematuria
CPT/HCPCS: 76770

== ENCOUNTER 2024-01-09 02:09 | Outpatient (CLI) | payer MEDICAID, SELFPAY ==
--- NOTE | 2024-01-09 | DI.MAMMO_ITS ---
Exam(s) MAMMO SCREENING EXAM: MAMMO SCREENING CLINICAL HISTORY: SCREENING, Z12.31 TECHNIQUE: Mammograms were interpreted according to the usual protocol including computer analysis w Gu[employer]ai CAD system, tomosynthesis and C-view imaging. COMPARISON: 2016 and 2019 FINDINGS: The breasts are composed of mainly fatty density , Breast Density category A. No suspicious masses or suspicious microcalcifications are seen. No skin thickening or abnormal axillary lymph nodes are seen. There has been no significant change from prior exams. There is motion on the left MLO view. The patient should return for repeat imaging at no additional charge. IMPRESSION: BI-RADS Category 0 - Incomplete: Need additional imaging evaluation Repeat left MLO view requested. Breast Density - Category A, fatty density. A negative radiographic report should not delay biopsy if a dominant or clinically suspicious mass is present. Up to ten percent of cancers are not identified on mammography. A negative report may reinforce clinical impression. Adenosis and dense breasts may obscure an underlying neoplasm. False positive reports average 6 to 10%. Patient will receive a letter notifying them of these results.
== END 2024-01-09 02:29 ==
LOC: DI 02:09
PROVIDERS: PCP Family Medicine; Visit Provider Family Medicine
DX: Z12.31 Encounter for screening mammogram for malignant neoplasm of breast (principal)
CPT/HCPCS: 77063; 77067

== ENCOUNTER 2024-01-11 00:47 | Outpatient (CLI) | payer MEDICAID, SELFPAY ==
--- NOTE | 2024-01-11 | DI.MAMMO_ITS ---
Exam(s) MG MAMMO SCREEN CALL BACK UNI EXAM: MAMMO SCREEN CALL BACK UNI CLINICAL HISTORY: F/U MAMMO 01/08, REPEAT MLO ON LT FOR MOTION,R92.8 TECHNIQUE: Left MLO mammographic images were obtained with 3D tomosynthesis and utilizing computer a ided detection (CAD). COMPARISON: Available for comparison. FINDINGS: Masses/Architectural Distortion: None seen. Microcalcifications: No suspicious pleomorphic-type are seen. Skin Thickening/Nipple Retraction: None. IMPRESSION: 1. No significant interval change with no specific features of malignancy noted. 2. Unless there is more urgent need, screening mammography is recommended, as per [employer] guidelines. BI-RADS Category 1 - Negative Breast Density - Category A - Almost entirely fatty A negative radiographic report should not delay biopsy if a dominant or clinically suspicious mass is present. Up to ten percent of cancers are not identified on mammography. A negative report may reinforce clinical impression. Adenosis and dense breasts may obscure an underlying neoplasm. False positive reports average 6 to 10%. Patient will receive a letter notifying them of these results.
--- OUTSIDE RECORDS SUMMARY | 2024-01-11 00:57 | XMS_ITS | Encounter Summary ---
[place] [address] Care Team Providers Care Cash Room Clerk Name Role Phone Moira Arriaza MD Primary Care Provider [phone] Encounter Details Date Type Department Care Team (Latest Contact Info) Description 06/06/2022 10:30 AM EST Laboratory Appointment Lab [address] [place] [address] Thoracic aortic aneurysm without rupture, unspecified part [...] EST) Creatinine 0.76 0.70 - 1.20 mg/dL [facility] Est Glomerular Filtration Rate 90 >=60 mL/min/1. 73 m?? [facility] Comment: This patient's estimated [...] Lab Ebenezer Nguyen MD CHEMISTRY ORDERABL ES [facility] [place] [address] documented in this encounter Visit Diagnoses Diagnosis Thoracic aortic aneurysm without rupture, unspecified part documented in this encounter Care Teams Cash Room Clerk Relationship Specialty Start Date End Date Moira Arriaza MD [address] [place] [address] PCP - General 03/22/10 documented as of this encounter
--- OUTSIDE RECORDS SUMMARY | 2024-01-11 00:57 | XMS_ITS | Encounter Summary ---
Author Organization [facility] Address [facility] [place] [place] [address] Care Team Providers Care Parole Director Name Role Phone Moira Arriaza MD Primary Care Provider [phone] Reason for Referral * Diagnostic Test (Routine) - Authorized Specialty Diagnoses / Procedures Referred By Contac t Referred To Contact Radiology Diagnoses Thoracic aortic aneurysm without rupture, unspecified part Procedures CT Chest wo Contrast (Generic) Thony Hermosillo PA [facility] [place] [address] [facility] [place] [address] Referral ID Status Reason Start Date Expiration Date Visits Requested Visits Authorized [id number] Authorized Specialty Service Requested 06/29/2023 12/29/2024 1 1 Encounter Details Date Type Department Care Team (Late st Contact Info) Description 06/29/2023 Orders [place] [address] Guillermo Gandhi MD Thoracic aortic aneurysm without rupture, unspecified part [...] Primary documented in this encounter Care Teams Parole Director Relationship Specialty Start Date End Date Moira Arriaza MD [address] [place] [address] PCP - General 03/22/10 documented as of this encounter
--- OUTSIDE RECORDS SUMMARY | 2024-01-11 00:57 | XMS_ITS | Encounter Summary ---
[place] [address] Care Team Providers Care Pack Room Operator Name Role Phone Moira Arriaza MD Primary Care Provider [phone] Encounter Details Date Type Department Care Team (Late st Contact Info) Description 06/06/2022 1:30 PM EST Office [place] [address] Guillermo Gandhi MD Ascending aortic aneurysm, unspecified whether ruptured Social [...] 0.54) performed by Moira Garrett MD at [facility] MAIN OR ??? PRO COLONOSCOPY, BIOPSY 09/14/2010 COLONOSCOPY FLEXIBLE, WITH BX performed by LUIS FABIAN I at [facility] ENDOSCOPY ??? PRO COLONOSCOPY, BIOPSY N/A 10/15/2017 COLONOSCOPY FLEXIBLE, WITH BX (WRVU 3.66) performed by Brie Sheets MD at [facility] ENDOSCOPY ??? PRO EXC PAROTD, LAT LOBE, DISSECT 5TH NERV Left 03/16/2021 EXC.PAROTID TUMOR OR GLAND, LATERAL LOBE, W DISSECTION & PRESERVATION FACIAL NERVE (WRVU 17.16)performed by Moira Garrett MD at [facility] MAIN OR ??? PRO UPPER GI ENDOSCOPY, BIOPSY 09/14/2010 UPPER GASTROINTESTINAL ENDOSCOPY,WITH BIOPSY SINGLE OR MULTIPLE performed by LUIS FABIAN I at [facility] ENDOSCOPY ??? PRO UPPER GI ENDOSCOPY, DIAGNOSTIC N/A 10/15/2017 EGD, UPPER GI ENDOSCOPY performed by Brie Sheets MD at [facility] ENDOSCOPY Family History: No family history [...] ruptured documented in this encounter Care Teams Pack Room Operator Relationship Specialty Start Date End Date Moira Arriaza MD [address] [place] [address] PCP - General 03/22/10 documented as of this encounter
--- OUTSIDE RECORDS SUMMARY | 2024-01-11 00:57 | XMS_ITS | Clinical Summary ---
Author Organization [facility] Address [facility] [place] [address] Care Team Providers Care Recep Name Role Phone Moira Arriaza MD Primary Care Provider [phone] Allergies Active Allergy Reactions Criticality Noted Date [...] Covid-19 Vaccine (1 - 2022-2 4 season) 2023 Influenza (Flu) vaccine (1 o f 1 [...] ? Patient Name: Suzan Chaudhary ? N: [id number] ? Date of : 1960 ? Age: 57 ? Order #: [id number] ? Instrument Name: [id number] ? Procedure: ? Colonoscopy Indications: ? Chronic diarrhea Providers: ? Brie Sheets MD, Ania Marroquin, RN, ? Crys Esquivel, Metal Patternmaker Apprentice Referring MD: ?Moira Arriaza MD, Liliana Lester [...] Recently Relevant to Health Maintenance Care Teams Recep Relationship Specialty Start Date End Date Moira Arriaza MD [address] [place] [address] PCP - General 03/22/10
--- OUTSIDE RECORDS SUMMARY | 2024-01-11 00:57 | XMS_ITS | Encounter Summary ---
Author Organization [facility] [place] [address] Care Team Providers Care Fruit Picker Machine Operator Name Role Phone Moira Arriaza MD Primary Care Provider [phone] Encounter Details Date Type Department Care Team [...] on filedocumented in this encounter Care Teams Fruit Picker Machine Operator Relationship Specialty Start Date End Date Moira Arriaza MD [address] [place] [address] PCP - General 03/22/10 documented as of this encounter
--- OUTSIDE RECORDS SUMMARY | 2024-01-11 00:58 | XMS_ITS | Encounter Summary ---
Author Organization [facility] Address [facility] [place] [address] Care Team Providers Care Holter Scanning Technician Name Role Phone Moira Arriaza MD Primary Care Provider [phone] Reason for Referral * Consultation (Routine) - Closed Specialty Diagnoses / Procedures Referred By Contac t Referred To Contact General Surgery Diagnoses Incisional hernia, without obstruction or gangrene Guillermo Arriola MD [facility] [place] [address] Maricruz Padilla MD [facility] [place] [address] Referral ID Status Reason Start Date Expiration Date V isits Requested Visits Authorized [id number] Closed Consult, Test & Treat 10/11/2015 10/10/2016 1 1 * Diagnostic Test (Routine) - Closed Specialty Diagnoses / Procedures Referred By Contac t Referred To Contact Radiology Diagnoses Incisional hernia, without obstruction or gangrene Procedures CT Abdomen & Pelvis Wo Contrast Guillermo Arriola MD [facility] [address] [facility] [place] [address] Referral ID Status Reason Start Date Expiration Date V isits Requested Visits Authorized [id number] Closed Specialty Service Requested 10/20/2015 01/18/2016 1 1 Reason for Visit * Reason Comments Advice Only consult for possible combo case for hernia repair and abdominoplasty * Consultation (Routine) - Specialty Diagnoses / Procedures Referred By Asim batista Referred To Contact Plastic Surgery Diagnoses Incisional Hernia ? Combined Incisional Hernia and Abdominoplasty Rinku Vora MD [facility] [place] [address] Pennie Beck MD [facility] [place] [address] Referral ID Status Reason Start Date Expiration Date V isits Requested Visits Authorized [id number] 09/20/2015 09/19/2016 1 1 Encounter Details Date Type Department Care Team (Late st Contact Info) Description 10/11/2015 2:30 PM EDT Office [place] [address] Guillermo Arriola MD [facility] [address] Incisional hernia, without obstruction or gangrene (Primary [...] BX performed by LUIS FABIAN I at [facility] ENDOSCOPY ??? Pro upper gi endoscopy, biopsy 09/14/2010 UPPER GASTROINTESTINAL ENDOSCOPY,WITH BIOPSY SINGLE OR MULTIPLE performed by LUIS FABIAN I at [facility] History Social History ??? Marital [...] of hernia. I will plan to see bal in a coordinated visit with Dr. Padilla. [...] gangrene documented in this encounter Care Teams Holter Scanning Technician Relationship Specialty Start Date End Date Moira Arriaza MD [address] [place] [address] PCP - General 03/22/10 documented as of this encounter
--- OUTSIDE RECORDS SUMMARY | 2024-01-11 00:58 | XMS_ITS | Encounter Summary ---
Author Organization [facility] [place] [address] Care Team Providers Care Shop Worker Name Role Phone Moira Arriaza MD Primary Care Provider [phone] Reason for Visit * Reason Onset Date Comments Other 09/22/2010 results Encounter Details Date Type Department Care Team (Late st Contact Info) Description 09/22/2010 Telephone [place] [address] Nuria Negrete APRN [facility] DR [place] [address] Other (results) Social History Tobacco Use Types [...] egd normal except for hiatal hernia, small [place] hyperplastic polyps divertic ulosis cannot have fiber since IBS Repeat 5 years How is diet, lomotil and dexilant working? documented in this encounter Plan of Treatment Not on file documented as of this encounter Visit Diagnoses Not on filedocumented in this encounter Care Teams Shop Worker Relationship Specialty Start Date End Date Moira Arriaza MD [address] [place] [address] PCP - General 03/22/10 documented as of this encounter
--- OUTSIDE RECORDS SUMMARY | 2024-01-11 00:58 | XMS_ITS | Encounter Summary ---
Author [facility] [place] [place] [address] Care Team Providers Care Bag Sealer Name Role Phone Moira Arriaza MD Primary Care Provider [phone] Reason for Referral * Diagnostic Test (Routine) - Closed Specialty Diagnoses / Procedures Referred By Contac t Referred To Contact Radiology Diagnoses Thoracic aortic aneurysm without rupture, unspecified part Procedures CT Angiogram Chest (Non-Coronary) w Contrast CT Angiogram Chest (Non-Coronary) wwo Contrast Moira Han PA [facility] [place] [address] [facility] [place] [address] Referral ID Status Reason Start Date Expiration Date V isits Requested Visits Authorized [id number] Closed Specialty Service Requested 02/22/2022 08/24/2023 1 1 Encounter Details Date Type Department Care Team (Late st Contact Info) Description 02/22/2022 Orders [place] [address] Ebenezer Nguyen MD [facility] [place] [address] Thoracic aortic aneurysm without rupture, [...] who have questions please contact the health manager respiratory care that requested your imaging first. ? Electronically signed by: Lizzy Ruffin MD, [facility] ([phone]), at 06/06/2022 4:34 PM Narrative 06/06/2022 4:34 PM EST EXAMINATION: CT [...] administration of contrast. Administered 72.0 ml of ZKKGQSODA155.00 mg/ml. Maximum intensity projection (MIP) were reformatted. [...] patients who have questions please contactthe health manager respiratory care that requested your imaging first. Electronically signed by: Lizzy Ruffin MD, [facility]([phone]), at 06/06/2022 4:34 PM Ebenezer Nguyen MD IMG CT ORDERABLES * Creatinine (06/06/2022 10:56 AM EST) Creatinine 0.76 0.70 - 1.20 mg/dL [facility] Est Glomerular Filtration Rate 90 >=60 mL/min/1. 73 m?? [facility] Comment: This patient's estimated GFR was [...] Lab Ebenezer Nguyen MD CHEMISTRY ORDERABL ES [facility] [place] [address] documented in this encounter Visit Diagnoses Diagnosis Thoracic aortic aneurysm without rupture, unspecified part Thoracic aortic aneurysm without rupture, unspecified part documented in this encounter Care Teams Bag Sealer Relationship Specialty Start Date End Date Moira Arriaza MD [address] [place] [address] PCP - General 03/22/10 documented as of this encounter
--- OUTSIDE RECORDS SUMMARY | 2024-01-11 00:58 | XMS_ITS | Encounter Summary ---
Author Organization [facility] [place] [address] Care Team Providers Care Prekindergarten Teacher Name Role Phone Moira Arriaza MD Primary Care Provider [phone] Reason for Referral * Surgical (Routine) - Closed Specialty Diagnoses / Procedures Referred By Contac t Referred To Contact Plastic Surgery Diagnoses Incisional hernia, without obstruction or gangrene Rinku Vora MD [facility] [place] [address] [facility] [place] [address] [address] Referral ID Status Reason Start Date Expiration Date V isits Requested Visits Authorized [id number] Closed Consult, Test & Treat 08/17/2014 08/17/2015 3 3 Reason for Visit * Reason Comments Establish Care [facility]ERNIA Encounter Details Date Type Department Care Team (Late st Contact Info) Description 08/17/2014 1:00 PM EDT Office [place] [address] Rinku Vora MD [facility] [place] [address] Incisional hernia, without obstruction or [...] documented in this encounter H&P Notes * Moody Bishop MD - 08/17/2014 12:56 PM EDT [...] will occasionally become constipated. Another surgeon at [facility] did assess her for both issues and [...] BX performed by LUIS FABIAN I at [facility] ENDOSCOPY ??? Upper gi endoscopy, biopsy 09/14/2010 UPPER GASTROINTESTINAL ENDOSCOPY,WITH BIOPSY SINGLE OR MULTIPLE performed by LUIS FABIAN I at [facility] ENDOSCOPY Updated Allergies/ADRs: Allergies Allergen Reactions [...] 12:56 PM CC: [address] / [place] [address] REF: Moira Arriaza MD [address] [place] [address] Patient Seen and examined. Agree with above note written by Dr. Villafana. We will await Ms. Marie's efforts at smoking cessation as well as consultation with Dr. Pennie Peterson of Plastic Surgery prior to planning any operative repair of this small incisional hernia. Rinku Vora MD #[id number] documented in this encounter Plan of Treatment Scheduled Referrals Name Type Priority Associated Diagnoses Orde r Schedule Referral to Plastic Surgery Outpatient Referral Routine Incisional Hernia, Without Obstruction Or Gangrene Ordered: 08/17/2014 documented as of this encounter Visit Diagnoses Diagnosis Incisional hernia, without obstruction or gangrene Incisional hernia without mention of obstruction or gangrene documented in this encounter Care Teams Prekindergarten Teacher Relationship Specialty Start Date End Date Moira Arriaza MD [address] [place] [address] PCP - General 03/22/10 documented as of this encounter
--- OUTSIDE RECORDS SUMMARY | 2024-01-11 00:58 | XMS_ITS | Encounter Summary ---
Author Organization [facility] Address [facility] [place] [address] Care Team Providers Care Doctor Of Chiropractic Name Role Phone Moira Arriaza MD Primary Care Provider [phone] Encounter Details Date Type Department Care Team (Late st Contact Info) Description 10/15/2017 2:30 PM EDT - 10/15/2017 3:30 PM EDT Surgery [place] [address] Brie Sheets MD [facility] [place] [address] EGD, UPPER GI ENDOSCOPY (WRVU 2.09) Social [...] better as expected. Sunday-[facility] Day End[facility] [phone] 7a-8p Otherwise contact [phone] and ask to speak to the dental practitioner air conditioner installer helper Follow-up care is a [place] part of [...] to be checked. Sunday-Sunday Same Day Endo [phone] 7a-8p Otherwise contact [phone] and ask to speak to the dental practitioner air conditioner installer helper Follow up care is a [place] part [...] PM EDT 10/15/2017 3:49 PM EDT Narrative [facility] - 10/15/2017 3:49 PM EDT Specimen requisition ordered. ??Separate Pathology report to follow Resulting Agency Comment Spec In Lab Brie Sheets MD PATHOLOGY/CYTOLOGY O RDERABLES [facility] [place] [address] * Surgical Pathology Report (10/15/2017 2:57 PM EDT) Final Diagnosis [id number] ? Location: 4T; EA13; A The signing pathologist has (i) examined the relevant preparation(s) for the specimen(s) and (ii) rendered or confirmed the diagnosis(es). . ?Surgical Pathology DIAGNOSIS Colon, random, ??biopsy: Colonic mucosa within normal limits. CR-PX Electronically signed by: ??Felicitas Knutson MD Verified: ??10/17/2017 ?Pathologist Performed at: ??-[facility] Dept. of Pathology, [place], [place] CLINICAL INFORMATION Specimen Submitted: A - Random colon bx r/o microscopic colitis Clinical History and Diagnosis: 57-year-old with long-standing history of diarrhea SPECIMEN PROCESSING A - Labeled/Fixativ e: Random colon biopsy, formalin. Quantity/Size: Multiple, 0.2-0.4 cm. Tissue Description: ??Soft, rowe-pink tissue ??. Sections/Proces sing: (T2) ??ejr 10/17/2017 4:37 PM EDT [facility] GI Biopsy 10/15/2017 2:57 PM EDT 10/15/2017 2:57 PM EDT Brie Sheets MD PATHOLOGY/CYTOLOGY O RDERABLES [facility] [place] [address] * COLONOSCOPY (10/15/2017 2:15 PM EDT) COLONOSCOPY [facility] Endoscopy Procedure Date: 10/15/2017 2:15 PM ? Patient Name: Suzan Chaudhary ? Date of : 1960 ? Age: 57 ? Order #: [id number] ? Instrument Name: [id number] ? Procedure: ? Colonoscopy Indications: ? Chronic diarrhea Providers: ? Brie Sheets MD, Ania Marroquin RN, ? Crys Esquivel, Surgical Product Sales Consultant Referring : ?Moira Arriaza MD, Liliana Lester [...] GI ENDOSCOPY (10/15/2017 12:41 PM EDT) Pathologist [facility] UPPER GI ENDOSCOPY [facility] Endoscopy Procedure Date: 10/15/2017 12:41 PM ? Patient Name: Suzan Chaudhary ? Date of : 1960 ? Age: 57 ? Order #: [id number] ? Instrument Name: [id number] ? Procedure: ? Upper GI endoscopy Indications: ? Heartburn Providers: ? Brie Sheets MD, Ania Fadden, RN, ? Crys Esquviel, Surgical Product Sales Consultant Referring MD: ?Moira Arriaza MD, Liliana Lester [...] ESTELA) documented in this encounter Care Teams Doctor Of Chiropractic Relationship Specialty Start Date End Date Moira Arriaza MD [address] [place] [address] PCP - General 03/22/10 documented as of this encounter
--- OUTSIDE RECORDS SUMMARY | 2024-01-11 00:58 | XMS_ITS | Encounter Summary ---
Author Organization [facility] Address [facility] [place] [address] Care Team Providers Care Wharf Attendant Name Role Phone Moira Arriaza MD Primary Care Provider [phone] Reason for Visit * Consultation (Routine) - Closed Specialty Diagnoses / Procedures Referred By Contac t Referred To Contact Pulmonology Diagnoses Other nonspecific abnormal finding of lung field Moira Arriaza MD [address] [place] [address] [facility] Pulmonology [address] [place] [phone] Referral ID Status Reason Start Date Expiration Date V isits Requested Visits Authorized [id number] Closed Consult, Test & Treat Connection Center PCP Updated and/or Approved 03/12/2020 03/12/2021 6 6 Encounter Details Date Type Department Care Team (Late st Contact Info) Description 04/05/2020 1:00 PM EST TH Visit (TeleHealth) [place] [address] Jonnie Pedro MD [facility] [place] [address] Pulmonary nodule Social History Tobacco [...] NAME: Suzan Chaudhary : 1960 MEDICAL RECORD: [id number] DATE OF SERVICE: 04/04/2020 REFERRING PHYSICIAN: Moira Arriaza MD PRIMARY CARE PHYSICIAN: Moira Arriaza MD TELE-HEALTH INFO Patient identity was confirmed by name and date of at beginning of this telehealth visit. Patient was informed that this telehealth visit is a billable encounter and stated agreement to continue. The patient is at home in [place]. Reason for Tele-Consultation: Lung nodule Chief Complaint: I have a nodule in my chest History of Present Illness: Ms. Suzan Chaudhary is a 60 y.o. woman who has been sent to Interventional Pulmonology for consultation regarding a solitary pulmonary nodule. On 01/29/20, the patient underwent a CT chest as ordered by [facility] ENT. The listed indicationof the study [...] the same day and this demonstrated a 48v32s85 mm enhancing lesion of the L parotid with an adjacent 93x09n36 mm lesion directly adjacent to thiswhich was suspicious for necrotic adenopathy. There are some ENT notes from [facility] and she was last seen by them on 02/03/20 (based on docuemntation sent to [facility]) at which time she underwent repeat laryngoscopy [...] houses, mows the lawns, andcares for her uqkzxx-jv-dac. 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 Assessment: Suzna Chaudhary is a 60 y.o. woman who [...] on recent PET imaging. Based on the [facility] Model, the probability of malignancy for this lesion is estimated to be 3.6% which is considered a low (<5%) pre-test probability (Terri SJ et al. Arch Flight Radio Officer Med.1996Aug 25;157(8):849-55); we talked about the differential [...] Section of Pulmonary & Critical Care Pager: [phone] documented in this encounter Plan of Treatment Not on file documented as of this encounter Visit Diagnoses Diagnosis Pulmonary nodule Solitary pulmonary nodule documented in this encounter Care Teams Wharf Attendant Relationship Specialty Start Date End Date Moira Arriaza MD [address] [place] [address] PCP - General 03/22/10 documented as of this encounter
--- OUTSIDE RECORDS SUMMARY | 2024-01-11 00:58 | XMS_ITS | Encounter Summary ---
Author Organization [facility] Address [facility] [place] [address] Care Team Providers Care Check Totaler Name Role Phone Moira Arriaza MD Primary Care Provider [phone] Reason for Visit * Consultation (Routine) - Closed Specialty Diagnoses / Procedures Referred By Contviolet t Referred To Contact Gastroenterology Diagnoses GERD Li Brunson PA [address] [place] [address] [facility] [address] [place] [address] Referral ID Status Reason Start Date Expiration Date V isits Requested Visits Authorized [id number] Closed Consult, Test & Treat Connection Center 08/18/2017 08/18/2018 1 1 Encounter Details Date Type Department Care Team (Late Contact Info) Description 09/27/2017 11:00 AM EDT Office [place] [address] Liliana Lester PA [facility] [place] [address] Diarrhea, unspecified type; Gastroesophageal reflux disease, esophagitis [...] 1997. She just lost her sister to [place] and this is a very stressful time for her and she is concerned that heartburn symptoms may actually be cardiac. Recently saw cardiology at [facility] and had a stress test, was told everything was normal. Bowel habits: Has 3-4 bowel movements a day now. Larue scale 5-6. About once a week she has urgent, explosive watery stool, Larue scale 7 without warning. Has accidents. Has [...] Ranitidine 300 mg at night Rare NSAIDs [place]- for pain and helps with diarrhea Ativan PRN ALLERGIES: Allergies Allergen Reactions ??? Adhesive Tape Other (See Comments) blisters SURGICAL HISTORY: Past Surgical History: Procedure Laterality Date ??? PRO COLONOSCOPY, BIOPSY 09/14/2010 COLONOSCOPY FLEXIBLE, WITH BX performed by LUIS FABIAN I at [facility] ENDOSCOPY ??? PRO UPPER GI ENDOSCOPY, BIOPSY 09/14/2010 UPPER GASTROINTESTINAL ENDOSCOPY,WITH BIOPSY SINGLE OR MULTIPLE performed by LUIS FABIAN I at [facility] ENDOSCOPY SOCIAL HISTORY: , 1 child , [...] Lester PA-C Section of Gastroenterology [place] [address] documented in this encounter Plan of Treatment [...] specified documented in this encounter Care Teams Check Totaler Relationship Specialty Start Date End Date Moira Arriaza MD [address] [place] [address] PCP - General 03/22/10 documented as of this encounter
--- OUTSIDE RECORDS SUMMARY | 2024-01-11 00:58 | XMS_ITS | Encounter Summary ---
Author Organization [facility] [place] [address] Care Team Providers Care Cub Reporter Name Role Phone Moira Arriaza MD Primary Care Provider [phone] Encounter Details Date Type Department Care Team (Late st Contact Info) Description 05/20/2021 3:30 PM EST Office [place] [phone] Ebenezer Nguyen MD [facility] [place] [address] Thoracic aortic aneurysm without rupture Social History [...] Current Medications: Current Outpatient Medications Ordered in [facility] Medication Sig Dispense Refill ??? losartan [...] every 6 hours as needed. No current [facility]-ordered facility-administered medications on file. Review of [...] call with questions. Ebenezer Nguyen MD, MS vest finisher Section of Cardiac Surgery [facility] Office: [phone] Pager: [phone] I spent a total of 20 minutes today in record review, medical counseling, coordination of care, medical decision-making, and documentation. documented in this encounter Plan of Treatment Not on file documented as of this encounter Visit Diagnoses Diagnosis Thoracic aortic aneurysm without rupture Thoracic aneurysm without mention of rupture documented in this encounter Care Teams Cub Reporter Relationship Specialty Start Date End Date Moira Arriaza MD [address] [place] [address] PCP - General 03/22/10 documented as of this encounter
--- OUTSIDE RECORDS SUMMARY | 2024-01-11 00:58 | XMS_ITS | Encounter Summary ---
Author Organization [facility] [place] [address] Care Team Providers Care Senior Loan Officer Name Role Phone Moira Arriaza MD Primary Care Provider [phone] Encounter Details Date Type Department Care Team (Late st Contact Info) Description 09/14/2010 3:15 PM EDT - 09/14/2010 4:15 PM EDT Surgery [place] [address] Luis Borjas MD [facility] [place] [address] COLONOSCOPY FLEXIBLE, WITH BX (WRVU 3.56) Social [...] Borjas MD - 09/14/2010 5:[address] [facility] Operative Note Patient Name: Suzan Molina : [id number] MR#: [id number] Case Date: 09/14/2010 Surgeon: Surgeon(s) and Role: [...] 6:03 PM EDT) Surgical Pathology Report [id number] ? Location: 4T The signing pathologist has [...] Luis Nation MD PATHOLOGY/CYTOLO GY ORDERABLES [facility] * SURGICAL PATHOLOGY REPORT (09/14/2010 6:03 PM EDT) Surgical Pathology Report ? [facility] ? Provider: ?? LUIS BORJAS ??Pt. Name: ?? SUZAN MOLINA ?I ? Acc #: ?[id number] ?Pt. ? Col Date: ?? 09/14/2010 ? [...] Tissue Description: ?? Soft, rowe tissues. ? [facility] ? Provider: ?? LUIS BORJAS ??Pt. Name: ?? SUZAN MOLINA ?I ? Acc #: ?[id number] ?Pt. ? Col Date: ?? 09/14/2010 ? [...] * COLONOSCOPY (09/14/2010 4:02 PM EDT) COLONOSCOPY [facility] Endoscopy Patient Name: Suzan Molina ? Procedure Date: 09/14/2010 04:02:09 PM ? N: [id number] ? Date of : 1960 ? Age: 50 ? Procedure: ? Colonoscopy Indications: ? Chronic diarrhea Providers: ? Luis Borjas MD, Ania ? Lopez, ESTELA, Latasha Jimenez, Precision Farming Coordinator Referring MD: ?Nuria Martínez MD Medicines: ? [...] (09/14/2010 4:01 PM EDT) UPPER GI ENDOSCOPY [facility] Endoscopy Patient Name: Suzan Molina ? Procedure Date: 09/14/2010 04:01:18 PM ? N: [id number] ? Date of : 1960 ? Age: 50 ? Procedure: ? Upper GI endoscopy Indications: ? Dyspepsia, Diarrhea Providers: ? Luis Borjas MD, Ania ? Lopez, ESTELA, Latasha Jimenez, Precision Farming Coordinator Referring MD: ?Nuria Martínez MD Medicines: ? [...] Routine 1633 (Given - Provid er: Ania Marrqouin RN) fentaNYL 50mcg/mL injection (COMPLETED) Intravenous, ONCE [...] RN) documented in this encounter Care Teams Senior Loan Officer Relationship Specialty Start Date End Date Moira Arriaza MD [address] [place] [address] PCP - General 03/22/10 documented as of this encounter
--- OUTSIDE RECORDS SUMMARY | 2024-01-11 00:58 | XMS_ITS | Encounter Summary ---
Author Organization [facility] [place] [address] Care Team Providers Care Ribbon Cleaner Name Role Phone Moira Arriaza MD Primary Care Provider [phone] Reason for Referral * Diagnostic Test (Routine) - Closed Specialty Diagnoses / Procedures Referred By Contac t Referred To Contact Cardiology Diagnoses Thoracic aortic aneurysm without rupture Procedures Echocardiogram Transthoracic([facility] or [facility]) Kirill Gill PA [facility] DR CARDIOTHORACIC [place] [address] [facility] [place] [address] Referral ID Status Reason Start Date Expiration Date V isits Requested Visits Authorized [id number] Closed Specialty Service Requested 03/22/2020 03/22/2021 1 1 Reason for Visit * Diagnostic Test (Routine) - Closed Specialty Diagnoses / Procedures Referred By Contac t Referred To Contact Cardiology Diagnoses Thoracic aortic aneurysm without rupture Procedures Echocardiogram Transthoracic([facility] or [facility]) Kirill Gill PA [facility] DR CARDIOTHORACIC [place] [address] [facility] [place] [address] Referral ID Status Reason Start Date Expiration Date V isits Requested Visits Authorized [id number] Closed Specialty Service Requested 03/22/2020 03/22/2021 1 1 Encounter Details Date Type Department Care Team (Latest Contact Info) Description 05/21/2020 9:38 AM EST - 05/21/2020 11:59 PM EST Hospital Encounter Non-Invasive Cardiology Lab [facility] [place] [address] Ebenezer Nguyen MD [facility] DR CARDIAC [place] [address] Thoracic aortic aneurysm without rupture Discharge Disposition: [...] ?PANDA Marroquin ?(Age): 1960(60y) Med Rec#: ? [id number] ?Sex: ?F ? Site Loc: ? [facility] ?Ht / Wt: ??165(cm)/106(kg) Pt. Loc: ?Echo Lab ?BSA: ?2.11 Study Date: ?? 05/21/2020 ?Pt. Type: Outpatient Tape: ? Referring: Ebenezer Nguyen Referring: MIGUE Reading: Dung Frazier ([id number]) Employee Training Specialist: Pierre Connor RDCS Interpreting Fellow: Leslie Davis ([id number]) Interpreting Fellow: Rupal Medrano ([id number]) Diagnosis: *Thoracic aortic aneurysm, without rupture (I71.2) [...] Vmax ?0.69 ? m/sec ? MV deceleration zmmk317.21 ? msec ? MV A-wave Vmax ?0.94 [...] ? Mid-Inferior ?Normal ? Mid-Inferoseptal ?Normal ? [place]ems[place]-Septal ? Normal ? [place]-Anterior ? Normal ? [place]ems[place]-Lateral ?Normal ? [place]-Inferior ? Normal ? [place]-Tip ?Normal ? This report has been electronically signed by: Dung Frazier M.D. ? 05/21/2020 11:06:46 Images reviewed and interpretation verified [facility] Cardiac Ultrasound Laboratory Procedure Note Dung Frazier MD - 05/21/2020 Procedure: Transthoracic Echocardiogram Patient: PANDA Marroquin (Age): 1960(60y) Med Rec#: [id number] Sex: F Site Loc: [facility] Ht / Wt: 165(cm)/106(kg) Pt. Loc: Echo Lab BSA: 2.11 Study Date: 05/21/2020 Pt. Type: Outpatient Tape: Referring: Ebenezer Nguyen Referring: MIGUE Reading: Dung Frazier ([id number]) Employee Training Specialist: Pierre Connor RDCS Interpreting Fellow: Leslie Davis ([id number]) Interpreting Fellow: Rupal Medrano ([id number]) Diagnosis: *Thoracic aortic aneurysm, without rupture (I71.2) [...] MV E-wave Vmax 0.69 m/sec MV deceleration omix102.21 msec MV A-wave Vmax 0.94 m/sec MV [...] Normal Mid-Posterolateral Normal Mid-Inferior Normal Mid-Inferoseptal Normal [place]ems[place]-Septal Normal [place]ems[place]-Anterior Normal [place]ems[place]-Lateral Normal [place]ems[place]-Inferior Normal [place]-Tip Normal This report has been electronically signed by: Dung Frazier M.D. 05/21/2020 11:06:46 Images reviewed and interpretation verified [facility] Cardiac Ultrasound Laboratory Ebenezer Nguyen MD ECHO ORDERABLES documented in this encounter Visit Diagnoses Diagnosis Thoracic aortic aneurysm without rupture Thoracic aneurysm without mention of rupture documented in this encounter Care Teams Ribbon Cleaner Relationship Specialty Start Date End Date Moira Arriaza MD [address] [place] [address] PCP - General 03/22/10 documented as of this encounter
--- OUTSIDE RECORDS SUMMARY | 2024-01-11 00:58 | XMS_ITS | Encounter Summary ---
Author Organization [facility] [place] [address] Care Team Providers Care Grader Patrol Name Role Phone Moira Arriaza MD Primary Care Provider [phone] Reason for Visit * Auth/Cert Specialty Diagnoses [...] Expiration Date Visits Re quested Visits Authorized [id number] 1 1 Encounter Details Date Type Department Care Team (Late st Contact Info) Description 03/16/2021 9:43 AM EST Anesthesia Event [place] [address] Marli Levine MD [facility] [place] [address] Randi Osorio MD [facility] [place] [address] Anesthesia Record Procedure Summary Procedure Name Responsible [...] 0935; metacarpal vein (top of hand), left; xswz-xoh-mdavxk catheter system; Anatomical Landmarks; 20 gauge; Zandra [...] - Single Lumen 03/16/21; 0955; (right forearm); lfyz-wtb-lahqil catheter system; Anatomical Landmarks; 18 gauge; Devon [...] Procedure Summary Date: 03/16/21 Room / Location: [place] [address] [facility] MAIN OR Anesthesia Start: 942 Anesthesia Stop: 1203 Procedures: EXC.PAROTID TUMOR OR GLAND, LATERAL LOBE, W DISSECTION & PRESERVATION FACIAL NERVE (WRVU 17.16)(Left Neck) FACIAL NERVE MONITORING, SETUP PERIPHERAL (WRVU 0.54) (N/A Neck) Diagnosis: Warthin's tumor (left parotid mass) Surgeons: Moira Garrett MD Responsible Provider: Marli Levine MD Anesthesia Type: general ASA Status: 3 All Anesthesia Providers: Anesthesiologist: Marli Levine MD Sales Estimator: Randi Osorio MD Vitals Value Taken Time BP 150/94 03/16/21 1200 Temp Pulse 77 03/16/21 1205 Resp 19 03/16/21 1205 SpO2 98 % 03/16/21 1205 Pain Level Vitals shown include unvalidated device data. Patient Location: PACU/[facility] Level of Consciousness: Conscious but Sleepy [...] BX performed by LUIS FABIAN I at [facility] ENDOSCOPY ??? PRO COLONOSCOPY, BIOPSY N/A 10/15/2017 COLONOSCOPY FLEXIBLE, WITH BX (WRVU 3.66) performed by Brie Sheets MD at [facility] ENDOSCOPY ??? PRO UPPER GI ENDOSCOPY, BIOPSY 09/14/2010 UPPER GASTROINTESTINAL ENDOSCOPY,WITH BIOPSY SINGLE OR MULTIPLE performed by LUIS FABIAN I at [facility] ENDOSCOPY ??? PRO UPPER GI ENDOSCOPY, DIAGNOSTIC N/A 10/15/2017 EGD, UPPER GI ENDOSCOPY performed by Brie Sheets MD at [facility] Social History Tobacco Use ??? Smoking [...] Premedication with Tylenol Randi Osorio MD Pager: [phone] Region - Other Informed Consent: Anesthetic plan [...] mg documented in this encounter Care Teams Grader Patrol Relationship Specialty Start Date End Date Moira Arriaza MD [address] [place] [address] PCP - General 03/22/10 documented as of this encounter
--- OUTSIDE RECORDS SUMMARY | 2024-01-11 00:58 | XMS_ITS | Encounter Summary ---
Author Organization [facility] Address [facility] [place] [address] Care Team Providers Care Hospital Laboratory Technician Name Role Phone Moira Arriaza MD Primary Care Provider [phone] Reason for Visit * Auth/Cert Specialty Diagnoses [...] Expiration Date Visits Re quested Visits Authorized [id number] 1 1 Encounter Details Date Type Department Care Team (Late st Contact Info) Description 03/16/2021 9:30 AM EST - 03/16/2021 12:45 PM EST Surgery [place] [address] Moira Garrett MD [facility] [place] [address] EXC.PAROTID TUMOR OR GLAND, LATERAL LOBE, W [...] -You can reach the ENT clinic at [phone] for appointment questions. -The ENT triage nurse is available at [phone] -For urgent issues during evenings (5 PM - 7 AM) and weekends the ENT resident test inspection engineer can be reached through the main hospital refinery operator assistant at [phone] Follow Up: You will need to follow up with Dr. Garrett on 04/04/21. This appointment has been requested. You will be notified once it is scheduled, if you do not already see it below. If you do not hear from us in atimely manner, please call [phone] to receive your date and time. Currently Scheduled Appointments and VNA instructions: Future Appointments and Orders Future Appointments and Orders Future Appointments Provider Department Dept Phone 04/04/2021 10:40 AM Moira Garrett MD [place] [facility] Arrive at: Export Agent Area [phone] documented in this encounter Medications at Time [...] by mouth every 6 hours as needed. qhrvdhbx-alnffbynf-myfxr cortisone (CORTISPORIN) 3.5-10,000-1 mg/mL-unit/mL-% Drops, Suspension SHAKE [...] Operative Note Patient Name: Suzan Chaudhary : [id number] MR#: [id number] Case Date: 03/16/2021 Surgeon: Surgeon(s) and Role: * Moira Garrett MD - Primary * Alisia Heard PA - Physician Costumed Character Preoperative diagnosis: left parotid mass Postoperative diagnosis: [...] Garrett MD - 03/16/2021 10:17 AM EST [facility] Operative Note Patient Name: Suzan Chaudhary : [id number] MR#: [id number] Case Date: 03/16/2021 Surgeon: Surgeon(s) and Role: * Moira Garrett MD - Primary * Alisia Heard PA - Physician Costumed Character Preoperative diagnosis: left parotid mass Postoperative diagnosis: [...] Test, Any/All Per. Nerves, Trunk Or Head (03682) 03/16/2021 9:43 AM EST Warthin's tumor Exc Parotd, Lat Lobe, Dissect 5Th Nerv (41092) 03/16/2021 9:43 AM EST Warthin's tumor POCT GLUCOSE Routine 03/16/2021 9:26 AM EST FACIAL NERVE MONITORING, SETUP Routine 03/16/2021 8:16 AM EST Warthin's tumor EXC.PAROTID TUMOR OR GLAND, LATERAL LOBE, W DISSECTION & PRESERVATION FACIAL NERVE Routine 03/16/2021 8:16 AM EST Warthin's tumor documented in this encounter Results * Surgical Pathology Report (03/16/2021 11:14 AM EST) Final Diagnosis [id number] ? Location: [facility]; [facility]; A The signing pathologist has (i) [...] MD Verified: ??03/21/2021 14:47 ??Pathologist Performed at: ??-[facility] Dept. [place]ology, [place], [place] SPECIMEN(S) SUBMITTED A - Parotid, left, [...] greatest dimension Inking: Inked black Sections/Processi ng: K 12 Principal sections in 7 cassettes as follows: ?A1-A4: ??K 12 Principal lesion ?A5: ??K 12 Principal glandular tissue with white mottling ?A6: ??2 intact lymph nodes ?A7: ??2 intact lymph nodes ??luis 03/21/2021 2:47 PM EST [facility] PAROTID GLAND STRUCTURE / Unknown 03/16/2021 11:14 AM EST 03/16/2021 11:14 AM EST Moira Garrett MD PATHOLOGY/CYTOLOGY O SEBASTIEN Performing Organization Address [facility] Co de Phone Number [facility] [place] [address] * Specimen to Pathology (03/16/2021 11:14 AM EST) AP Specimen 03/16/2021 11:1 4 AM EST 03/16/2021 11:14 AM EST Narrative [facility] - 03/16/2021 11:14 AM EST Specimen requisition ordered. ??Separate Pathology report to follow Moira Garrett MD PATHOLOGY/CYTOLOGY O RDCHARANJIT Performing Organization Address [facility] Co de Phone Number [facility] [place] [address] * POCT Glucose (03/16/2021 9:26 AM EST) Glucose, POC 100 65 - 199 mg/dL [facility] Comment: Supplemental ranges: <140 mg/dL before meals <180 mg/dL all other times of the day Blood 03/16/2021 9:26 AM EST 03/16/2021 9:26 AM EST Moira Garrett MD POINT OF CARE TEST O RDERABLES [facility] [place] [address] documented in this encounter Visit Diagnoses Diagnosis [...] RN) documented in this encounter Care Teams Hospital Laboratory Technician Relationship Specialty Start Date End Date Moira Arriaza MD [address] [place] [address] PCP - General 03/22/10 documented as of this encounter
--- OUTSIDE RECORDS SUMMARY | 2024-01-11 00:58 | XMS_ITS | Encounter Summary ---
Author Organization [facility] Address [facility] [place] [address] Care Team Providers Care Down Filler Name Role Phone Moira Arriaza MD Primary Care Provider [phone] Encounter Details Date Type Department Care Team (Latest Contact Info) Description 10/15/2017 2:02 PM EDT - 10/15/2017 4:15 PM EDT Hospital En[place] [address] Brie Sheets MD [facility] [place] [address] Discharge Disposition: Home Social History Tobacco Use [...] better as expected. Sunday-Sunday Same Day Endo [phone] 7a-8p Otherwise contact [phone] and ask to speak to the business education instructor oracle wms consultant Follow-up care is a [place] part of [...] to be checked. Sunday-Sunday Same Day Endo [phone] 7a-8p Otherwise contact [phone] and ask to speak to the business education instructor oracle wms consultant Follow up care is a [place] part [...] PM EDT 10/15/2017 3:[address] [facility] - 10/15/2017 3:49 PM EDT Specimen requisition ordered. ??Separate Pathology report to follow Resulting Agency Comment Spec In Lab Brie Sheets MD PATHOLOGY/CYTOLOGY O R[facility]AWINSTON [facility] [place] [address] * Surgical Pathology Report (10/15/2017 2:57 PM EDT) Final Diagnosis [id number] ? Location: 4T; EA13; A The signing pathologist has (i) examined the relevant preparation(s) for the specimen(s) and (ii) rendered or confirmed the diagnosis(es). . ?Surgical Pathology DIAGNOSIS Colon, random, ??biopsy: Colonic mucosa within normal limits. CR-PX Electronically signed by: ??Eamon GREENBERG, Felicitas Verified: ??10/17/2017 ?Pathologist Performed at: ??-[facility] Dept. of Pathology, [place], [place] CLINICAL INFORMATION Specimen Submitted: A - Random colon bx r/o microscopic colitis Clinical History and Diagnosis: 57-year-old with long-standing history of diarrhea SPECIMEN PROCESSING A - Labeled/Fixativ e: Random colon biopsy, formalin. Quantity/Size: Multiple, 0.2-0.4 cm. Tissue Description: ??Soft, rowe-pink tissue ??. Sections/Proces sing: (T2) ??ejr 10/17/2017 4:[address] [facility] GI Biopsy 10/15/2017 2:57 PM EDT 10/15/2017 2:57 PM EDT Brie Sheets MD PATHOLOGY/CYTOLOGY O RDERABLES [facility] [place] [address] * COLONOSCOPY (10/15/2017 2:15 PM EDT) COLONOSCOPY [facility] Endoscopy Procedure Date: 10/15/2017 2:15 PM ? Patient Name: Suzan Chaudhary ? Date of : 1960 ? Age: 57 ? Order #: [id number] ? Instrument Name: [id number] ? Procedure: ? Colonoscopy Indications: ? Chronic diarrhea Providers: ? Brie Sheets MD, Ania Marrouqin, RN, ? Crys Esquivel, Meter Tester Primary Referring : ?Moira Arriaza MD, Liliana Lester [...] (10/15/2017 12:41 PM EDT) UPPER GI ENDOSCOPY [facility] Endoscopy Procedure Date: 10/15/2017 12:41 PM ? Patient Name: Suzan Chaudhary ? Date of : 1960 ? Age: 57 ? Order #: [id number] ? Instrument Name: [id number] ? Procedure: ? Upper GI endoscopy Indications: ? Heartburn Providers: ? Brie Sheets MD, Ania Marroquin, ESTELA, ? Crys Esquivel, Meter Tester Primary Referring MD: ?Moira Arriaza MD, Liliana Lester [...] RN) documented in this encounter Care Teams Down Filler Relationship Specialty Start Date End Date Moira Arriaza MD [address] [place] [address] PCP - General 03/22/10 documented as of this encounter
--- OUTSIDE RECORDS SUMMARY | 2024-01-11 00:58 | XMS_ITS | Encounter Summary ---
Author Organization [facility] [place] [address] Care Team Providers Care Assistant Chief Train Dispatcher Name Role Phone Moira Arriaza MD Primary Care Provider [phone] Reason for Referral * Diagnostic Test (Routine) - Closed Specialty Diagnoses / Procedures Referred By Contac t Referred To Contact Radiology Diagnoses Thoracic aortic aneurysm without rupture, unspecified part Procedures CT Angiogram Chest (Non-Coronary) w Contrast CT Angiogram Chest (Non-Coronary) wwo Contrast Moira Han PA [facility] [place] [address] [facility] [place] [address] Referral ID Status Reason Start Date Expiration Date V isits Requested Visits Authorized [id number] Closed Specialty Service Requested 02/22/2022 08/24/2023 1 1 Reason for Visit * Diagnostic Test (Routine) - Closed Specialty Diagnoses / Procedures Referred By Contac t Referred To Contact Radiology Diagnoses Thoracic aortic aneurysm without rupture, unspecified part Procedures CT Angiogram Chest (Non-Coronary) w Contrast CT Angiogram Chest (Non-Coronary) wwo Contrast Moira Han PA [facility] [place] [address] [facility] [place] [address] Referral ID Status Reason Start Date Expiration Date V isits Requested Visits Authorized [id number] Closed Specialty Service Requested 02/22/2022 08/24/2023 1 1 Encounter Details Date Type Department Care Team (Latest Contact Info) Description 06/06/2022 11:04 AM EST - 06/06/2022 11:59 PM EST Hospital Encounter CT Scan [place] [facility] [place] [address] Ebenezer Nguyen MD [facility] [place] [address] Thoracic aortic aneurysm without rupture, unspecified part [...] who have questions please contact the health body care manager that requested your imaging first. ? Electronically signed by: Lizzy Ruffin MD, [facility] ([phone]), at 06/06/2022 4:34 PM Narrative 06/06/2022 4:34 [...] administration of contrast. Administered 72.0 ml of TSDJMYJAP766.00 mg/ml. Maximum intensity projection (MIP) were reformatted. [...] patients who have questions please contactthe health body care manager that requested your imaging first. Electronically signed by: Lizzy Ruffin MD, [facility]([phone]), at 06/06/2022 4:34 PM Ebenezer Nguyen MD IMG CT ORDERABLES documented [...] mLs documented in this encounter Care Teams Assistant Chief Train Dispatcher Relationship Specialty Start Date End Date Moira Arriaza MD [address] [place] [address] PCP - General 03/22/10 documented as of this encounter
--- OUTSIDE RECORDS SUMMARY | 2024-01-11 00:58 | XMS_ITS | Encounter Summary ---
Author Organization [facility] Address [facility] [place] [address] Care Team Providers Care Outside Food Server Name Role Phone Moira Arriaza MD Primary Care Provider [phone] Reason for Visit * Auth/Cert Specialty Diagnoses [...] Expiration Date Visits Re quested Visits Authorized [id number] 1 1 Encounter Details Date Type Department Care Team (Latest Contact Info) Description 03/16/2021 8:17 AM EST - 03/16/2021 2:20 PM [facility] Hospital Encounter Same [place] [address] Moira Garrett MD [facility] [address] Warthin's tumor Discharge Disposition: Home Social History [...] Incision Care: Your incision was closed with sutures/becak. These will need to be removed in [...] -You can reach the ENT clinic at [phone] for appointment questions. -The ENT triage nurse is available at [phone] -For urgent issues during evenings (5 PM - 7 AM) and weekends the ENT resident correction warden can be reached through the main hospital ncr operator at [phone] Follow Up: You will need to follow up with Dr. Garrett on 04/04/21. This appointment has been requested. You will be notified once it is scheduled, if you do not already see it below. If you do not hear from us in atimely manner, please call to receive your date and time. Currently Scheduled Appointments and VNA instructions: Future Appointments and Orders Future Appointments and Orders Future Appointments Provider Department Dept Phone 04/04/2021 10:40 AM Moira Garrett MD Otolaryngology at [facility] Arrive at: Continuous Improvement Consultant Area [phone] documented in this encounter Medications at Time [...] by mouth every 6 hours as needed. ifoudbhp-floezyfsz-qtadi cortisone (CORTISPORIN) 3.5-10,000-1 mg/mL-unit/mL-% Drops, Suspension SHAKE [...] Operative Note Patient Name: Suzan Chaudhary : [id number] MR#: [id number] Case Date: 03/16/2021 Surgeon: Surgeon(s) and Role: * Moira Garrett MD - Primary * Alisia Heard PA - Physician Food And Beverage Coordinator Preoperative diagnosis: left parotid mass Postoperative diagnosis: [...] Garrett MD - 03/16/2021 10:17 AM EST [facility] Operative Note Patient Name: Suzan Chaudhary : [id number] MR#: [id number] Case Date: 03/16/2021 Surgeon: Surgeon(s) and Role: * Moira Garrett MD - Primary * Alisia Heard PA - Physician Food And Beverage Coordinator Preoperative diagnosis: left parotid mass Postoperative diagnosis: [...] Test, Any/All Per. Nerves, Trunk Or Head (81489) 03/16/2021 9:43 AM EST Warthin's tumor Exc Parotd, Lat Lobe, Dissect 5Th Nerv (87042) 03/16/2021 9:43 AM EST Warthin's tumor POCT GLUCOSE Routine 03/16/2021 9:26 AM EST FACIAL NERVE MONITORING, SETUP Routine 03/16/2021 8:16 AM EST Warthin's tumor EXC.PAROTID TUMOR OR GLAND, LATERAL LOBE, W DISSECTION & PRESERVATION FACIAL NERVE Routine 03/16/2021 8:16 AM EST Warthin's tumor documented in this encounter Results * Surgical Pathology Report (03/16/2021 11:14 AM EST) Final Diagnosis [id number] ? Location: [facility]; [facility]; A The signing pathologist has (i) examined [...] MD Verified: ??03/21/2021 14:47 ??Pathologist Performed at: ??-[facility] Dept. of Pathology, [place], [place] SPECIMEN(S) SUBMITTED A - Parotid, left, [...] greatest dimension Inking: Inked black Sections/Processi ng: Log Scaler sections in 7 cassettes as follows: ?A1-A4: ??Log Scaler lesion ?A5: ??Log Scaler glandular tissue with white mottling ?A6: ??2 intact lymph nodes ?A7: ??2 intact lymph nodes ??luis 03/21/2021 2:47 PM EST [facility] PAROTID GLAND STRUCTURE / Unknown 03/16/2021 11:14 AM EST 03/16/2021 11:14 AM EST Moira Garrett MD PATHOLOGY/CYTOLOGY O SEBASTIEN Performing Organization Address City/[facility] Co de Phone Number [facility] [place] [address] * Specimen to Pathology (03/16/2021 11:14 AM EST) AP Specimen 03/16/2021 11:1 4 AM EST 03/16/2021 11:14 AM EST Narrative [facility] - 03/16/2021 11:14 AM EST Specimen requisition ordered. ??Separate Pathology report to follow Moira Garrett MD PATHOLOGY/CYTOLOGY O SEBASTIEN Performing Organization Address [facility] Co de Phone Number [facility] [place] [address] * POCT Glucose (03/16/2021 9:26 AM EST) Glucose, POC 100 65 - 199 mg/dL [facility] Comment: Supplemental ranges: <140 mg/dL before meals <180 mg/dL all other times of the day Blood 03/16/2021 9:26 AM EST 03/16/2021 9:26 AM EST Moira Garrett MD POINT OF CARE TEST O RDERABLES [facility] [place] [address] documented in this encounter Visit Diagnoses Diagnosis [...] RN) documented in this encounter Care Teams Outside Food Server Relationship Specialty Start Date End Date Moira Arriaza MD [address] [place] [address] PCP - General 03/22/10 documented as of this encounter
--- OUTSIDE RECORDS SUMMARY | 2024-01-11 00:58 | XMS_ITS | Encounter Summary ---
[place] [address] Care Team Providers Care Coffee Attendant Name Role Phone Moira Arriaza MD Primary Care Provider [phone] Encounter Details Date Type Department Care Team (Late st Contact Info) Description 02/23/2019 Ancillary Procedure [place] [id number] Moira Arriaza MD [address] [place] [address] Social History Tobacco Use Types Packs/Day Years [...] CT Chest (02/23/2019 12:00 AM EDT) Narrative [facility] - 03/09/2020 2:53 PM EST This exam is auto-finalizing. It's purpose is for storage only. Moira Arriaza MD [facility] FILM LIBRARY ORD ERABLES [place], [place] documented in this encounter Visit Diagnoses Not on filedocumented in this encounter Care Teams Coffee Attendant Relationship Specialty Start Date End Date Moira Arriaza MD [address] [place] [address] PCP - General 03/22/10 documented as of this encounter
--- OUTSIDE RECORDS SUMMARY | 2024-01-11 00:58 | XMS_ITS | Encounter Summary ---
Author Organization [facility] [place] [address] Care Team Providers Care Catering Operations Manager Name Role Phone Moira Arriaza MD Primary Care Provider [phone] Encounter Details Date Type Department Care Team (Late st Contact Info) Description 05/04/2020 Telephone [place] [address] Veronica Aponte Social History Tobacco Use Types [...] on filedocumented in this encounter Care Teams Catering Operations Manager Relationship Specialty Start Date End Date Moira Arriaza MD [address] [place] [address] PCP - General 03/22/10 documented as of this encounter
--- OUTSIDE RECORDS SUMMARY | 2024-01-11 00:58 | XMS_ITS | Encounter Summary ---
[place] [address] Care Team Providers Care Shrimp Picker Name Role Phone Moira Arriaza MD Primary Care Provider [phone] Reason for Referral * Diagnostic Test (Routine) - Closed Specialty Diagnoses / Procedures Referred By Contac t Referred To Contact Radiology Diagnoses Thoracic aortic aneurysm without rupture Procedures CT Angiogram Chest (Non-Coronary) w Contrast CT Angiogram Chest (Non-Coronary) wwo Contrast Marquis Harry PA [facility] [place] [address] [facility] [place] [address] Referral ID Status Reason Start Date Expiration Date V isits Requested Visits Authorized [id number] Closed Specialty Service Requested 03/30/2021 09/28/2022 1 1 Encounter Details Date Type Department Care Team (Late st Contact Info) Description 03/30/2021 Orders [place] [address] Marquis Harry PA [facility] DR [place] [address] Thoracic aortic aneurysm without rupture [...] who have questions please contact the health resident care associate that requested your imaging first. ? Electronically signed by: Michael Denis MD, [facility] ([phone]), at 05/20/2021 4:17 PM Narrative 05/20/2021 4:17 [...] patients who have questions please contactthe health resident care associate that requested your imaging first. Electronically signed by: Michael Denis MD, [facility]([phone]), at 05/20/2021 4:17 PM Ebenezer Nguyen MD IMG CT ORDERABLES * Creatinine (05/20/2021 12:10 PM EST) Creatinine 0.86 0.70 - 1.20 mg/dL [facility] Est Glomerular Filtration Rate 74 >=60 mL/min/1. 73 m?? [facility] Comment: This patient? s estimated [...] Lab Ebenezer Nguyen MD CHEMISTRY ORDERABL ES [facility] [place] [address] documented in this encounter Visit Diagnoses Diagnosis Thoracic aortic aneurysm without rupture Thoracic aneurysm without mention of rupture Thoracic aortic aneurysm without rupture Thoracic aneurysm without mention of rupture documented in this encounter Care Teams Shrimp Picker Relationship Specialty Start Date End Date Moira Arriaza MD [address] [place] [address] PCP - General 03/22/10 documented as of this encounter
--- OUTSIDE RECORDS SUMMARY | 2024-01-11 00:58 | XMS_ITS | Encounter Summary ---
Author Organization [facility] Address [facility] [place] [address] Care Team Providers Care Manager In Home Name Role Phone Moira Arriaza MD Primary Care Provider [phone] Reason for Visit * Reason Comments Follow-up f/u cat scan(hernia) Encounter Details Date Type Department Care Team (Late st Contact Info) Description 11/08/2015 11:45 AM EDT Office [place] [address] Guillermo Lewis MD [facility] [place] [address] Abdominal pannus Social History Tobacco Use Types [...] appointment. Feel free to call our office [phone] if you have any questions or concerns. [...] aspirin products (unless otherwise advised by patient's PCP/Finish Patcher for cardiac symptoms), fish oil, Vitamin E [...] with: Dr. Padilla Procedure: panniculectomy/abdominoplasty CPT: Panni: [id number] Surgical site: abdomen Side: Anesthesia: General Follow [...] adiposity documented in this encounter Care Teams Manager In Home Relationship Specialty Start Date End Date Moira Arriaza MD [address] [place] [address] PCP - General 03/22/10 documented as of this encounter
--- OUTSIDE RECORDS SUMMARY | 2024-01-11 00:58 | XMS_ITS | Encounter Summary ---
Author Organization [facility] Address [facility] [place] [address] Care Team Providers Care Manufacturing Quality Manager Name Role Phone Moira Arriaza MD Primary Care Provider [phone] Reason for Visit * Reason Comments Establish Care Encounter Details Date Type Department Care Team (Late st Contact Info) Description 02/18/2014 11:20 AM EDT Office [place] [address] Isaura Tang MD [facility] [place] [address] Nicotine dependence; Obesity; Incisional hernia Discharge Disposition: [...] a referral from Dr. Moira Arriaza at [facility] for evaluation of a ventral hernia. The [...] gangrene documented in this encounter Care Teams Manufacturing Quality Manager Relationship Specialty Start Date End Date Moira Arriaza MD [address] [place] [address] PCP - General 03/22/10 documented as of this encounter
--- OUTSIDE RECORDS SUMMARY | 2024-01-11 00:58 | XMS_ITS | Encounter Summary ---
Author Organization [facility] [place] [address] Care Team Providers Care Aboriginal Education Teacher Name Role Phone Moira Arriaza MD Primary Care Provider [phone] Encounter Details Date Type Department Care Team (Late st Contact Info) Description 08/01/2021 11:00 AM EDT Office [place] [address] Moira Garrett MD [facility] [place] [address] Warthin tumor Social History Tobacco Use Types [...] Garrett MD - 08/01/2021 11:00 AM EDT [facility] Otolaryngology - Head and Neck Surgery Moira Garrett MD 08/01/21 11:23 AM [place], [place] [address] Office Patient Name: Suzan Chaudhary Date of [...] 0.54) performed by Moira Garrett MD at [facility] MAIN OR ??? PRO COLONOSCOPY, BIOPSY 09/14/2010 COLONOSCOPY FLEXIBLE, WITH BX performed by LUIS FABIAN I at [facility] ENDOSCOPY ??? PRO COLONOSCOPY, BIOPSY N/A 10/15/2017 COLONOSCOPY FLEXIBLE, WITH BX (WRVU 3.66) performed by Brie Sheets MD at [facility] ENDOSCOPY ??? PRO EXC PAROTD, LAT LOBE, DISSECT 5TH NERV Left 03/16/2021 EXC.PAROTID TUMOR OR GLAND, LATERAL LOBE, W DISSECTION & PRESERVATION FACIAL NERVE (WRVU 17.16)performed by Moira Garrett MD at [facility] MAIN OR ??? PRO UPPER GI ENDOSCOPY, BIOPSY 09/14/2010 UPPER GASTROINTESTINAL ENDOSCOPY,WITH BIOPSY SINGLE OR MULTIPLE performed by LUIS FABIAN I at [facility] ENDOSCOPY ??? PRO UPPER GI ENDOSCOPY, DIAGNOSTIC N/A 10/15/2017 EGD, UPPER GI ENDOSCOPY performed by Brie Sheets MD at [facility] ENDOSCOPY Family and Social History Family History: No family history on file. Social History: Lives in [place] [address] Social History Socioeconomic History ??? Marital status: [...] glands documented in this encounter Care Teams Aboriginal Education Teacher Relationship Specialty Start Date End Date Moira Arriaza MD [address] [place] [address] PCP - General 03/22/10 documented as of this encounter
--- OUTSIDE RECORDS SUMMARY | 2024-01-11 00:58 | XMS_ITS | Encounter Summary ---
[place] [address] Care Team Providers Care Medical Claims Examiner Name Role Phone Moira Arriaza MD Primary Care Provider [phone] Reason for Referral * Diagnostic Test (Routine) - Closed Specialty Diagnoses / Procedures Referred By Contac t Referred To Contact Radiology Diagnoses Incisional hernia, without obstruction or gangrene Procedures CT Abdomen & Pelvis Wo Contrast Guillermo Lewis MD [facility] [place] [address] [facility] [place] [address] Referral ID Status Reason Start Date Expiration Date V isits Requested Visits Authorized [id number] Closed Specialty Service Requested 10/20/2015 01/18/2016 1 1 Reason for Visit * Diagnostic Test (Routine) - Closed Specialty Diagnoses / Procedures Referred By Contac t Referred To Contact Radiology Diagnoses Incisional hernia, without obstruction or gangrene Procedures CT Abdomen & Pelvis Wo Contrast Guillermo Lewis MD [facility] [place] [address] [facility] [place] [address] Referral ID Status Reason Start Date Expiration Date V isits Requested Visits Authorized [id number] Closed Specialty Service Requested 10/20/2015 01/18/2016 1 1 Encounter Details Date Type Department Care Team (Latest Contact Info) Description 10/25/2015 1:35 PM EDT - 10/25/2015 11:59 PM EDT Hospital [place] [address] Guillermo Lewis MD [facility] [place] [address] Incisional hernia, without obstruction or gangrene Discharge [...] gangrene documented in this encounter Care Teams Medical Claims Examiner Relationship Specialty Start Date End Date Moira Arriaza MD [address] [place] [address] PCP - General 03/22/10 documented as of this encounter
--- OUTSIDE RECORDS SUMMARY | 2024-01-11 00:58 | XMS_ITS | Encounter Summary ---
[place] [address] Care Team Providers Care Administrative Operations Coordinator Name Role Phone Moira Arriaza MD Primary Care Provider [phone] Reason for Referral * Diagnostic Test (Routine) - Closed Specialty Diagnoses / Procedures Referred By Contac t Referred To Contact Radiology Diagnoses Warthin's tumor Procedures NM PET CT Standard Plus Extremities and Head Watson Nick PA [address] [place] [address] [place] [address] Referral ID Status Reason Start Date Expiration Date V isits Requested Visits Authorized [id number] Closed Specialty Service Requested 02/11/2020 08/09/2020 1 1 Reason for Visit * Diagnostic Test (Routine) - Closed Specialty Diagnoses / Procedures Referred By Contac t Referred To Contact Radiology Diagnoses Warthin's tumor Procedures NM PET CT Standard Plus Extremities and Head Watson Nick PA [address] [place] [address] [place] [address] Referral ID Status Reason Start Date Expiration Date V isits Requested Visits Authorized [id number] Closed Specialty Service Requested 02/11/2020 08/09/2020 1 1 Encounter Details Date Type Department Care Team (Late st Contact Info) Description 02/20/2020 2:28 PM EDT Hospital Encounter [place] [address] Watson Nick PA [address] [place] [address] Warthin's tumor Discharge Disposition: Home Social History [...] mass TECHNIQUE: Procedure: Following IV injection of 01-xgrvty-4-deoxyglucose (FDG) a standard uptake of approximately 60 [...] Note She Orta MD - 02/20/2020 EXAMINATION: [place] PET CT STANDARD PLUS EXTREMITIES AND HEAD CLINICAL HISTORY: Warthin's tumor Additional history per scanned in documents: Lung mass TECHNIQUE: Procedure: Following IV injection of 13-ogrvjg-0-deoxyglucose(FDG) a standard uptake of approximately 60 minutes, [...] glands documented in this encounter Care Teams Administrative Operations Coordinator Relationship Specialty Start Date End Date Moira Arriaza MD [address] [place] [address] PCP - General 03/22/10 documented as of this encounter
--- OUTSIDE RECORDS SUMMARY | 2024-01-11 00:58 | XMS_ITS | Encounter Summary ---
Author Organization [facility] [place] [address] Care Team Providers Care Director Physical Name Role Phone Moira Arriaza MD Primary Care Provider [phone] Encounter Details Date Type Department Care Team (Late st Contact Info) Description 03/22/2020 [place] [address] Makayla Mayers Social History Tobacco Use Types [...] on filedocumented in this encounter Care Teams Director Physical Relationship Specialty Start Date End Date Moira Arriaza MD [address] [place] [address] PCP - General 03/22/10 documented as of this encounter
--- OUTSIDE RECORDS SUMMARY | 2024-01-11 00:58 | XMS_ITS | Encounter Summary ---
[place] [address] Care Team Providers Care Education Associate Name Role Phone Moira Arriaza MD Primary Care Provider [phone] Encounter Details Date Type Department Care Team (Late st Contact Info) Description 10/11/2015 Telephone [place] [address] Ernestina Rhodes Social History Tobacco Use Types [...] on filedocumented in this encounter Care Teams Education Associate Relationship Specialty Start Date End Date Moira Arriaza MD [address] [place] [address] PCP - General 03/22/10 documented as of this encounter
--- OUTSIDE RECORDS SUMMARY | 2024-01-11 00:58 | XMS_ITS | Encounter Summary ---
Author Organization [facility] [place] [address] Care Team Providers Care Integrated Specialist Name Role Phone Moira Arriaza MD Primary Care Provider [phone] Reason for Referral * Diagnostic Test (Routine) - Closed Specialty Diagnoses / Procedures Referred By Contac t Referred To Contact Radiology Diagnoses Thoracic aortic aneurysm without rupture Procedures CT Angiogram Chest (Non-Coronary) w Contrast CT Angiogram Chest (Non-Coronary) wwo Contrast Marquis Harry PA [facility] [place] [address] [facility] [place] [address] Referral ID Status Reason Start Date Expiration Date V isits Requested Visits Authorized [id number] Closed Specialty Service Requested 03/30/2021 09/28/2022 1 1 Reason for Visit * Diagnostic Test (Routine) - Closed Specialty Diagnoses / Procedures Referred By Contac t Referred To Contact Radiology Diagnoses Thoracic aortic aneurysm without rupture Procedures CT Angiogram Chest (Non-Coronary) w Contrast CT Angiogram Chest (Non-Coronary) wwo Contrast Marquis Harry PA [facility] [place] [address] [facility] [place] [address] Referral ID Status Reason Start Date Expiration Date V isits Requested Visits Authorized [id number] Closed Specialty Service Requested 03/30/2021 09/28/2022 1 1 Encounter Details Date Type Department Care Team (Latest Contact Info) Description 05/20/2021 1:34 PM EST - 05/20/2021 11:59 PM EST Hospital Encounter CT Scan at [facility] [place] [address] Ebenezer Nguyen MD [facility] [place] [address] Thoracic aortic aneurysm without rupture Discharge Disposition: [...] have questions please contact the health career services director that requested your imaging first. ? Electronically signed by: Michael Denis MD, [facility] ([phone]), at 05/20/2021 4:17 PM Narrative 05/20/2021 4:17 [...] who have questions please contactthe health career services director that requested your imaging first. Ebenezer Nguyen [...] mLs documented in this encounter Care Teams Integrated Specialist Relationship Specialty Start Date End Date Moira Arriaza MD [address] [place] [address] PCP - General 03/22/10 documented as of this encounter
--- OUTSIDE RECORDS SUMMARY | 2024-01-11 00:58 | XMS_ITS | Encounter Summary ---
Author Organization [facility] [place] [address] Care Team Providers Care City Planning Teacher Name Role Phone Moira Arriaza MD Primary Care Provider [phone] Encounter Details Date Type Department Care Team (Late st Contact Info) Description 04/02/2020 Tele[place] [address] Kirstin Dunlap CMA Social History Tobacco Use [...] MA - 04/02/2020 9:31 AM EST 5C Water Tanker Driver Pre-Telemedicine Phone Note [x] Patient not reached [] Patient reached and the following information was reviewed/obtained per protocol: [] Confirmed patient name and date of [] Confirmed location of patient - TeleVisit is taking place in [] [place] [] [place] [] [place] [] [place] [] Confirmed Pt has MyDH [] Confirmed Pt has download ZOOM [] If not on myDH, working on signing up for myDH [] If no MyDH is made, how is Dr sending Pt the zoom link for video [] By Cell phone [] By E-mail [] Phone visit/ how is Dr contacting Pt if disconcert from [facility] [] Home phone [] Cell phone [] Other number [] Reviewed patient medications [] Documented self-reported vitals: [] Weight: [] Height: [] Other information or concerns documented in this encounter Plan of Treatment Not on file documented as of this encounter Visit Diagnoses Not on filedocumented in this encounter Care Teams City Planning Teacher Relationship Specialty Start Date End Date Moira Arriaza MD [address] [place] [address] PCP - General 03/22/10 documented as of this encounter
--- OUTSIDE RECORDS SUMMARY | 2024-01-11 00:58 | XMS_ITS | Encounter Summary ---
Author Organization [facility] [place] [address] Care Team Providers Care Net Sorter Name Role Phone Moira Arriaza MD Primary Care Provider [phone] Encounter Details Date Type Department Care Team (Late st Contact Info) Description 04/04/2021 10:40 AM EST Office Visit [place] [address] Moira Garrett MD [facility] [place] [address] Warthin's tumor Social History Tobacco Use Types [...] Garrett MD - 04/04/2021 10:40 AM EST [facility] Otolaryngology - Head and Neck Surgery Moira Garrett MD 04/04/21 11:06 AM [place], [place] [address] Office Patient Name: Suzan Chaudhary Date of : 1960 PCP: Moira Arriaza MD Chief Complaint/History of Present Illness: Suzan hCaudhary is a 61 y.o. year old seen [...] to Visit Medication Sig Dispense Refill ??? cfawiyug-vjyiiyjgy-cxlcdszeyywtun (CORTISPORIN) 3.5-10,000-1 mg/mL-unit/mL-% Drops, Suspension SHAKE LIQUID [...] 0.54) performed by Moira Garrett MD at [facility] MAIN OR ??? PRO COLONOSCOPY, BIOPSY 09/14/2010 COLONOSCOPY FLEXIBLE, WITH BX performed by LUIS FABIAN I at [facility] ENDOSCOPY ??? PRO COLONOSCOPY, BIOPSY N/A 10/15/2017 COLONOSCOPY FLEXIBLE, WITH BX (WRVU 3.66) performed by Brie Sheets MD at [facility] ENDOSCOPY ??? PRO EXC PAROTD, LAT LOBE, DISSECT 5TH NERV Left 03/16/2021 EXC.PAROTID TUMOR OR GLAND, LATERAL LOBE, W DISSECTION & PRESERVATION FACIAL NERVE (WRVU 17.16)performed by Moira Garrett MD at [facility] MAIN OR ??? PRO UPPER GI ENDOSCOPY, BIOPSY 09/14/2010 UPPER GASTROINTESTINAL ENDOSCOPY,WITH BIOPSY SINGLE OR MULTIPLE performed by LUIS FABIAN I at [facility] ENDOSCOPY ??? PRO UPPER GI ENDOSCOPY, DIAGNOSTIC N/A 10/15/2017 EGD, UPPER GI ENDOSCOPY performed by Brie Sheets MD at [facility] ENDOSCOPY Family and Social History Family History: No family history on file. Social History: Lives [place] [address] Social History Socioeconomic History ??? Marital status: [...] MD Verified: ??03/21/2021 14:47 ??Pathologist Performed at: ??-[facility] Dept. of Pathology, [place], [place] SPECIMEN(S) SUBMITTED A - Parotid, left, [...] glands documented in this encounter Care Teams Net Sorter Relationship Specialty Start Date End Date Moira Arriaza MD [address] [place] [address] PCP - General 03/22/10 documented as of this encounter
--- OUTSIDE RECORDS SUMMARY | 2024-01-11 00:58 | XMS_ITS | Encounter Summary ---
Author Organization [facility] [place] [address] Care Team Providers Care Housing Specialist Name Role Phone Moira Arriaza MD Primary Care Provider [phone] Encounter Details Date Type Department Care Team (Latest Contact Info) Description 05/21/2020 4:50 PM EST TH Visit (TeleHealth) [place] [address] Ebenezer Nguyen MD [facility] [place] [address] Thoracic aortic aneurysm without rupture Social History [...] BX performed by LUIS FABIAN I at [facility] ENDOSCOPY ??? PRO COLONOSCOPY, BIOPSY N/A 10/15/2017 COLONOSCOPY FLEXIBLE, WITH BX (WRVU 3.66) performed by Brie Sheets MD at [facility] ENDOSCOPY ??? PRO UPPER GI ENDOSCOPY, BIOPSY 09/14/2010 UPPER GASTROINTESTINAL ENDOSCOPY,WITH BIOPSY SINGLE OR MULTIPLE performed by LUIS FABIAN I at [facility] ENDOSCOPY ??? PRO UPPER GI ENDOSCOPY, DIAGNOSTIC N/A 10/15/2017 EGD, UPPER GI ENDOSCOPY performed by Brie Sheets MD at [facility] ENDOSCOPY Family History: No family history [...] file Gets together: Not on file Attends holiness service: Not on file Active member of [...] Current Medications: Current Outpatient Medications Ordered in [place] Medication Sig Dispense Refill ??? losartan (Cozaar) [...] call with questions. Ebenezer Nguyen MD, [place] sql architect Section of Cardiac Surgery [facility] Office: [phone] Pager: [phone] I spent a total of 30 minutes today in record review, medical counseling, coordination of care, medical decision-making, and documentation. documented in this encounter Plan of Treatment Not on file documented as of this encounter Visit Diagnoses Diagnosis Thoracic aortic aneurysm without rupture Thoracic aneurysm without mention of rupture documented in this encounter Care Teams Housing Specialist Relationship Specialty Start Date End Date Moira Arriaza MD [address] [place] [address] PCP - General 03/22/10 documented as of this encounter
--- OUTSIDE RECORDS SUMMARY | 2024-01-11 00:58 | XMS_ITS | Encounter Summary ---
Author Organization [facility] [place] [address] Care Team Providers Care Rn Manager Name Role Phone Moira Arriaza MD Primary Care Provider [phone] Encounter Details Date Type Department Care Team [...] on filedocumented in this encounter Care Teams Rn Manager Relationship Specialty Start Date End Date Moira Arriaza MD [address] [place] [address] PCP - General 03/22/10 documented as of this encounter
--- OUTSIDE RECORDS SUMMARY | 2024-01-11 00:58 | XMS_ITS | Encounter Summary ---
[place] [address] Care Team Providers Care Unit Clerk Name Role Phone Moira Arriaza MD Primary Care Provider [phone] Encounter Details Date Type Department Care Team (Late st Contact Info) Description 01/29/2020 Ancillary Procedure [place] [id number] Moira Arriaza MD [address] [place] [address] Social History Tobacco Use Types Packs/Day Years [...] Ultrasound Study (01/29/2020 12:00 AM EDT) Narrative [facility] - 03/12/2020 11:29 AM EST This exam is auto-finalizing. It's purpose is for storage only. Moira Arriaza MD [facility] LIBRARY ORD ERABLES [place], [place] documented in this encounter Visit Diagnoses Not on filedocumented in this encounter Care Teams Unit Clerk Relationship Specialty Start Date End Date Moira Arriaza MD [address] [place] [address] PCP - General 03/22/10 documented as of this encounter
--- OUTSIDE RECORDS SUMMARY | 2024-01-11 00:58 | XMS_ITS | Encounter Summary ---
Author Organization [facility] [place] [address] Care Team Providers Care Manager Material Name Role Phone Moira Arriaza MD Primary Care Provider [phone] Encounter Details Date Type Department Care Team (Late st Contact Info) Description 01/17/2021 Telephone [place] [address] Sharmila Aleman Social History Tobacco Use Types [...] Sharmila Aleman - 01/17/2021 12:03 PM EDT [place], Patient is scheduled to have surgery on 03/16/2021 and the packet has been mailed to the verified address on file. Follow up appointment is as follows: F/u appt 1-2 weeks postop, thanks! Thank you!! documented in this encounter Plan of Treatment Not on file documented as of this encounter Visit Diagnoses Not on filedocumented in this encounter Care Teams Manager Material Relationship Specialty Start Date End Date Moira Arriaza MD [address] [place] [address] PCP - General 03/22/10 documented as of this encounter
--- OUTSIDE RECORDS SUMMARY | 2024-01-11 00:58 | XMS_ITS | Encounter Summary ---
Author Organization [facility] [place] [address] Care Team Providers Care Hand Inspector Name Role Phone Moira Arriaza MD Primary Care Provider [phone] Encounter Details Date Type Department Care Team (Late st Contact Info) Description 01/29/2020 12:05 AM EDT Ancillary Procedure [place] [address] Moira Arriaza MD [address] [place] [address] Social History Tobacco Use Types Packs/Day Years [...] CT Chest (01/29/2020 12:05 AM EDT) Narrative [facility] - 03/12/2020 11:31 AM EST This exam is auto-finalizing. It's purpose is for storage only. Moira Arriaza MD [facility] FILM LIBRARY ORD ERABLES [place], [place] documented in this encounter Visit Diagnoses Not on filedocumented in this encounter Care Teams Hand Inspector Relationship Specialty Start Date End Date Moira Arriaza MD [address] [place] [address] PCP - General 03/22/10 documented as of this encounter
--- OUTSIDE RECORDS SUMMARY | 2024-01-11 00:58 | XMS_ITS | Encounter Summary ---
Author Organization [facility] [place] [address] Care Team Providers Care Boiler House Mechanic Name Role Phone Moira Arriaza MD Primary Care Provider [phone] Reason for Visit * Consultation (Routine) - Specialty Diagnoses / Procedures Referred By Contviolet t Referred To Contact Otolaryngology Diagnoses Other diseases of salivary glands PAROTID MASS Moira Arriaza MD [address] [place] [address] [facility] Otolaryngology [address] [place] [id number] Referral ID Status Reason Start Date Expiration Date V isits Requested Visits Authorized [id number] Consult, Test & Treat [facility] PCP Updated and/or Approved 03/12/2020 09/08/2020 6 6 Encounter Details Date Type Department Care Team (Late st Contact Info) Description 05/24/2020 1:30 PM EST Office [place] [address] Moira Garrett MD [facility] [place] [address] Warthin's tumor Social History Tobacco [...] from the original note were not included. [facility] Otolaryngology - Head and Neck Surgery Moira Garrett MD 05/24/20 1:56 PM [place] [address] Office Patient Name: Suzan Chaudhary Date of [...] BX performed by LUIS FABIAN I at [facility] ??? PRO COLONOSCOPY, BIOPSY N/A 10/15/2017 COLONOSCOPY FLEXIBLE, WITH BX (WRVU 3.66) performed by Brie Sheets MD at [facility] ??? PRO UPPER GI ENDOSCOPY, BIOPSY 09/14/2010 UPPER GASTROINTESTINAL ENDOSCOPY,WITH BIOPSY SINGLE OR MULTIPLE performed by LUIS FABIAN I at [facility] ??? PRO UPPER GI ENDOSCOPY, DIAGNOSTIC N/A 10/15/2017 EGD, UPPER GI ENDOSCOPY performed by Brie Sheets MD at [facility] Family and Social History Family History: No family history on file. Social History: Lives in [place] [address] Social History Socioeconomic History ??? Marital status: [...] file Gets together: Not on file Attends zoroastrianism service: Not on file Active member of [...] Correlation with radiographic imaging is essential. ?? Manager Community Outreach slides of this case were reviewed at [...] Aspiration sample was performed by Pathologists at [facility], [address] [place] [address] I reviewed the following imaging studies: Procedures [...] glands documented in this encounter Care Teams Boiler House Mechanic Relationship Specialty Start Date End Date Moira Arriaza MD [address] [place] [address] PCP - General 03/22/10 documented as of this encounter
--- OUTSIDE RECORDS SUMMARY | 2024-01-11 00:58 | XMS_ITS | Encounter Summary ---
Author Organization [facility] Address [facility] [place] [address] Care Team Providers Care Vehicle Care Specialist Name Role Phone Moira Arriaza MD Primary Care Provider [phone] Reason for Visit * Reason Comments Follow-up Left ear bothering, aching. Encounter Details Date Type Department Care Team (Late Contact Info) Description 11/08/2020 2:00 PM EDT Office [place] [address] Moira Garrett MD [facility] [place] [address] Warthin's tumor Social History Tobacco Use Types [...] Garrett MD - 11/08/2020 2:00 PM EDT [facility] Otolaryngology - Head and Neck Surgery Moira Garrett MD 11/08/20 2:01 PM [place] [address] Office Patient Name: Suzan Chaudhary Date of [...] to Visit Medication Sig Dispense Refill ??? xtptgsxm-vgxdigmhx-adkritmihkuztf (CORTISPORIN) 3.5-10,000-1 mg/mL-unit/mL-% Drops, Suspension SHAKE LIQUID [...] BX performed by LUIS FABIAN I at [facility] ??? PRO COLONOSCOPY, BIOPSY N/A 10/15/2017 COLONOSCOPY FLEXIBLE, WITH BX (WRVU 3.66) performed by Brie Sheets MD at [facility] ??? PRO UPPER GI ENDOSCOPY, BIOPSY 09/14/2010 UPPER GASTROINTESTINAL ENDOSCOPY,WITH BIOPSY SINGLE OR MULTIPLE performed by LUIS FABIAN I at [facility] ??? PRO UPPER GI ENDOSCOPY, DIAGNOSTIC N/A 10/15/2017 EGD, UPPER GI ENDOSCOPY performed by Brie Sheets MD at [facility] Family and Social History Family History: No family history on file. Social History: Lives [place] [address] Social History Socioeconomic History ??? Marital status: [...] glands documented in this encounter Care Teams Vehicle Care Specialist Relationship Specialty Start Date End Date Moira Arriaza MD [address] [place] [address] PCP - General 03/22/10 documented as of this encounter
--- OUTSIDE RECORDS SUMMARY | 2024-01-11 00:58 | XMS_ITS | Encounter Summary ---
Author Organization [facility] [place] [address] Care Team Providers Care Rug Cutter Name Role Phone Moira Arriaza MD Primary Care Provider [phone] Encounter Details Date Type Department Care Team (Late st Contact Info) Description 01/06/2013 Orders [place] [address] Rinku Vora MD [facility] [place] [address] Social History Tobacco Use Types Packs/Day Years [...] is a Non-reportable exam Rinku Vora MD [facility] FILM LIBRARY ORD ERABLES documented in this encounter Visit Diagnoses Not on filedocumented in this encounter Care Teams Rug Cutter Relationship Specialty Start Date End Date Moira Arriaza MD [address] [place] [address] PCP - General 03/22/10 documented as of this encounter
--- OUTSIDE RECORDS SUMMARY | 2024-01-11 00:58 | XMS_ITS | Encounter Summary ---
[place] [address] Care Team Providers Care Modular Home Crew Member Name Role Phone Moira Arriaza MD Primary Care Provider [phone] Encounter Details Date Type Department Care Team (Latest Contact Info) Description 05/20/2021 12:00 PM EST Laboratory Appointment Lab [address] [place] [address] Thoracic aortic aneurysm without rupture [...] ORDERABL ES [facility] [place] [address] documented in this encounter Visit Diagnoses Diagnosis Thoracic aortic aneurysm without rupture Thoracic aneurysm without mention of rupture documented in this encounter Care Teams Modular Home Crew Member Relationship Specialty Start Date End Date Moira Arriaza MD [address] [place] [address] PCP - General 03/22/10 documented as of this encounter
--- OUTSIDE RECORDS SUMMARY | 2024-01-11 00:58 | XMS_ITS | Encounter Summary ---
Author Organization [facility] [place] [address] Care Team Providers Care Clinical Programmer Name Role Phone Moira Arriaza MD Primary Care Provider [phone] Reason for Referral * Diagnostic Test (Routine) - Closed Specialty Diagnoses / Procedures Referred By Contac t Referred To Contact Cardiology Diagnoses Thoracic aortic aneurysm without rupture Procedures Echocardiogram Transthoracic([facility]) Kirill Gill PA [facility] [place] [address] [facility] [place] [address] Referral ID Status Reason Start Date Expiration Date V isits Requested Visits Authorized [id number] Closed Specialty Service Requested 03/22/2020 03/22/2021 1 1 Encounter Details Date Type Department Care Team (Late st Contact Info) Description 03/22/2020 Orders Only [place] [address] Kirill Gill PA [facility] [place] [address] Thoracic aortic aneurysm without rupture [...] ?PANDA Marroquin ?(Age): 1960(60y) Med Rec#: ? [id number] ?Sex: ?F ? [place] Loc: ? [facility] [place]Ht / Wt: ??165(cm)/106(kg) Pt. Loc: ?Echo Lab ?BSA: ?2.11 Study Date: ?? 05/21/2020 ?Pt. Type: Outpatient Tape: ? Referring: Ebenezer Nguyen Referring: MIGUE Reading: Dung Frazier ([id number]) Sociology Research Assistant: Pierre Connor RDCS Interpreting Fellow: Leslie Davis ([id number]) Interpreting Fellow: Rupal Medrano ([id number]) Diagnosis: *Thoracic aortic aneurysm, without rupture (I71.2) [...] Vmax ?0.69 ? m/sec ? MV deceleration uito703.21 ? msec ? MV A-wave Vmax ?0.94 [...] ? Mid-Inferior ?Normal ? Mid-Inferoseptal ?Normal ? [place]-Septal ? Normal ? [place]-Anterior ? Normal ? [place]-Lateral ?Normal ? [place]-Inferior ? Normal ? [place]-Tip ?Normal ? This report has been electronically signed by: Dung Frazier M.D. ? 05/21/2020 11:06:46 Images reviewed and interpretation verified [facility] Cardiac Ultrasound Laboratory Procedure Note Dung Frazier MD - 05/21/2020 Procedure: Transthoracic Echocardiogram Patient: PANDA Marroquin DOB(Age): 1960(60y) Med Rec#: [id number] Sex: F [place] Loc: [facility] Ht / Wt: 165(cm)/106(kg) Pt. Loc: Echo Lab BSA: 2.11 Study Date: 05/21/2020 Pt. Type: Outpatient Tape: Referring: Ebenezer Nguyen Referring: MIGUE Reading: Dung Frazier ([id number]) Sociology Research Assistant: Pierre Connor [facility] Interpreting Fellow: Leslie Davis ([id number]) Interpreting Fellow: Rupal Medrano ([id number]) Diagnosis: *Thoracic aortic aneurysm, without rupture (I71.2) [...] MV E-wave Vmax 0.69 m/sec MV deceleration wqno389.21 msec MV A-wave Vmax 0.94 m/sec MV [...] Normal Mid-Posterolateral Normal Mid-Inferior Normal Mid-Inferoseptal Normal [place]-Septal Normal [place]-Anterior Normal [place]-Lateral Normal [place]-Inferior Normal [place]-Tip Normal This report has been electronically signed by: Dung Frazier M.D. 05/21/2020 11:06:46 Images reviewed and interpretation verified [facility] Cardiac Ultrasound Laboratory Ebenezer Nguyen MD ECHO ORDERABLES documented in this encounter Visit Diagnoses Diagnosis Thoracic aortic aneurysm without rupture Thoracic aneurysm without mention of rupture Thoracic aortic aneurysm without rupture Thoracic aneurysm without mention of rupture documented in this encounter Care Teams Clinical Programmer Relationship Specialty Start Date End Date Moira Arriaza MD [address] [place] [address] PCP - General 03/22/10 documented as of this encounter
--- OUTSIDE RECORDS SUMMARY | 2024-01-11 00:58 | XMS_ITS | Encounter Summary ---
Author Organization [facility] [place] [address] Care Team Providers Care Lining Vamper Name Role Phone Moira Arriaza MD Primary Care Provider [phone] Reason for Visit * Diagnostic Test (Routine) - Closed Specialty Diagnoses / Procedures Referred By Contac t Referred To Contact Radiology Diagnoses Warthin's tumor Procedures NM PET CT Standard Plus Extremities and Head Watson Nick PA [address] [place] [address] [place] [address] Referral ID Status Reason Start Date Expiration Date V isits Requested Visits Authorized [id number] Closed Specialty Service Requested 02/11/2020 08/09/2020 1 1 Encounter Details Date Type Department Care Team (Late st Contact Info) Description 02/20/2020 2:29 PM EDT - 02/20/2020 11:59 PM EDT Hospital En[place] [address] Watson Nick PA [address] [place] [address] Discharge Disposition: Home Social History [...] Glucose, POC 94 65 - 199 mg/dL [facility] Comment: Supplemental ranges: <140 mg/dL before meals <180 mg/dL all other times of the day Blood specimen (specimen) 02/20/2020 2:35 PM EDT 02/20/2020 2:35 PM EDT Watson [place] [place] [address] documented in this encounter Visit Diagnoses Not on filedocumented in this encounter Care Teams Lining Vamper Relationship Specialty Start Date End Date Moira Arriaza MD [address] [place] [address] PCP - General 03/22/10 documented as of this encounter
--- OUTSIDE RECORDS SUMMARY | 2024-01-11 00:59 | XMS_ITS | Encounter Summary ---
Author Organization [facility] Address [address] [place] [address] Care Team Providers Care Electric Switch Tester Name Role Phone None, Provider Primary Care Provider Unavailabl e Encounter Details Date Type Department Care Team (Late st Contact Info) Description 10/08/2015 Results Only [facility] [phone] Moira Arriaza MD [address] [place] [address] Social History Tobacco Use Types Packs/Day Years [...] ? SUZAN MOLINA ? Accession #: ? [id number] ? : ? 1960 (Age: 55) ??F [...] types 16,18,31,33,35, 39,45,51,52,56,58, 59,66, and 68 by platemaker mediated amplification. Comments Document reviewed and electronically signed by: ? System Interface ? Report date: 10/22/2015 By the signature above, the attending physician certifies that he/she has personally conducted a gross and/or microscopic examination of the described specimens and rendered or confirmed the above diagnosis. End of Report [facility] 10/08/2015 10/12/2015 Moira Arriaza MD PATHOLOGY ORDERABLES [facility] [address] [place] [address] documented in this encounter Visit Diagnoses Not on filedocumented in this encounter Care Teams Electric Switch Tester Relationship Specialty Start Date End Date None, Provider PCP - General 07/27/11 documented as of this encounter
--- OUTSIDE RECORDS SUMMARY | 2024-01-11 00:59 | XMS_ITS | Encounter Summary ---
Author Organization [facility] Address [address] [place] [address] Care Team Providers Care Core Filer Name Role Phone None, Provider Primary Care Provider Unavailabl e Encounter Details Date Type Department Care Team (Latest Contact Info) Description 09/11/2014 9:41 EDT - 09/11/2014 23:59 EDT Hospital Encounter [facility] - [address] [address] Unknown, Provider, Discharge Disposition: Home or Self Care Social History Tobacco Use Types Packs/Day Years Used Date Smoking Tobacco: Never Assessed Sex and Gender Information Value Date Recorded Sex Assigned at Not on file Gender Identity Not on file Sexual Orientation Not on file documented as of this encounter Discharge Disposition Disposition Code Departure Means Destination Home or Self Long-Term documented in this encounter Plan of Treatment Not on file documented as of this encounter Visit Diagnoses Not on filedocumented in this encounter Care Teams Core Filer Relationship Specialty Start Date End Date None, Provider PCP - General 07/27/11 documented as of this encounter
--- OUTSIDE RECORDS SUMMARY | 2024-01-11 00:59 | XMS_ITS | Encounter Summary ---
Author Organization [facility] Address [address] [place] [address] Care Team Providers Care Curatorial Assistant Name Role Phone None, Provider Primary Care Provider Unavailabl e Encounter Details Date Type Department Care Team (Late st Contact Info) Description 02/01/2023 Lab Requisition [facility] Pathology & Laboratory Medicine - [facility] [address] [place] [address] Outr Resulting Lab, Provider Social History Tobacco [...] 11 See Note ug/dL 02/01/2023 21:28 EDT [facility] Comment: NOTE: Reference Ranges (from OCD IFU): Collected Before 10:00 AM: ??4 - 23 ug/dL Collected After 5:00 PM: ?2 - 14 ug/dL The results of this assay can be falsely elevated due to the consumption of Biotin. Blood VENOUS BLOOD / Unknown 02/01/2023 9:47 EDT 02/01/2023 20:43 EDT Provider Outr Resulting Lab CHEMISTRY & BLOOD GAS ORDERABLES [facility] [address] [place] [address] documented in this encounter Visit Diagnoses Not on filedocumented in this encounter Care Teams Curatorial Assistant Relationship Specialty Start Date End Date None, Provider PCP - General 07/27/11 documented as of this encounter
--- OUTSIDE RECORDS SUMMARY | 2024-01-11 00:59 | XMS_ITS | Encounter Summary ---
Author Organization [facility] [place] [address] Care Team Providers Care Machine Clothing Worker Name Role Phone Moira Arriaza MD Primary Care Provider [phone] Reason for Visit * Reason Comments Abdominal Pain Diarrhea Encounter Details Date Type Department Care Team (Late st Contact Info) Description 08/24/2010 11:00 AM EDT Office Visit [place] [address] Nuria Negrete FRONT WORKER [facility] [place] [address] Abdominal pain (Primary Dx) Discharge Disposition: Home [...] AM EDT Section of Gastroenterology and Hepatology [address] [place] [phone] @[email or web address]@ .Suzan Marie : 1960 Patient is here for further evaluation of gastrointestinal symptoms at the request of Dr. Moira Arriaza. HPI:Pt here for LUQ pain and ongoing diarrhea. In November 2009 at [facility] underwent an upper and lower endoscopy. Per note normal, however, no biopsies mentioned, per pt does not recallbiopsies being done. Abdominal CT performed at [facility], beginning of 2010, per note this exam [...] Celiac testing negative. Diet changes no effect. Yi food increases LUQ pain. Using Vicodin, helps [...] of unclear etiology. Will obtain CT from [facility]. Obtain labs CBC, CMP, TSH,lipase. Given ongoing [...] MD HEMATOLOGY ORDERABLE S Performing Organization Address [facility] Co de Phone Number CERLUISA DIASIUM * Lipase (08/24/2010 12:33 PM EDT) Lipase 39 0 - 60 unit/L CERNER MILLENNIUM Blood specimen (specimen) 08/24/2010 12:33 PM EDT 08/24/2010 12:36 PM EDT Chris Rodgers MD CHEMISTRY ORDERABLES Performing Organization Address [facility] Co de Phone Number CERLUISA BARKERENNIUM * TSH (08/24/2010 12:33 PM EDT) Thyroid Stimulating Hormone 2.64 0.27 - 4.20 mcIU/mL CERNER MILLENNIUM Blood specimen (specimen) 08/24/2010 12:33 PM EDT 08/24/2010 12:36 PM EDT Chris Rodgers MD CHEMISTRY ORDERABLES Performing Organization Address [facility] Co de Phone Number CERNER LUCEROENNIUM * [...] site documented in this encounter Care Teams Machine Clothing Worker Relationship Specialty Start Date End Date Moira Arriaza MD [address] [place] [address] PCP - General 03/22/10 documented as of this encounter
--- OUTSIDE RECORDS SUMMARY | 2024-01-11 00:59 | XMS_ITS | Encounter Summary ---
Author Organization [facility] Address [address] [place] [address] Care Team Providers Care Adhesive Sprayer Name Role Phone Unavailable Primary Care Provider Unavailabl e Encounter Details Date Type Department Care Team (Late st Contact Info) Description 08/22/2005 Results Only [facility] [place] [facility] conversion [address] [place] [address] Latasha Sheridan, LINING FOLDER [facility] [address] [place] [address] Social History Tobacco Use Types [...] ? SUZAN MOLINA ? Accession #: ? [id number] : ? 1960 (Age: 45) ??F ?Collect Date: ? 08/22/2005 Location: ? [facility] ? Receive Date: ? 08/24/2005 Provider: ?LATASHA SHERIDAN LINING FOLDER Copy to: ? Specimen/Source: ?ThinPrep Pap Test, Cervix/Endocervix, processed on [employer] ThinPrep Imaging System, with manual evaluation Last [...] 08/24/2005 Latasha Sheridan NP PATHOLOGY ORDERABLES [facility] GAALR[facility] [address] [place] [address] documented in this encounter Visit Diagnoses Not on filedocumented in this encounter
--- OUTSIDE RECORDS SUMMARY | 2024-01-11 00:59 | XMS_ITS | Referral Summary ---
Author Organization [facility] Address [address] [place] [address] Care Team Providers Care Semiconductor Engineer Name Role Phone None, Provider Primary Care Provider Unavailabl e Encounters Date Type Department Care Team Description 12/10/2023 Lab Requisition [facility] Pathology & Laboratory Medicine - [facility] [address] [place] [address] Moira Arriaza MD Encounter for gynecological examination (general) (routine) without abnormal findings from Last 3 Months Social History Tobacco Use Types Packs/Day Years Used Date Smoking Tobacco: Never Assessed Interpersonal Safety Answer Date Record ed Physically Hurt Never 02/22/2020 Verbally Threaten Not on file 02/22/2020 Sex and Gender Information Value Date Recorded Sex Assigned at Not on file Gender Identity Not on file Sexual Orientation Not on file Plan of Treatment Not on file Procedures Procedure Name Priority Date/Time Associated Diagnosis Comments PAP TEST Today 12/06/2023 12:05 EDT Encounter for gynecological examination (general) (routine) without abnormal findings HPV DNA DETECTION WITH GENOTYPING, PCR Today 12/06/2023 12:05 EDT Encounter for gynecological examination (general) (routine) without abnormal findings from Last 3 Months Results * PAP TEST (12/06/2023 12:05 EDT) Specimens A. Cervix and/or Endocervix , ThinPrep Imaging System with Manual Evaluation 12/13/2023 15:07 T [facility] Specimen Adequacy Satisfactory for Evaluation - transformation zone component present 12/13/2023 15:07 T [facility] General Categorization Negative for intraepithelial lesion or malignancy 12/13/2023 15:07 T [facility] Descriptive Diagnosis Shift in yvette present suggestive of bacterial vaginosis. 12/13/2023 15:07 EDT [facility] Attestation . 12/13/2023 15:07 EDT [facility] at 1507 Clinical History SEE BELOW 12/13/19 15:07 EDT [facility] Performing Lab [facility] 12/13/2023 15:07 EDT [facility] Scanned Images 12/13/2023 15:07 EDT [facility] HPV High Risk type 16, PCR Negative 12/13/2023 15:07 EDT [facility] HPV High Risk type 18, PCR Negative 12/13/2023 15:07 EDT [facility] HPV Other High Risk Types, PCR Negative The following Other High Risk HPV types were not detected: 31,33, 35, 39, 45, 51, 52, 56, 58, 59, 66 and 68. 12/13/2023 15:07 EDT [facility] Pap Test CERVIX UTERI STRUCTURE / Unknown 12/06/2023 12:05 EDT 12/10/2023 14:52 EDT Moira Arriaza MD PATHOLOGY ORDERABLES [facility] [address] [place] [id number] * HPV DNA DETECTION WITH GENOTYPING, PCR (12/06/2023 12:05 EDT) HPV High Risk type 16, PCR Negative Negative 12/13/2023 15:07 EDT [facility] HPV High Risk type 18, PCR Negative Negative 12/13/2023 15:07 EDT [facility] HPV other High Risk types, PCR Negative Negative 12/13/2023 15:07 EDT [facility] Comment: The following Other High Risk HPV types were not detected: ??31,33, 35, 39, 45, 51, 52, 56, 58, 59, 66 and 68. Pap Test CERVIX UTERI STRUCTURE / Unknown 12/06/2023 12:05 EDT 12/12/2023 15:43 EDT Moira Arriaza MD MICROBIOLOGY - GENER AL ORDERABLES [facility] [address] [place] [address] from Last 3 Months Care Teams Semiconductor Engineer Relationship Specialty Start Date End Date None, Provider PCP - General 07/27/11
--- OUTSIDE RECORDS SUMMARY | 2024-01-11 00:59 | XMS_ITS | Encounter Summary ---
Author Organization [facility] Address [address] [place] [id number] Care Team Providers Care Towel Sorter Name Role Phone Unavailable Primary Care Provider Unavailabl e Encounter Details Date Type Department Care Team (Late st Contact Info) Description 07/24/2011 Results Only [facility] Laboratory Services - [facility] ([facility]) [address] [place] [phone] Johnson Schroeder MD [address] [place] [address] Social History Tobacco Use Types Packs/Day [...] ? SUZAN MOLINA ? Accession #: ? [id number] ? : ? 1960 (Age: 51) ??F [...] and agrees with the above interpretation. (Dr. Cortez)/[facility] Document reviewed and electronically signed by: SHELDON [...] Gross Description: ? Received in formalin labelled Odell, Suzan and tongue lesion is an apparent shave biopsy of a 0.7 x 0.5 x 0.3 cm, white, roughened mucosal nodule. The resection margin is inked black, the specimen is trisected and entirely submitted in a single cassette. ??(Td Silveira)/[facility] End of Report DOMINIK GALARZA 07/24/2011 07/26/2011 8:2 7 EDT Johnson Schroeder MD PATHOLOGY ORDERABLES [facility] [address] [place] [address] documented in this encounter Visit Diagnoses Not on filedocumented in this encounter
--- OUTSIDE RECORDS SUMMARY | 2024-01-11 00:59 | XMS_ITS | Encounter Summary ---
Author Organization [facility] Address [address] [place] [address] Care Team Providers Care Elementary Summer School Teacher Name Role Phone None, Provider Primary Care Provider Unavailabl e Encounter Details Date Type Department Care Team (Late st Contact Info) Description 01/30/2020 Lab Requisition [facility] Pathology & Laboratory Medicine - [address] [address] [place], [address] [phone] Localized swelling, mass and lump, head; Localized [...] Name Priority Date/Time Associated Diagnosis Comments NON LITHOGRAPH PRINTER/FNA CYTOLOGY Today 01/29/2020 10:20 EDT Localized swelling, mass and lump, head Localized swelling, mass and lump, neck Solitary pulmonary nodule documented in this encounter Results * NON LITHOGRAPH PRINTER/FNA CYTOLOGY (01/29/2020 10:20 EDT) Final Diagnosis A. SUBMITTED LEFT NECK MASS, SUPERFICIAL, ULTRASOUND-GUIDED NEEDLE ASPIRATION: - Features suggestive of Warthin tumor. See comment. B. SUBMITTED LEFT NECK MASS, DEEP, ULTRASOUND-GUIDED FINE NEEDLE ASPIRATION: - Hypocellular with scant lymphocytes and rare bland epithelioid cells. See comment. 02/03/2020 17:51 EDT [facility] Diagnosis Comment This case was [...] diagnosis. Correlation with radiographic imaging is essential. Respiratory Therapy Instructor slides of this case were reviewed at the intradepartmental consultation conference. 02/03/2020 17:51 [facility] Attestation There was significant resident/fellow involvement in the diagnostic evaluation of this case. By the signature below, the attending physician certifies that they have personally conducted a gross and/or microscopic examination of the described specimens and rendered or confirmed the above diagnosis. 02/03/2020 17:51 [facility] at 1751 Rapid Diagnosis [...] Aspiration sample was performed by Pathologists at [facility], [address] [place] [id number] 02/03/2020 17:51 EDT [facility] Clinical History Left neck mass; lymphadenopathy; smoker 02/03/2020 17:51 EDT [facility] Gross Description A. 1 fixed prepared slide, 2 Diff Quik prepared slides, 1 tube of RPMI for cell block, and 1 tube of CytoLyt were received and processed by selective cellular enhancement technique. B. 1 fixed prepared slide, 2 air dried prepared slides, and 1 tube of CytoLyt were received and processed by selective cellular enhancement technique. 02/03/2020 17:51 EDT [facility] Resident/Fell ow: Lisa Hollis MD 02/03/2020 17:51 EDT [facility] Performing Lab [facility] 02/03/2020 17:51 EDT [facility] Scanned Images 02/03/2020 17:51 EDT [facility] Fine Needle Aspirate SOFT TISSUE / Unknown 01/29/2020 10:20 EDT 01/30/2020 6:33 EDT Specimen obtained by fine needle aspiration procedure (specimen) SOFT TISSUE / Unknown 01/29/2020 10:20 EDT 01/30/2020 6:33 EDT Watson SILVER PATHOLOGY ORDERABL ES [facility] [address] [place] [address] documented in this encounter Visit Diagnoses Diagnosis Localized swelling, mass and lump, head Localized swelling, mass and lump, neck Swelling, mass, or lump in head and neck Solitary pulmonary nodule documented in this encounter Care Teams Elementary Summer School Teacher Relationship Specialty Start Date End Date None, Provider PCP - General 07/27/11 documented as of this encounter
--- OUTSIDE RECORDS SUMMARY | 2024-01-11 00:59 | XMS_ITS | Encounter Summary ---
Author Organization [facility] Address [address] [place] [address] Care Team Providers Care Cello Teacher Name Role Phone Unavailable Primary Care Provider Unavailabl e Encounter Details Date Type Department Care Team (Late st Contact Info) Description 2004 Results Only [facility] - [place] [facility] [address] [place] [address] Moira Arriaza MD [address] [place], [place] [phone] Social History Tobacco Use Types Packs/Day Years [...] ? SUZAN MOLINA ? Accession #: ? [id number] : ? 1960 (Age: 44) ??F ?Collect [...] Arriaza MD PATHOLOGY ORDERABLES [facility] [address] [place] [address] documented in this encounter Visit Diagnoses Not on filedocumented in this encounter
--- OUTSIDE RECORDS SUMMARY | 2024-01-11 00:59 | XMS_ITS | Encounter Summary ---
Author [facility] [place] [address] Care Team Providers Care Np Name Role Phone Moira Arriaza MD Primary Care Provider [phone] Encounter Details Date Type Department Care Team (Latest Contact Info) Description 09/14/2010 2:17 PM EDT - 09/14/2010 6:30 PM EDT Hospital En[place] [phone] [facility] [place] [address] [facility] [place] [address] Discharge Disposition: Home Social History Tobacco Use [...] Borjas MD - 09/14/2010 5:24 PM EDT [facility] Operative Note Patient Name: Suzan Marie : [id number] MR#: [id number] Case Date: 09/14/2010 Surgeon: Surgeon(s) and Role: [...] 6:03 PM EDT) Surgical Pathology Report [id number] ? Location: 4T The signing pathologist has [...] 6:03 PM EDT) Surgical Pathology Report ? [facility] ? Provider: ?? YOEL BORJAS ??Pt. Name: ?? SUZAN MARIE ?I ? Acc #: ?[id number] ?Pt. ? Col Date: ?? 09/14/2010 ? [...] Tissue Description: ?? Soft, rowe tissues. ? [facility] ? Provider: ?? YOEL BORJAS ??Pt. Name: ?? SUZAN MARIE ?I ? Acc #: ?[id number] ?Pt. ? Col Date: ?? 09/14/2010 ? [...] EDT Yoel Nation MD PATHOLOGY/CYTOLO GY ORDERABLES [facility] * COLONOSCOPY (09/14/2010 4:02 PM EDT) COLONOSCOPY [facility] Endoscopy Patient Name: Suzan Marie ? Procedure Date: 09/14/2010 04:02:09 PM ? Date of : 1960 ? Age: 50 ? Procedure: ? Colonoscopy Indications: ? Chronic diarrhea Providers: ? Yoel Borjas MD, Ania ? Lopez, ESTELA, Latasha Jimenez, Jeeper Operator Referring : ?Nuria Martínez MD Medicines: ? [...] (09/14/2010 4:01 PM EDT) UPPER GI ENDOSCOPY [facility] Endoscopy Patient Name: Suzan Marie ? Procedure Date: 09/14/2010 04:01:18 PM ? N: [id number] ? Date of : 1960 ? Age: 50 ? Procedure: ? Upper GI endoscopy Indications: ? Dyspepsia, Diarrhea Providers: ? Yoel Borjas MD, Ania ? Lopez, ESTELA, Latasha Jimenez, Jeeper Operator Referring : ?Nuria Martínez MD Medicines: ? [...] RN) documented in this encounter Care Teams Np Relationship Specialty Start Date End Date Moira Arriaza MD [address] [place] [address] PCP - General 03/22/10 documented as of this encounter
--- OUTSIDE RECORDS SUMMARY | 2024-01-11 00:59 | XMS_ITS | Encounter Summary ---
Author Organization [facility] Address [address] [place] [address] Care Team Providers Care Cottage Master Name Role Phone None, Provider Primary Care Provider Unavailabl e Encounter Details Date Type Department Care Team (Late st Contact Info) Description 09/11/2014 Results Only [facility] [phone] Anders Pillai MD [address] [place] [address] Social History Tobacco Use Types Packs/Day Years [...] ? SUZAN MOLINA ? Accession #: ? [id number] : ? 1960 (Age: 54) ??F ?Collect [...] electronically signed by: ? TONYA MARIEE MD [facility] Report Date: ??09/16/2014 21:41 By the [...] cellular enhancement technique. ? End of Report [facility] 09/11/2014 09/14/2014 16: 11 EDT Anders Pillai MD PATHOLOGY ORDERABLES Performing Organization Address City/State/[facility] Co de Phone Number [facility] [address] [place] [address] documented in this encounter Visit Diagnoses Not on filedocumented in this encounter Care Teams Cottage Master Relationship Specialty Start Date End Date None, Provider PCP - General 07/27/11 documented as of this encounter
--- OUTSIDE RECORDS SUMMARY | 2024-01-11 00:59 | XMS_ITS | Clinical Summary ---
Author Organization [facility] Address [address] [place] [address] Care Team Providers Care Operating Manager Name Role Phone None, Provider Primary Care Provider Unavailabl e Encounters Date Type Department Care Team Description 12/10/2023 Lab Requisition [facility] Pathology & Laboratory Medicine - [facility] [address] [place] [address] Moira Arriaza MD Encounter for gynecological examination [...] - 1-dose 60+ series) 2022 COVID-19 Vaccine ( season) 2023 Procedures Procedure Name Priority Date/Time Associated Diagnosis [...] Imaging System with Manual Evaluation 12/13/2023 15:07 EDT [facility] Specimen Adequacy Satisfactory for Evaluation - transformation zone component present 12/13/2023 15:07 EDT [facility] General Categorization Negative for intraepithelial lesion or malignancy 12/13/2023 15:07 [facility] Descriptive Diagnosis Shift in yvette present suggestive of bacterial vaginosis. 12/13/2023 15:07 EDT [facility] Attestation . 12/13/2023 15:07 [facility] at 1507 Clinical History SEE BELOW 12/13/19 15:07 [facility] Performing Lab [facility] 12/13/2023 15:07 [facility] Scanned Images 12/13/2023 15:07 [facility] HPV High Risk type 16, PCR Negative 12/13/2023 15:07 T [facility] HPV High Risk type 18, PCR Negative 12/13/2023 15:07 [facility] HPV Other High Risk Types, PCR Negative The following Other High Risk HPV types were not detected: 31,33, 35, 39, 45, 51, 52, 56, 58, 59, 66 and 68. 12/13/2023 15:07 [facility] Pap Test CERVIX UTERI STRUCTURE / Unknown 12/06/2023 12:05 EDT 12/10/2023 14:52 EDT Moira Arriaza MD PATHOLOGY ORDERABLES [facility] [address] [place], [place] [phone] * HPV DNA DETECTION WITH GENOTYPING, PCR (12/06/2023 12:05 EDT) HPV High Risk type 16, PCR Negative Negative 12/13/2023 15:07 EDT [facility] HPV High Risk type 18, PCR Negative Negative 12/13/2023 15:07 T [facility] HPV other High Risk types, PCR Negative Negative 12/13/2023 15:07 EDT [facility] Comment: The following Other High Risk HPV types were not detected: ??31,33, 35, 39, 45, 51, 52, 56, 58, 59, 66 and 68. Pap Test CERVIX UTERI STRUCTURE / Unknown 12/06/2023 12:05 EDT 12/12/2023 15:43 EDT Moira Arriaza MD MICROBIOLOGY - GENER AL ORDERABLES [facility] [address] [place] [address] from Last 3 Months Care Teams Operating Manager Relationship Specialty Start Date End Date None, Provider PCP - General 07/27/11
--- OUTSIDE RECORDS SUMMARY | 2024-01-11 00:59 | XMS_ITS | Encounter Summary ---
Author Organization [facility] Address [address] [place] [address] Care Team Providers Care Utilization Review Coordinator Name Role Phone None, Provider Primary Care Provider Unavailabl e Encounter Details Date Type Department Care Team (Late st Contact Info) Description 08/10/2021 Lab Requisition [facility] Pathology & Laboratory Medicine - [facility] [address] [place] [address] Outr Resulting Lab, Provider Social History Tobacco [...] Priority Date/Time Associated Diagnosis Comments [facility] Today 08/09/2021 10:20 EDT COVID-19 TESTING Routine 08/09/2021 10:2 0 EDT documented in this encounter Results * COVID-19 TEST [facility] PCR (08/09/2021 10:20 EDT) Swab 08/09/2021 10:2 0 EDT 08/10/2021 16:32 EDT Provider Outr Resulting Lab MICROBIOLOGY - GENERAL ORDERABLES [facility] [address] [place] [address] * COVID-19 TESTING (08/09/2021 10:20 EDT) COVID-19 rt-PCR Result Negative Negative 08/11/2021 11:21 EDT [facility] Comment: This test has not [...] was performed using the supriya SARS-CoV-2 assay ([employer] on the Supriya 6800 System Performing Lab Supriya 6800 [facility] 08/11/2021 11:21 EDT [facility] Swab 08/09/2021 10:2 0 EDT 08/10/2021 16:32 EDT Provider Outr Resulting Lab MICROBIOLOGY - GENERAL ORDERABLES Performing Organization Address City/State/[facility] Co de Phone Number [facility] [address] [place] [address] documented in this encounter Visit Diagnoses Not on filedocumented in this encounter Care Teams Utilization Review Coordinator Relationship Specialty Start Date End Date None, Provider PCP - General 07/27/11 documented as of this encounter
--- OUTSIDE RECORDS SUMMARY | 2024-01-11 00:59 | XMS_ITS | Encounter Summary ---
Author Organization [facility] Address [address] [place] [address] Care Team Providers Care Cook Candy Name Role Phone None, Provider Primary Care Provider Unavailabl e Encounter Details Date Type Department Care Team (Latest Contact Info) Description 12/10/2023 Lab Requisition [facility] Pathology & Laboratory Medicine - [facility] [address] [place] [address] Moira Arriaza MD [address] [place] [phone] Encounter for gynecological examination (general) (routine) without abnormal findings Social History Tobacco Use Types Packs/Day Years [...] gynecological examination (general) (routine) without abnormal findings documented in this encounter Results * HPV DNA DETECTION WITH GENOTYPING, PCR (12/06/2023 12:05 EDT) HPV High Risk type 16, PCR Negative Negative 12/13/2023 15:07 EDT [facility] HPV High Risk type 18, PCR Negative Negative 12/13/2023 15:07 EDT [facility] HPV other High Risk types, PCR Negative Negative 12/13/2023 15:07 T [facility] Comment: The following Other High Risk HPV types were not detected: ??31,33, 35, 39, 45, 51, 52, 56, 58, 59, 66 and 68. Pap Test CERVIX UTERI STRUCTURE / Unknown 12/06/2023 12:05 EDT 12/12/2023 15:43 EDT Moira Arriaza MD MICROBIOLOGY - GENER AL ORDERABLES [facility] [address] [place] [address] * PAP TEST (12/06/2023 12:05 EDT) Specimens A. Cervix and/or Endocervix , ThinPrep Imaging System with Manual Evaluation 12/13/2023 15:07 [facility] Specimen Adequacy Satisfactory for Evaluation - transformation zone component present 12/13/2023 15:07 [facility] General Categorization Negative for intraepithelial lesion or malignancy 12/13/2023 15:07 [facility] Descriptive Diagnosis Shift in yvette present suggestive of bacterial vaginosis. 12/13/2023 15:07 [facility] Attestation . 12/13/2023 15:07 [facility] at 1507 Clinical History SEE BELOW 12/13/19 24 15:07 [facility] Performing Lab [facility] 12/13/2023 15:07 [facility] Scanned Images 12/13/2023 15:07 [facility] HPV High Risk type 16, PCR Negative 12/13/2023 15:07 [facility] HPV High Risk type 18, PCR Negative 12/13/2023 15:07 [facility] HPV Other High Risk Types, PCR Negative The following Other High Risk HPV types were not detected: 31,33, 35, 39, 45, 51, 52, 56, 58, 59, 66 and 68. 12/13/2023 15:07 EDT [facility] Pap Test CERVIX UTERI STRUCTURE / Unknown 12/06/2023 12:05 EDT 12/10/2023 14:52 EDT Moira Arriaza MD PATHOLOGY ORDERABLES Performing Organization Address City/State/[facility] Co de Phone Number [facility] [address] [place] [phone] documented in this encounter Visit Diagnoses Diagnosis Encounter for gynecological examination (general) (routine) without abnormal findings documented in this encounter Care Teams Cook Candy Relationship Specialty Start Date End Date None, Provider PCP - General 07/27/11 documented as of this encounter
== END 2024-01-11 01:07 ==
PROVIDERS: PCP Family Medicine; Visit Provider Family Medicine
DX: Z12.31 Encounter for screening mammogram for malignant neoplasm of breast (principal); R92.8 Other abnormal and inconclusive findings on diagnostic imaging of breast
CPT/HCPCS: 77063; 77067

== ENCOUNTER 2024-02-01 12:36 | Outpatient (REF) | payer MEDICAID, SELFPAY ==
--- OUTSIDE RECORDS SUMMARY | 2024-02-01 12:40 | XMS_ITS | Data Portability ---
Author Organization [place] - [facility] Address [address] [place] [address] Care Team Providers Care Electrical Tryout Person Name Role Phone MOIRA CAT Primary Care Provider [phone] JORDAN PONCE Urologist MARLINE GANDHI Cardiac Surgeon RAUL GALDAMEZ Orthopedic Surgeon MOIRA ERNST Equal Opportunity Assistant [facility] [employer] LEO SARABIA [employer] Specialist [phone] Assessment Encounter Date Assessment Date Assessment LastModified by Organization Details LastModified Time 05/08/2023 05/08/2023 Patient presents for of general chronic pain. Based on patient history, physical exam, and previous treatments, I recommend INSERT TEXT HERE. Weight loss recommended at this time. Discussed treatment plan and instructions with patient. [email or web address] Not available 05/07/2023 11:44:31 Plan of Treatment Reminders Order Date Submit Date Provider Last Modified By Organization Details Last Modified Time Details Appointments Office Visit 2023 10:40A M Not available Not available Not available Follow Up 2024 11:30A M Not available Not available Not available Lab 5-hydroxy indoleace stinson, 24-hour urine - Patient will need to pick-up 24hr urine collectio n supples 2023 024 sabiha [facility] ([facility]), [address] , [place], [address], 06/17/2023 16:28:52 pap, LB + HR HPV 2023 024 [facility] (Registration ), [address] [place] [address] [place], [address], 12/20/2023 12:57:42 HbA1c (hemoglob in A1c), blood 2023 024 [facility] (Registration ), [address] [place] [address] [place], [address], 12/06/2023 15:51:16 lipid panel, serum 2023 024 [facility] (Registration ), [address] [place] [address] [place], [address], 12/06/2023 15:51:16 TSH, serum, reflex free T4 2023 024 [facility] (Registration ), [address] [place] [address] [place], [address], 12/06/2023 15:51:16 vitamin D, 25-hydrox y, total, serum 2023 024 [facility] (Registration ), [address] [place] [address] [place], [address], 12/06/2023 16:40:23 CMP, serum or plasma 2023 024 [facility] (Registration ), [address] [place] [address] [place], [address], 12/06/2023 16:40:22 Referral cardiotho racic vascular surgeon referral 2023 024 [email or web address] [facility] Thoracic Surgery, [facility] [place], [address], 01/23/2024 12:02:41 cardiotho racic vascular surgeon referral 2023 024 ATHENAFAX [facility] Thoracic Surgery, [facility] [place], [address], 09/25/2023 11:15:30 Procedures None recorded. Surgeries None recorded. Imaging MAMMO, screening , bilateral 2023 [facility], [address], [place], [address], 12/10/2023 11:30:40 Medication Orders hydrocodo ne 7.5 mg-acetam inophen 325 mg tablet 2023 024 [facility], [address] [place] [address], [address], 05/08/2023 13:10:58 hydrocodo ne 7.5 mg-acetam inophen 325 mg tablet 2023 024 sberrian [facility], [address] [place] [address], [id number], 05/29/2023 16:05:37 hydrocodo ne 7.5 mg-acetam inophen 325 mg tablet 2023 024 [facility], [address] [place] [address], [id number], 05/29/2023 08:51:17 hydrocodo ne 7.5 mg-acetam inophen 325 mg tablet 2023 024 [facility], [address] [place] [address], [address], 05/29/2023 08:51:17 losartan 25 mg tablet 2023 024 [facility], [address] [place] [address], [id number], 05/08/2023 13:10:52 ergocalci ferol (vitamin D2) 1,250 mcg (50,000 unit) capsule 2023 024 [email or web address] [facility], [address] [place] [address], [id number], 12/06/2023 12:24:23 diclofena c 1 % topical gel 2023 024 [facility], [address] [place] [address], [address], 05/08/2023 13:10:50 losartan 25 mg tablet 2023 024 [facility], [address] [place], [address], 06/17/2023 07:27:06 diclofena c 1 % topical gel 2023 024 [facility], [address] [place] [address], [address], 06/17/2023 07:27:04 hydrocodo ne 7.5 mg-acetam inophen 325 mg tablet 2023 024 [facility], [address] [place] [address], [address], 06/17/2023 07:27:08 hydrocodo ne 7.5 mg-acetam inophen 325 mg tablet 2023 024 [facility], [address] [place] [address], [address], 06/17/2023 07:27:08 ergocalci ferol (vitamin D2) 1,250 mcg (50,000 unit) capsule 2023 024 [facility], [address] [place] [address], [address], 12/06/2023 12:24:26 hydrocodo ne 7.5 mg-acetam inophen 325 mg tablet 2023 024 [facility], [address] [place] [address], [address], 09/20/2023 18:30:04 hydrocodo ne 7.5 mg-acetam inophen 325 mg tablet 2023 024 [facility]BU[facility], [address] [place] [address], [address], 09/20/2023 18:30:10 hydrocodo ne 7.5 mg-acetam inophen 325 mg tablet 2023 024 [facility], [address] [place] [address], [address], 09/20/2023 18:30:04 diclofena c 1 % topical gel 2023 [facility], [address] [place] [address], [address], 09/20/2023 18:30:10 hydrocodo ne 7.5 mg-acetam inophen 325 mg tablet 2023 024 [facility], [address] [place] [address], [address], 12/06/2023 15:29:26 hydrocodo ne 7.5 mg-acetam inophen 325 mg tablet 2023 024 [facility], [address] [place] [address], [id number], 12/06/2023 15:29:26 Patient TargetsNo targets recorded. Patient Instructions Encounter Date Encounter Id Patient Instructions Last Modified By Organization Details Last Modified Time 12/06/[id number] John Gandhi's office (cardiac surgery) at [facility] to get your chest CT scan scheduled. [email or web address] Not available 12/06/2023 11:47:54 Reason for Referral Sleep Medicine Referral for Sleep apnea Referring Physician: Moira Cat [facility], Encounter Date: 03/21/2023 Cardiothoracic Vascular Surg salomón Referral for Thoracic aortic aneurysm without rupture [facility]: [facility]23 Cardiothoracic Vascular Surg salomón Referral for Thoracic aortic aneurysm without rupture f/u of thoracic aneurysm Referring Physician: Moira Cat [facility], Encounter Date: 09/20/2023 General Surgeon Referral for Family history of cancer of colon Hx of family colon CA, colonoscopy needed Referring Physician: Moira Cat [facility], Encounter Date: 12/11/2023 Results Created Date Observation Date Name Description Value Unit Range Abnormal Flag Note LastModifiedBy Organization Detail LastModifiedTime 12/06/19 24 12/06/2023 COMPR EHENS JORJE METAB OLIC PANEL calcium 10.0 mg/dL 8.5-10 .1 normal Not Available [address] [facility] [place], [address] 12/06/2023 16:40:22 12/06/19 24 12/06/2023 COMPR EHENS JORJE METAB OLIC PANEL glucose 99 mg/dL 74-106 normal Not Available Sravan araujo [address] [facility] [place], [address] 12/06/2023 16:40:22 12/06/19 24 12/06/2023 COMPR EHENS JORJE METAB OLIC PANEL BUN 11 mg/dL 7-18 normal Not Available Sravan araujo [address] [place], [address] 12/06/2023 16:40:22 12/06/19 24 12/06/2023 COMPR EHENS JORJE METAB OLIC PANEL creatinine 0.8 mg/dL 0.55-1 .02 normal Not Available [address] [place], [address] 12/06/2023 16:40:22 12/06/19 24 12/06/2023 COMPR EHENS JORJE METAB OLIC PANEL estimated GFR 83.78 mL/min /1.73m 2 The eGFR is calcu lated from a serum creat inine using the CKD-E PI 2020 equat ion. Other varia bles requi red for the equat ion are gende r and age; this equat ion does not inclu de a race coeff icien t. This equat ion has simil ar overa ll perfo rmanc e to previ ous equat ions excep t value s may diffe r, in parti cular , in patie nts with highe r value s of eGFR and young er-ag ed adult s. Not Available [address] [place], [address] 12/06/2023 16:40:22 12/06/19 24 12/06/2023 COMPR EHENS JORJE METAB OLIC PANEL total protein 7.7 g/dL 6.4-8. 2 normal Not Available [address] [place], [address] 12/06/2023 16:40:22 12/06/19 24 12/06/2023 COMPR EHENS JORJE METAB OLIC PANEL albumin 3.7 g/dL 3.4-5. 0 normal Not Available [address] [place], [address] 12/06/2023 16:40:22 12/06/19 24 12/06/2023 COMPR EHENS JORJE METAB OLIC PANEL bilirubin, total 0.32 mg/dL 0.2-1. 0 normal Not Available [address] [place], [address] 12/06/2023 16:40:22 12/06/19 24 12/06/2023 COMPR EHENS JORJE METAB OLIC PANEL alk phos 60 U/L 46-116 normal Not Available [address] [place], [address] 12/06/2023 16:40:22 12/06/19 24 12/06/2023 COMPR EHENS JORJE METAB OLIC PANEL sodium 141 mmol/ L 136-14 5 normal Not Available [address] [place], [address] 12/06/2023 16:40:22 12/06/19 24 12/06/2023 COMPR EHENS JORJE METAB OLIC PANEL potassium 4.3 mmol/ L 3.5-5. 1 normal Not Available [address] [place], [address] 12/06/2023 16:40:22 12/06/19 24 12/06/2023 COMPR EHENS JORJE METAB OLIC PANEL chloride 106 mmol/ L 98-107 normal Not Available [address] [place], [address] 12/06/2023 16:40:22 12/06/19 24 12/06/2023 COMPR EHENS JORJE METAB OLIC PANEL CO2 25.3 mmol/ L 21.0-3 2.0 normal Not Available [address] [place], [address] 12/06/2023 16:40:22 12/06/19 24 12/06/2023 COMPR EHENS JORJE METAB OLIC PANEL anion gap 9.7 mmol/ L 3-11 normal Not Available [address] [place], [address] 12/06/2023 16:40:22 12/06/19 24 12/06/2023 COMPR EHENS JORJE METAB OLIC PANEL AST 19 U/L 15-37 normal Not Available Sravan araujo [address] [place], [address] 12/06/2023 16:40:22 12/06/19 24 12/06/2023 COMPR EHENS JORJE METAB OLIC PANEL ALT 23 U/L 14-59 normal Not Available Sravan araujo [address] [place], [address] 12/06/2023 16:40:22 12/06/19 24 12/06/2023 LIPID 2 cholesterol 170 mg/dL <200 Not Available [address] [place], [address] 12/06/2023 16:40:22 12/06/19 24 12/06/2023 LIPID 2 triglyceride 198 mg/dL <150 high Not Available [address] [place], [address] 12/06/2023 16:40:22 12/06/19 24 12/06/2023 LIPID 2 HDL cholesterol 37 mg/dL 40-60 low Not Available Calin blum[address] [place], [address] 12/06/2023 16:40:22 12/06/19 24 12/06/2023 LIPID 2 calculated LDL 94 mg/dL <100 Natio nal Emily stero l Educa tion Progr am (NCEP -ATPI II) class ifica tions : Emily stero l <200 mg/dL Ludwin able Emily stero l 200-2 39 mg/dL Borde rline High Emily stero l >or=2 40 mg/dL High HDL <40 mg/dL Low HDL >or=6 0 mg/dL High LDL <100 mg/dL Optim al LDL 100-1 29 mg/dL Near Optim al/Ab ove Optim al LDL 130-1 59 mg/dL Borde rline High LDL 160-1 89 mg/dL High LDL >or=1 90 mg/dL Very High *The above refer ence range is for adult s 18 years or older . Not Available [address] [place], [address] 12/06/2023 16:40:22 12/06/19 24 12/06/2023 TSH (W/RE F FT4) TSH (w/ref FT4) 2.35 uIU/m L 0.36-3 .74 normal Not Available [address] [place], [address] 12/06/2023 16:40:23 12/06/19 24 12/06/2023 VITAM IN D 25 TOTAL vitamin D 25 total 38.3 NG/mL 30-100 normal Refer ence Guide lines : Defic ient: <10 ng/ml Insuf ficie nt: 10-30 ng/ml Suffi cient : 30-10 0 ng/ml Toxic : >100 ng/ml Not Available [address] [facility] [place], [address] 12/06/2023 16:40:23 12/06/19 24 12/06/2023 HEMOG LOBIN A1C hemoglobin A1C 5.9 % <5.7 high Refer ence Range s <5.7 Paulina l 5.7-6 .4% Predi abete s 6.5% or great er Diagn ostic for diabe betty (if confi rmed) Refer ences : 1. Ameri can Diabe betty Assoc iatio n. Clas sific ation and Diagn osis of Diabe betty. Diabe betty Care 2019 Apr; 2(Sup pleme nt 1):S1 3-s28 . Not Available [facility] [address], [place], [address] 12/06/2023 17:05:28 01/11/20 24 01/11/2024 MAMMO GRAPH Y IMAGI NG REPOR T mammography imaging report Patie nt Name: Joann Corral Unit #: [id number] Loc: DI Order ing Provi sharlene: Sa jacoby Chapman M.D. Accou nt #: [id number] Statu s: REG CLI Prima ry Care Provi sharlene: Sa jacoby Chapman M.D. Date of Exam : 01/10 Sex: F Admis diogo Date: 01/10 : 03/15 Age: 63 Exam( s) MG MAMMO SCREE N CALL BACK UNI EXAM: MG MAMMO SCREE N CALL BACK UNI CLINI LAINEY HISTO RY: F/U MAMMO 01/08, REPEA T MLO ON LT FOR MOTIO N,R92 .8 TECHN IQUE: Left MLO mammo graph ic image s were obtai matty with 3D tomos ynthe sis and utili zing compu ter aided detec tion (CAD) . LAM RISON : Avail able for lam rison . FINDI NGS: Neal s/Arc hitec tural Disto rtion : None seen. Micro calci ficat ions: No suspi cious pleom orphi c-typ e are seen. Skin Thick ening /Nipp le Retra ction : None. IMPRE SSION : 1. No signi fican t inter viviana krause e with no speci fic featu res of malangela woodruff noted . 2. Unles s there is more urgen t need, scree zohra mammo graph y is recom cinthia d, as per [facility] guide lines . BI-RA DS Categ ory 1 - Negat jorje Breas t Densi ty - Categ ory A - Almos t entir edmar fatty A negat jorje radio graph ic repor t shoul d not delay biops y if a domin ant or clini itz suspi cious mass is prese nt. Up to ten perce nt of cance rs are not ident ified on mammo graph y. A negat jorje repor t may reinf orce clini lainey impre ssion . Adeno sis and dense breas ts may obscu re an under lying neopl asm. False posit jorje repor ts avera ge 6 to 10%. Patie nt will recei ve a lette r notif christi them of these resul ts. Order ed By: Sa jacoby Chapman M.D. CC: ----- ----- ----- ----- ----- ----- ----- ----- ----- ----- ----- ----- ----- ----- --- Dicta vj By: Radha Fermin M.D. 01/10 Trans cribe d By: Roya Fermin 01/10 This is privi leged , confi denti al infor matio n inten ded only for the provi sharlene named . Any use or distr ibuti on by any perso n other than this provi sharlene is stric rivery prohi bited . If you recei ve this repor t in error , pleas e notif y us immed iatel y at [phone] and retur n the origi nal repor t to us at the addre ss above . Thank -you. Not Available [facility] [address] [place], [address] 01/11/2024 15:28:47 02/01/20 24 02/01/2024 influ gokul virus A + B + SARS- CoV-2 (COVI D19) Ag panel , rapid IA, upper respi rator y speci men Influenza A negati ve Not Available [address], [place], [address], 02/01/2024 11:07:12 02/01/20 24 02/01/2024 influ gokul virus A + B + SARS- CoV-2 (COVI D19) Ag panel , rapid IA, upper respi rator y speci men Influenza B negati ve Not Available [address], [address], 02/01/2024 11:07:12 02/01/20 24 02/01/2024 influ gokul virus A + B + SARS- CoV-2 (COVI D19) Ag panel , rapid IA, upper respi rator y speci men SARS-COV-2 negati ve Not Available [address], [address], 02/01/2024 11:07:12 02/01/20 24 02/01/2024 influ gokul virus A + B + SARS- CoV-2 (COVI D19) Ag panel , rapid IA, upper respi rator y speci men Sample sent for PCR confirmation No Not Available [address], [address], 02/01/2024 11:07:12 01/01/20 24 01/01/2024 ultra sound imagi ng repor t Cindy t Name: Suzan Chaudhary Unit #: [id number] Loc: DI Orderi ng Provid er: Kamille Baldwin DNP Accoun t #: [id number] Status : REG CLI Primar y Care Provid er: Iveth Lozada M.D. Date of Exam : Sex: F Admiss ion Date: : 1959 Age: 63 Exam(s ) US RENAL EXAM: US RENAL CLINIC AL HISTOR Y: monito ring left renal calcul i,kidn ey stones ,hemat uria,r 31.29, n20.0. TECHNI QUE: Vann scale, color and spectr al Dopple r were used. COMPAR LAURA: US US RENAL from 2022 FINDIN GS: Renal size in cm: Right: 11.4. Left: 11.7. Echoge nicity : Normal . Hydron ephros is: No. Cyst or mass: No. Nephro lithia sis: There is an echoge val focus in the inferi or pole of the left kidney measur ing 1 cm. Other findin gs: None. Bladde r:Norm al. Ureter al jets: Right: Visual ized and unrema rkable . Left: Visual ized and unrema rkable . Prevoi d vol:17 5 cc Postvo id vol:9 cc Renal color flow: Symmet dylan and within normal limits . IMPRES DIOGO: Left nephro lithia sis. No obstru ctive uropat hy. DATA REPOSI TORY: Ordere d By: Kamille Baldwin DNP CC: ------ ------ ------ ------ ------ ------ ------ ------ ------ ------ ------ ------ - Dictat ed By: Ollie Rondon M.D. 142 142 Transc ribed By: Ollie Rondon 1424 This is privil eged, confid ential inform ation intend ed only for the provid er named. Any use or distri bution by any person other than this provid er is strict ly prohib ited. If you receiv e this report in error, please notify us immedi ately at and return the origin al report to us at the addres s above. Thank- you. sabiha [facility] [address] [place], [address] 01/05/2024 06:58:58 01/09/20 24 01/09/2024 mammo graph y imagi ng repor t Patien t Name: Suzan Chaudhary Unit #: [id number] Loc: DI Orderi ng Provid er: Iveth Lozada M.D. Accoun t #: [id number] Status : REG CLI Primar y Care Provid er: Iveth Lozada M.D. Date of Exam : Sex: F Admiss ion Date: : 1959 Age: 63 Exam(s ) MAMMO SCREEN ING EXAM: MAMMO SCREEN ING CLINIC AL HISTOR Y: SCREEN ING, Z12.31 TECHNI QUE: Mammog victor manuel were interp reted accord ing to the usual protoc ol includ ing comput er analys is with CAD system , tomosy nthesi s and C-view imagin g. COMPAR LAURA: 2017 and 2019 FINDIN GS: The breast s are compos ed of mainly fatty densit y , Breast Densit y catego ry A. No suspic ious masses or suspic ious microc alcifi cation s are seen. No skin thicke zohra or abnorm al axilla ry lymph nodes are seen. There has been no signif icant change from prior exams. There is motion on the left MLO view. The patien t should return for repeat imagin g at no additi onal charge . IMPRES DIOGO: BI-RAD S Catego ry 0 - Incomp lete: Need additi onal imagin g evalua tion Repeat left MLO view reques vj. Breast Densit y - Catego ry A, fatty densit y. A negati ve radiog raphic report should not delay biopsy if a domina nt or clinic ally suspic ious mass is presen t. Up to ten percen t of cancer s are not identi fied on mammog gian. A negati ve report may reinfo rce clinic al impres diogo. Adenos is and dense breast s may obscur e an underl christi neopla sm. False positi ve report s averag e 6 to 10%. Patien t will receiv e a letter notify ing them of these result s. Ordere d By: Iveth Lozada M.D. CC: ------ ------ ------ ------ ------ ------ ------ ------ ------ ------ ------ ------ - Dictat ed By: Travis Craven 1033 103 Transc ribed By: Aysha Fermin 103 This is privil eged, confid ential inform ation intend ed only for the provid er named. Any use or distri bution by any person other than this provid er is strict ly prohib ited. If you receiv e this report in error, please notify us immkayleigh thornton at [phone] and return the origin al report to us at the addres s above. Thank- you. sabiha [facility] [address], [place], [address] 01/11/2024 16:20:58 01/11/20 24 01/09/2024 mammo graph y imagi ng repor t Patien t Name: Suzan Chaudhary Unit #: [id number] Loc: DI Orderi ng Provid er: Iveth Lozada M.D. Accoun t #: [id number] Status : REG CLI Primar y Care Provid er: Iveth Lozada M.D. Date of Exam : Sex: F Admiss ion Date: : 1959 Age: 63 Addend a: Exam(s ) MG MAMMO SCREEN ING Addend um: The patien t return ed today for repeat left MLO view due to motion on the exam of 2023. The repeat view shows no motion . No masses , calcif icatio ns or change s from prior exam. Impres diogo: BI-RAD S Catego ry 1 - Negati ve. Yearly screen ing mammog gian is recomm ended. Breast Densit y - Catego ry A - Almost entire ly fatty Dictat ed By: Travis Craven [id number] Travis Craven 1054 Transc ribed By: Aysha Fermin [id number] Exam(s ) MG MAMMO SCREEN ING EXAM: MG MAMMO SCREEN ING CLINIC AL HISTOR Y: SCREEN ING, Z12.31 TECHNI QUE: Mammog victor manuel were interp reted accord ing to the usual protoc ol includ ing comput er analys is with CAD system , tomosy nthesi s and C-view imagin g. COMPAR LAURA: 2016 and 2019 FINDIN GS: The breast s are compos ed of mainly fatty densit y , Breast Densit y catego ry A. No suspic ious masses or suspic ious microc alcifi cation s are seen. No skin thicke zohra or abnorm al axilla ry lymph nodes are seen. There has been no signif icant change from prior exams. There is motion on the left MLO view. The patien t should return for repeat imagin g at no additi onal charge . IMPRES DIOGO: BI-RAD S Catego ry 0 - Incomp lete: Need additi onal imagin g evalua tion Repeat left MLO view reques vj. Breast Densit y - Catego ry A, fatty densit y. A negati ve radiog raphic report should not delay biopsy if a domina nt or clinic ally suspic ious mass is presen t. Up to ten percen t of cancer s are not identi fied on mammog gian. A negati ve report may reinfo rce clinic al impres diogo. Adenos is and dense breast s may obscur e an underl christi neopla sm. False positi ve report s averag e 6 to 10%. Patien t will receiv e a letter notify ing them of these result s. Ordere d By: Iveth Lozada M.D. CC: ------ ------ ------ ------ ------ ------ ------ ------ ------ ------ ------ ------ - Dictat ed By: Travis Craven 1034 1034 Transc ribed By: Aysha Fermin 1034 This is privil eged, confid ential inform ation intend ed only for the provid er named. Any use or distri bution by any person other than this provid er is strict ly prohib ited. If you receiv e this report in error, please notify us immedi eddiely at [phone] and return the origin al report to us at the addres s above. Thank- you. sabiha [facility] [address] [facility] [place], [address] 01/11/2024 16:20:58 01/11/20 24 01/09/2024 mammo graph y imagi ng repor t Cindy batista Name: Suzan Chaudhary Unit #: [id number] Loc: DI Orderi ng Provid er: Iveth Lozada M.D. Accoun lynne #: [id number] Status : REG CLI Primar y Care Provid er: Iveth Lozada M.D. Date of Exam : Sex: F Admiss ion Date: : 1959 Age: 63 Addend a: Exam(s ) MG MAMMO SCREEN ING Addend um: The patien t return ed today for repeat left MLO view due to motion on the exam of 2023. The repeat view shows no motion . No masses , calcif icatio ns or change s from prior exam. Impres diogo: BI-RAD S Catego ry 1 - Negati ve. Yearly screen ing mammog gian is recomm ended. Breast Densit y - Catego ry A - Almost entire ly fatty Dictat ed By: Travis Craven [id number] Travis Craven 1054 Transc ribed By: Aysha Fermin [id number] Exam(s ) MAMMO SCREEN ING EXAM: MAMMO SCREEN ING CLINIC AL HISTOR Y: SCREEN ING, Z12.31 TECHNI QUE: Mammog victor manuel were interp reted accord ing to the usual protoc ol includ ing comput er analys is with CAD system , tomosy nthesi s and C-view imagin g. COMPAR LAURA: 2016 and 2019 FINDIN GS: The breast s are compos ed of mainly fatty densit y , Breast Densit y catego ry A. No suspic ious masses or suspic ious microc alcifi cation s are seen. No skin thicke zohra or abnorm al axilla ry lymph nodes are seen. There has been no signif icant change from prior exams. There is motion on the left MLO view. The patien t should return for repeat imagin g at no additi onal charge . IMPRES DIOGO: BI-RAD S Catego ry 0 - Incomp lete: Need additi onal imagin g evalua tion Repeat left MLO view reques vj. Breast Densit y - Catego ry A, fatty densit y. A negati ve radiog raphic report should not delay biopsy if a domina nt or clinic ally suspic ious mass is presen t. Up to ten percen t of cancer s are not identi fied on mammog gian. A negati ve report may reinfo rce clinic al impres diogo. Adenos is and dense breast s may obscur e an underl christi neopla sm. False positi ve report s averag e 6 to 10%. Patien t will receiv e a letter notify ing them of these result s. Ordere d By: Iveth Lozada M.D. CC: ------ ------ ------ ------ ------ ------ ------ ------ ------ ------ ------ ------ - Dictat ed By: Travis Craven [id number] Transc ribed By: Aysha Fermin 1034 This is privil eged, confid ential inform ation intend ed only for the provid er named. Any use or distri bution by any person other than this provid er is strict ly prohib ited. If you receiv e this report in error, please notify us immedi ately at and return the origin al report to us at the addres s above. Thank- you. sabiha [facility] [address] [facility] [place], [address] 01/11/2024 16:20:59 01/14/20 24 11/02/2018 imagi ng/di agnos tic resul t No observ ation record ed. Not Available 01/13 20:07:11 01/14/20 24 12/03/2020 imagi ng/di agnos tic resul t No observ ation record ed. Not Available 01/13 20:07:12 01/14/20 24 12/31/2019 samm CALDERON No observ ation record ed. Not Available 01/13 20:08:47 01/14/20 24 07/13/2020 CT, chest No observ ation record ed. Not Available 01/13 20:08:48 01/14/20 24 01/29/2020 CT, chest No observ ation record ed. Not Available 01/13 20:08:51 01/14/20 24 11/02/2018 XR, chest No observ ation record ed. Not Available 01/13 20:08:52 01/14/20 24 12/04/2020 XR, chest No observ ation record ed. Not Available 01/13 20:08:53 01/14/20 24 11/03/2018 CT, head or brain No observ ation record ed. Not Available 01/13 20:08:54 01/14/20 24 01/03/2023 imagi ng/di agnos tic resul t No observ ation record ed. Not Available 01/13 20:09:04 01/14/20 24 01/06/2022 imagi ng/di agnos tic resul t No observ ation record ed. Not Available 01/13 20:09:05 01/14/20 24 02/01/2023 imagi ng/di agnos tic resul t No observ ation record ed. Not Available 01/13 20:09:07 01/14/20 24 11/29/2020 XR, knee No observ ation record ed. Not Available 01/13 20:09:08 01/14/20 24 12/03/2020 imagi ng/di agnos tic resul t No observ ation record ed. Not Available 01/13 20:09:56 01/14/20 24 12/15/2019 imagi ng/di agnos tic resul t No observ ation record ed. Not Available 01/13 20:10:02 01/14/20 24 11/22/2020 imagi ng/di agnos tic resul t No observ ation record ed. Not Available 01/13 20:10:03 01/14/20 24 11/09/2020 imagi ng/di agnos tic resul t No observ ation record ed. Not Available 01/13 20:10:06 01/14/20 24 02/24/2019 imagi ng/di agnos tic resul t No observ ation record ed. Not Available 01/13 20:10:10 01/14/20 24 03/04/2019 US, renal No observ ation record ed. Not Available 01/13 20:10:15 01/14/20 24 01/04/2021 US, renal No observ ation record ed. Not Available 01/13 20:10:16 01/14/20 24 02/20/2020 PET, limit ed No observ ation record ed. Not Available 01/13 20:10:20 01/14/20 24 12/15/2020 MRI, knee No observ ation record ed. Not Available 01/13 20:10:22 01/14/20 24 02/23/2019 CT, angio gram, chest No observ ation record ed. Not Available 01/13 20:10:23 01/14/20 24 05/20/2021 CT, angio gram, chest No observ ation record ed. Not Available 01/13 20:10:24 01/14/20 24 01/29/2020 CT, neck, soft tissu e No observ ation record ed. Not Available 01/13 20:10:25 01/14/20 24 05/21/2020 imagi ng/di agnos tic resul t No observ ation record ed. Not Available 01/13 20:10:39 Result Notes None recorded. Problems Name Problem SNOMED Code Status Onset Date Resolution Date Notes Provider Name and Address Organization Details Recorded Time Attentio n deficit hyperact ivity disorder , predomin antly inattent jorje type 46293552 Active 2011 Problem Code: F90.0; Problem Code Type: ICD-10; Not Available [facility] 3 05:14:46 Irritabl e bowel syndrome 77855792 Active 200509/13/19 23 - Comments only - Moira Cat MD - With associat ed diarrhea and chronic abdomina l pain. She feels that clinical ly this is remainin g stable with her current hydrocod one dose. She still have several episodes of diarrhea a day but it is better than prior to using hydrocod one and it could be up to 10 episodes a day. She feels abdomina l pain is under reasonab le control. She does wonder about absorpti on of nutrient s. She started taking his B complex suppleme nts and vitamin C suppleme nts recently and does feel that her energy level has improved , she overall feels better. She would like to have some vitamin levels checked. Problem Code: K58.9; Problem Code Type: ICD-10; Not Available [facility] 3 05:14:47 Nicotine dependen ce 88990866 Active 200312/10/19 23 - Comments only - Moira Cat MD - She is aware of the importan ce of smoking cessatio n, smoking potentia lly contribu ting to progress ion of the aneurysm , COPD, hyperten diogo etc. Problem Code: F17.209; Problem Code Type: ICD-10; Not Available [facility] 3 05:14:47 Anxiety 68736601 Active 200110/25/19 22 - Comments only - Moira Cat MD - I did refill the lorazepa m that she uses sparingl y for situatio nal anxiety. She does have a control ed medicati on contract in place. Problem Code: F41.8; Problem Code Type: ICD-10; Not Available [facility] 3 05:14:47 Tension- type headache 832680486 Active 2003 Problem Code: G44.209; Problem Code Type: ICD-10; Not Available [facility] 3 05:14:47 Sleep apnea 26079774 Active 2008 Problem Code: G47.30; Problem Code Type: ICD-10; Not Available [facility] 3 05:14:47 Posttrau matic stress disorder 91308167 Active 2008 Problem Code: F43.10; Problem Code Type: ICD-10; Not Available [facility] 3 05:14:47 Abdomina l pain 57867481 Active 201408/11/19 22 - Comments only - Moira Cat MD - /IBS. She continue s to feel that the benefits of the hydrocod one outweigh any risks. She feels that without it she would go back to having bowel accident s, a more severe pain would really limit her ability to do things. She has not had any evidence of misuse. Problem Code: R10.9; Problem Code Type: ICD-10; Not Available [facility] 3 05:14:48 Hernia of abdomina l cavity 09415080 Active 2015 Problem Code: K46.9; Problem Code Type: ICD-10; Not Available [facility] 3 05:14:48 Herniati on of rectum into vagina 480386607 Active 2015 Problem Code: N81.6; Problem Code Type: ICD-10; Not Available [facility] 3 05:14:48 Pain of right knee joint 95236409068 4100 Active 201508/29/19 20 - Comments only - Moira Cat MD - and LBP, both intermit tent - these usually improve on their own until she does somethin g to flare them up again. Encourag ed her to remain physical ly active. Problem Code: M25.561; Problem Code Type: ICD-10; Not Available [facility] 3 05:14:48 Intertri go 31971992 Active 2015 Problem Code: L30.4; Problem Code Type: ICD-10; Not Available [facility] 3 05:14:48 Diarrhea 90915999 Active 201502/06/20 22 - Comments only - Moira Cat MD - With abdomina l pain/IBS . A variety of differen t regimens have been tried historic ally, none of them particul desean effectiv e. What is worked the best for her as the hydrocod one and she has been stable on the same dosing of 15 mg 3 times daily for some time. She still gets diarrhea at times but not nearly as severely as prior to starting the hydrocod one. V PMS appropri ate. Rx's given for 3 months. Not Available [facility] 3 05:14:48 Abnormal weight gain 055017001 Active 2015 Problem Code: R63.5; Problem Code Type: ICD-10; Not Available [facility] 3 05:14:48 Microsco pic hematuri a 331725015 Active 201609/20/19 21 - Comments only - Moira Cat MD - UA in the office today did indicate hematuri a. Performe d for micro. Patient did have initial meeting with urology but they have not done a cystosco py. Given her smoking history I do think this should be done. We will rerefer her. Problem Code: R31.2; Problem Code Type: ICD-10; Not Available [facility] 3 05:14:49 Adult health examinat ion Active 201609/13/19 23 - Comments only - Moira Cat MD - Due for lipids. She would like to have a cortisol level checked given difficul tty with weight loss historic ally. She and her have been followin g strict diet recently and she has successf ully lost 30 pounds. [facility] ed her with the same, also to build up her walking. Problem Code: Z00.00; Problem Code Type: ICD-10; Not Available [facility] 3 05:14:49 Disorder associat ed with menstrua tion AND/OR menopaus e 343488549 Active 2016 Problem Code: N95.9; Problem Code Type: ICD-10; Not Available [facility] 3 05:14:49 Dizzines s and giddines s 271529704 Active 201604/29/20 19 - Comments only - Jonn a Rocioi - No recent episodes . She will continue to have meclizin e in hand. Problem Code: R42; Problem Code Type: ICD-10; Not Available [facility] 3 05:14:49 Body mass index 30+ - obesity 044194437 Active 2016 Problem Code: Z68.38; Problem Code Type: ICD-10; Not Available [facility] 3 05:14:49 Hypoglyc emia 733237520 Active 2016 Problem Code: E16.2; Problem Code Type: ICD-10; Not Available [facility] 3 05:14:49 Gastroes ophageal reflux disease without esophagi tis 565621332 Active 201705/16/19 22 - Comments only - Moira Cat MD - Recent flare of symptoms abating with the use of omeprazo le. She will continue the same Problem Code: K21.9; Problem Code Type: ICD-10; Not Available [facility] 3 05:14:49 Family history of diabetes mellitus 838870644 Active 2017 Problem Code: Z83.3; Problem Code Type: ICD-10; Not Available [facility] 3 05:14:50 Essentia l hyperten diogo 41569486 Active 201712/10/19 23 - Comments only - Moira Cat MD - Blood pressure remainin g under good control, she has lost 10 pounds intentio rad which she is happy about. Encourag ed her to continue with gradual weight loss, losartan 25 mg daily Problem Code: I10; Problem Code Type: ICD-10; Not Available [facility] 3 05:14:50 Prediabe betty 285485861 Active 201712/10/19 23 - Comments only - Moira Cat MD - She is due for an A1c, orders on file at the [facility]. She will try to get her labs been previous ly ordered done. Problem Code: R73.03; Problem Code Type: ICD-10; Not Available [facility] 3 05:14:50 Amnesia 51693601 Active 201807/12/19 19 - Comments only - Moira Cat MD - this may be stress related - will plan a mini mental exam at the next visit Problem Code: R41.3; Problem Code Type: ICD-10; Not Available [facility] 3 05:14:50 Pain in thoracic spine 452261277 Active 201812/25/19 19 - Comments only - Jonn Urbina - Advised her to increase her walking. Problem Code: M54.9; Problem Code Type: ICD-10; Not Available [facility] 3 05:14:50 Abnormal findings on diagnost ic imaging of urinary organs 920659566 Active 2018 Problem Code: R93.422; Problem Code Type: ICD-10; Not Available [facility] 3 05:14:51 Screenin g mammogra phy Active 2019 Problem Code: Z12.31; Problem Code Type: ICD-10; Not Available [facility] 3 05:14:51 Disorder of kidney and/or ureter 516467943 Active 2019 Problem Code: N28.9; Problem Code Type: ICD-10; Not Available [facility] 3 05:14:51 Mass of neck 343078335 Completed 201912/17/2019 12/04/19 20 - Comments only - Power Barnard PA-C - Will await results of today's requeste d laborato ry testing and US imaging. Consider ENT vs. surgical refer based upon results of same. 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 Problem Code: K11.8; Problem Code Type: ICD-10; Not Available [facility] 3 05:14:52 Thoracic aortic aneurysm without rupture 51975728 Active 201912/10/19 23 - Comments only - Moira Cat MD - She is followin g annually with CT surgery. Unclear if about tingling sensatio n could be related to any slight expansio n of aneurysm . Not Available [facility] 3 05:14:52 Lung field abnormal 820074175 Active 201902/06/20 22 - Comments only - Moira Cat MD - And history of thoracic aneurysm . She had a CT angio ordered by cardiac surgery at [facility] in April. It sounds like the 12 mm nodule in the right lower lobe is remainin g stable. The ectatic ascendin g aorta was unchange d since 2018. It sounds like she is schedule d to meet with them again this coming April. Problem Code: R91.8; Problem Code Type: ICD-10; Not Available [facility] 3 05:14:52 Non-toxi c uninodul ar goiter 248960095 Active 202005/16/19 21 - Comments only - Moira Cat MD - Incident al finding of 7 mm. We will continue to monitor. Problem Code: E04.1; Problem Code Type: ICD-10; Not Available [facility] 3 05:14:52 Lipoma of intratho racic organs 84149267 Active 2020 Problem Code: D17.4; Problem Code Type: ICD-10; Not Available [facility] 3 05:14:52 Hemoptys is 84400307 Active 202007/18/19 21 - Comments only - Moira Cat MD - no recurren t episode. CT imaging as above not suggesti ve of any concerni ng abnormal ities. She is relieved by that. She is aware of the importan ce of smoking cessatio n and is starting to mentally Repaired to tackle that. She has been able to successf ully quit in the past and is hoping to achieve that again Problem Code: R04.2; Problem Code Type: ICD-10; Not Available [facility] 3 05:14:53 Therapeu tic drug monitori ng assay 54479872 Active 2020 Problem Code: Z51.81; Problem Code Type: ICD-10; Not Available [facility] 3 05:14:53 Blood in urine 43012659 Completed 202007/16/2020 Problem Code: R31.9; Problem Code Type: ICD-10; Not Available [facility] 3 05:14:53 Chest pain 01136497 Active 202005/16/19 22 - Comments only - Moira Cat MD - , There may have been a componen t of GERD which now seems to be abating on the omeprazo le. Whether or not thoracic aneurysm could be causing some discomfo rt I am not sure about, she is meeting with cardiolo gy or her CT surgery next week regardin g that. Given her multiple risk factors for CAD I do worry about that, we discusse d a stress test today. She wants to touch base with cardiolo gy next week. Once I see their note we can follow-u p on scheduli ng contrast stress test. Problem Code: R07.89; Problem Code Type: ICD-10; Not Available [facility] 3 05:14:53 Pre-surg monique evaluati on Active 2020 Problem Code: Z01.818; Problem Code Type: ICD-10; Not Available [facility] 3 05:14:53 History of urinary disease 320425564 Active 202111/22/19 22 - Comments only - Moira Cat MD - And some decrease d parris dickey recently . It has been particul desean hot recently and I suggeste d that with the hot weather she may need to bump up her fluid intake even though she thinks normally she drinks enough fluid. UA today was complete ly negative other than her chronic mild hematuri a. Problem Code: Z87.448; Problem Code Type: ICD-10; Not Available [facility] 3 05:14:54 Pain of left shoulder joint 65251328439 876109 Active 202105/16/19 22 - Comments only - Moira Cat MD - Likely rotator cuff tendinit is. She does not recollec t an acute injury that would not necessar rajesh trigger the complete rupture. Offered PT but she wants to look up her own home exercise s. I also suggeste d over-the -counter topical diclofen ac. If not improvin g by her next visit she will let me know Problem Code: M25.512; Problem Code Type: ICD-10; Not Available [facility] 3 05:14:54 Lesion of left sciatic nerve 46482711316 9107 Active 202111/22/19 22 - Comments only - Moira Cat MD - Resolved at this time. Problem Code: G57.02; Problem Code Type: ICD-10; Not Available [facility] 3 05:14:55 Jaw pain 331698077 Active 202109/13/19 23 - Comments only - Moira Cat MD - Which did not start immediat edmar after her Warthlin 's tumor removal. She recollec ts that it started 4 to 5 months followin g the procedur e. No palpable abnormal ity on exam today, other than the focal area of tenderne ss. I suggeste d that she meet with ENT but she wants to hold off for now. She does feel that using bag balm, approxim ately once a day to day and a half, does seem to help which suggest this may be a superfic ial nerve irritati on. We will follow-u p with her again in 3 months. Problem Code: R68.84; Problem Code Type: ICD-10; Not Available [facility] 3 05:14:55 Follicul ar cysts of skin and subcutan eous tissue 950148318 Active 202111/22/19 22 - Comments only - Moira Cat MD - Left ring finger, likely a synovial cyst but cannot be certain. She is amenable to referral to the hand surgeon for further evaluati on. Problem Code: L72.9; Problem Code Type: ICD-10; Not Available [facility] 3 05:14:55 Trigger finger of right hand 27498876197 853288 Active 202111/22/19 22 - Comments only - Moira Cat MD - She would like to touch base with hand surgeon regardin g this as well. Problem Code: M65.331; Problem Code Type: ICD-10; Not Available [facility] 3 05:14:55 Irritabi lity and anger 465093271 Active 202105/06/19 23 - Comments only - Moira Cat MD - /Situati onal stress. She did try the duloxeti ne but it triggere d vomiting . She and her are planning on going to their [place] property later this winter and she thinks just being in a [facility] location will help her mood. Problem Code: R45.4; Problem Code Type: ICD-10; Not Available [facility] 3 05:14:55 Pain of left knee joint 86599852212 4107 Active 2022 Problem Code: M25.562; Problem Code Type: ICD-10; Not Available [facility] 3 05:14:56 Vitamin D deficien cy 02909751 Active 202209/13/19 23 - Comments only - Moira Cat MD - Historic ally deficien t, she has been taking suppleme ntations . We will recheck a level. Problem Code: E55.9; Problem Code Type: ICD-10; Not Available [facility] 3 05:14:56 Paresthe danilo 01269363 Active 202212/08/19 23 - Comments only - Moira Cat MD - Comment intermit tent sensatio n across upper chest into upper arms bilatera lly., Not associat ed with numbness or discomfo rt. Anything it feels like a pleasant sensatio n. No current physical findings . She will continue to monitor, if any progress ion she will call Problem Code: R20.2; Problem Code Type: ICD-10; Not Available [facility] 3 05:14:56 Family history of Cardiova scular disease 389277992 Active 2022 Problem Code: Z82.49; Problem Code Type: ICD-10; Not Available [facility] 3 05:14:56 Syncope and collapse 558593130 Completed 201808/28/2019 Problem Code: R55; Problem Code Type: ICD-10; Not Available [facility] 3 05:15:04 Disorder of eye region 821871897 Completed 201506/26/2017 Problem Code: H57.9; Problem Code Type: ICD-10; Not Available [facility] 3 05:15:04 Wheezing 90426140 Completed 202003/15/2021 Problem Code: R06.2; Problem Code Type: ICD-10; Not Available [facility] 3 05:15:05 Elevated blood-pr essure reading without diagnosi s of hyperten diogo 477290234 Completed 201608/28/2019 Problem Code: R03.0; Problem Code Type: ICD-10; Not Available [facility] 3 05:15:06 Otalgia of left ear 1640651298 Completed 201603/15/2021 Problem Code: H92.02; Problem Code Type: ICD-10; Not Available [facility] 3 05:15:06 Tobacco use cessatio n educatio n Completed 201506/26/2017 Problem Code: Z71.6; Problem Code Type: ICD-10; Not Available [facility] 3 05:15:07 Hypoxemi a 503984088 Completed 202003/15/2021 Problem Code: R09.02; Problem Code Type: ICD-10; Not Available [facility] 3 05:15:07 Obesity 455941185 Completed 200506/26/2017 Problem Code: E66.9; Problem Code Type: ICD-10; Not Available [facility] 3 05:15:08 Uses contrace ption 00053869 Completed 200901/24/2023 Not Available [facility] 3 05:15:08 Anxiety state 557987993 Completed 200101/24/2023 Problem Code: 300.09; Problem Code Type: ICD-9; Not Available [facility] 3 05:15:09 Headache 57149208 Completed 201606/26/2017 Problem Code: R51; Problem Code Type: ICD-10; Not Available [facility] 3 05:15:10 Hyperten sive disorder 18684370 Completed 200901/24/2023 Not Available [facility] 3 05:15:11 Chest pain 56444884 Completed 201708/28/2019 Problem Code: R07.9; Problem Code Type: ICD-10; Not Available [facility] 3 05:15:11 Nicotine dependen ce 50484575 Completed 201506/26/2017 Problem Code: Z87.891; Problem Code Type: ICD-10; Not Available [facility] 3 05:15:12 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 397113410 Completed 201101/24/2023 Problem Code: 314.00; Problem Code Type: ICD-9; Not Available [facility] 3 05:15:13 Hypertro phic conditio n of skin 02067140 Completed 201401/24/2023 Problem Code: 701.9; Problem Code Type: ICD-9; Not Available [facility] 3 05:15:13 Morbid obesity 775275856 Completed 200501/24/2023 Not Available [facility] 3 05:15:14 Tobacco dependen ce syndrome 05702952 Completed 200301/24/2023 Problem Code: 305.1; Problem Code Type: ICD-9; Not Available [facility] 3 05:15:15 Contrace ption care manageme nt Completed 200902/05/2022 Problem Code: Z30.9; Problem Code Type: ICD-10; Not Available [facility] 3 05:15:15 Pneumoni a 965912012 Completed 202003/15/2021 Problem Code: J18.9; Problem Code Type: ICD-10; Not Available [facility] 3 05:15:17 Disorder of skin and/or subcutan eous tissue 20920960 Completed 201406/26/2017 Problem Code: L98.9; Problem Code Type: ICD-10; Not Available [facility] 3 05:15:17 Blood glucose outside referenc e range 865396066 Completed 201701/24/2023 04/29/20 19 - Comments only - Jonn Urbina - Will check A1c. Problem Code: R73.09; Problem Code Type: ICD-10; Not Available [facility] 3 05:15:17 Foot pain 92817414 Completed 201406/26/2017 Problem Code: M79.673; Problem Code Type: ICD-10; Not Available [facility] 3 05:15:18 Secondar y polycyth emia 96990726 Active 202202/06/20 23 - Comments only - Moira Cat MD - , Mild. Discusse d this could be related to her smoking. There is a family history she thinks of liver disorder . We will check LFTs, transfer rin saturati on. Problem Code: D75.1; Problem Code Type: ICD-10; Not Available [facility] 4 05:37:51 Smoker 50440455 Active [address], [place], [address] , [facility] 4 12:31:47 Irregula r heart beat 633930572 Active [address], [place], [address] , [facility] 4 05:52:25 Hyperlip idemia 59135654 Active [address], [place], [address] , [facility] 4 16:57:04 Kidney stone 28632117 Active 2023 left, non-obst ructing MD [address], [place], [address] , [facility] 4 06:59:38 Chronic obstruct jorje pulmonar y disease 53932631 Active 2023 MOIRA CAT MD [address], [place], [address] , [facility] 11:28:59 Problem Notes None recorded. Procedures Surgical History None recorded. Imaging Results Imaging Date Name Status LastModified by Organiz ation Details LastModified Time 01/01/2024 ultrasound imaging report completed [address] , [place], [address] 01/05/2024 06:58:58 01/09/2024 mammography imaging report completed [address] [facility] [place], [address] 01/11/2024 16:20:58 01/09/2024 mammography imaging report completed [address] [facility] [place], [address] 01/11/2024 16:20:58 01/09/2024 mammography imaging report completed [address] [facility] [place], [address] 01/11/2024 16:20:59 11/02/2018 imaging/diagnos tic result completed Information not available 01/14/2024 20:07:11 12/03/2020 imaging/diagnos tic result completed Information not available 01/14/2024 20:07:12 12/31/2019 MAMMO, screening completed Information not available 01/14/2024 20:08:47 07/13/2020 CT, chest completed Information no t available 01/14/2024 20:08:48 01/29/2020 CT, chest completed Information no t available 01/14/2024 20:08:51 11/02/2018 XR, chest completed Information no t available 01/14/2024 20:08:52 12/04/2020 XR, chest completed Information no t available 01/14/2024 20:08:53 11/03/2018 CT, head or brain completed Information not available 01/14/2024 20:08:54 01/03/2023 imaging/diagnos tic result completed Information not available 01/14/2024 20:09:04 01/06/2022 imaging/diagnos tic result completed Information not available 01/14/2024 20:09:05 02/01/2023 imaging/diagnos tic result completed Information not available 01/14/2024 20:09:07 11/29/2020 XR, knee completed Information no t available 01/14/2024 20:09:08 12/03/2020 imaging/diagnos tic result completed Information not available 01/14/2024 20:09:56 12/15/2019 imaging/diagnos tic result completed Information not available 01/14/2024 20:10:02 11/22/2020 imaging/diagnos tic result completed Information not available 01/14/2024 20:10:03 11/09/2020 imaging/diagnos tic result completed Information not available 01/14/2024 20:10:06 02/24/2019 imaging/diagnos tic result completed Information not available 01/14/2024 20:10:10 03/04/2019 US, renal completed Information no t available 01/14/2024 20:10:15 01/04/2021 US, renal completed Information no t available 01/14/2024 20:10:16 02/20/2020 PET, limited completed Information not available 01/14/2024 20:10:20 12/15/2020 MRI, knee completed Information no t available 01/14/2024 20:10:22 02/23/2019 CT, angiogram, chest completed Information not available 01/14/2024 20:10:23 05/20/2021 CT, angiogram, chest completed Information not available 01/14/2024 20:10:24 01/29/2020 CT, neck, soft tissue completed Information not available 01/14/2024 20:10:25 05/21/2020 imaging/diagnos tic result completed Information not available 01/14/2024 20:10:39 Procedure Notes None recorded. Medical Equipment None Reported. Allergies Allergen ID Allergen Name Allergen Category Reaction Reaction Severity Criticality Documentation Date Start Date Code Code System Note Provider Name and Address Organization Details Recorded Time 02476 Depakote medicatio n diarrhea mild low 03/09/20232007 53395 9 RxNorm Carolelaila Chawla [facility] 4 11:57:49 07603 Zoloft medicatio n Not available Not available Not available 03/09/20232012 05874 RxNorm Not Available [facility] 3 16:07:11 79195 Imitrex medicatio n Not available Not available low 03/09/20232003 93932 3 RxNorm Carole Chawla [facility] 4 11:58:12 17113 Eggs (edible) (substanc e) food,medi cation diarrhea nausea vomiting mild mild mild high 03/09/20232007 04608 3004 SNOMED Carolelaila Chawla [facility] 4 11:58:08 51842 adhesive tape environme nt,medica tion rash moderate high 03/09/20232009 Carole Chawla [facility] 4 11:57:18 25905 Adderall medicatio n other moderate low 05/07/20232008 57293 RxNorm irrit abili ty Carolelaila Fraziertt [facility] 4 11:57:09 12039 Chantix medicatio n nausea severe low 05/07/20232020 10181 0 RxNorm Carole Chawla [facility], [facility]. 4 11:57:37 85338 Wellbutri n medicatio n other severe high 05/07/20232015 67615 RxNorm suici farooq ideat ion, agita tion Carole Pickaway null, [place] - [facility] 4 11:58:55 Medications Name Sig Start Date Stop Date Status Note LastModified by Organization Details LastModified Time cyclobenzap rine 10 mg tablet 1/2 - 1 tablet at hs prn - muscle relaxant - do not take with lorazepam 09/12 completed Not Available Not Available Not Available amoxicillin 500 mg capsule Take 1 cap by mouth three times daily 04/29 completed Not Available Not Available Not Available clotrimazol e 10 mg alfredo Take 1 tablet 5 times a day by oral route as needed. 2023 active Not Available Not Available Not Avai lable neomycin-po lymyxin-hyd rocort 3.5 mg/mL-10,00 0 unit/mL-1 % ear solution 3-4 drops q4h while awake in affected ear 11/19 completed Not Available Not Available Not Available prednisone 10 mg tablet 3 daily for 3d then 2 daily for 3d then 1 daily for 3d then 1/2 daily for 4d 03/15 completed Not Available Not Available Not Available Protonix 40 mg tablet,mauricio yed release Take 1 tab by mouth daily 07/13 completed Not Available Not Available Not Available doxycycline hyclate 100 mg capsule Take 1 capsule by mouth twice a day 12/18 completed Not Available Not Available Not Available ipratropium 0.5 mg-albutero l 3 mg (2.5 mg base)/3 mL nebulizatio n soln INHALE THE CONTENTS OF ONE VIAL VIA NEBULIZER EVERY 6 HOURS NEEDED active Not Available Not Available No t Available Remeron 30 mg tablet 1 1/2 . hs 01/17 completed Not Available Not Available Not Available citalopram 40 mg tablet 1 1/2 QHS 02/09 completed Not Available Not Available Not Available Vitamin C 500 mg tablet Take 1 tablet by mouth once a day active Not Available Not Available No t Available cetirizine 10 mg tablet TAKE 1 TABLET BY MOUTH DAILY NEEDED active Not Available Not Available No t Available orlistat 120 mg capsule 1 CAP three times daily w meals 01/08 completed Not Available Not Available Not Available azithromyci n 250 mg tablet Take 2 by mouth now, then take 1 by mouth daily x 4 days 02/05 completed Not Available Not Available Not Available Gas-X Extra Strength 125 mg chewable tablet Take 1 tablet by mouth once a day as needed active Not Available Not Available No t Available ranitidine 300 mg tablet 1 daily 09/24 completed Not Available Not Available Not Available Lasix 40 mg tablet 1 TAB QD 08/02 completed Not Available Not Available Not Available Remeron 15 mg tablet 1 . hs 05/25 completed Not Available Not Available Not Available Flonase 50 mcg/DOSE nasal inhaler 2 SPRAY QD 12/28 completed Not Available Not Available Not Available lisinopril 20 mg tablet 0.5TAB daily 06/19 completed Not Available Not Available Not Available Phenergan 25 mg tablet 1-2 TAB Q6H 02/25 completed Not Available Not Available Not Available Diflucan 150 mg tablet 1 tablet single dose 03/25 completed Not Available Not Available Not Available topiramate 25 mg tablet Take 1 tab by mouth at hs for 1 week, then add in AM dose, in 2 weeks can take 2 at hs and 1 in the AM 10/07 completed Not Available Not Available Not Available omeprazole 40 mg capsule,del ayed release Take 1 tab by mouth daily. 09/24 completed Not Available Not Available Not Available SF 1.1 % dental gel po BID 11/19 completed Not Available Not Available Not Available Tessalon Perles 100 mg capsule 1-2 capsules tid prn for cough 2023 active Not Available Not Available Not Avai lable Pred-G 0.3 %-1 % eye drops,suspe nsion Instill 4 drop three times a day use in affected ear 10/26 completed Not Available Not Available Not Available lorazepam 0.5 mg tablet Take 1 tablet by mouth twice a day as needed 2023 active Not Available Not Available Not Avai lable meclizine 25 mg tablet 1 po q6h prn 07/08 completed Not Available Not Available Not Available hydrocodone 7.5 mg-acetamin ophen 325 mg tablet Take 2 tablet by mouth three times a day for chronic pain 2023 active Not Available Not Available Not Avai lable Lasix 20 mg tablet Take 1 tab by mouth QD prn for leg edema. Do not use daily 03/12 completed Not Available Not Available Not Available Prozac 20 mg capsule 1 . qd depressio n 08/11 completed Not Available Not Available Not Available Nicorette 4 mg gum CHEW 1 PIECE EVERY 1 TO 2 HOURS. MAXIMUM 24 PER 24 HOURS 12/16 completed Not Available Not Available Not Available Robaxin-750 750 mg tablet 1 TAB every six hours 07/07 completed Not Available Not Available Not Available lisinopril 10 mg tablet Take 0.5 tab by mouth daily 08/23 completed Not Available Not Available Not Available losartan 25 mg tablet TAKE ONE TABLET BY MOUTH EVERY DAY active Not Available Not Available No t Available Effexor 37.5 mg tablet 1 . bid 07/07 completed Not Available Not Available Not Available Glucophage XR 500 mg tablet,exte nded release Take 1 tab by mouth daily 08/04 completed Not Available Not Available Not Available Valtrex 1 gram tablet for herpes zoster/sh ingles 1 tab by mouth three times daily for 7 days 03/03 completed Not Available Not Available Not Available omeprazole 20 mg capsule,del ayed release TAKE ONE CAPSULE BY MOUTH EVERY DAY active Not Available Not Available No t Available lisinopril 5 mg tablet 1 TAB daily 08/21 completed Not Available Not Available Not Available ergocalcife rol (vitamin D2) 1,250 mcg (50,000 unit) capsule TAKE 1 CAPSULE BY MOUTH ONCE A WEEK 12/05 completed Not Available Not Available Not Available albuterol sulfate 200 mcg capsules for inhalation 11/03 completed Not Available Not Available Not Available Requip 0.25 mg tablet 1 TAB three times daily 08/07 completed Not Available Not Available Not Available albuterol sulfate HFA 90 mcg/actuati on aerosol inhaler Inhale 2 puff by mouth every four hours as needed 2023 active Not Available Not Available Not Avai lable Lomotil 2.5 mg-0.025 mg tablet 1 TAB Q6H 06/19 completed Not Available Not Available Not Available Zoloft 100 mg tablet 1CAP EVERY MORNING 06/07 completed Not Available Not Available Not Available Cortisporin -TC 3.3 mg-3 mg-10 mg-0.5 mg/mL ear drops,suspe nsion Instill 4 drop into left ear four times a day use for 5-7 days 10/26 completed Not Available Not Available Not Available fluticasone propionate 50 mcg/actuati on nasal spray,suspe nsion INSTILL 2 SPRAYS INTO EACH NOSTRIL ONCE DAILY active Not Available Not Available No t Available imipramine 25 mg tablet 3 . hs 04/06 completed Not Available Not Available Not Available doxycycline hyclate 100 mg tablet Take 1 tablet by mouth twice a day 03/15 completed Not Available Not Available Not Available lamotrigine 100 mg tablet 1 tab qd 11/21 completed Not Available Not Available Not Available buspirone 15 mg tablet Take 1/2 tablet bid. In 1-2 weeks can increase to 1 tab bid 03/10 completed Not Available Not Available Not Available neomycin-po lymyxin-hyd rocort 3.5 mg-10,000 unit/mL-1 % ear drops,susp Instill 4 drop into affected ear four times a day 11/09 completed Not Available Not Available Not Available Lortab 7.5 mg-500 mg tablet 2CAP three times daily 05/08 completed Not Available Not Available Not Available Toradol 10 mg tablet 1 TAB q8h 04/28 completed Not Available Not Available Not Available Vitamin D 50,000 unit capsule 1CAP twice weekly 2013 active Not Available Not Available Not Avai lable nebulizer accessories kit user as directed 2023 active Not Available Not Available Not Avai lable nebulizer and compressor Inhale 1 ampul as directed every four hours as needed . Use every 4-6 hours as needed 2020 active Not Available Not Available Not Avai lable Laxative (bisacodyl) 5 mg tablet Take 1 tablet by mouth once a day as needed 06/17 completed Not Available Not Available Not Available Vitamin D3 25 mcg (1,000 unit) tablet Take 1 tablet by mouth once a day 05/08 completed Not Available Not Available Not Available Nicotine Gum 4 mg ONE Q2-4 HOURS 05/03 completed Not Available Not Available Not Available nicotine 2 mg gum 1 tab q2h 2013 active Not Available Not Available Not Avai lable rosuvastati n 5 mg tablet TAKE ONE TABLET BY MOUTH EVERY DAY IN THE EVENING active Not Available Not Available No t Available Lancets, Super Thin Use 1 lancet as directed once a day 2022 active Not Available Not Available Not Avai lable Prempro 0.3 mg-1.5 mg tablet 1 daily to start with. If menopausa l symptoms improve then can gradually cut back 06/20 completed Not Available Not Available Not Available Lexapro 5 mg tablet Take 1 tab by mouth daily for 2 weeks, then increase to 2 tablets daily 04/29 completed Not Available Not Available Not Available duloxetine 30 mg capsule,del ayed release Take 1 capsule by mouth once a day for 2 weeks then increase to bid 05/02 completed Not Available Not Available Not Available Albuterol Sulfate HFA 90 mcg/Actuati on aerosol inhaler 2 PUFFS q4-6h 01/01 completed Not Available Not Available Not Available lutein 20 mg capsule Take 1 capsule by mouth once a day 05/08 completed Not Available Not Available Not Available Nexium 40 mg intravenous solution 1 daily 01/17 completed Not Available Not Available Not Available magnesium Take 1 tablet every day 09/19 completed OTC Not Available Not Available Not Available Lortab 7.5 1-2 TAB Q6H 07/20 completed Not Available Not Available Not Available Xopenex 2 puffs q4-6h 03/06 completed Not Available Not Available Not Available Vyvanse 30 mg capsule 1CAP daily 12/28 completed Not Available Not Available Not Available FreeStyle Lite Meter kit Use 1 kit as directed once a day 12/05 completed Not Available Not Available Not Available FreeStyle Lite Strips USE TO TEST ONCE DAILY NEEDED 12/05 completed Not Available Not Available Not Available FreeStyle Lite Strips strip daily 11/07 completed Not Available Not Available Not Available Sure-Fine Pen Eckerty 31 gauge x 3/16 Inject subcutane ously once a day 2016 active Not Available Not Available Not Avai lable Knee Brace Large-XLarg e left short, hinged knee brace, XL 09/12 completed Not Available Not Available Not Available omeprazole 20 mg tablet,mauricio yed release Take 1 tab by mouth twice daily. 11/30 completed Not Available Not Available Not Available Vyvanse 20 mg capsule 1CAP daily 07/13 completed Not Available Not Available Not Available Vyvanse 40 mg capsule 1CAP daily 08/07 completed Not Available Not Available Not Available diclofenac 1 % topical gel APPLY 1 GRAM TO THE AFFECTED AREA(S) BY TOPICAL ROUTE 2 TIMES PER DAY PRN - left chest wall 2023 active Not Available Not Available Not Avai lable Kapidex 30 mg capsule, delayed release 1 BID 11/03 completed Not Available Not Available Not Available Zyrtec 10 mg capsule Take 1 capsule by mouth once a day as needed for allergy sxs 11/16 completed Not Available Not Available Not Available Vitamin D3 50 mcg (2,000 unit) capsule Take 1 capsule every day by oral route. active Not Available Not Available No t Available Chantix Continuing Month Box 1 mg tablet Take 1 tab by mouth twice daily 09/24 completed Not Available Not Available Not Available Chantix Starting Month Box 0.5 mg (11)-1 mg (42) tablets in dose pack O.5mg qd x3, then 0.5mg bid x4, then 1mg bid 09/24 completed Not Available Not Available Not Available Victoza 2-Abe 0.6 mg/0.1 mL (18 mg/3 mL) subcutaneou s pen injector inject 0.6mg daily x1 week, then increase to 1.2mg daily 11/24 completed Not Available Not Available Not Available dicyclomine 10 mg tablet 1 CAP QID 10/04 completed Not Available Not Available Not Available Saxenda 3 mg/0.5 mL (18 mg/3 mL) subcutaneou s pen injector Inject 0.6ml daily x1 week then increase to 1.2ml daily x1week then call. 07/14 completed Not Available Not Available Not Available Super B Maxi Complex 0.4 mg tablet Take 1 tablet by mouth once a day active Not Available Not Available No t Available Viberzi 75 mg tablet 1 po bid 03/26 completed Not Available Not Available Not Available Vitals Date Recorded Body height Body mass index (BMI) Body weight Body temperature Oxygen saturation Oxygen saturation in Arterial blood by Pulse oximetry Heart rate Respiratory rate Systolic blood pressure Diastolic blood pressure Provider Name and Address Organization Details Last Updated DateTime 4 164.998 4 cm 37.6 kg/m2 179433. 16 g 97.4 [degF] 94 % 94 % 76 /min 16 /min 128 mm[Hg] 72 mm[Hg] Carole Chawla [facility] 4 11:51:59 Date Recorded Body height Body mass index (BMI) Body weight Oxygen saturation Oxygen saturation in Arterial blood by Pulse oximetry Heart rate Systolic blood pressure Diastolic blood pressure Provider Name and Address Organization Details Last Updated DateTime 4 164.998 4 cm 36.4 kg/m2 55909.5 7 g 95 % 95 % 78 /min 126 mm[Hg] 78 mm[Hg] Jaylon Miner MA [facility] 4 10:53:11 Date Recorded Body height Body mass index (BMI) Body weight Oxygen saturation Oxygen saturation in Arterial blood by Pulse oximetry Heart rate Systolic blood pressure Diastolic blood pressure Provider Name and Address Organization Details Last Updated DateTime 4 164.998 4 cm 40.3 kg/m2 398234. 64 g 95 % 95 % 84 /min 124 mm[Hg] 76 mm[Hg] Jaylon Miner MA [facility] 4 09:52:01 Date Recorded Body height Oxygen saturation Oxygen saturation in Arterial blood by Pulse oximetry Heart rate Body mass index (BMI) Body weight Systolic blood pressure Diastolic blood pressure Provider Name and Address Organization Details Last Updated DateTime 4 164.998 4 cm 97 % 97 % 67 /min 39 kg/m2 311154. 9 g 120 mm[Hg] 76 mm[Hg] Jaylon Miner MA [facility] 4 11:12:46 Date Recorded Body height Body temperature Oxygen saturation Oxygen saturation in Arterial blood by Pulse oximetry Heart rate Body mass index (BMI) Body weight Systolic blood pressure Diastolic blood pressure Provider Name and Address Organization Details Last Updated DateTime 4 164.998 4 cm 98.1 [degF] 95 % 95 % 82 /min 38 kg/m2 347987. 06 g 120 mm[Hg] 76 mm[Hg] Jaylon Miner MA [facility] 4 10:54:50 Social History Question Answer Notes LastModified by Organizat ion Details LastModified Time Tobacco Smoking Status Current Every Day Smoker Carole bautista, [facility] 05/08/2023 11:46:05 Would You Say That, In General, Your Health Is Fair Information not available 12/06/2023 How Often Does Anyone, Including Family, Physically Hurt You? Never [email or web address] Information not available 12/06/2023 How Often Does Anyone, Including Family, Insult Or Talk Down To You? Rarely Information no t available 12/06/2023 How Often Does Anyone, Including Family, Threaten You With Harm? Never [email or web address] Information not available 12/06/2023 How Often Does Anyone, Including Family, Scream Or Curse At You? Rarely [email or web address] Information not available 12/06/2023 Within The Past 12 Months, You Worried That Your Food Would Run Out Before You Got Money To Buy More. Sometimes True [email or web address] Information not available 12/06/2023 Within The Past 12 Months, The Food You Bought Just Didn't Last And You Didn't Have Money To Get More. Sometimes True [email or web address] Information not available 12/06/2023 How Hard Is It For You To Pay For The Very Basics Like Food, Housing, Medical Care, And Heating? Would You Say It Is: Somewhat Hard [email or web address] Information not available 12/06/2023 In The Past 12 Months, Has Lack Of Reliable Transportation Kept You From Medical Appointments, Meetings, Work Or From Getting Things Needed For Daily Living? No [email or web address] Information not available 12/06/2023 What Is Your Housing Situation Today? I Have Housing. [email or web address] Information not available 12/06/2023 How Often In The Past Year Have You Used Marijuana (including Smoking, Vaping, Dabbing, Or Edibles)? Monthly Or Less [email or web address] Information not available 12/06/2023 How Often In The Past Year Have You Used Prescription Medications That Were Not Prescribed To You? Never [email or web address] Information n ot available 12/06/2023 How Often In The Past Year Have You Taken Your Own Prescription Medication More Than The Way It Was Prescribed Or For Different Reasons Than Its Intended Purpose? Never [email or web address] Information no t available 12/06/2023 How Often In The Past Year Have You Used Other Drugs (for Example, Heroin, Cocaine, Meth, Salvia, Inhalants)? Never [email or web address] Information not available 12/06/2023 Have You Ever Used IV Drugs? No [email or web address] Information not available 12/06/2023 Date Of Most Recent SBINS 12/06/2023 [email or web address] Information not available 12/06/2023 What Was The Date Of Your Most Recent Tobacco Screening? 05/08/2023 [email or web address] Information not available 05/08/2023 What Is Your Current Pack Years? 30ormorepacky ears [email or web address] Information not available 05/08/2023 At What Age Did You Start Smoking Tobacco? 21 [email or web address] Information not available 05/08/2023 How Much Tobacco Do You Smoke? 2 PPD [email or web address] Information not available 05/08/2023 Has Tobacco Cessation Counseling Been Provided? Yes [email or web address] Information not available 05/08/2023 On What Date Was Tobacco Cessation Counseling Provided? 05/08/2023 [email or web address] Information not available 05/08/2023 How Many Years Have You Smoked Tobacco? 40 [email or web address] Information not available 05/08/2023 Do You Or Have You Ever Used Any Other Forms Of Tobacco Or Nicotine? No [email or web address] Information not available 05/08/2023 Sex: Female Functional Status None recorded. Mental Status None recorded. Family History Nothing Reported Notes:*Problem: updated no c hanges 11/03/10: Mother: age 66 cause CVA, DM, CAD Father: when Suzan was age 6 months cause - accident Brothers: none, 1 in 30s from [place], on in 30s from ? OD - 1 brother with bowel CA - Sisters - 2 - 1 likely from a PE, 1 remaining sister not in regular communication PGM from throat/esophageal CA - non-smoker Family History of: Hypertension: yes Hyperlipidemia: ? Coronary heart disease: yes Diabetes mellitus: yes Breast cancer: yes , mom, GM Colorectal cancer: no Alcoholism: yes Mental illness: yes , depression Other: sleep apnea, lung CA in smoker Medical History No medical history recorded. Gynecological History Statement/Question Response STIs/STDs N Abnormal Pap Y Sexually Active? Y Obstetrics History GPAL:G 0 P 0 0 0 0 Immunizations Vaccine Type Date Status Provider Name and Address Organization Details Recorded Time zoster recombinant 06/15/2023 completed MD Jai [address], [place], [address], [facility] 06/17/2023 07:23:44 zoster recombinant 12/06/2023 completed Jaylon Galeano MA [facility], [facility] 12/06/2023 12:57:35 Td (adult), 2 Lf tetanus toxoid, preservative free, adsorbed 11/18/2021 completed Not Available [facility] 03/09/2023 06:07:11 Tdap 06/23/2010 completed Not Available [facility] 06:07:11 SARS-COV-2 (COVID-19) vaccine, UNSPECIFIED 07/27/2020 completed Not Available [facility] 03/09/2023 06:07:11 SARS-COV-2 (COVID-19) vaccine, UNSPECIFIED 08/18/2021 completed Not Available [facility] 03/09/2023 06:07:11 SARS-COV-2 (COVID-19) vaccine, UNSPECIFIED 09/11/2020 completed Not Available [facility] 03/09/2023 06:07:11 SARS-COV-2 (COVID-19) vaccine, UNSPECIFIED 04/05/2021 completed Not Available [facility] 03/09/2023 06:07:11 Past Encounters Encounter ID Performer Location Encounter Start Date Encounter Closed Date Diagnosis/Indication Diagnosis SNOMED-CT Code Diagnosis ICD10 Code [id number] MOIRA CAT MD [address] [address] 05/08/2023 11:29:51 05/08/2023 13:01:47 Chronic pain 04745760 G89.29 Chest pain 56622297 R07. 9 Hypertensive disorder 38 840207 I10 Diarrhea 59984152 R19.7 Vitamin D deficiency 347 94468 E55.9 Joint pain 50786536 M25. 50 Smoker 85025571 F17.200 Thoracic a ortic aneurysm without rupture 10938739 I71.20 Prediabetes 976271307 R7 3.03 [id number] MOIRA CAT MD [address] [address] 06/15/2023 10:35:00 06/15/2023 12:23:07 Chronic pain 58600284 G89.29 Chest pain 40160778 R07. 9 Hypertensive disorder 38 500426 I10 Vitamin D deficiency 347 06296 E55.9 Joint pain 26587938 M25. 50 Smoker 06222135 F17.200 Thoracic a ortic aneurysm without rupture 49443916 I71.20 Active or passive immunization 345138913 Z23 Diarrhea 07455012 R19.7 [id number] MOIRA CAT MD [address] [address] 09/20/2023 09:34:58 09/20/2023 10:45:23 Chronic pain 45514833 G89.29 Hypertensive disorder 38 054667 I10 Diarrhea 67129210 R19.7 Joint pain 43548048 M25. 50 Chest pain 16324714 R07. 9 Nicotine dependence 5629 4008 F17.200 Prediabetes 300981367 R7 3.03 Thoracic a ortic aneurysm without rupture 14538282 I71.20 Irregular heart beat 361 437199 R00.8 Sleep apnea 92221911 G47 .30 [id number] MOIRA CAT MD [address] [address] 12/06/2023 10:56:29 12/06/2023 12:38:40 Screening for malignant neoplasm of colon 638686533 Z12.11 Screening mammography 24 669291 Z12.31 Gynecologi c examination 36349258 Z01.419 Adult heal th examination 314938457 Z00.00 Chronic pain 39711463 G8 9.29 Active or passive immunization 543860797 Z23 Essential hypertension 99117553 I10 Vitamin D deficiency 347 80707 E55.9 Prediabetes 270013946 R7 3.03 Body mass index 30+ - obesity 535038020 Z68.39 Nicotine dependence 5629 4008 F17.200 Non-toxic uninodular goiter 377798660 E04.1 Thoracic a ortic aneurysm without rupture 67628978 I71.20 [id number] MOIRA CAT MD [address] [address] 02/01/2024 10:42:33 02/01/2024 12:29:21 Chronic pain 39151336 G89.29 Cough 25576316 R05.9 Chronic ob structive pulmonary disease 85237354 J44.9 Anxiety 59555246 F41.9 Candidiasis of mouth 797 63134 B37.0 Hyperlipidemia 52222560 E78.5 Health Concerns Section Related Observation LastModified by Organization Detai ls LastModified Time None Recorded Concern Status LastModified by Organization Details LastModified Time None Recorded Advance Directives Directive None Recorded Payers Encounter Date Sequence Insurance Name Policy Number Policy Ibrahim Covered Member ID Ibrahim Member ID Guarantor Name 05/08/2023 1 [facility] (MEDICAID) Suzan Chaudhary [id number] Suzan Chaudhary 06/15/2023 1 [facility] (MEDICAID) Suzan Chaudhary [id number] Suzan Chaudhary 09/20/2023 1 [facility] (MEDICAID) Suzan Chaudhary [id number] Suzan Chaudhary 12/06/2023 1 [facility] (MEDICAID) Suzan Chaudhary [id number] Suzan Chaudhary Notes Date Note Type Note Provider Name and Address Organization Details Recorded Time 05/08/2023 text/html HPI Notes: Suzan here today for f/u of HTN, prediabetes, chronic abd pain/IBS MD J[address], [place], [address], [facility] 05/29/2023 08:57:20 06/15/2023 text/html HPI Notes: Suzan is here today for follow-up of chronic abdominal pain, frequent diarrhea, history of flushing MD Jai [address], [place], [address], [facility] 06/17/2023 07:27:47 09/20/2023 text/html HPI Notes: Suzan is here today for follow-up of chronic abdominal pain/IBS, smoking cessation, thoracic aneurysm, occasional heart rate irregularity MD Jai [address], [place], [address], [facility] 09/25/2023 05:56:42 12/06/2023 text/html HPI Notes: Suzan here today for an AE, f/u of IBS, obesity, smoking cessation MD Jai [address], [place], [address], [facility] 12/07/2023 18:04:59 OBGyn Episode No OBEpisode recorded.
--- OUTSIDE RECORDS SUMMARY | 2024-02-01 12:41 | XMS_ITS | Clinical Summary ---
Author Organization [facility] Address [facility] [place] [address] Care Team Providers Care Vehicle Sales Professional Name Role Phone Moira Arriaza MD Primary Care Provider [phone] Allergies Active Allergy Reactions Criticality Noted Date [...] Hepatitis C Screening 1980 Lipid Screening 1980 Tetanus/Diphtheria/Pertussis Vaccines (1 - Tdap) 1981 HPV test 1992 PAP Smear 1992 [...] * COLONOSCOPY (10/15/2017 2:15 PM EDT) COLONOSCOPY [facility] Endoscopy Procedure Date: 10/15/2017 2:15 PM ? Patient Name: Suzan Chaudhary ? N: [id number] ? Date of : 1960 ? Age: 57 ? Order #: [id number] ? Instrument Name: [id number] ? Procedure: ? Colonoscopy Indications: ? Chronic diarrhea Providers: ? Brie Sheets MD, Ania Marroquin RN, ? Crys Esquivel, Putty Maker Referring MD: ?Moira Arriaza MD, Liliana Lester [...] EDT Moira Arriaza MD GENERAL SURGICAL ORD [facility] PROVATION * (ABNORMAL) Comprehensive Metabolic Panel (08/24/2010 [...] Recently Relevant to Health Maintenance Care Teams Vehicle Sales Professional Relationship Specialty Start Date End Date Moira Arriaza MD [address] [place] [address] PCP - General 03/22/10
--- OUTSIDE RECORDS SUMMARY | 2024-02-01 12:41 | XMS_ITS | Encounter Summary ---
Author Organization [facility] Address [facility] [place] [address] Care Team Providers Care Paper Bag Maker Name Role Phone Moira Arriaza MD Primary Care Provider [phone] Reason for Visit * Reason Comments Follow-up Left ear bothering, aching. Encounter Details Date Type Department Care Team (Late Contact Info) Description 11/08/2020 2:00 PM EDT Office [place] [address] Moira Garrett MD [facility] [place] [address] Warthin's tumor Social History Tobacco Use Types [...] Surgery Moira Garrett MD 11/08/20 2:01 PM [place] [address] Office Patient Name: Suzan Chaudhary Date of [...] to Visit Medication Sig Dispense Refill ??? oyreaeww-vdqzdcxzs-ubdgffdrndilcz (CORTISPORIN) 3.5-10,000-1 mg/mL-unit/mL-% Drops, Suspension SHAKE LIQUID [...] BX performed by LUIS FABIAN I at [facility] ENDOSCOPY ??? PRO COLONOSCOPY, BIOPSY N/A 10/15/2017 COLONOSCOPY FLEXIBLE, WITH BX (WRVU 3.66) performed by Brie Sheets MD at [facility] ENDOSCOPY ??? PRO UPPER GI ENDOSCOPY, BIOPSY 09/14/2010 UPPER GASTROINTESTINAL ENDOSCOPY,WITH BIOPSY SINGLE OR MULTIPLE performed by LUIS FABIAN I at [facility] ENDOSCOPY ??? PRO UPPER GI ENDOSCOPY, DIAGNOSTIC N/A 10/15/2017 EGD, UPPER GI ENDOSCOPY performed by Brie Sheets MD at [facility] ENDOSCOPY Family and Social History Family History: No family history on file. Social History: Lives in [facility] [place] [facility] [address] Social History Socioeconomic History ??? Marital status: [...] glands documented in this encounter Care Teams Paper Bag Maker Relationship Specialty Start Date End Date Moira Arriaza MD [address] [place] [address] PCP - General 03/22/10 documented as of this encounter
--- OUTSIDE RECORDS SUMMARY | 2024-02-01 12:41 | XMS_ITS | Encounter Summary ---
Author Organization [facility] Address [facility] [place] [address] Care Team Providers Care Handcrew Foreman Name Role Phone Moira Arriaza MD Primary Care Provider Reason for Visit * Auth/Cert Specialty Diagnoses [...] Expiration Date Visits Re quested Visits Authorized [id number] 1 1 Encounter Details Date Type Department Care Team (Late st Contact Info) Description 03/16/2021 9:30 AM EST - 03/16/2021 12:45 PM EST Surgery [place] [address] Moira Garrett MD [facility] [place] [address] EXC.PAROTID TUMOR OR GLAND, LATERAL LOBE, W [...] -You can reach the ENT clinic at [phone] for appointment questions. -The ENT triage nurse is available at [phone] -For urgent issues during evenings (5 PM - 7 AM) and weekends the ENT resident supervisor dimension warehouse can be reached through the main hospital digital color press operator at [phone] Follow Up: You will need to follow [...] 10:40 AM Moira Garrett MD Otolaryngology at [facility] Arrive at: Former Hand Area [phone] documented in this encounter Medications at Time [...] by mouth every 6 hours as needed. xmkhisps-eolxzqmtc-opmlv cortisone (CORTISPORIN) 3.5-10,000-1 mg/mL-unit/mL-% Drops, Suspension SHAKE [...] Operative Note Patient Name: Suzan Chaudhary : [id number] MR#: [id number] Case Date: 03/16/2021 Surgeon: Surgeon(s) and Role: * Moira Garrett MD - Primary * Alisia Heard PA - Physician Auto Claim Representative Preoperative diagnosis: left parotid mass Postoperative diagnosis: [...] Garrett MD - 03/16/2021 10:17 AM EST [facility] Operative Note Patient Name: Suzan Chaudhary : [id number] MR#: [id number] Case Date: 03/16/2021 Surgeon: Surgeon(s) and Role: * Moira Garrett MD - Primary * Alisia Heard PA - Physician Auto Claim Representative Preoperative diagnosis: left parotid mass Postoperative diagnosis: [...] Test, Any/All Per. Nerves, Trunk Or Head ([id number]) 03/16/2021 9:43 AM EST Warthin's tumor Exc Parotd, Lat Lobe, Dissect 5Th Nerv ([id number]) 03/16/2021 9:43 AM EST Warthin's tumor POCT GLUCOSE Routine 03/16/2021 9:26 AM EST FACIAL NERVE MONITORING, SETUP Routine 03/16/2021 8:16 AM EST Warthin's tumor EXC.PAROTID TUMOR OR GLAND, LATERAL LOBE, W DISSECTION & PRESERVATION FACIAL NERVE Routine 03/16/2021 8:16 AM EST Warthin's tumor documented in this encounter Results * Surgical Pathology Report (03/16/2021 11:14 AM EST) Final Diagnosis [id number] ? Location: [facility]; [facility]; A The signing pathologist has (i) examined [...] MD Verified: ??03/21/2021 14:47 ??Pathologist Performed at: ??-[facility] Dept. of Pathology, [place], [place] SPECIMEN(S) SUBMITTED A - Parotid, left, [...] greatest dimension Inking: Inked black Sections/Processi ng: Ent Consultant sections in 7 cassettes as follows: ?A1-A4: ??Ent Consultant lesion ?A5: ??Ent Consultant glandular tissue with white mottling ?A6: ??2 intact lymph nodes ?A7: ??2 intact lymph nodes ??luis 03/21/2021 2:47 PM EST [facility] PAROTID GLAND STRUCTURE / Unknown 03/16/2021 11:14 AM EST 03/16/2021 11:14 AM EST Moira Garrett MD PATHOLOGY/CYTOLOGY O SEBASTIEN Performing Organization Address [facility] Co de Phone Number [facility] [place] [address] * Specimen to Pathology (03/16/2021 11:14 AM EST) AP Specimen 03/16/2021 11:1 4 AM EST 03/16/2021 11:14 AM EST Narrative [facility] - 03/16/2021 11:14 AM EST Specimen requisition ordered. ??Separate Pathology report to follow Moira Garrett MD PATHOLOGY/CYTOLOGY O RDCHARANJIT Performing Organization Address [facility] Co de Phone Number [facility] [place] [address] * POCT Glucose (03/16/2021 9:26 AM EST) Glucose, POC 100 65 - 199 mg/dL [facility] Comment: Supplemental ranges: <140 mg/dL before meals <180 mg/dL all other times of the day Blood 03/16/2021 9:26 AM EST 03/16/2021 9:26 AM EST Moira Garrett MD POINT OF CARE TEST O RDERABLES [facility] [place] [address] documented in this encounter Visit Diagnoses Diagnosis [...] RN) documented in this encounter Care Teams Handcrew Foreman Relationship Specialty Start Date End Date Moira Arriaza MD [address] [place] [address] PCP - General 03/22/10 documented as of this encounter
--- OUTSIDE RECORDS SUMMARY | 2024-02-01 12:41 | XMS_ITS | Encounter Summary ---
Author Organization [facility] [place] [address] Care Team Providers Care Physician Executive Name Role Phone Moira Arriaza MD Primary Care Provider [phone] Encounter Details Date Type Department Care Team (Late st Contact Info) Description 04/02/2020 Telephone [place] [address] Kirstin Dunlap CMA Social History Tobacco Use [...] MA - 04/02/2020 9:31 AM EST 5C Spring Tester Pre-Telemedicine Phone Note [x] Patient not reached [] Patient reached and the following information was reviewed/obtained per protocol: [] Confirmed patient name and date of [] Confirmed location of patient - TeleVisit is taking place in [] [place] [] [place] [] [place] [] [place] [] Confirmed Pt has MyDH [] Confirmed Pt has download ZOOM [] If not on myDH, working on signing up for myDH [] If no MyDH is made, how is Dr sending Pt the zoom link for video [] By Cell phone [] By E-mail [] Phone visit/ how is Dr contacting Pt if disconcert from [facility] [] Home phone [] Cell phone [] Other number [] Reviewed patient medications [] Documented self-reported vitals: [] Weight: [] Height: [] Other information or concerns documented in this encounter Plan of Treatment Not on file documented as of this encounter Visit Diagnoses Not on filedocumented in this encounter Care Teams Physician Executive Relationship Specialty Start Date End Date Moira Arriaza MD [address] [place] [address] PCP - General 03/22/10 documented as of this encounter
--- OUTSIDE RECORDS SUMMARY | 2024-02-01 12:41 | XMS_ITS | Encounter Summary ---
Author Organization [facility] [place] [address] Care Team Providers Care Training And Documentation Specialist Name Role Phone Moira Arriaza MD Primary Care Provider [phone] Encounter Details Date Type Department Care Team (Latest Contact Info) Description 05/21/2020 4:50 PM EST TH Visit (TeleHealth) [place] [address] Ebenezer Nguyen MD [facility] [place] [address] Thoracic aortic aneurysm without rupture Social History [...] BX performed by LUIS FABIAN I at [facility] ENDOSCOPY ??? PRO COLONOSCOPY, BIOPSY N/A 10/15/2017 COLONOSCOPY FLEXIBLE, WITH BX (WRVU 3.66) performed by Brie Sheets MD at [facility] ENDOSCOPY ??? PRO UPPER GI ENDOSCOPY, BIOPSY 09/14/2010 UPPER GASTROINTESTINAL ENDOSCOPY,WITH BIOPSY SINGLE OR MULTIPLE performed by LUIS FABIAN I at [facility] ENDOSCOPY ??? PRO UPPER GI ENDOSCOPY, DIAGNOSTIC N/A 10/15/2017 EGD, UPPER GI ENDOSCOPY performed by Brie Sheets MD at [facility] ENDOSCOPY Family History: No family history [...] file Gets together: Not on file Attends rastafari service: Not on file Active member of [...] Current Medications: Current Outpatient Medications Ordered in [employer] Medication Sig Dispense Refill ??? losartan (Cozaar) [...] ?? Assessment & Plan of Management: Suzan Chaduhary is a 60-year-old woman with a 4.4 [...] call with questions. Ebenezer Nguyen MD, MS manager monitoring Section of Cardiac Surgery [facility] Office: [phone] Pager: [phone] I spent a total of 30 minutes today in record review, medical counseling, coordination of care, medical decision-making, and documentation. documented in this encounter Plan of Treatment Not on file documented as of this encounter Visit Diagnoses Diagnosis Thoracic aortic aneurysm without rupture Thoracic aneurysm without mention of rupture documented in this encounter Care Teams Training And Documentation Specialist Relationship Specialty Start Date End Date Moira Arriaza MD [address] [place] [address] PCP - General 03/22/10 documented as of this encounter
--- OUTSIDE RECORDS SUMMARY | 2024-02-01 12:41 | XMS_ITS | Encounter Summary ---
Author Organization [facility] [place] [address] Care Team Providers Care Bargeman Name Role Phone Moira Arriaza MD Primary Care Provider [phone] Encounter Details Date Type Department Care Team (Late st Contact Info) Description 01/17/2021 Telephone [place] [address] Sharmila Aleman Social History Tobacco Use Types [...] on filedocumented in this encounter Care Teams Bargeman Relationship Specialty Start Date End Date Moira Arriaza MD [address] [place] [address] PCP - General 03/22/10 documented as of this encounter
--- OUTSIDE RECORDS SUMMARY | 2024-02-01 12:41 | XMS_ITS | Encounter Summary ---
[place] [address] Care Team Providers Care Lozenge Maker Helper Name Role Phone Moira Arriaza MD Primary Care Provider [phone] Reason for Referral * Diagnostic Test (Routine) - Closed Specialty Diagnoses / Procedures Referred By Contac t Referred To Contact Radiology Diagnoses Warthin's tumor Procedures NM PET CT Standard Plus Extremities and Head Watson Nick PA [address] [place] [address] [place] [address] Referral ID Status Reason Start Date Expiration Date V isits Requested Visits Authorized [id number] Closed Specialty Service Requested 02/11/2020 08/09/2020 1 1 Reason for Visit * Diagnostic Test (Routine) - Closed Specialty Diagnoses / Procedures Referred By Contac t Referred To Contact Radiology Diagnoses Warthin's tumor Procedures NM PET CT Standard Plus Extremities and Head Watson Nick PA [address] [place] [address] [place] [address] Referral ID Status Reason Start Date Expiration Date V isits Requested Visits Authorized [id number] Closed Specialty Service Requested 02/11/2020 08/09/2020 1 1 Encounter Details Date Type Department Care Team (Late st Contact Info) Description 02/20/2020 2:28 PM EDT Hospital Encounter [place] [address] Watson Nick PA [address] [place] [address] Warthin's tumor Discharge Disposition: Home Social History Tobacco Use Types Packs/Day Years Used Date Smoking Tobacco: Every Day Cigarettes Smokeless Tobacco: Never Comments:quit previously. st [facility] back august 16 2016 Alcohol Use Standard [...] mass TECHNIQUE: Procedure: Following IV injection of 33-ugvlne-8-deoxyglucose (FDG) a standard uptake of approximately 60 [...] mass TECHNIQUE: Procedure: Following IV injection of 84-dvshbt-7-deoxyglucose(FDG) a standard uptake of approximately 60 minutes, [...] glands documented in this encounter Care Teams Lozenge Maker Helper Relationship Specialty Start Date End Date Moira Arriaza MD [address] [place] [address] PCP - General 03/22/10 documented as of this encounter
--- OUTSIDE RECORDS SUMMARY | 2024-02-01 12:41 | XMS_ITS | Encounter Summary ---
Author Organization [facility] Address [facility] [place] [address] Care Team Providers Care Primer And Powder Canning Leader Name Role Phone Moira Arriaza MD Primary Care Provider [phone] Encounter Details Date Type Department Care Team (Late st Contact Info) Description 10/15/2017 2:30 PM EDT - 10/15/2017 3:30 PM EDT [place] [address] Brie Sheets MD [facility] DR [place] [address] EGD, UPPER GI ENDOSCOPY (WRVU 2.09) Social [...] better as expected. Sunday-Brendan Same Day Endo [phone] 7a-8p Otherwise contact [phone] and ask to speak to the guest services associate installation technician Follow-up care is a [place] part of [...] to be checked. Sunday-Sunday Same Day Endo [phone] 7a-8p Otherwise contact [phone] and ask to speak to the guest services associate installation technician Follow up care is a [place] part [...] PM EDT 10/15/2017 3:49 PM EDT Narrative [facility] - 10/15/2017 3:49 PM EDT Specimen requisition ordered. ??Separate Pathology report to follow Resulting Agency Comment Spec In Lab Brie Sheets MD PATHOLOGY/CYTOLOGY O RDERABLES [facility] [place] [address] * Surgical Pathology Report (10/15/2017 2:57 PM EDT) Final Diagnosis [id number] ? Location: 4T; EA13; A The signing pathologist has (i) examined the relevant preparation(s) for the specimen(s) and (ii) rendered or confirmed the diagnosis(es). . ?Surgical Pathology DIAGNOSIS Colon, random, ??biopsy: Colonic mucosa within normal limits. CR-PX Electronically signed by: ??Felicitas Knutson MD Verified: ??10/17/2017 ?Pathologist Performed at: ??-[facility] Dept. of Pathology, [place], [place] CLINICAL INFORMATION Specimen Submitted: A - Random colon bx r/o microscopic colitis Clinical History and Diagnosis: 57-year-old with long-standing history of diarrhea SPECIMEN PROCESSING A - Labeled/Fixativ e: Random colon biopsy, formalin. Quantity/Size: Multiple, 0.2-0.4 cm. Tissue Description: ??Soft, rowe-pink tissue ??. Sections/Proces sing: (T2) ??ejr 10/17/2017 4:37 PM EDT [facility] GI Biopsy 10/15/2017 2:57 PM EDT 10/15/2017 2:57 PM EDT Brie Sheets MD PATHOLOGY/CYTOLOGY O RDERABLES [facility] [place] [address] * COLONOSCOPY (10/15/2017 2:15 PM EDT) COLONOSCOPY [facility] Endoscopy Procedure Date: 10/15/2017 2:15 PM ? Patient Name: Suzan Chaudhary ? Date of : 1960 ? Age: 57 ? Order #: [id number] ? Instrument Name: [id number] ? Procedure: ? Colonoscopy Indications: ? Chronic diarrhea Providers: ? Brie Sheets MD, Ania Marroquin RN, ? Crys Esquivel, Personal Banker Referring : ?Moira Arriaza MD, Liliana Lester [...] EDT) Pathologist [facility] UPPER GI ENDOSCOPY [facility] Endoscopy Procedure Date: 10/15/2017 12:41 PM ? Patient Name: Suzan Chaudhary ? Date of : 1960 ? Age: 57 ? Order #: [id number] ? Instrument Name: [id number] ? Procedure: ? Upper GI endoscopy Indications: ? Heartburn Providers: ? Brie Sheets MD, Ania Fadden, RN, ? Crys Esquivel, Personal Banker Referring MD: ?Moira Arriaza MD, Liliana Lester [...] ESTELA) documented in this encounter Care Teams Primer And Powder Canning Leader Relationship Specialty Start Date End Date Moira Arriaza MD [address] [place] [address] PCP - General 03/22/10 documented as of this encounter
--- OUTSIDE RECORDS SUMMARY | 2024-02-01 12:41 | XMS_ITS | Encounter Summary ---
Author Organization [facility] [place] [address] Care Team Providers Care In School Suspension Coordinator Name Role Phone Moira Arriaza MD Primary Care Provider [phone] Reason for Referral * Diagnostic Test (Routine) - Closed Specialty Diagnoses / Procedures Referred By Contac t Referred To Contact Radiology Diagnoses Thoracic aortic aneurysm without rupture, unspecified part Procedures CT Angiogram Chest (Non-Coronary) w Contrast CT Angiogram Chest (Non-Coronary) wwo Contrast Moira Han PA [facility] [place] [address] [facility] [place] [address] Referral ID Status Reason Start Date Expiration Date V isits Requested Visits Authorized [id number] Closed Specialty Service Requested 02/22/2022 08/24/2023 1 1 Reason for Visit * Diagnostic Test (Routine) - Closed Specialty Diagnoses / Procedures Referred By Contac t Referred To Contact Radiology Diagnoses Thoracic aortic aneurysm without rupture, unspecified part Procedures CT Angiogram Chest (Non-Coronary) w Contrast CT Angiogram Chest (Non-Coronary) wwo Contrast Moira Han PA [facility] DR [place] [address] [facility] [place] [address] Referral ID Status Reason Start Date Expiration Date V isits Requested Visits Authorized [id number] Closed Specialty Service Requested 02/22/2022 08/24/2023 1 1 Encounter Details Date Type Department Care Team (Latest Contact Info) Description 06/06/2022 11:04 AM EST - 06/06/2022 11:59 PM EST Hospital Encounter CT Scan at [facility] [address] Ebenezer Nguyen MD [facility] [place] [address] Thoracic aortic aneurysm without rupture, unspecified part [...] who have questions please contact the health daycare assistant that requested your imaging first. ? Electronically signed by: Lizzy Ruffin MD, [facility] ([phone]), at 06/06/2022 4:34 PM Narrative 06/06/2022 4:34 [...] administration of contrast. Administered 72.0 ml of HBGRZJYDP579.00 mg/ml. Maximum intensity projection (MIP) were reformatted. [...] patients who have questions please contactthe health daycare assistant that requested your imaging first. Electronically signed by: Lizzy Ruffin MD, [facility]([phone]), at 06/06/2022 4:34 PM Ebenezer Nguyen MD [...] mLs documented in this encounter Care Teams In School Suspension Coordinator Relationship Specialty Start Date End Date Moira Arriaza MD [address] [place] [address] PCP - General 03/22/10 documented as of this encounter
--- OUTSIDE RECORDS SUMMARY | 2024-02-01 12:41 | XMS_ITS | Encounter Summary ---
Author Organization [place] [address] Care Team Providers Care Merry Go Round Operator Name Role Phone Moira Arriaza MD Primary Care Provider [phone] Encounter Details Date Type Department Care Team (Late st Contact Info) Description 03/22/2020 [place] [id number] Makayla Mayers Social History Tobacco Use Types [...] on filedocumented in this encounter Care Teams Merry Go Round Operator Relationship Specialty Start Date End Date Moira Arriaza MD [address] [place] [address] PCP - General 03/22/10 documented as of this encounter
--- OUTSIDE RECORDS SUMMARY | 2024-02-01 12:41 | XMS_ITS | Encounter Summary ---
Author Organization [facility] [place] [address] Care Team Providers Care Tile Trimmer Name Role Phone Moira Arriaza MD Primary Care Provider [phone] Encounter Details Date Type Department Care Team (Late st Contact Info) Description 01/29/2020 12:05 AM EDT Ancillary Procedure Radiology Library at [facility] [place] [id number] Moira Arriaza MD [address] [place] [address] Social History Tobacco Use Types Packs/Day Years [...] CT Chest (01/29/2020 12:05 AM EDT) Narrative [facility] - 03/12/2020 11:31 AM EST This exam is auto-finalizing. It's purpose is for storage only. Moira Arriaza MD [facility] FILM LIBRARY ORD ERABLES [place], [place] documented in this encounter Visit Diagnoses Not on filedocumented in this encounter Care Teams Tile Trimmer Relationship Specialty Start Date End Date Moira Arriaza MD [address] [place] [address] PCP - General 03/22/10 documented as of this encounter
--- OUTSIDE RECORDS SUMMARY | 2024-02-01 12:41 | XMS_ITS | Encounter Summary ---
Author Organization [facility] [place] [address] Care Team Providers Care Senior Mechanical Project Engineer Name Role Phone Moira Arriaza MD Primary Care Provider [phone] Reason for Referral * Diagnostic Test (Routine) - Closed Specialty Diagnoses / Procedures Referred By Contac t Referred To Contact Cardiology Diagnoses Thoracic aortic aneurysm without rupture Procedures Echocardiogram Transthoracic([facility] or [facility]) Kirill Gill PA [facility] [place] [address] [facility] [place] [address] Referral ID Status Reason Start Date Expiration Date V isits Requested Visits Authorized [id number] Closed Specialty Service Requested 03/22/2020 03/22/2021 1 1 Reason for Visit * Diagnostic Test (Routine) - Closed Specialty Diagnoses / Procedures Referred By Contac t Referred To Contact Cardiology Diagnoses Thoracic aortic aneurysm without rupture Procedures Echocardiogram Transthoracic([facility] or [place]) Kirill Gill PA [facility] [place] [address] [facility] [place] [address] Referral ID Status Reason Start Date Expiration Date V isits Requested Visits Authorized [id number] Closed Specialty Service Requested 03/22/2020 03/22/2021 1 1 Encounter Details Date Type Department Care Team (Latest Contact Info) Description 05/21/2020 9:38 AM EST - 05/21/2020 11:59 PM EST Hospital Encounter Non-Invasive Cardiology Lab [facility] [place] [address] Ebenezer Nguyen MD [facility] [place] [address] Thoracic aortic aneurysm without rupture Discharge Disposition: [...] ?PANDA Marroquin ?(Age): 1960(60y) Med Rec#: ? [id number] ?Sex: ?F ? [place]: ? [facility] [place]Ht / Wt: ??165(cm)/106(kg) Pt. Loc: ?Echo Lab ?BSA: ?2.11 Study Date: ?? 05/21/2020 ?Pt. Type: Outpatient Tape: ? Referring: Ebenezer Nguyen Referring: MIGUE Reading: Dung Frazier ([id number]) Film Editor: Pierre Connor RDCS Interpreting Fellow: Leslie Davis ([id number]) Interpreting Fellow: Rupal Medrano ([id number]) Diagnosis: *Thoracic aortic aneurysm, without rupture (I71.2) [...] Vmax ?0.69 ? m/sec ? MV deceleration [id number] ? msec ? MV A-wave Vmax ?0.94 [...] ? Mid-Inferior ?Normal ? Mid-Inferoseptal ?Normal ? [place]-Septal ? Normal ? [place]-Anterior ? Normal ? [place]-Lateral ?Normal ? [place]-Inferior ? Normal ? [place]-Tip ?Normal ? This report has been electronically signed by: Dung Frazier M.D. ? 05/21/2020 11:06:46 Images reviewed and interpretation verified [facility] Cardiac Ultrasound Laboratory Procedure Note Dung Frazier MD - 05/21/2020 Procedure: Transthoracic Echocardiogram Patient: PANDA Marroquin (Age): 1960(60y) Med Rec#: [id number] Sex: F [place] [facility] Ht / Wt: 165(cm)/106(kg) Pt. Loc: Echo Lab BSA: 2.11 Study Date: 05/21/2020 Pt. Type: Outpatient Tape: Referring: Ebenezer Nguyen Referring: MIGUE Reading: Dung Frazier ([id number]) Film Editor: Pierre Connor RDCS Interpreting Fellow: Leslie Davis ([id number]) Interpreting Fellow: Rupal Medrano ([id number]) Diagnosis: *Thoracic aortic aneurysm, without rupture (I71.2) [...] MV E-wave Vmax 0.69 m/sec MV deceleration [id number] msec MV A-wave Vmax 0.94 m/sec MV [...] Normal Mid-Posterolateral Normal Mid-Inferior Normal Mid-Inferoseptal Normal [place]-Septal Normal [place]-Anterior Normal [place]-Lateral Normal [place]-Inferior Normal [place]-Tip Normal This report has been electronically signed by: Dung Frazier M.D. 05/21/2020 11:06:46 Images reviewed and interpretation verified [facility] Cardiac Ultrasound Laboratory Ebenezer Nguyen MD ECHO ORDERABLES documented in this encounter Visit Diagnoses Diagnosis Thoracic aortic aneurysm without rupture Thoracic aneurysm without mention of rupture documented in this encounter Care Teams Senior Mechanical Project Engineer Relationship Specialty Start Date End Date Moira Arriaza MD [address] [place] [address] PCP - General 03/22/10 documented as of this encounter
--- OUTSIDE RECORDS SUMMARY | 2024-02-01 12:41 | XMS_ITS | Encounter Summary ---
Author Organization [facility] [place] [address] Care Team Providers Care Judo Instructor Name Role Phone Moira Arriaza MD Primary Care Provider [phone] Reason for Visit * Auth/Cert Specialty Diagnoses [...] Expiration Date Visits Re quested Visits Authorized [id number] 1 1 Encounter Details Date Type Department Care Team (Late st Contact Info) Description 03/16/2021 9:43 AM EST Anesthesia Event [place] [address] Marli Levine MD [facility] [place] [address] Randi Osorio MD [facility] [place] [address] Anesthesia Record Procedure Summary Procedure Name Responsible [...] 0935; metacarpal vein (top of hand), left; ejxm-dpa-lqtzdu catheter system; Anatomical Landmarks; 20 gauge; Zandra [...] - Single Lumen 03/16/21; 0955; (right forearm); vzur-pun-xywtrw catheter system; Anatomical Landmarks; 18 gauge; Devon [...] Procedure Summary Date: 03/16/21 Room / Location: [place] [address] [facility] MAIN OR Anesthesia Start: 942 Anesthesia Stop: 1203 Procedures: EXC.PAROTID TUMOR OR GLAND, LATERAL LOBE, W DISSECTION & PRESERVATION FACIAL NERVE (WRVU 17.16)(Left Neck) FACIAL NERVE MONITORING, SETUP PERIPHERAL (WRVU 0.54) (N/A Neck) Diagnosis: Warthin's tumor (left parotid mass) Surgeons: Moira Garrett MD Responsible Provider: Marli Levine MD Anesthesia Type: general ASA Status: 3 All Anesthesia Providers: Anesthesiologist: Marli Levine MD Child Care Centre Manager: Randi Osorio MD Vitals Value Taken Time BP 150/94 03/16/21 1200 Temp Pulse 77 03/16/21 1205 Resp 19 03/16/21 1205 SpO2 98 % 03/16/21 1205 Pain Level Vitals shown include unvalidated device data. Patient Location: PACU/[facility] Level of Consciousness: Conscious but Sleepy [...] BX performed by LUIS FABIAN I at [facility] ENDOSCOPY ??? PRO COLONOSCOPY, BIOPSY N/A 10/15/2017 COLONOSCOPY FLEXIBLE, WITH BX (WRVU 3.66) performed by Brie Sheets MD at [facility] ENDOSCOPY ??? PRO UPPER GI ENDOSCOPY, BIOPSY 09/14/2010 UPPER GASTROINTESTINAL ENDOSCOPY,WITH BIOPSY SINGLE OR MULTIPLE performed by LUIS FABIAN I at [facility] ENDOSCOPY ??? PRO UPPER GI ENDOSCOPY, DIAGNOSTIC N/A 10/15/2017 EGD, UPPER GI ENDOSCOPY performed by Brie Sheets MD at [facility] Social History Tobacco Use ??? [...] Premedication with Tylenol Randi Osorio MD Pager: [phone] Region - Other Informed Consent: Anesthetic plan [...] mg documented in this encounter Care Teams Judo Instructor Relationship Specialty Start Date End Date Moira Arriaza MD [address] [place] [address] PCP - General 03/22/10 documented as of this encounter
--- OUTSIDE RECORDS SUMMARY | 2024-02-01 12:41 | XMS_ITS | Encounter Summary ---
Author Organization [facility] [place] [address] Care Team Providers Care Clinical Trial Leader Name Role Phone Moira Arriaza MD Primary Care Provider [phone] Encounter Details Date Type Department Care Team (Late st Contact Info) Description 04/04/2021 10:40 AM EST Office [place] [address] Moira Garrett MD [facility] [place] [address] Warthin's tumor Social History Tobacco Use Types [...] Garrett MD - 04/04/2021 10:40 AM EST [facility] Otolaryngology - Head and Neck Surgery Moira Garrett MD 04/04/21 11:06 AM [place], [place] [address] Office Patient Name: Suzan Chaudhary Date of [...] to Visit Medication Sig Dispense Refill ??? kjxhwsij-biillcdvb-tdjggubeudiass (CORTISPORIN) 3.5-10,000-1 mg/mL-unit/mL-% Drops, Suspension SHAKE LIQUID [...] 0.54) performed by Moira Garrett MD at [facility] MAIN OR ??? PRO COLONOSCOPY, BIOPSY 09/14/2010 COLONOSCOPY FLEXIBLE, WITH BX performed by LUIS FABIAN I at [facility] ENDOSCOPY ??? PRO COLONOSCOPY, BIOPSY N/A 10/15/2017 COLONOSCOPY FLEXIBLE, WITH BX (WRVU 3.66) performed by Brie Sheets MD at [facility] ENDOSCOPY ??? PRO EXC PAROTD, LAT LOBE, DISSECT 5TH NERV Left 03/16/2021 EXC.PAROTID TUMOR OR GLAND, LATERAL LOBE, W DISSECTION & PRESERVATION FACIAL NERVE (WRVU 17.16)performed by Moira Garertt MD at [facility] MAIN OR ??? PRO UPPER GI ENDOSCOPY, BIOPSY 09/14/2010 UPPER GASTROINTESTINAL ENDOSCOPY,WITH BIOPSY SINGLE OR MULTIPLE performed by LUIS FABIAN I at [facility] ENDOSCOPY ??? PRO UPPER GI ENDOSCOPY, DIAGNOSTIC N/A 10/15/2017 EGD, UPPER GI ENDOSCOPY performed by Brie Sheets MD at [facility] ENDOSCOPY Family and Social History Family History: No family history on file. Social History: [place] [facility] [address] Social History Socioeconomic History ??? Marital status: [...] MD Verified: ??03/21/2021 14:47 ??Pathologist Performed at: ??-[facility] Dept. of Pathology, [place], [place] SPECIMEN(S) SUBMITTED A - Parotid, left, [...] glands documented in this encounter Care Teams Clinical Trial Leader Relationship Specialty Start Date End Date Moira Arriaza MD [address] [place] [address] PCP - General 03/22/10 documented as of this encounter
--- OUTSIDE RECORDS SUMMARY | 2024-02-01 12:41 | XMS_ITS | Encounter Summary ---
Author [facility] [place] [address] Care Team Providers Care Navy Senior Officer Name Role Phone Moira Arriaza MD [...] on filedocumented in this encounter Care Teams [employer] Senior Officer Relationship Specialty Start Date End Date Moira Arriaza MD [address] [place] [address] PCP - General 03/22/10 documented as of this encounter
--- OUTSIDE RECORDS SUMMARY | 2024-02-01 12:41 | XMS_ITS | Continuity of Care Document ---
Author Organization [facility] Address [address] [place] [address] Care Team Providers Care Instructional Design Technologist Name Role Phone STEPHANIA GREG Primary Care Provider JORDAN PONCE Urologist MARLINE GANDHI Cardiac Surgeon RAUL GALDAMEZ Orthopedic Surgeon [phone] GREG ERNST Garage Door Opener Installer [facility] [employer] t LEO SARABIA Mind Reader Assessment No assessment recorded. Plan of Treatment Reminders Order Date Submit Date Provider Last Modified By Organization Details Last Modified Time Details Appointments Office Visit 30 2023 10:40A M Not available Not available Not available Follow Up 30 2024 11:30A M Not available Not available Not available Lab pap, LB + HR HPV 2023 024 [facility] (Registration ), [address] [place] [address] [place], [address], 12/20/2023 12:57:42 HbA1c (hemoglob in A1c), blood 2023 024 [facility] (Registration ), [address] [place] [address] [place], [address], 12/06/2023 15:51:16 lipid panel, serum 2023 024 [facility] (Registration ), [address] [place] [address] [place], [address], 12/06/2023 15:51:16 TSH, serum, reflex free T4 2023 [facility] (Registration ), [address] [place] [address] [place], [address], 12/06/2023 15:51:16 vitamin D, 25-hydrox y, total, serum 2023 [facility] (Registration ), [address] [place] [address] [place], [address], 12/06/2023 16:40:23 CMP, serum or plasma 2023 [facility] (Registration ), [address] [place] [address] [place], [address], 12/06/2023 16:40:22 Referral None recorded. Procedures None recorded. Surgeries None recorded. Imaging MAMMO, screening , bilateral 2023 [facility] [address], [place], [address], 12/10/2023 11:30:40 Medication Orders hydrocodo ne 7.5 mg-acetam inophen 325 mg tablet 2023 024 [facility], [address] [place], [address], 12/06/2023 15:29:26 hydrocodo ne 7.5 mg-acetam inophen 325 mg tablet 2023 024 [facility], [address] [place], [address], 12/06/2023 15:29:26 Patient TargetsNo targets recorded. Patient Instructions Encounter Date Encounter Id Patient Instructions Last Modified By Organization Details Last Modified Time 12/06/[id number] John Gandhi's office (cardiac surgery) at [facility] to get your chest CT scan scheduled. sabiha Not available 12/06/2023 11:47:54 Reason for Referral Sleep Medicine Referral for Sleep apnea Referring Physician: Greg Cat [facility], Encounter Date: 03/21/2023 Cardiothoracic Vascular Surg salomón Referral for Thoracic aortic aneurysm without rupture Referring Physician: Greg Cat [facility], Encounter Date: 06/15/2023 Cardiothoracic Vascular Surg salomón Referral for Thoracic aortic aneurysm without rupture f/u of thoracic aneurysm Referring Physician: Greg Cat [facility], Encounter Date: 09/20/2023 General Surgeon Referral for Family history of cancer of colon Hx of family colon CA, colonoscopy needed Referring Physician: Greg Cat [facility], Encounter Date: 12/11/2023 Results Created Date Observation Date Name Description Value Unit Range Abnormal Flag Note LastModifiedBy Organization Detail LastModifiedTime 01/01/20 24 01/01/2024 ultra sound imagi ng repor t Patien t Name: Suzan Chaudhary Unit #: [id number] Loc: DI Orderi ng Provid er: Kamille Baldwin DNP Accoun t #: [id number] Status : REG CLI Primar y [...] dylan and within normal limits . IMPRES ALISHA: Left nephro lithia sis. No obstru ctive uropat hy. DATA REPOSI TORY: Ordertyrell d By: Kamille Baldwin DNP CC: ------ ------ ------ ------ ------ ------ ------ ------ ------ ------ ------ ------ - Dictat ed By: Ollie Rondon M.D. 1424 Transc ribed By: Ollie Rondon 1424 This [...] at the addres s above. Thank- you. [facility] [address] [place], [address] 01/05/2024 06:58:58 01/09/20 24 01/09/2024 mammo graph y imagi ng repor t Patien t Name: Suzan Chaudhary Unit #: [id number] Loc: DI Orderi ng Provid er: Iveth Lozada M.D. Accoun t #: [id number] Status : REG CLI Primar y Care Provid er: Iveth Lozada M.D. Date of Exam : Sex: F Admiss ion Date: : 1959 Age: 63 Exam(s ) MG MAMMO SCREEN ING EXAM: [...] at no additi onal charge . IMPRES ALISHA: BI-RAD S Catego ry 0 - Incomp [...] report may reinfo rce clinic al impres alisha. Adenos is and dense breast s may [...] the addres s above. Thank- you. sabiha [facility] [address] [place], [address] 01/11/2024 16:20:58 01/11/20 24 01/09/2024 mammo graph y imagi ng repor t Patien t Name: Suzan Chaudhary Unit #: [id number] Loc: DI Orderi ng Provid er: Iveth Lozada M.D. Accoun t #: [id number] Status : REG CLI Primar y Care [...] or change s from prior exam. Impres alisha: BI-RAD S Catego ry 1 - Negati ve. Yearly screen ing mammog gian is recomm ended. Breast Densit y - Catego ry A - Almost entire ly fatty Dictat ed By: Travis Craven [id number] Travis Craven 1054 Transc ribed By: Aysha Fermin [id number] Exam(s ) MG MAMMO SCREEN ING EXAM: MAMMO SCREEN ING [...] at no additi onal charge . IMPRES ALISHA: BI-RAD S Catego ry 0 - Incomp [...] report may reinfo rce clinic al impres alisha. Adenos is and dense breast s may [...] error, please notify us immkayleigh thornton at and return the origin al report to us at the addres s above. Thank- you. sabiha [facility] [address] [place] [address] Dr, [place], [address] 01/11/2024 16:20:58 01/11/20 24 01/09/2024 mammo graph y imagi ng repor t Cindy batista Name: Suzan Chaudhary Unit #: [id number] Loc: DI Orderi ng Provid er: Iveth Lozada M.D. Accoun t #: [id number] Status : REG CLI Primar y Care [...] or change s from prior exam. Impres alisha: BI-RAD S Catego ry 1 - Negati [...] at no additi onal charge . IMPRES ALISHA: BI-RAD S Catego ry 0 - Incomp [...] report may reinfo rce clinic al impres alisha. Adenos is and dense breast s may [...] error, please notify us immedi eddiely at and return the origin al report to us at the addres s above. Thank- you. sabiha [facility] [address], [place], [address] 01/11/2024 16:20:59 01/14/20 24 11/02/2018 imagi ng/di [...] hyperact ivity disorder , predomin antly inattent juancarlos type 32323805 Active 2011 Problem Code: F90.0; Problem Code Type: ICD-10; Not Available [facility] 3 05:14:46 Irritabl e bowel syndrome 03348379 Active 200509/13/19 23 - Comments only - Greg Cat MD - With associat ed diarrhea [...] K58.9; Problem Code Type: ICD-10; Not Available [facility] 3 05:14:47 Nicotine dependen ce 68889221 Active 200312/10/19 23 - Comments only - Greg Cta MD - She is aware of the importan ce of smoking cessatio n, smoking potentia lly contribu ting to progress ion of the aneurysm , COPD, hyperten alisha etc. Problem Code: F17.209; Problem Code Type: ICD-10; Not Available [facility] 3 05:14:47 Anxiety 54489337 Active 200110/25/19 22 - Comments only - Greg Cat MD - I did refill the lorazepa m that she uses sparingl y for situatio nal anxiety. She does have a controll ed medicati on contract in place. Problem Code: F41.8; Problem Code Type: ICD-10; Not Available [facility] 3 05:14:47 Tension- type headache 004967089 Active 2003 Problem Code: G44.209; Problem Code Type: ICD-10; Not Available [facility] 3 05:14:47 Sleep apnea 72834289 Active 2008 Problem Code: G47.30; Problem Code Type: ICD-10; Not Available [facility] 3 05:14:47 Posttrau matic stress disorder 14389240 Active 2008 Problem Code: F43.10; Problem Code Type: ICD-10; Not Available [facility] 3 05:14:47 Abdomina l pain 30302249 Active 201408/11/19 22 - Comments only - Greg Cat MD - /IBS. She continue s to feel that the benefits of the hydrocod one outweigh any risks. She feels that without it she would go back to having bowel accident s, a more severe pain would really limit her ability to do things. She has not had any evidence of misuse. Problem Code: R10.9; Problem Code Type: ICD-10; Not Available [facility] 3 05:14:48 Hernia of abdomina l cavity 16453526 Active 2015 Problem Code: K46.9; Problem Code Type: ICD-10; Not Available [facility] 3 05:14:48 Herniati on of rectum into vagina 198611923 Active 2015 Problem Code: N81.6; Problem Code Type: ICD-10; Not Available [facility] 3 05:14:48 Pain of right knee joint 06998356365 4100 Active 201508/29/19 20 - Comments only - Greg Cat MD - and LBP, both intermit tent - these usually improve on their own until she does somethin g to flare them up again. Encourag ed her to remain physical ly active. Problem Code: M25.561; Problem Code Type: ICD-10; Not Available [facility] 3 05:14:48 Intertri go 55513413 Active 2015 Problem Code: L30.4; Problem Code Type: ICD-10; Not Available [facility] 3 05:14:48 Diarrhea 88167444 Active 11/11/ 2016 10/09/20 22 - Comments only - Greg Cat MD - With abdomina l pain/IBS . A variety of differen t regimens have been tried historic ally, none of them particul desean santillan. What is worked the best for her as the hydrocod one and she has been stable on the same dosing of 15 mg 3 times daily for some time. She still gets diarrhea at times but not nearly as severely as prior to starting the hydrocod one. V PMS appropri ate. Rx's given for 3 months. Not Available [facility] 3 05:14:48 Abnormal weight gain 943399876 Active 2015 Problem Code: R63.5; Problem Code Type: ICD-10; Not Available [facility] 3 05:14:48 Microsco pic hematuri a 764645699 Active 201609/20/19 21 - Comments only - Greg Cat MD - UA in the office today did indicate hematuri a. Performe d for micro. Patient did have initial meeting with urology but they have not done a cystosco py. Given her smoking history I do think this should be done. We will rerefer her. Problem Code: R31.2; Problem Code Type: ICD-10; Not Available [facility] 3 05:14:49 Adult health examinat ion Active 201609/13/19 23 - Comments only - Greg Cat MD - Due for lipids. She would like to have a cortisol level checked given difficul tty with weight loss historic ally. She and her have been followin g strict diet recently and she has successf ully lost 30 pounds. [facility] ed her with the same, also to build up her walking. Problem Code: Z00.00; Problem Code Type: ICD-10; Not Available [facility] 3 05:14:49 Disorder associat ed with menstrua tion AND/OR menopaus e 969133910 Active 2016 Problem Code: N95.9; Problem Code Type: ICD-10; Not Available [facility] 3 05:14:49 Dizzines s and giddines s 485032968 Active 201604/29/20 19 - Comments only - Jonn Urbina - No recent episodes . She will continue to have meclizin e in hand. Problem Code: R42; Problem Code Type: ICD-10; Not Available [facility] 3 05:14:49 Body mass index 30+ - obesity 225043542 Active 2016 Problem Code: Z68.38; Problem Code Type: ICD-10; Not Available [facility] 3 05:14:49 Hypoglyc emia 851446164 Active 2016 Problem Code: E16.2; Problem Code Type: ICD-10; Not Available [facility] 3 05:14:49 Gastroes ophageal reflux disease without esophagi tis 662213195 Active 201705/16/19 22 - Comments only - Greg Cat MD - Recent flare of symptoms abating with the use of omeprazo le. She will continue the same Problem Code: K21.9; Problem Code Type: ICD-10; Not Available [facility] 3 05:14:49 Family history of diabetes mellitus 443140445 Active 2017 Problem Code: Z83.3; Problem Code Type: ICD-10; Not Available [facility] 3 05:14:50 Essentia l hyperten alisha 86513531 Active 201712/10/19 23 - Comments only - Greg Cat MD - Blood pressure remainin g under good control, she has lost 10 pounds intentio rad which she is happy about. Encour ed her to continue with gradual weight loss, losartan 25 mg daily Problem Code: I10; Problem Code Type: ICD-10; Not Available [facility] 3 05:14:50 Prediabe betty 151096199 Active 201712/10/19 23 - Comments only - Greg Cat MD - She is due for an A1c, orders on file at the [facility]. She will try to get her labs been previous ly ordered done. Problem Code: R73.03; Problem Code Type: ICD-10; Not Available [facility] 3 05:14:50 Amnesia 14921204 Active 201807/12/19 19 - Comments only - Greg Cat MD - this may be stress related - will plan a mini mental exam at the next visit Problem Code: R41.3; Problem Code Type: ICD-10; Not Available [facility] 3 05:14:50 Pain in thoracic spine 661810200 Active 201812/25/19 19 - Comments only - Jonn Urbina - Advised her to increase her walking. Problem Code: M54.9; Problem Code Type: ICD-10; Not Available [facility] 3 05:14:50 Abnormal findings on diagnost ic imaging of urinary organs 142918069 Active 2018 Problem Code: R93.422; Problem Code Type: ICD-10; Not Available [facility] 3 05:14:51 Screenin g mammogra phy Active 2019 Problem Code: Z12.31; Problem Code Type: ICD-10; Not Available [facility] 3 05:14:51 Disorder of kidney and/or ureter 779579521 Active 2019 Problem Code: N28.9; Problem Code Type: ICD-10; Not Available [facility] 3 05:14:51 Mass of neck 543119932 Completed 201912/17/2019 12/04/19 20 - Comments only - Power Barnard PA-C - Will await results of today's requeste d laborato ry testing and US imaging. Consider ENT vs. surgical refer based upon results of same. 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 Problem Code: K11.8; Problem Code Type: ICD-10; Not Available [facility] 3 05:14:52 Thoracic aortic aneurysm without rupture 71708006 Active 201912/10/19 23 - Comments only - Greg Cat MD - She is followin g annually with CT surgery. Unclear if about tingling sensatio n could be related to any slight expansio n of aneurysm . Not Available [facility] 3 05:14:52 Lung field abnormal 030738291 Active 201902/06/20 22 - Comments only - Greg Cat MD - And history of thoracic aneurysm . She had a CT angio ordered by cardiac surgery at [facility] in April. It sounds like the 12 mm nodule in the right lower lobe is remainin g stable. The ectatic ascendin g aorta was unchange d since 2018. It sounds like she is schedule d to meet with them again this coming April. Problem Code: R91.8; Problem Code Type: ICD-10; Not Available [facility] 3 05:14:52 Non-toxi c uninodul ar goiter 593402387 Active 202005/16/19 21 - Comments only - Greg Cat MD - Incident al finding of 7 mm. We will continue to monitor. Problem Code: E04.1; Problem Code Type: ICD-10; Not Available [facility] 3 05:14:52 Lipoma of intratho racic organs 65826131 Active 2020 Problem Code: D17.4; Problem Code Type: ICD-10; Not Available [facility] 3 05:14:52 Hemoptys is 40903167 Active 202007/18/19 21 - Comments only - Greg Cat MD - no recurren t episode. [...] R04.2; Problem Code Type: ICD-10; Not Available [facility] 3 05:14:53 Therapeu tic drug monitori ng assay 84751104 Active 2020 Problem Code: Z51.81; Problem Code Type: ICD-10; Not Available [facility] 3 05:14:53 Blood in urine 94555184 Completed 202007/16/2020 Problem Code: R31.9; Problem Code Type: ICD-10; Not Available [facility] 3 05:14:53 Chest pain 88018027 Active 202005/16/19 22 - Comments only - Greg Cat MD - , There may have [...] R07.89; Problem Code Type: ICD-10; Not Available [facility] 3 05:14:53 Pre-surg monique evaluati on Active 2020 Problem Code: Z01.818; Problem Code Type: ICD-10; Not Available [facility] 3 05:14:53 History of urinary disease 543072948 Active 202111/22/19 22 - Comments only - Greg Cat MD - And some decrease d [...] Z87.448; Problem Code Type: ICD-10; Not Available [facility] 3 05:14:54 Pain of left shoulder joint 01144503538 791306 Active 202105/16/19 22 - Comments only - Greg Cat MD - Likely rotator cuff tendinit [...] M25.512; Problem Code Type: ICD-10; Not Available [facility] 3 05:14:54 Lesion of left sciatic nerve 59386494775 9107 Active 202111/22/19 - Comments only - Greg Cat MD - Resolved at this time. Problem Code: G57.02; Problem Code Type: ICD-10; Not Available [facility] 3 05:14:55 Jaw pain 711024487 Active 202109/13/19 23 - Comments only - Greg Cat MD - Which did not start [...] R68.84; Problem Code Type: ICD-10; Not Available [facility] 3 05:14:55 Follicul ar cysts of skin and subcutan eous tissue 730416414 Active 202111/22/19 - Comments only - Greg Cat MD - Left ring finger, likely a synovial cyst but cannot be certain. She is amenable to referral to the hand surgeon for further evaluati on. Problem Code: L72.9; Problem Code Type: ICD-10; Not Available [facility] 3 05:14:55 Trigger finger of right hand 00383837316 932923 Active 202111/22/19 - Comments only - Greg Cat MD - She would like to touch base with hand surgeon regardin g this as well. Problem Code: M65.331; Problem Code Type: ICD-10; Not Available [facility] 3 05:14:55 Irritabi lity and anger 426809077 Active 202105/06/19 23 - Comments only - Greg Cat MD - /Situati onal stress. She did try the duloxeti ne but it triggere d vomiting . She and her are planning on going to their [place] property later this winter and she thinks just being in a [facility] location will help her mood. Problem Code: R45.4; Problem Code Type: ICD-10; Not Available [facility] 3 05:14:55 Pain of left knee joint 08314928191 4107 Active 2022 Problem Code: M25.562; Problem Code Type: ICD-10; Not Available [facility] 3 05:14:56 Vitamin D deficien cy 89500097 Active 202209/13/19 23 - Comments only - Greg Cat MD - Historic ally deficien t, she has been taking suppleme ntations . We will recheck a level. Problem Code: E55.9; Problem Code Type: ICD-10; Not Available [facility] 3 05:14:56 Paresthe danilo 41212388 Active 202212/08/19 23 - Comments only - Greg Cat MD - Comment intermit tent sensatio n across upper chest into upper arms bilatera lly., Not associat ed with numbness or discomfo rt. Anything it feels like a pleasant sensatio n. No current physical findings . She will continue to monitor, if any progress ion she will call Problem Code: R20.2; Problem Code Type: ICD-10; Not Available [facility] 3 05:14:56 Family history of Cardiova scular disease 957738882 Active 2022 Problem Code: Z82.49; Problem Code Type: ICD-10; Not Available [facility] 3 05:14:56 Syncope and collapse 933451701 Completed 201808/28/2019 Problem Code: R55; Problem Code Type: ICD-10; Not Available [facility] 3 05:15:04 Disorder of eye region 639660365 Completed 201506/26/2017 Problem Code: H57.9; Problem Code Type: ICD-10; Not Available [facility] 3 05:15:04 Wheezing 43946420 Completed 202003/15/2021 Problem Code: R06.2; Problem Code Type: ICD-10; Not Available [facility] 3 05:15:05 Elevated blood-pr essure reading without diagnosi s of hyperten alisha 326486193 Completed 201608/28/2019 Problem Code: R03.0; Problem Code Type: ICD-10; Not Available [facility] 3 05:15:06 Otalgia of left ear 0813375107 Completed 201603/15/2021 Problem Code: H92.02; Problem Code Type: ICD-10; Not Available [facility] 3 05:15:06 Tobacco use cessatio n educatio n Completed 201506/26/2017 Problem Code: Z71.6; Problem Code Type: ICD-10; Not Available [facility] 3 05:15:07 Hypoxemi a 532495812 Completed 202003/15/2021 Problem Code: R09.02; Problem Code Type: ICD-10; Not Available [facility] 3 05:15:07 Obesity 969407565 Completed 200506/26/2017 Problem Code: E66.9; Problem Code Type: ICD-10; Not Available [facility] 3 05:15:08 Uses contrace ption 45685285 Completed 200901/24/2023 Not Available [facility] 3 05:15:08 Anxiety state 341208251 Completed 200101/24/2023 Problem Code: 300.09; Problem Code Type: ICD-9; Not Available [facility] 3 05:15:09 Headache 46160610 Completed 201606/26/2017 Problem Code: R51; Problem Code Type: ICD-10; Not Available [facility] 3 05:15:10 Hyperten sive disorder 11813231 Completed 200901/24/2023 Not Available [facility] 3 05:15:11 Chest pain 66403824 Completed 201708/28/2019 Problem Code: R07.9; Problem Code Type: ICD-10; Not Available [facility] 3 05:15:11 Nicotine dependen ce 77718440 Completed 201506/26/2017 Problem Code: Z87.891; Problem Code Type: ICD-10; Not Available [facility] 3 05:15:12 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 947152367 Completed 201101/24/2023 Problem Code: 314.00; Problem Code Type: ICD-9; Not Available [facility] 3 05:15:13 Hypertro phic conditio n of skin 81892982 Completed 201401/24/2023 Problem Code: 701.9; Problem Code Type: ICD-9; Not Available [facility] 3 05:15:13 Morbid obesity 217840429 Completed 200501/24/2023 Not Available [facility] 3 05:15:14 Tobacco dependen ce syndrome 35109018 Completed 200301/24/2023 Problem Code: 305.1; Problem Code Type: ICD-9; Not Available [facility] 3 05:15:15 Contrace ption care manageme nt Completed 200902/05/2022 Problem Code: Z30.9; Problem Code Type: ICD-10; Not Available [facility] 3 05:15:15 Pneumoni a 996643235 Completed 202003/15/2021 Problem Code: J18.9; Problem Code Type: ICD-10; Not Available [facility] 3 05:15:17 Disorder of skin and/or subcutan eous tissue 19074451 Completed 201406/26/2017 Problem Code: L98.9; Problem Code Type: ICD-10; Not Available [facility] 3 05:15:17 Blood glucose outside referenc e range 331941262 Completed 201701/24/2023 04/29/20 19 - Comments only - Jonn Urbina - Will check A1c. Problem Code: R73.09; Problem Code Type: ICD-10; Not Available [facility] 3 05:15:17 Foot pain 09670002 Completed 201406/26/2017 Problem Code: M79.673; Problem Code Type: ICD-10; Not Available [facility] 3 05:15:18 Secondar y polycyth emia 99576549 Active 202202/06/20 23 - Comments only - Greg Cat MD - , Mild. Discusse d this could be related to her smoking. There is a family history she thinks of liver disorder . We will check LFTs, transfer rin saturati on. Problem Code: D75.1; Problem Code Type: ICD-10; Not Available [facility] 4 05:37:51 Smoker 68341966 Active [address], [facility] [address] , [facility] 4 12:31:47 Irregula r heart beat 009031590 Active [address], [facility] [address] , [facility] 4 05:52:25 Hyperlip idemia 57564273 Active [address], [facility] [address] , [facility] 4 16:57:04 Kidney stone 23214207 Active 2023 left, non-obst ructing MD Jai [address], [facility] [address] , [facility] 4 06:59:38 Chronic obstruct juancarlos pulmonar y disease [id number] Active [address], [place], [address] , [facility] 4 11:28:59 Problem Notes None recorded. Medical Equipment None Reported. Allergies Allergen ID Allergen Name Allergen Category Reaction Reaction Severity Criticality Documentation Date Start Date Code Code System Note Provider Name and Address Organization Details Recorded Time 31131 Depakote medicatio n diarrhea mild low 03/09/20232007 34759 [address] [facility] 4 11:57:49 60502 Zoloft medicatio n Not available Not available Not available 03/09/20232012 72876 RxNorm Not Available [facility] 3 16:07:11 58701 Imitrex medicatio n Not available Not available low 03/09/20232003 33521 [address] [facility] 4 11:58:12 51475 Eggs (edible) (substanc e) food,medi cation diarrhea nausea vomiting mild mild mild high 03/09/20232007 82928 3[address] [facility] 4 11:58:08 94281 adhesive tape environme nt,medica tion rash moderate high 03/09/20232009 Carole Chawla [facility] 4 11:57:18 80149 Adderall medicatio n other moderate low 05/07/20232008 66274 RxNorm irrit abili ty Carole Keya [facility]. 4 11:57:09 96167 Chantix medicatio n nausea severe low 05/07/20232020 50528 0 RxNorm Carole Chawla null, [facility]. 4 11:57:37 92500 Wellbutri n medicatio n other severe high 05/07/20232015 51304 RxNorm suici michael conteh Carole Chawla null, [place] [facility]. 4 11:58:55 Medications Name Sig Start Date [...] Available Not Available Not Available Sure-Fine Pen [place] 31 gauge x 3/16 Inject subcutane ously [...] Not Available Vitals Date Recorded Body height Oxygen saturation Oxygen saturation in Arterial blood by Pulse oximetry Heart rate Body mass index (BMI) Body weight Systolic blood pressure Diastolic blood pressure Provider Name and Address Organization Details Last Updated DateTime 4 164.998 4 cm 97 % 97 % 67 /min 39 kg/m2 282276. 9 g 120 mm[Hg] 76 mm[Hg] Jaylon Miner MA [facility], [facility] 4 11:12:46 Social History Question Answer Notes LastModified by Organizat ion Details LastModified Time Tobacco Smoking Status Current Every Day Smoker Carole bautista, [facility] 05/08/2023 11:46:05 Would You Say That, In General, Your Health Is Fair [email or web address] Information not available 12/06/2023 How Often Does Anyone, Including Family, Physically Hurt You? Never [email or web address] Information not available 12/06/2023 How Often Does Anyone, Including Family, Insult Or Talk Down To You? Rarely [email or web address] Information no t available 12/06/2023 How Often Does Anyone, Including Family, Threaten You With Harm? Never Information not available 12/06/2023 How Often Does Anyone, Including Family, Scream Or Curse At You? Rarely [email or web address] Information not available 12/06/2023 Within The Past 12 Months, You Worried That Your Food Would Run Out Before You Got Money To Buy More. Sometimes True [email or web address] Information not available 12/06/2023 Within The Past 12 Months, The Food You Bought Just Didn't Last And You Didn't Have Money To Get More. Sometimes True Information not available 12/06/2023 How Hard Is It For You To Pay For The Very Basics Like Food, Housing, Medical Care, And Heating? Would You Say It Is: Somewhat Hard [email or web address] Information not available 12/06/2023 In The Past 12 Months, Has Lack Of Reliable Transportation Kept You From Medical Appointments, Meetings, Work Or From Getting Things Needed For Daily Living? No Information not available 12/06/2023 What Is Your Housing Situation Today? I Have Housing. [email or web address] Information not available 12/06/2023 How Often In The Past Year Have You Used Marijuana (including Smoking, Vaping, Dabbing, Or Edibles)? Monthly Or Less [email or web address] Information not available 12/06/2023 How Often In The Past Year Have You Used Prescription Medications That Were Not Prescribed To You? Never [email or web address] Information n ot available 12/06/2023 How Often In The Past Year Have You Taken Your Own Prescription Medication More Than The Way It Was Prescribed Or For Different Reasons Than Its Intended Purpose? Never [email or web address] Information no t available 12/06/2023 How Often In The Past Year Have You Used Other Drugs (for Example, Heroin, Cocaine, Meth, Salvia, Inhalants)? Never [email or web address] Information not available 12/06/2023 Have You Ever Used IV Drugs? No [email or web address] Information not available 12/06/2023 Date Of Most Recent SBINS 12/06/2023 [email or web address] Information not available 12/06/2023 What Was The Date Of Your Most Recent Tobacco Screening? 05/08/2023 [email or web address] Information not available 05/08/2023 What Is Your Current Pack Years? 30ormorepacky ears [email or web address] Information not available 05/08/2023 At What Age Did You Start Smoking Tobacco? 21 [email or web address] Information not available 05/08/2023 How Much Tobacco Do You Smoke? 2 PPD [email or web address] Information not available 05/08/2023 Has Tobacco Cessation Counseling Been Provided? Yes [email or web address] Information not available 05/08/2023 On What Date Was Tobacco Cessation Counseling Provided? 05/08/2023 [email or web address] Information not available 05/08/2023 How Many Years Have You Smoked Tobacco? 40 [email or web address] Information not available 05/08/2023 Do You Or Have You Ever Used Any Other Forms Of Tobacco Or Nicotine? No [email or web address] Information not available 05/08/2023 Sex: Female Functional Status None recorded. Mental Status None recorded. Family History Nothing Reported Notes:*Problem: updated no c amarjit 11/03/10: Mother: age 66 cause CVA, DM, CAD Father: when Suzan was age 6 months cause - accident Brothers: none, 1 in 30s from [place], on in 30s from ? OD - [...] Details Recorded Time zoster recombinant 06/15/2023 completed GREG CAT MD [facility] [address], [place], [address], [facility] 06/17/2023 07:23:44 zoster recombinant 12/06/2023 completed Jaylon Galeano MA [facility], [facility] 12/06/2023 12:57:35 Td (adult), 2 Lf tetanus toxoid, preservative free, adsorbed 11/18/2021 completed Not Available [facility] 03/09/2023 06:07:11 Tdap 06/23/2010 completed Not Available [facility] 06:07:11 SARS-COV-2 (COVID-19) vaccine, UNSPECIFIED 07/27/2020 completed Not Available [facility] 03/09/2023 06:07:11 SARS-COV-2 (COVID-19) vaccine, UNSPECIFIED 08/18/2021 completed Not Available [facility] 03/09/2023 06:07:11 SARS-COV-2 (COVID-19) vaccine, UNSPECIFIED 09/11/2020 completed Not Available [facility] 03/09/2023 06:07:11 SARS-COV-2 (COVID-19) vaccine, UNSPECIFIED 04/05/2021 completed Not Available [facility] 03/09/2023 06:07:11 Past Encounters Encounter ID Performer Location Encounter Start Date Encounter Closed Date Diagnosis/Indication Diagnosis SNOMED-CT Code Diagnosis ICD10 Code [id number] GREG CAT MD [address] [address] 12/06/2023 10:56:29 12/06/2023 12:38:40 Screening for malignant neoplasm of colon 953074697 Z12.11 Screening mammography 24 938858 Z12.31 Gynecologi c examination 56714723 Z01.419 Adult heal th examination 061967460 Z00.00 Chronic pain 40067450 G8 9.29 Active or passive immunization 179802130 Z23 Essential hypertension 79967019 I10 Vitamin D deficiency 347 30172 E55.9 Prediabetes 970391529 R7 3.03 Body mass index 30+ - obesity 895954855 Z68.39 Nicotine dependence 5629 4008 F17.200 Non-toxic uninodular goiter 542946447 E04.1 Thoracic a ortic aneurysm without rupture 05084074 I71.20 Health Concerns Section Related Observation LastModified by Organization Detai ls LastModified Time None Recorded Concern Status LastModified by Organization Details LastModified Time None Recorded Payers Encounter Date Sequence Insurance Name Policy Number Policy Ibrahim Covered Member ID Ibrahim Member ID Guarantor Name 12/06/2023 1 [facility] (MEDICAID) Suzan Chaudhary [id number] Suzan Chaudhary Notes Date Note Type Note Provider Name and Address Organization Details Recorded Time 12/06/2023 text/html HPI Notes: Suzan here today for an AE, f/u of IBS, obesity, smoking cessation GREG CAT MD [address], [place], [address], [facility]. 12/07/2023 18:04:59 OBGyn Episode No OBEpisode recorded.
--- OUTSIDE RECORDS SUMMARY | 2024-02-01 12:41 | XMS_ITS | Encounter Summary ---
[place] [address] Care Team Providers Care Sales Representative Girls' Apparel Name Role Phone Moira Arriaza MD Primary Care Provider [phone] Encounter Details Date Type Department Care Team (Latest Contact Info) Description 05/20/2021 12:00 PM EST Laboratory Appointment Lab [address] [place] [address] Thoracic aortic aneurysm without rupture [...] ORDERABL ES [facility] [place] [address] documented in this encounter Visit Diagnoses Diagnosis Thoracic aortic aneurysm without rupture Thoracic aneurysm without mention of rupture documented in this encounter Care Teams Sales Representative Girls' Apparel Relationship Specialty Start Date End Date Moira Arriaza MD [address] [place] [address] PCP - General 03/22/10 documented as of this encounter
--- OUTSIDE RECORDS SUMMARY | 2024-02-01 12:41 | XMS_ITS | Encounter Summary ---
[place] [address] Care Team Providers Care Brick And Tile Making Machine Operator Name Role Phone Moira Arriaza MD Primary Care Provider [phone] Reason for Referral * Diagnostic Test (Routine) - Closed Specialty Diagnoses / Procedures Referred By Contac t Referred To Contact Radiology Diagnoses Thoracic aortic aneurysm without rupture Procedures CT Angiogram Chest (Non-Coronary) w Contrast CT Angiogram Chest (Non-Coronary) wwo Contrast Marquis Harry PA [facility] CARDIOTH[place] [address] [facility] [place] [address] Referral ID Status Reason Start Date Expiration Date V isits Requested Visits Authorized [id number] Closed Specialty Service Requested 03/30/2021 09/28/2022 1 1 Encounter Details Date Type Department Care Team (Late st Contact Info) Description 03/30/2021 Orders [place] [address] Marquis Harry PA [facility] DR C[place]IOTHORACIC [place] [address] Thoracic aortic aneurysm without rupture [...] who have questions please contact the health after school caregiver that requested your imaging first. ? Narrative 05/20/2021 4:17 PM EST EXAMINATION: CT [...] patients who have questions please contactthe health after school caregiver that requested your imaging first. Ebenezer Nguyen MD IMG CT ORDERABLES * Creatinine (05/20/2021 12:10 PM EST) Creatinine 0.86 0.70 - 1.20 mg/dL [facility] Est Glomerular Filtration Rate 74 >=60 mL/min/1. 73 m?? [facility] Comment: This patient? [...] Lab Ebenezer Nguyen MD CHEMISTRY ORDERABL ES [facility] [place] [address] documented in this encounter Visit Diagnoses Diagnosis Thoracic aortic aneurysm without rupture Thoracic aneurysm without mention of rupture Thoracic aortic aneurysm without rupture Thoracic aneurysm without mention of rupture documented in this encounter Care Teams Brick And Tile Making Machine Operator Relationship Specialty Start Date End Date Moira Arriaza MD [address] [place] [address] PCP - General 03/22/10 documented as of this encounter
--- OUTSIDE RECORDS SUMMARY | 2024-02-01 12:41 | XMS_ITS | Encounter Summary ---
Author Organization [facility] [place] [address] Care Team Providers Care Unit Manager [employer]ience Stores Name Role Phone Moira Arriaza MD Primary Care Provider [phone] Encounter Details Date Type Department Care Team [...] filedocumented in this encounter Care Teams Unit Manager [employer] Relationship Specialty Start Date End Date Moira Arriaza MD [address] [place] [address] PCP - General 03/22/10 documented as of this encounter
--- OUTSIDE RECORDS SUMMARY | 2024-02-01 12:41 | XMS_ITS | Encounter Summary ---
Author Organization [facility] [place] [address] Care Team Providers Care Supervisor Jewelry Department Name Role Phone Moira Arriaza MD Primary Care Provider [phone] Encounter Details Date Type Department Care Team (Late st Contact Info) Description 06/06/2022 1:30 PM EST Office [place] [address] Guillermo Gandhi MD Ascending aortic aneurysm, unspecified [...] 0.54) performed by Moira Garrett MD at [facility] MAIN OR ??? PRO COLONOSCOPY, BIOPSY 09/14/2010 COLONOSCOPY FLEXIBLE, WITH BX performed by LUIS FABIAN I at [facility] ENDOSCOPY ??? PRO COLONOSCOPY, BIOPSY N/A 10/15/2017 COLONOSCOPY FLEXIBLE, WITH BX (WRVU 3.66) performed by Brie Sheets MD at [facility] ENDOSCOPY ??? PRO EXC PAROTD, LAT LOBE, DISSECT 5TH NERV Left 03/16/2021 EXC.PAROTID TUMOR OR GLAND, LATERAL LOBE, W DISSECTION & PRESERVATION FACIAL NERVE (WRVU 17.16)performed by Moira Garrett MD at [facility] MAIN OR ??? PRO UPPER GI ENDOSCOPY, BIOPSY 09/14/2010 UPPER GASTROINTESTINAL ENDOSCOPY,WITH BIOPSY SINGLE OR MULTIPLE performed by LUIS FABIAN I at [facility] ENDOSCOPY ??? PRO UPPER GI ENDOSCOPY, DIAGNOSTIC N/A 10/15/2017 EGD, UPPER GI ENDOSCOPY performed by Brie Sheets MD at [facility] ENDOSCOPY Family History: No family history [...] ruptured documented in this encounter Care Teams Supervisor Jewelry Department Relationship Specialty Start Date End Date Moira Arriaza MD [address] [place] [address] PCP - General 03/22/10 documented as of this encounter
--- OUTSIDE RECORDS SUMMARY | 2024-02-01 12:41 | XMS_ITS | Encounter Summary ---
[place] [address] Care Team Providers Care Restorative Rehab Aide Name Role Phone Moira Arriaza MD Primary Care Provider [phone] Encounter Details Date Type Department Care Team (Latest Contact Info) Description 06/06/2022 10:30 AM EST Laboratory Appointment Lab [address] [place] [address] Thoracic aortic aneurysm without rupture, unspecified part [...] EST) Creatinine 0.76 0.70 - 1.20 mg/dL [facility] Est Glomerular Filtration Rate 90 >=60 mL/min/1. 73 m?? [facility] Comment: This patient's estimated [...] Lab Ebenezer Nguyen MD CHEMISTRY ORDERABL ES [facility] [place] [address] documented in this encounter Visit Diagnoses Diagnosis Thoracic aortic aneurysm without rupture, unspecified part documented in this encounter Care Teams Restorative Rehab Aide Relationship Specialty Start Date End Date Moira Arriaza MD [address] [place] [address] PCP - General 03/22/10 documented as of this encounter
--- OUTSIDE RECORDS SUMMARY | 2024-02-01 12:41 | XMS_ITS | Encounter Summary ---
Author Organization [facility] [place] [address] Care Team Providers Care Surgical Services Director Name Role Phone Moira Arriaza MD Primary Care Provider [phone] Reason for Referral * Diagnostic Test (Routine) - Closed Specialty Diagnoses / Procedures Referred By Contac t Referred To Contact Radiology Diagnoses Thoracic aortic aneurysm without rupture, unspecified part Procedures CT Angiogram Chest (Non-Coronary) w Contrast CT Angiogram Chest (Non-Coronary) wwo Contrast Moira Han PA [facility] [place] [address] [facility] [place] [address] Referral ID Status Reason Start Date Expiration Date V isits Requested Visits Authorized [id number] Closed Specialty Service Requested 02/22/2022 08/24/2023 1 1 Encounter Details Date Type Department Care Team (Late st Contact Info) Description 02/22/2022 Orders [place] [address] Ebenezer Nguyen MD [facility] [place] [address] Thoracic aortic aneurysm without rupture, [...] who have questions please contact the health lead caregiver that requested your imaging first. ? [...] administration of contrast. Administered 72.0 ml of REODILQJW365.00 mg/ml. Maximum intensity projection (MIP) were reformatted. [...] patients who have questions please contactthe health lead caregiver that requested your imaging first. Ebenezer Nguyen MD IMG CT ORDERABLES * Creatinine (06/06/2022 10:56 AM EST) Creatinine 0.76 0.70 - 1.20 mg/dL [facility] Est Glomerular Filtration Rate 90 >=60 mL/min/1. 73 m?? [facility] Comment: This patient's estimated GFR was [...] Lab Ebenezer Nguyen MD CHEMISTRY ORDERABL ES [facility] [place] [address] documented in this encounter Visit Diagnoses Diagnosis Thoracic aortic aneurysm without rupture, unspecified part Thoracic aortic aneurysm without rupture, unspecified part documented in this encounter Care Teams Surgical Services Director Relationship Specialty Start Date End Date Moira Arriaza MD [address] [place] [address] PCP - General 03/22/10 documented as of this encounter
--- OUTSIDE RECORDS SUMMARY | 2024-02-01 12:41 | XMS_ITS | Encounter Summary ---
Author Organization [facility] [place] [address] Care Team Providers Care Hand Stemmer Name Role Phone Moira Arriaza MD Primary Care Provider [phone] Encounter Details Date Type Department Care Team (Late st Contact Info) Description 01/29/2020 Ancillary Procedure Radiology Library at [facility] [place] [id number] Moira Arriaza MD [address] [place] [address] Social History Tobacco Use Types Packs/Day Years [...] Ultrasound Study (01/29/2020 12:00 AM EDT) Narrative [facility] - 03/12/2020 11:29 AM EST This exam is auto-finalizing. It's purpose is for storage only. Moira Arriaza MD [facility] ORD ERABLES [facility] RAD [place], [place] documented in this encounter Visit Diagnoses Not on filedocumented in this encounter Care Teams Hand Stemmer Relationship Specialty Start Date End Date Moira Arriaza MD [address] [place] [address] PCP - General 03/22/10 documented as of this encounter
--- OUTSIDE RECORDS SUMMARY | 2024-02-01 12:41 | XMS_ITS | Encounter Summary ---
Author Organization [facility] [place] [address] Care Team Providers Care Clinical Genetics Laboratory Chief Name Role Phone Moira Arriaza MD Primary Care Provider [phone] Reason for Referral * Diagnostic Test (Routine) - Closed Specialty Diagnoses / Procedures Referred By Contac t Referred To Contact Radiology Diagnoses Thoracic aortic aneurysm without rupture Procedures CT Angiogram Chest (Non-Coronary) w Contrast CT Angiogram Chest (Non-Coronary) wwo Contrast Marquis Harry PA [facility] [place] [address] [facility] [place] [address] Referral ID Status Reason Start Date Expiration Date V isits Requested Visits Authorized [id number] Closed Specialty Service Requested 03/30/2021 09/28/2022 1 1 Reason for Visit * Diagnostic Test (Routine) - Closed Specialty Diagnoses / Procedures Referred By Contac t Referred To Contact Radiology Diagnoses Thoracic aortic aneurysm without rupture Procedures CT Angiogram Chest (Non-Coronary) w Contrast CT Angiogram Chest (Non-Coronary) wwo Contrast Marquis Harry PA [facility] [place] [address] [facility] [place] [address] Referral ID Status Reason Start Date Expiration Date V isits Requested Visits Authorized [id number] Closed Specialty Service Requested 03/30/2021 09/28/2022 1 1 Encounter Details Date Type Department Care Team (Latest Contact Info) Description 05/20/2021 1:34 PM EST - 05/20/2021 11:59 PM EST Hospital Encounter CT Scan at [facility] [place] [address] Ebenezer Nguyen MD [facility] [place] [address] Thoracic aortic aneurysm without rupture Discharge Disposition: [...] who have questions please contact the health home care giver that requested your imaging first. ? Narrative [...] patients who have questions please contactthe health home care giver that requested your imaging first. Ebenezer Nguyen [...] mLs documented in this encounter Care Teams Clinical Genetics Laboratory Chief Relationship Specialty Start Date End Date Moira Arriaza MD [address] [place] [address] PCP - General 03/22/10 documented as of this encounter
--- OUTSIDE RECORDS SUMMARY | 2024-02-01 12:41 | XMS_ITS | Encounter Summary ---
Author Organization [place] [address] Care Team Providers Care Sheet Sewer Name Role Phone Moira Arriaza MD Primary Care Provider [phone] Reason for Visit * Consultation (Routine) - Specialty Diagnoses / Procedures Referred By Contviolet t Referred To Contact Otolaryngology Diagnoses Other diseases of salivary glands PAROTID MASS Moira Arriaza MD [address] [place] [address] [facility] Otolaryngology [address] [place] [address] Referral ID Status Reason Start Date Expiration Date V isits Requested Visits Authorized [id number] Consult, [facility] PCP Updated and/or Approved 03/12/2020 09/08/2020 6 6 Encounter Details Date Type Department Care Team (Late st Contact Info) Description 05/24/2020 1:30 PM EST Office Visit [place] [address] Moira Garrett MD [facility] [place] [address] Warthin's tumor Social History Tobacco [...] from the original note were not included. [facility] Otolaryngology - Head and Neck Surgery Moira Garrett MD 05/24/20 1:56 PM [place] [address] Office Patient Name: Suzan Chaudhary Date of [...] BX performed by LUIS FABIAN I at [facility] ENDOSCOPY ??? PRO COLONOSCOPY, BIOPSY N/A 10/15/2017 COLONOSCOPY FLEXIBLE, WITH BX (WRVU 3.66) performed by Brie Sheets MD at [facility] ENDOSCOPY ??? PRO UPPER GI ENDOSCOPY, BIOPSY 09/14/2010 UPPER GASTROINTESTINAL ENDOSCOPY,WITH BIOPSY SINGLE OR MULTIPLE performed by LUIS FABIAN I at [facility] ENDOSCOPY ??? PRO UPPER GI ENDOSCOPY, DIAGNOSTIC N/A 10/15/2017 EGD, UPPER GI ENDOSCOPY performed by Brie Sheets MD at [facility] ENDOSCOPY Family and Social History Family History: No family history on file. Social History: [facility] [place] [facility] [place] [facility] [address] Social History Socioeconomic History ??? Marital status: [...] file Gets together: Not on file Attends taoism service: Not on file Active member of [...] Correlation with radiographic imaging is essential. ?? Drawstring Knotter slides of this case were reviewed at [...] Aspiration sample was performed by Pathologists at [facility], [address] [place] [address] I reviewed the following imaging studies: Procedures [...] glands documented in this encounter Care Teams Sheet Sewer Relationship Specialty Start Date End Date Moira Arriaza MD [address] [place] [address] PCP - General 03/22/10 documented as of this encounter
--- OUTSIDE RECORDS SUMMARY | 2024-02-01 12:41 | XMS_ITS | Encounter Summary ---
Author Organization [facility] [place] [address] Care Team Providers Care Marketing Operations Specialist Name Role Phone Moira Arriaza MD Primary Care Provider [phone] Reason for Referral * Diagnostic Test (Routine) - Closed Specialty Diagnoses / Procedures Referred By Contac t Referred To Contact Cardiology Diagnoses Thoracic aortic aneurysm without rupture Procedures Echocardiogram Transthoracic([facility]) Kirill Gill PA [facility] [place] [address] [facility] [place] [address] Referral ID Status Reason Start Date Expiration Date V isits Requested Visits Authorized [id number] Closed Specialty Service Requested 03/22/2020 03/22/2021 1 1 Encounter Details Date Type Department Care Team (Late st Contact Info) Description 03/22/2020 Orders Only [place] [address] Kirill Gill PA [facility] [place] [address] Thoracic aortic aneurysm without rupture [...] ?PANDA Marroquin ?(Age): 1960(60y) Med Rec#: ? [id number] ?Sex: ?F ? Site Loc: ? [facility] ?Ht / Wt: ??165(cm)/106(kg) Pt. Loc: ?Echo Lab ?BSA: ?2.11 Study Date: ?? 05/21/2020 ?Pt. Type: Outpatient Tape: ? Referring: Ebenezer Nguyen Referring: MIGUE Reading: Dung Frazier ([id number]) Abrasive Mixer: Pierre Connor RDCS Interpreting Fellow: Leslie Davis ([id number]) Interpreting Fellow: Rupal Medrano ([id number]) Diagnosis: *Thoracic aortic aneurysm, without rupture (I71.2) [...] Vmax ?0.69 ? m/sec ? MV deceleration opob180.21 ? msec ? MV A-wave Vmax ?0.94 [...] ? Mid-Inferior ?Normal ? Mid-Inferoseptal ?Normal ? Mark-Septal ? Normal ? Mark-Anterior ? Normal ? Mark-Lateral ?Normal ? Mark-Inferior ? Normal ? Mark-Tip ?Normal ? This report has been electronically signed by: Dung Frazier M.D. ? 05/21/2020 11:06:46 Images reviewed and interpretation verified [facility] Cardiac Ultrasound Laboratory Procedure Note Dung Frazier MD - 05/21/2020 Procedure: Transthoracic Echocardiogram Patient: PANDA Marroquin DOB(Age): 1960(60y) Med Rec#: [id number] Sex: F Site Loc: [facility] Ht / Wt: 165(cm)/106(kg) Pt. Loc: Echo Lab BSA: 2.11 Study Date: 05/21/2020 Pt. Type: Outpatient Tape: Referring: Ebenezer Nguyen Referring: MIGUE Reading: Dung Frazier ([id number]) Abrasive Mixer: Pierre Connor [facility] Interpreting Fellow: Leslie Davis ([id number]) Interpreting Fellow: Rupal Medrano ([id number]) Diagnosis: *Thoracic aortic aneurysm, without rupture (I71.2) [...] MV E-wave Vmax 0.69 m/sec MV deceleration diau905.21 msec MV A-wave Vmax 0.94 m/sec MV [...] Normal Mid-Posterolateral Normal Mid-Inferior Normal Mid-Inferoseptal Normal Mark-Septal Normal Mark-Anterior Normal Mark-Lateral Normal Mark-Inferior Normal Mark-Tip Normal This report has been electronically signed by: Dung Frazier M.D. 05/21/2020 11:06:46 Images reviewed and interpretation verified [facility] Cardiac Ultrasound Laboratory Ebenezer Nguyen MD ECHO ORDERABLES documented in this encounter Visit Diagnoses Diagnosis Thoracic aortic aneurysm without rupture Thoracic aneurysm without mention of rupture Thoracic aortic aneurysm without rupture Thoracic aneurysm without mention of rupture documented in this encounter Care Teams Marketing Operations Specialist Relationship Specialty Start Date End Date Moira Arriaza MD [address] [place] [address] PCP - General 03/22/10 documented as of this encounter
--- OUTSIDE RECORDS SUMMARY | 2024-02-01 12:41 | XMS_ITS | Encounter Summary ---
[facility] [place] [address] Care Team Providers Care Electrical Construction Project Manager Name Role Phone Moira Arriaza MD Primary Care Provider Encounter Details Date Type Department Care Team (Late st Contact Info) Description 05/04/2020 Telephone [place] [phone] Veronica Aponte Social History Tobacco Use Types [...] on filedocumented in this encounter Care Teams Electrical Construction Project Manager Relationship Specialty Start Date End Date Moira Arriaza MD [address] [place] [address] PCP - General 03/22/10 documented as of this encounter
--- OUTSIDE RECORDS SUMMARY | 2024-02-01 12:41 | XMS_ITS | Encounter Summary ---
Author Organization Formerly [facility] [place] [address] Care Team Providers Care Drug And Alcohol Counselor Name Role Phone Moira Arriaza MD Primary Care Provider [phone] Encounter Details Date Type Department Care Team (Late st Contact Info) Description 05/20/2021 3:30 PM EST Office [place] [phone] Ebenezer Nguyen MD [facility] [place] [address] Thoracic aortic aneurysm without rupture Social History [...] Current Medications: Current Outpatient Medications Ordered in [facility] Medication Sig Dispense Refill ??? losartan (Cozaar) [...] every 6 hours as needed. No current [facility]-ordered facility-administered medications on file. Review of Systems: [...] call with questions. Ebenezer Nguyen MD, MS supervisor counseling and guidance Section of Cardiac Surgery [facility] Office: [phone] Pager: [phone] I spent a total of 20 minutes today in record review, medical counseling, coordination of care, medical decision-making, and documentation. documented in this encounter Plan of Treatment Not on file documented as of this encounter Visit Diagnoses Diagnosis Thoracic aortic aneurysm without rupture Thoracic aneurysm without mention of rupture documented in this encounter Care Teams Drug And Alcohol Counselor Relationship Specialty Start Date End Date Moira Arriaza MD [address] [place] [address] PCP - General 03/22/10 documented as of this encounter
--- OUTSIDE RECORDS SUMMARY | 2024-02-01 12:41 | XMS_ITS | Encounter Summary ---
Author Organization [facility] Address [facility] [place] [address] Care Team Providers Care Plumber Pipe Fitting Name Role Phone Moira Arriaza MD Primary Care Provider [phone] Reason for Visit * Auth/Cert Specialty Diagnoses [...] Expiration Date Visits Re quested Visits Authorized [id number] 1 1 Encounter Details Date Type Department Care Team (Latest Contact Info) Description 03/16/2021 8:17 AM EST - 03/16/2021 2:20 PM [facility] Hospital Encounter [place] [phone] Moira Garrett MD [facility] [address] Warthin's tumor Discharge Disposition: Home Social History [...] -You can reach the ENT clinic at [phone] for appointment questions. -The ENT triage nurse is available at [phone] -For urgent issues during evenings (5 PM - 7 AM) and weekends the ENT resident expansion joint finisher can be reached through the main hospital glass toughening operator at [phone] Follow Up: You will need to follow [...] 10:40 AM Moira Garrett MD Otolaryngology at [facility] Arrive at: Wallpaper Embosser Helper Area [phone] documented in this encounter Medications at Time [...] by mouth every 6 hours as needed. irkeyjlg-petvnozqj-uujan cortisone (CORTISPORIN) 3.5-10,000-1 mg/mL-unit/mL-% Drops, Suspension SHAKE [...] Operative Note Patient Name: Suzan Chaudhary : [id number] MR#: [id number] Case Date: 03/16/2021 Surgeon: Surgeon(s) and Role: * Moira Garrett MD - Primary * Alisia Heard PA - Physician Computational Scientist Preoperative diagnosis: left parotid mass Postoperative diagnosis: [...] Garrett MD - 03/16/2021 10:17 AM EST [facility] Operative Note Patient Name: Suzan Chaudhary : [id number] MR#: [id number] Case Date: 03/16/2021 Surgeon: Surgeon(s) and Role: * Moira Garrett MD - Primary * Alisia Heard PA - Physician Computational Scientist Preoperative diagnosis: left parotid mass Postoperative diagnosis: [...] incision is completely closed without any wires, catailno, drains or other devices Disposition: awakened from [...] Test, Any/All Per. Nerves, Trunk Or Head ([id number]) 03/16/2021 9:43 AM EST Warthin's tumor Exc Parotd, Lat Lobe, Dissect 5Th Nerv ([id number]) 03/16/2021 9:43 AM EST Warthin's tumor POCT GLUCOSE Routine 03/16/2021 9:26 AM EST FACIAL NERVE MONITORING, SETUP Routine 03/16/2021 8:16 AM EST Warthin's tumor EXC.PAROTID TUMOR OR GLAND, LATERAL LOBE, W DISSECTION & PRESERVATION FACIAL NERVE Routine 03/16/2021 8:16 AM EST Warthin's tumor documented in this encounter Results * Surgical Pathology Report (03/16/2021 11:14 AM EST) Final Diagnosis [id number] ? Location: [facility]; [facility]; A The signing pathologist has (i) examined [...] MD Verified: ??03/21/2021 14:47 ??Pathologist Performed at: ??-[facility] Dept. of Pathology, [place], [place] SPECIMEN(S) SUBMITTED A - Parotid, left, [...] greatest dimension Inking: Inked black Sections/Processi ng: Sales Representative Education Courses sections in 7 cassettes as follows: ?A1-A4: ??Sales Representative Education Courses lesion ?A5: ??Sales Representative Education Courses glandular tissue with white mottling ?A6: ??2 intact lymph nodes ?A7: ??2 intact lymph nodes ??luis 03/21/2021 2:47 PM EST [facility] PAROTID GLAND STRUCTURE / Unknown 03/16/2021 11:14 AM EST 03/16/2021 11:14 AM EST Moira Garrett MD PATHOLOGY/CYTOLOGY O SEBASTIEN Performing Organization Address City/[facility] Co de Phone Number [facility] [place] [address] * Specimen to Pathology (03/16/2021 11:14 AM EST) AP Specimen 03/16/2021 11:1 4 AM EST 03/16/2021 11:14 AM EST Narrative [facility] - 03/16/2021 11:14 AM EST Specimen requisition ordered. ??Separate Pathology report to follow Moira Garrett MD PATHOLOGY/CYTOLOGY O SEBASTIEN Performing Organization Address [facility] Co de Phone Number [facility] [place] [address] * POCT Glucose (03/16/2021 9:26 AM EST) Glucose, POC 100 65 - 199 mg/dL [facility] Comment: Supplemental ranges: <140 mg/dL before meals <180 mg/dL all other times of the day Blood 03/16/2021 9:26 AM EST 03/16/2021 9:26 AM EST Moira aGrrett MD POINT OF CARE TEST O RDERABLES [facility] [place] [address] documented in this encounter Visit Diagnoses Diagnosis [...] RN) documented in this encounter Care Teams Plumber Pipe Fitting Relationship Specialty Start Date End Date Moira Arriaza MD [address] [place] [address] PCP - General 03/22/10 documented as of this encounter
--- OUTSIDE RECORDS SUMMARY | 2024-02-01 12:41 | XMS_ITS | Encounter Summary ---
Author Organization Formerly [facility] Address [facility] [place] [address] Care Team Providers Care Cell Lead Name Role Phone Moira Arriaza MD Primary Care Provider [phone] Reason for Referral * Diagnostic Test (Routine) - Authorized Specialty Diagnoses / Procedures Referred By Contac t Referred To Contact Radiology Diagnoses Thoracic aortic aneurysm without rupture, unspecified part Procedures CT Chest wo Contrast (Generic) Thony Hermosillo PA [facility] [place] [address] [facility] [place] [address] Referral ID Status Reason Start Date Expiration Date Visits Requested Visits Authorized [id number] Authorized Specialty Service Requested 06/29/2023 12/29/2024 1 1 Encounter Details Date Type Department Care Team (Late st Contact Info) Description 06/29/2023 Orders [place] [address] Guillermo Gandhi MD Thoracic aortic [...] Primary documented in this encounter Care Teams Cell Lead Relationship Specialty Start Date End Date Moira Arriaza MD [address] [place] [address] PCP - General 03/22/10 documented as of this encounter
--- OUTSIDE RECORDS SUMMARY | 2024-02-01 12:41 | XMS_ITS | Encounter Summary ---
Author Organization [facility] [place] [address] Care Team Providers Care Wire Insulator Name Role Phone Moira Arriaza MD Primary Care Provider Reason for Visit * Diagnostic Test (Routine) - Closed Specialty Diagnoses / Procedures Referred By Contac t Referred To Contact Radiology Diagnoses Warthin's tumor Procedures NM PET CT Standard Plus Extremities and Head Watson Nick PA [address] [place] [address] [place] [address] Referral ID Status Reason Start Date Expiration Date V isits Requested Visits Authorized [id number] Closed Specialty Service Requested 02/11/2020 08/09/2020 1 1 Encounter Details Date Type Department Care Team (Late st Contact Info) Description 02/20/2020 2:29 PM EDT - 02/20/2020 11:59 PM EDT Hospital Encounter [place] [address] Watson Nick PA [address] [place] [address] Discharge Disposition: Home Social History [...] Glucose, POC 94 65 - 199 mg/dL [facility] Comment: Supplemental ranges: <140 mg/dL before meals <180 mg/dL all other times of the day Blood specimen (specimen) 02/20/2020 2:35 PM EDT 02/20/2020 2:35 PM EDT Watson SILVER POINT [place] [address] documented in this encounter Visit Diagnoses Not on filedocumented in this encounter Care Teams Wire Insulator Relationship Specialty Start Date End Date Moira Arriaza MD [address] [place] [address] PCP - General 03/22/10 documented as of this encounter
--- OUTSIDE RECORDS SUMMARY | 2024-02-01 12:41 | XMS_ITS | Encounter Summary ---
Author Organization [facility] [place] [address] Care Team Providers Care Pharmaceutical Process Engineer Name Role Phone Moira Arriaza MD Primary Care Provider [phone] Encounter Details Date Type Department Care Team (Late st Contact Info) Description 02/23/2019 Ancillary Procedure Radiology Library [place] [phone] Moira Arriaza MD [address] [place] [address] Social History Tobacco Use Types Packs/Day Years [...] CT Chest (02/23/2019 12:00 AM EDT) Narrative [facility] - 03/09/2020 2:53 PM EST This exam is auto-finalizing. It's purpose is for storage only. Moira Arriaza MD [facility] FILM LIBRARY ORD ERABLES [facility] [place], [place] documented in this encounter Visit Diagnoses Not on filedocumented in this encounter Care Teams Pharmaceutical Process Engineer Relationship Specialty Start Date End Date Moira Arriaza MD [address] [place] [address] PCP - General 03/22/10 documented as of this encounter
--- OUTSIDE RECORDS SUMMARY | 2024-02-01 12:41 | XMS_ITS | Encounter Summary ---
Author Organization [facility] Address [facility] [place] [address] Care Team Providers Care Starbucks Barista Name Role Phone Moira Arriaza MD Primary Care Provider [phone] Reason for Visit * Consultation (Routine) - Closed Specialty Diagnoses / Procedures Referred By Contac t Referred To Contact Pulmonology Diagnoses Other nonspecific abnormal finding of lung field Moira Arriaza MD [address] [place] [address] [facility] Pulmonology [address] [place] [phone] Referral ID Status Reason Start Date Expiration Date V isits Requested Visits Authorized [id number] Closed Consult, Test & Treat Connection Center PCP Updated and/or Approved 03/12/2020 03/12/2021 6 6 Encounter Details Date Type Department Care Team (Late st Contact Info) Description 04/05/2020 1:00 PM EST TH Visit (TeleHealth) [place] [address] Jonnie Pedro MD [facility] [place] [address] Pulmonary nodule Social History Tobacco [...] NAME: Suzan Chaudhary : 1960 MEDICAL RECORD: [id number] DATE OF SERVICE: 04/04/2020 REFERRING PHYSICIAN: Moira Arriaza MD PRIMARY CARE PHYSICIAN: Moira Arriaza MD TELE-HEALTH INFO Patient identity was confirmed by name and date of at beginning of this telehealth visit. Patient was informed that this telehealth visit is a billable encounter and stated agreement to continue. The patient is at home in [place]. Reason for Tele-Consultation: Lung nodule Chief Complaint: I have a nodule in my chest History of Present Illness: Ms. Suzan Chaudhary is a 60 y.o. woman who has been sent to Interventional Pulmonology for consultation regarding a solitary pulmonary nodule. On 01/29/20, the patient underwent a CT chest as ordered by [facility] ENT. The listed indicationof the study [...] the same day and this demonstrated a 34x91a03 mm enhancing lesion of the L parotid with an adjacent 45t63w28 mm lesion directly adjacent to thiswhich was suspicious for necrotic adenopathy. There are some ENT notes from [place] and she was last seen by them on 02/03/20 (based on doc[place]emntation sent to [place]) at which time she underwent repeat laryngoscopy [...] houses, mows the lawns, andcares for her jichbr-ya-bor. She used to walk 7 miles per day but hasn't been doing this since caring for her pacikj-lq-sgc over the last year and a half [...] use Other drugs: Denies The patient lives [place], [place] Employment: self-employed as [employer] Occupational exposures: none Objective: No examination or [...] on recent PET imaging. Based on the [facility] Model, the probability of malignancy for this lesion is estimated to be 3.6% which is considered a low (<5%) pre-test probability (Terri SJ et al. Arch Evaluation Advisor Med.1996Aug 25;157(8):849-55); we talked about the differential [...] Section of Pulmonary & Critical Care Pager: [phone] documented in this encounter Plan of Treatment Not on file documented as of this encounter Visit Diagnoses Diagnosis Pulmonary nodule Solitary pulmonary nodule documented in this encounter Care Teams Starbucks Barista Relationship Specialty Start Date End Date Moira Arriaza MD [address] [place] [address] PCP - General 03/22/10 documented as of this encounter
--- OUTSIDE RECORDS SUMMARY | 2024-02-01 12:41 | XMS_ITS | Encounter Summary ---
Author Organization [facility] [place] [address] Care Team Providers Care Airline Radio Operator Name Role Phone Moira Arriaza MD Primary Care Provider [phone] Encounter Details Date Type Department Care Team (Late st Contact Info) Description 08/01/2021 11:00 AM EDT Office [place] [address] Moira Garrett MD [facility] [place] [address] Warthin tumor Social History Tobacco Use Types [...] Garrett MD - 08/01/2021 11:00 AM EDT [facility] Otolaryngology - Head and Neck Surgery Moira Garrett MD 08/01/21 11:23 AM [place], [place] [address] Office Patient Name: Suzan Chaudhary Date of [...] 0.54) performed by Moira Garrett MD at [facility] MAIN OR ??? PRO COLONOSCOPY, BIOPSY 09/14/2010 COLONOSCOPY FLEXIBLE, WITH BX performed by LUIS FABIAN I at [facility] ENDOSCOPY ??? PRO COLONOSCOPY, BIOPSY N/A 10/15/2017 COLONOSCOPY FLEXIBLE, WITH BX (WRVU 3.66) performed by Brie Sheets MD at [facility] ENDOSCOPY ??? PRO EXC PAROTD, LAT LOBE, DISSECT 5TH NERV Left 03/16/2021 EXC.PAROTID TUMOR OR GLAND, LATERAL LOBE, W DISSECTION & PRESERVATION FACIAL NERVE (WRVU 17.16)performed by Moira Garrett MD at [facility] MAIN OR ??? PRO UPPER GI ENDOSCOPY, BIOPSY 09/14/2010 UPPER GASTROINTESTINAL ENDOSCOPY,WITH BIOPSY SINGLE OR MULTIPLE performed by LUIS FABIAN I at [facility] ENDOSCOPY ??? PRO UPPER GI ENDOSCOPY, DIAGNOSTIC N/A 10/15/2017 EGD, UPPER GI ENDOSCOPY performed by Brie Sheets MD at [facility] ENDOSCOPY Family and Social History Family History: No family history on file. Social History: Lives [place] [facility] [facility] [address] Social History Socioeconomic History ??? Marital status: [...] glands documented in this encounter Care Teams Airline Radio Operator Relationship Specialty Start Date End Date Moira Arriaza MD [address] [place] [address] PCP - General 03/22/10 documented as of this encounter
--- OUTSIDE RECORDS SUMMARY | 2024-02-01 12:42 | XMS_ITS | Encounter Summary ---
Author Organization [facility] Address [address] [place] [address] Care Team Providers Care Resource Management Specialist Name Role Phone Unavailable Primary Care Provider Unavailabl e Encounter Details Date Type Department Care Team (Late st Contact Info) Description 08/22/2005 Results Only [facility] [place] conversion [address] [place] [address] Latasha Sheridan, DEALER DEVELOPMENT MANAGER [facility] [address] [place] [address] Social History Tobacco Use Types [...] ? SUZAN MOLINA ? Accession #: ? [id number] : ? 1960 (Age: 45) ??F ?Collect Date: ? 08/22/2005 Location: ? [facility] ? Receive Date: ? 08/24/2005 Provider: ?LATASHA SHERIDAN DEALER DEVELOPMENT MANAGER Copy to: ? Specimen/Source: ?ThinPrep Pap Test, Cervix/Endocervix, processed on [employer] ThinPrep Imaging System, with manual evaluation Last [...] Sheridan NP PATHOLOGY ORDERABLES DOMINIK GALARZA [address] [place] [address] documented in this encounter Visit Diagnoses Not on filedocumented in this encounter
--- OUTSIDE RECORDS SUMMARY | 2024-02-01 12:42 | XMS_ITS | Encounter Summary ---
[place] [address] Care Team Providers Care Control Chemist Name Role Phone Moira Arriaza MD Primary Care Provider [phone] Reason for Referral * Diagnostic Test (Routine) - Closed Specialty Diagnoses / Procedures Referred By Contac t Referred To Contact Radiology Diagnoses Incisional hernia, without obstruction or gangrene Procedures CT Abdomen & Pelvis Wo Contrast Guillermo Lewis MD [facility] [place] [address] [facility] [place] [address] Referral ID Status Reason Start Date Expiration Date V isits Requested Visits Authorized [id number] Closed Specialty Service Requested 10/20/2015 01/18/2016 1 1 Reason for Visit * Diagnostic Test (Routine) - Closed Specialty Diagnoses / Procedures Referred By Contac t Referred To Contact Radiology Diagnoses Incisional hernia, without obstruction or gangrene Procedures CT Abdomen & Pelvis Wo Contrast Guillermo Lewis MD [facility] [address] [facility] [place] [address] Referral ID Status Reason Start Date Expiration Date V isits Requested Visits Authorized [id number] Closed Specialty Service Requested 10/20/2015 01/18/2016 1 1 Encounter Details Date Type Department Care Team (Latest Contact Info) Description 10/25/2015 1:35 PM EDT - 10/25/2015 11:59 PM EDT Hospital [place] [phone] Guillermo Lewis MD [facility] [place] [address] Incisional hernia, without obstruction or gangrene Discharge [...] gangrene documented in this encounter Care Teams Control Chemist Relationship Specialty Start Date End Date Moira Arriaza MD [address] [place] [address] PCP - General 03/22/10 documented as of this encounter
--- OUTSIDE RECORDS SUMMARY | 2024-02-01 12:42 | XMS_ITS | Encounter Summary ---
[place] [address] Care Team Providers Care Exchange Consultant Name Role Phone Moira Arriaza MD Primary Care Provider Encounter Details Date Type Department Care Team (Late st Contact Info) Description 10/11/2015 Telephone [place] [phone] Ernestina Rhodes Social History Tobacco Use Types [...] on filedocumented in this encounter Care Teams Exchange Consultant Relationship Specialty Start Date End Date Moira Arriaza MD [address] [place] [address] PCP - General 03/22/10 documented as of this encounter
--- OUTSIDE RECORDS SUMMARY | 2024-02-01 12:42 | XMS_ITS | Encounter Summary ---
Author Organization [facility] [place] [address] Care Team Providers Care Kier Hand Name Role Phone Moira Arriaza MD Primary Care Provider [phone] Encounter Details Date Type Department Care Team (Late st Contact Info) Description 01/06/2013 Orders [place] [address] Rinku Vora MD [facility] [place] [address] Social History Tobacco Use Types Packs/Day Years [...] is a Non-reportable exam Rinku Vora MD [facility] FILM LIBRARY ORD ERABLES documented in this encounter Visit Diagnoses Not on filedocumented in this encounter Care Teams Kier Hand Relationship Specialty Start Date End Date Moira Arriaza MD [address] [place] [address] PCP - General 03/22/10 documented as of this encounter
--- OUTSIDE RECORDS SUMMARY | 2024-02-01 12:42 | XMS_ITS | Encounter Summary ---
Author Organization [facility] Address [address] [place] [address] Care Team Providers Care Autocad Designer Name Role Phone None, Provider Primary Care Provider Unavailabl e Encounter Details Date Type Department Care Team (Late st Contact Info) Description 09/11/2014 Results Only [facility] [phone] Anders Pillai MD [address] [place] [address] Social History Tobacco Use Types Packs/Day Years [...] ? SUZAN MOLINA ? Accession #: ? [id number] : ? 1960 (Age: 54) ??F ?Collect [...] electronically signed by: ? TONYA MARIEE MD [facility] Report Date: ??09/16/2014 21:41 By the [...] cellular enhancement technique. ? End of Report [facility] 09/11/2014 09/14/2014 16: 11 EDT Anders Pillai MD PATHOLOGY ORDERABLES Performing Organization Address City/State/[facility] Co de Phone Number [facility] [address] [place] [address] documented in this encounter Visit Diagnoses Not on filedocumented in this encounter Care Teams Autocad Designer Relationship Specialty Start Date End Date None, Provider PCP - General 07/27/11 documented as of this encounter
--- OUTSIDE RECORDS SUMMARY | 2024-02-01 12:42 | XMS_ITS | Encounter Summary ---
Author Organization [facility] Address [address] [place] [address] Care Team Providers Care Clay Thrower Name Role Phone None, Provider Primary Care Provider Unavailabl e Encounter Details Date Type Department Care Team (Late st Contact Info) Description 08/10/2021 Lab Requisition [facility] Pathology & Laboratory Medicine - [facility] [address] [place] [address] Outr Resulting Lab, Provider Social History Tobacco [...] Priority Date/Time Associated Diagnosis Comments ZZCOVID-19 TEST [facility] PCR Today 08/09/2021 10:20 EDT COVID-19 TESTING Routine 08/09/2021 10:2 0 EDT documented in this encounter Results * COVID-19 TEST [facility] PCR (08/09/2021 10:20 EDT) Swab 08/09/2021 10:2 0 EDT 08/10/2021 16:32 EDT Provider Outr Resulting Lab MICROBIOLOGY - GENERAL ORDERABLES [facility] [address] [place] [address] * COVID-19 TESTING (08/09/2021 10:20 EDT) COVID-19 rt-PCR Result Negative Negative 08/11/2021 11:21 EDT [facility] Comment: This test has not [...] was performed using the supriya SARS-CoV-2 assay ([employer] on the Supriya 6800 System Performing Lab Supriya [address] [facility] Lab 08/11/2021 11:21 EDT [facility] Swab 08/09/2021 10:2 0 EDT 08/10/2021 16:32 EDT Provider Outr Resulting Lab MICROBIOLOGY - GENERAL ORDERABLES Performing Organization Address City/State/[facility] Co de Phone Number [facility] [address] [place] [address] documented in this encounter Visit Diagnoses Not on filedocumented in this encounter Care Teams Clay Thrower Relationship Specialty Start Date End Date None, Provider PCP - General 07/27/11 documented as of this encounter
--- OUTSIDE RECORDS SUMMARY | 2024-02-01 12:42 | XMS_ITS | Referral Summary ---
Author Organization [facility] Address [address] [place] [address] Care Team Providers Care Mushroom Picker Name Role Phone None, Provider Primary Care Provider Unavailabl e Encounters Date Type Department Care Team Description 12/10/2023 Lab Requisition [facility] Pathology & Laboratory Medicine - [facility] [address] [place] [address] Moira Arriaza MD Encounter for gynecological examination [...] System with Manual Evaluation 12/13/2023 15:07 T [facility] Specimen Adequacy Satisfactory for Evaluation - transformation zone component present 12/13/2023 15:07 T [facility] General Categorization Negative for intraepithelial lesion or malignancy 12/13/2023 15:07 T [facility] Descriptive Diagnosis Shift in yvette present suggestive of bacterial vaginosis. 12/13/2023 15:07 EDT [facility] Attestation . 12/13/2023 15:07 EDT [facility] at 1507 Clinical History SEE BELOW 12/13/19 15:07 EDT [facility] Performing Lab [facility] 12/13/2023 15:07 EDT [facility] Scanned Images 12/13/2023 15:07 EDT [facility] HPV High Risk type 16, PCR Negative 12/13/2023 15:07 EDT [facility] HPV High Risk type 18, PCR Negative 12/13/2023 15:07 EDT [facility] HPV Other High Risk Types, PCR Negative The following Other High Risk HPV types were not detected: 31,33, 35, 39, 45, 51, 52, 56, 58, 59, 66 and 68. 12/13/2023 15:07 EDT [facility] Pap Test CERVIX UTERI STRUCTURE / Unknown 12/06/2023 12:05 EDT 12/10/2023 14:52 EDT Moira Arriaza MD PATHOLOGY ORDERABLES [facility] [address] [place] [address] * HPV DNA DETECTION WITH GENOTYPING, PCR (12/06/2023 12:05 EDT) HPV High Risk type 16, PCR Negative Negative 12/13/2023 15:07 EDT [facility] HPV High Risk type 18, PCR Negative Negative 12/13/2023 15:07 EDT [facility] HPV other High Risk types, PCR Negative Negative 12/13/2023 15:07 EDT [facility] Comment: The following Other High Risk HPV types were not detected: ??31,33, 35, 39, 45, 51, 52, 56, 58, 59, 66 and 68. Pap Test CERVIX UTERI STRUCTURE / Unknown 12/06/2023 12:05 EDT 12/12/2023 15:43 EDT Moira Arriaza MD MICROBIOLOGY - GENER AL ORDERABLES [facility] [address] [place] [address] from Last 3 Months Care Teams Mushroom Picker Relationship Specialty Start Date End Date None, Provider PCP - General 07/27/11
--- OUTSIDE RECORDS SUMMARY | 2024-02-01 12:42 | XMS_ITS | Encounter Summary ---
[facility] [place] [address] Care Team Providers Care Spray Gun Repairer Helper Name Role Phone Moira Arriaza MD Primary Care Provider [phone] Encounter Details Date Type Department Care Team (Latest Contact Info) Description 09/14/2010 2:17 PM EDT - 09/14/2010 6:30 PM EDT Hospital Encounter [place] [address] Chris Marie MD [facility] [place] [address] Yoel Borjas MD [facility] [place] [address] Discharge Disposition: Home Social History Tobacco Use [...] Borjas MD - 09/14/2010 5:24 PM EDT [facility] Operative Note Patient Name: Suzan Marie : [id number] MR#: [id number] Case Date: 09/14/2010 Surgeon: Surgeon(s) and Role: [...] 6:03 PM EDT) Surgical Pathology Report [id number] ? Location: 4T The signing pathologist has [...] 6:03 PM EDT) Surgical Pathology Report ? [facility] ? Provider: ?? YOEL BORJAS ??Pt. Name: ?? SUZAN MARIE ?I ? Acc #: ?[id number] ?Pt. ? Col Date: ?? 09/14/2010 ? [...] Tissue Description: ?? Soft, rowe tissues. ? [facility] ? Provider: ?? YOEL BORJAS ??Pt. Name: ?? SUZAN MARIE ?I ? Acc #: ?[id number] ?Pt. ? Col Date: ?? 09/14/2010 ? [...] diarrhea ? colitis ? sprue and ? Sparrwo's with long-term GERD CERNER MILLENNIUM 09/14/2010 6:03 PM EDT Yoel Nation MD PATHOLOGY/CYTOLO GY ORDERABLES [facility] * COLONOSCOPY (09/14/2010 4:02 PM EDT) COLONOSCOPY [facility] Endoscopy Patient Name: Suzan Marie ? Procedure Date: 09/14/2010 04:02:09 PM ? Date of : 1960 ? Age: 50 ? Procedure: ? Colonoscopy Indications: ? Chronic diarrhea Providers: ? Yoel Borjas MD, Ania ? Lopez, ESTELA, Latahsa Jimenez, Machine Plaster Mixer Referring : ?Nuria Martínez MD Medicines: ? [...] (09/14/2010 4:01 PM EDT) UPPER GI ENDOSCOPY [facility] Patient Name: Suzan Marie ? Procedure Date: 09/14/2010 04:01:18 PM ? N: [id number] ? Date of : 1960 ? Age: 50 ? Procedure: ? Upper GI endoscopy Indications: ? Dyspepsia, Diarrhea Providers: ? Yoel Borjas MD, Ania ? Lopez, ESTELA, Latasha Jimenez, Machine Plaster Mixer Referring : ?Nuria Martínez MD Medicines: ? [...] Routine 1712 (Given - Provid er: Ania Marroqiun RN) midazolam (VERSED) injection (COMPLETED) ONCE PRN, [...] RN) documented in this encounter Care Teams Spray Gun Repairer Helper Relationship Specialty Start Date End Date Moira Arriaza MD [address] [place] [address] PCP - General 03/22/10 documented as of this encounter
--- OUTSIDE RECORDS SUMMARY | 2024-02-01 12:42 | XMS_ITS | Encounter Summary ---
Author Organization [facility] Address [facility] [place] [address] Care Team Providers Care Emergency Department Coordinator Name Role Phone Moira Arriaza MD Primary Care Provider [phone] Encounter Details Date Type Department Care Team (Latest Contact Info) Description 10/15/2017 2:02 PM EDT - 10/15/2017 4:15 PM EDT Hospital En[place] [address] Brie Sheets MD [facility] [place] [address] Discharge Disposition: Home Social History Tobacco Use [...] better as expected. Sunday-Sunday Same Day Endo [phone] 7a-8p Otherwise contact [phone] and ask to speak to the iron piler contact officer Follow-up care is a [place] part of [...] to be checked. Sunday-Sunday Same Day Endo [phone]-[phone] Otherwise contact [phone] and ask to speak to the iron piler contact officer Follow up care is a [place] part [...] PM EDT 10/15/2017 3:49 PM EDT Narrative [facility] - 10/15/2017 3:49 PM EDT Specimen requisition ordered. ??Separate Pathology report to follow Resulting Agency Comment Spec In Lab Brie Sheets MD PATHOLOGY/CYTOLOGY O RDERAWINSTON [facility] [place] [address] * Surgical Pathology Report (10/15/2017 2:57 PM EDT) Final Diagnosis [id number] ? Location: 4T; EA13; A The signing pathologist has (i) examined the relevant preparation(s) for the specimen(s) and (ii) rendered or confirmed the diagnosis(es). . ?Surgical Pathology DIAGNOSIS Colon, random, ??biopsy: Colonic mucosa within normal limits. CR-PX Electronically signed by: ??Eamon GREENBERG, Felicitas Verified: ??10/17/2017 ?Pathologist Performed at: ??-[facility] Dept. of Pathology, [place], [place] CLINICAL INFORMATION Specimen Submitted: A - Random colon bx r/o microscopic colitis Clinical History and Diagnosis: 57-year-old with long-standing history of diarrhea SPECIMEN PROCESSING A - Labeled/Fixativ e: Random colon biopsy, formalin. Quantity/Size: Multiple, 0.2-0.4 cm. Tissue Description: ??Soft, rowe-pink tissue ??. Sections/Proces sing: (T2) ??ejr 10/17/2017 4:37 PM EDT [facility] GI Biopsy 10/15/2017 2:57 PM EDT 10/15/2017 2:57 PM EDT Brie Sheets MD PATHOLOGY/CYTOLOGY O RDERABLES [facility] [place] [address] * COLONOSCOPY (10/15/2017 2:15 PM EDT) COLONOSCOPY [facility] Procedure Date: 10/15/2017 2:15 PM ? Patient Name: Suzan Chaudhary ? Date of : 1960 ? Age: 57 ? Order #: [id number] ? Instrument Name: [id number] ? Procedure: ? Colonoscopy Indications: ? Chronic diarrhea Providers: ? Brie Sheets MD, Ania Marroquin, RN, ? Crys Esquivel, Spray Drier Referring : ?Moira Arriaza MD, Liliana Lester [...] (10/15/2017 12:41 PM EDT) UPPER GI ENDOSCOPY [facility] Procedure Date: 10/15/2017 12:41 PM ? Patient Name: Suzan Chaudhary ? Date of : 1960 ? Age: 57 ? Order #: [id number] ? Instrument Name: [id number] ? Procedure: ? Upper GI endoscopy Indications: ? Heartburn Providers: ? Brie Sheets MD, Ania Marroquin, ESTELA, ? Crys Esquivel, Spray Drier Referring MD: ?Moira Arriaza MD, Liliana Lester [...] RN) documented in this encounter Care Teams Emergency Department Coordinator Relationship Specialty Start Date End Date Moira Arriaza MD [address] [place] [address] PCP - General 03/22/10 documented as of this encounter
--- OUTSIDE RECORDS SUMMARY | 2024-02-01 12:42 | XMS_ITS | Encounter Summary ---
Author Organization [facility] Address [address] [place] [address] Care Team Providers Care Software Release Engineer Name Role Phone None, Provider Primary Care Provider Unavailabl e Encounter Details Date Type Department Care Team (Late st Contact Info) Description 10/08/[address] [facility] [phone] Moira Arriaza MD [address] [place] [address] Social History Tobacco Use Types Packs/Day Years [...] ? SUZAN MOLINA ? Accession #: ? [id number] ? : ? 1960 (Age: 55) ??F [...] types 16,18,31,33,35, 39,45,51,52,56,58, 59,66, and 68 by orthopedic assistant mediated amplification. Comments Document reviewed and electronically signed by: ? System Interface ? Report date: 10/22/2015 By the signature above, the attending physician certifies that he/she has personally conducted a gross and/or microscopic examination of the described specimens and rendered or confirmed the above diagnosis. End of Report [facility] 10/08/2015 10/12/2015 Moira Arriaza MD PATHOLOGY ORDERABLES [facility] [address] [place] [address] documented in this encounter Visit Diagnoses Not on filedocumented in this encounter Care Teams Software Release Engineer Relationship Specialty Start Date End Date None, Provider PCP - General 07/27/11 documented as of this encounter
--- OUTSIDE RECORDS SUMMARY | 2024-02-01 12:42 | XMS_ITS | Encounter Summary ---
Author Organization [facility] Address [facility] [place] [address] Care Team Providers Care Security Professionals Name Role Phone Moira Arriaza MD Primary Care Provider [phone] Reason for Visit * Reason Comments Follow-up f/u cat scan(hernia) Encounter Details Date Type Department Care Team (Late st Contact Info) Description 11/08/2015 11:45 AM EDT Office [place] [address] Guillermo Lewis MD [facility] [place] [address] Abdominal pannus Social History Tobacco Use Types [...] appointment. Feel free to call our office [phone] if you have any questions or concerns. [...] aspirin products (unless otherwise advised by patient's PCP/Distance Education Faculty Liaison for cardiac symptoms), fish oil, Vitamin E [...] with: Dr. Padilla Procedure: panniculectomy/abdominoplasty CPT: Panni: [id number] Surgical site: abdomen Side: Anesthesia: General Follow [...] adiposity documented in this encounter Care Teams Security Professionals Relationship Specialty Start Date End Date Moira Arriaza MD [address] [place] [address] PCP - General 03/22/10 documented as of this encounter
--- OUTSIDE RECORDS SUMMARY | 2024-02-01 12:42 | XMS_ITS | Encounter Summary ---
Author Organization [facility] Address [address] [place] [address] Care Team Providers Care Water Supply Technician Name Role Phone None, Provider Primary Care Provider Unavailabl e Encounter Details Date Type Department Care Team (Late st Contact Info) Description 02/01/2023 Lab Requisition [facility] Pathology & Laboratory Medicine - [facility] [address] [place] [address] Outr Resulting Lab, Provider Social History Tobacco [...] 11 See Note ug/dL 02/01/2023 21:28 EDT [facility] Comment: NOTE: Reference Ranges (from OCD IFU): Collected Before 10:00 AM: ??4 - 23 ug/dL Collected After 5:00 PM: ?2 - 14 ug/dL The results of this assay can be falsely elevated due to the consumption of Biotin. Blood VENOUS BLOOD / Unknown 02/01/2023 9:47 EDT 02/01/2023 20:43 EDT Provider Outr Resulting Lab CHEMISTRY & BLOOD GAS ORDERABLES [facility] [address] [place] [address] documented in this encounter Visit Diagnoses Not on filedocumented in this encounter Care Teams Water Supply Technician Relationship Specialty Start Date End Date None, Provider PCP - General 07/27/11 documented as of this encounter
--- OUTSIDE RECORDS SUMMARY | 2024-02-01 12:42 | XMS_ITS | Encounter Summary ---
Author Organization [facility] Address [facility] [place] [address] Care Team Providers Care Damage Cutter Name Role Phone Moira Arriaza MD Primary Care Provider [phone] Reason for Visit * Consultation (Routine) - Closed Specialty Diagnoses / Procedures Referred By Contviolet t Referred To Contact Gastroenterology Diagnoses GERD Li Brunson PA [address] [place] [address] [facility] [address] [place] [address] Referral ID Status Reason Start Date Expiration Date V isits Requested Visits Authorized [id number] Closed Consult, Test & Treat [facility] 08/18/2017 08/18/2018 1 1 Encounter Details Date Type Department Care Team (Late Contact Info) Description 09/27/2017 11:00 AM EDT Office [place] [phone] Liliana Lester PA [facility] [place] [address] Diarrhea, unspecified type; Gastroesophageal reflux disease, esophagitis [...] 1997. She just lost her sister to [place] and this is a very stressful time for her and she is concerned that heartburn symptoms may actually be cardiac. Recently saw cardiology at [facility] and had a stress test, was told everything was normal. Bowel habits: Has 3-4 bowel movements a day now. Baltic scale 5-6. About once a week she has urgent, explosive watery stool, Baltic scale 7 without warning. Has accidents. Has [...] Ranitidine 300 mg at night Rare NSAIDs Crestone- for pain and helps with diarrhea Ativan PRN ALLERGIES: Allergies Allergen Reactions ??? Adhesive Tape Other (See Comments) blisters SURGICAL HISTORY: Past Surgical History: Procedure Laterality Date ??? PRO COLONOSCOPY, BIOPSY 09/14/2010 COLONOSCOPY FLEXIBLE, WITH BX performed by LUIS FABIAN I at [facility] ??? PRO UPPER GI ENDOSCOPY, BIOPSY 09/14/2010 UPPER GASTROINTESTINAL ENDOSCOPY,WITH BIOPSY SINGLE OR MULTIPLE performed by LUIS FABIAN I at [facility] SOCIAL HISTORY: , 1 child [...] Lester PA-C Section of Gastroenterology [place] [address] documented in this encounter Plan of Treatment [...] specified documented in this encounter Care Teams Damage Cutter Relationship Specialty Start Date End Date Moira Arriaza MD [address] [place] [address] PCP - General 03/22/10 documented as of this encounter
--- OUTSIDE RECORDS SUMMARY | 2024-02-01 12:42 | XMS_ITS | Encounter Summary ---
Author Organization [facility] [place] [address] Care Team Providers Care Media Center Assistant Name Role Phone Moira Arriaza MD Primary Care Provider [phone] Reason for Referral * Surgical (Routine) - Closed Specialty Diagnoses / Procedures Referred By Contac t Referred To Contact Plastic Surgery Diagnoses Incisional hernia, without obstruction or gangrene Rinku Vora MD [facility] [place] [address] [facility] [address] [address] Referral ID Status Reason Start Date Expiration Date V isits Requested Visits Authorized [id number] Closed Consult, Test & Treat 08/17/2014 08/17/2015 3 3 Reason for Visit * Reason Comments Establish Care [facility] Encounter Details Date Type Department Care Team (Late st Contact Info) Description 08/17/2014 1:00 PM EDT Office [place] [address] Rinku Vora MD [facility] [place] [address] Incisional hernia, without obstruction or [...] will occasionally become constipated. [place] surgeon at [facility] did assess her for both issues and [...] BX performed by LUIS FABIAN I at [facility] ??? Upper gi endoscopy, biopsy 09/14/2010 UPPER GASTROINTESTINAL ENDOSCOPY,WITH BIOPSY SINGLE OR MULTIPLE performed by LUIS FABIAN I at [facility] Updated Allergies/ADRs: Allergies Allergen Reactions ??? [...] 12:56 PM CC: [address] / [place] [address] REF: Moira Arriaza MD [address] [place] [address] Patient Seen and examined. Agree with above note written by Dr. Villafana. We will await Ms. Marie's efforts at smoking cessation as well as consultation with Dr. Pennie Peterson of Plastic Surgery prior to planning any operative repair of this small incisional hernia. Rinku Vora MD #[id number] documented in this encounter Plan of Treatment Scheduled Referrals Name Type Priority Associated Diagnoses Orde r Schedule Referral to Plastic Surgery Outpatient Referral Routine Incisional Hernia, Without Obstruction Or Gangrene Ordered: 08/17/2014 documented as of this encounter Visit Diagnoses Diagnosis Incisional hernia, without obstruction or gangrene Incisional hernia without mention of obstruction or gangrene documented in this encounter Care Teams Media Center Assistant Relationship Specialty Start Date End Date Moira Arriaza MD [address] [place] [address] PCP - General 03/22/10 documented as of this encounter
--- OUTSIDE RECORDS SUMMARY | 2024-02-01 12:42 | XMS_ITS | Clinical Summary ---
Author Organization [facility] Address [address] [place] [address] Care Team Providers Care Mortgage Branch Manager Name Role Phone None, Provider Primary Care Provider Unavailabl e Encounters Date Type Department Care Team Description 12/10/2023 Lab Requisition [facility] Pathology & Laboratory Medicine - [facility] [address] [place] [address] Moira Arriaza MD Encounter for gynecological examination [...] System with Manual Evaluation 12/13/2023 15:07 EDT [facility] Specimen Adequacy Satisfactory for Evaluation - transformation zone component present 12/13/2023 15:07 EDT [facility] General Categorization Negative for intraepithelial lesion or malignancy 12/13/2023 15:07 [facility] Descriptive Diagnosis Shift in yvette present suggestive of bacterial vaginosis. 12/13/2023 15:07 EDT [facility] Attestation . 12/13/2023 15:07 [facility] at 1507 Clinical History SEE BELOW 12/13/19 15:07 [facility] Performing Lab [facility] 12/13/2023 15:07 [facility] Scanned Images 12/13/2023 15:07 [facility] HPV High Risk type 16, PCR Negative 12/13/2023 15:07 T [facility] HPV High Risk type 18, PCR Negative 12/13/2023 15:07 [facility] HPV Other High Risk Types, PCR Negative The following Other High Risk HPV types were not detected: 31,33, 35, 39, 45, 51, 52, 56, 58, 59, 66 and 68. 12/13/2023 15:07 [facility] Pap Test CERVIX UTERI STRUCTURE / Unknown 12/06/2023 12:05 EDT 12/10/2023 14:52 EDT Moira Arriaza MD PATHOLOGY ORDERABLES [facility] [address], [place] [id number] * HPV DNA DETECTION WITH GENOTYPING, PCR (12/06/2023 12:05 EDT) HPV High Risk type 16, PCR Negative Negative 12/13/2023 15:07 EDT [facility] HPV High Risk type 18, PCR Negative Negative 12/13/2023 15:07 T [facility] HPV other High Risk types, PCR Negative Negative 12/13/2023 15:07 EDT [facility] Comment: The following Other High Risk HPV types were not detected: ??31,33, 35, 39, 45, 51, 52, 56, 58, 59, 66 and 68. Pap Test CERVIX UTERI STRUCTURE / Unknown 12/06/2023 12:05 EDT 12/12/2023 15:43 EDT Moira Arriaza MD MICROBIOLOGY - GENER AL ORDERABLES [facility] [address] [place] [address] from Last 3 Months Care Teams Mortgage Branch Manager Relationship Specialty Start Date End Date None, Provider PCP - General 07/27/11
--- OUTSIDE RECORDS SUMMARY | 2024-02-01 12:42 | XMS_ITS | Encounter Summary ---
Author Organization [facility] Address [address] [place] [address] Care Team Providers Care Cigar Packer And Sorter Name Role Phone None, Provider Primary Care Provider Unavailabl e Encounter Details Date Type Department Care Team (Late st Contact Info) Description 01/30/2020 Lab Requisition [facility] Pathology & Laboratory Medicine - [address] [address] [place], [address] [phone] Localized swelling, mass and lump, head; Localized [...] Name Priority Date/Time Associated Diagnosis Comments NON MICA PLATE LAYER HAND/FNA CYTOLOGY Today 01/29/2020 10:20 EDT Localized swelling, mass and lump, head Localized swelling, mass and lump, neck Solitary pulmonary nodule documented in this encounter Results * NON MICA PLATE LAYER HAND/FNA CYTOLOGY (01/29/2020 10:20 EDT) Final Diagnosis A. SUBMITTED LEFT NECK MASS, SUPERFICIAL, ULTRASOUND-GUIDED NEEDLE ASPIRATION: - Features suggestive of Warthin tumor. See comment. B. SUBMITTED LEFT NECK MASS, DEEP, ULTRASOUND-GUIDED FINE NEEDLE ASPIRATION: - Hypocellular with scant lymphocytes and rare bland epithelioid cells. See comment. 02/03/2020 17:51 EDT [facility] Diagnosis Comment This case [...] diagnosis. Correlation with radiographic imaging is essential. Directory Operator slides of this case were reviewed at the intradepartmental consultation conference. 02/03/2020 17:51 [facility] Attestation There was significant resident/fellow involvement in the diagnostic evaluation of this case. By the signature below, the attending physician certifies that they have personally conducted a gross and/or microscopic examination of the described specimens and rendered or confirmed the above diagnosis. 02/03/2020 17:51 [facility] at 1751 Rapid [...] Aspiration sample was performed by Pathologists at [facility], [address] [place] [id number] 02/03/2020 17:51 EDT [facility] Clinical History Left neck mass; lymphadenopathy; smoker 02/03/2020 17:51 EDT [facility] Gross Description A. 1 fixed prepared slide, 2 Diff Quik prepared slides, 1 tube of RPMI for cell block, and 1 tube of CytoLyt were received and processed by selective cellular enhancement technique. B. 1 fixed prepared slide, 2 air dried prepared slides, and 1 tube of CytoLyt were received and processed by selective cellular enhancement technique. 02/03/2020 17:51 EDT [facility] Resident/Fell ow: Lisa Hollis MD 02/03/2020 17:51 EDT [facility] Performing Lab [facility] 02/03/2020 17:51 EDT [facility] Scanned Images 02/03/2020 17:51 EDT [facility] Fine Needle Aspirate SOFT TISSUE / Unknown 01/29/2020 10:20 EDT 01/30/2020 6:33 EDT Specimen obtained by fine needle aspiration procedure (specimen) SOFT TISSUE / Unknown 01/29/2020 10:20 EDT 01/30/2020 6:33 EDT [place] [facility] PATHOLOGY ORDERABL ES [facility] [address] [place] [address] documented in this encounter Visit Diagnoses Diagnosis Localized swelling, mass and lump, head Localized swelling, mass and lump, neck Swelling, mass, or lump in head and neck Solitary pulmonary nodule documented in this encounter Care Teams Cigar Packer And Sorter Relationship Specialty Start Date End Date None, Provider PCP - General 07/27/11 documented as of this encounter
--- OUTSIDE RECORDS SUMMARY | 2024-02-01 12:42 | XMS_ITS | Encounter Summary ---
Author Organization [facility] [place] [address] Care Team Providers Care Psychological Stress Evaluator Name Role Phone Moira Arriaza MD Primary Care Provider [phone] Reason for Visit * Reason Onset Date Comments Other 09/22/2010 results Encounter Details Date Type Department Care Team (Late st Contact Info) Description 09/22/2010 Telephone [place] [address] Nuria Negrete APRN [facility] DR GASTRO[place] [address] Other (results) Social History Tobacco Use Types [...] egd normal except for hiatal hernia, small [place] hyperplastic polyps divertic ulosis cannot have fiber since IBS Repeat 5 years How is diet, lomotil and dexilant working? documented in this encounter Plan of Treatment Not on file documented as of this encounter Visit Diagnoses Not on filedocumented in this encounter Care Teams Psychological Stress Evaluator Relationship Specialty Start Date End Date Moira Arriaza MD [address] [place] [address] PCP - General 03/22/10 documented as of this encounter
--- OUTSIDE RECORDS SUMMARY | 2024-02-01 12:42 | XMS_ITS | Encounter Summary ---
Author Organization [facility] Address [facility] [place] [address] Care Team Providers Care Pan Puller Name Role Phone Moira Arriaza MD Primary Care Provider [phone] Reason for Referral * Consultation (Routine) - Closed Specialty Diagnoses / Procedures Referred By Contac t Referred To Contact General Surgery Diagnoses Incisional hernia, without obstruction or gangrene Guillermo Arriola MD [facility] [place] [address] Maricruz Padilla MD [facility] [place] [address] Referral ID Status Reason Start Date Expiration Date V isits Requested Visits Authorized [id number] Closed Consult, Test & Treat 10/11/2015 10/10/2016 1 1 * Diagnostic Test (Routine) - Closed Specialty Diagnoses / Procedures Referred By Contac t Referred To Contact Radiology Diagnoses Incisional hernia, without obstruction or gangrene Procedures CT Abdomen & Pelvis Wo Contrast Guillermo Arriola MD [facility] [place] [address] [facility] [place] [address] Referral ID Status Reason Start Date Expiration Date V isits Requested Visits Authorized [id number] Closed Specialty Service Requested 10/20/2015 01/18/2016 1 1 Reason for Visit * Reason Comments Advice Only consult for possible combo case for hernia repair and abdominoplasty * Consultation (Routine) - Specialty Diagnoses / Procedures Referred By Asim batista Referred To Contact Plastic Surgery Diagnoses Incisional Hernia ? Combined Incisional Hernia and Abdominoplasty Rinku Vora MD [facility] [place] [address] Pennie Beck MD [facility] [place] [address] Referral ID Status Reason Start Date Expiration Date V isits Requested Visits Authorized [id number] 09/20/2015 09/19/2016 1 1 Encounter Details Date Type Department Care Team (Late st Contact Info) Description 10/11/2015 2:30 PM EDT Office Visit [place] [address] Guillermo Arriola MD [facility] [place] [address] Incisional hernia, without obstruction or gangrene (Primary [...] BX performed by LUIS FABIAN I at [facility] ??? Pro upper gi endoscopy, biopsy 09/14/2010 UPPER GASTROINTESTINAL ENDOSCOPY,WITH BIOPSY SINGLE OR MULTIPLE performed by LUIS FABIAN I at [facility] History Social History ??? Marital [...] gangrene documented in this encounter Care Teams Pan Puller Relationship Specialty Start Date End Date Moira Arriaza MD [address] [place] [address] PCP - General 03/22/10 documented as of this encounter
--- OUTSIDE RECORDS SUMMARY | 2024-02-01 12:42 | XMS_ITS | Encounter Summary ---
Author Organization [facility] Address [address] [place] [address] Care Team Providers Care Hog Feeder Name Role Phone Unavailable Primary Care Provider Unavailabl e Encounter Details Date Type Department Care Team (Late st Contact Info) Description 07/24/2011 Results Only [facility] Laboratory Services - [facility] ([facility] [address] [place] [phone] Johnson Schroeder MD [address] [place] [phone] Social History Tobacco Use Types Packs/Day [...] ? SUZAN MOLINA ? Accession #: ? [id number] ? : ? 1960 (Age: 51) ??F [...] and agrees with the above interpretation. (Dr. Cortez)/[facility] Document reviewed and electronically signed by: SHELDON [...] Gross Description: ? Received in formalin labelled [place], Suzan and tongue lesion is an apparent shave biopsy of a 0.7 x 0.5 x 0.3 cm, white, roughened mucosal nodule. The resection margin is inked black, the specimen is trisected and entirely submitted in a single cassette. ??[facility] GALARZA 07/24/2011 07/26/2011 8:2 7 EDT Johnson Schroeder MD PATHOLOGY ORDERABLES [facility] [address] [place] [address] documented in this encounter Visit Diagnoses Not on filedocumented in this encounter
--- OUTSIDE RECORDS SUMMARY | 2024-02-01 12:42 | XMS_ITS | Encounter Summary ---
Author Organization [facility] Address [address] [place] [address] Care Team Providers Care Stemhole Borer And Topper Name Role Phone None, Provider Primary Care Provider Unavailabl e Encounter Details Date Type Department Care Team (Latest Contact Info) Description 09/11/2014 9:41 EDT - 09/11/2014 23:59 EDT Hospital Encounter [facility] - [address] [address] Unknown, Provider, Discharge Disposition: Home or Self Care Social History Tobacco Use Types Packs/Day Years Used Date Smoking Tobacco: Never Assessed Sex and Gender Information Value Date Recorded Sex Assigned at Not on file Gender Identity Not on file Sexual Orientation Not on file documented as of this encounter Discharge Disposition Disposition Code Departure Means Destination Home or Self Penitentiary documented in this encounter Plan of Treatment Not on file documented as of this encounter Visit Diagnoses Not on filedocumented in this encounter Care Teams Stemhole Borer And Topper Relationship Specialty Start Date End Date None, Provider PCP - General 07/27/11 documented as of this encounter
--- OUTSIDE RECORDS SUMMARY | 2024-02-01 12:42 | XMS_ITS | Encounter Summary ---
Author Organization [facility] [place] [address] Care Team Providers Care Bone Grinder Name Role Phone Moira Arriaza MD Primary Care Provider [phone] Encounter Details Date Type Department Care Team (Late st Contact Info) Description 09/14/2010 3:15 PM EDT - 09/14/2010 4:15 PM EDT Surgery [place] [address] Luis Borjas MD [facility] [place] [address] COLONOSCOPY FLEXIBLE, WITH BX (WRVU 3.56) Social [...] Borjas MD - 09/14/2010 5:24 PM EDT [facility] Operative Note Patient Name: Suzan Molina : [id number] MR#: [id number] Case Date: 09/14/2010 Surgeon: Surgeon(s) and Role: [...] 6:03 PM EDT) Surgical Pathology Report [id number] ? Location: 4T The signing pathologist has [...] Luis Nation MD PATHOLOGY/CYTOLO GY ORDERABLES [facility] * SURGICAL PATHOLOGY REPORT (09/14/2010 6:03 PM EDT) Surgical Pathology Report ? [facility] ? Provider: ?? LUIS BORJAS ??Pt. Name: ?? SUZAN MOLINA ?I ? Acc #: ?[id number] ?Pt. ? Col Date: ?? 09/14/2010 ? [...] Tissue Description: ?? Soft, rowe tissues. ? [facility] ? Provider: ?? LUIS BORJAS ??Pt. Name: ?? USZAN MOLINA ?I ? Acc #: ?[id number] ?Pt. ? Col Date: ?? 09/14/2010 ? [...] * COLONOSCOPY (09/14/2010 4:02 PM EDT) COLONOSCOPY [facility] Patient Name: Suzan Molina ? Procedure Date: 09/14/2010 04:02:09 PM ? N: [id number] ? Date of : 1960 ? Age: 50 ? Procedure: ? Colonoscopy Indications: ? Chronic diarrhea Providers: ? Luis Borjas MD, Ania ? Lopez, ESTELA, Latasha Jimenez, Bicycle Service Technician Referring MD: ?Nuria Martínez MD Medicines: ? [...] (09/14/2010 4:01 PM EDT) UPPER GI ENDOSCOPY [facility] Patient Name: Suzan Molina ? Procedure Date: 09/14/2010 04:01:18 PM ? N: [id number] ? Date of : 1960 ? Age: 50 ? Procedure: ? Upper GI endoscopy Indications: ? Dyspepsia, Diarrhea Providers: ? Luis Borjas MD, Ania ? Lopez, ESTELA, Latasha Jimenez, Bicycle Service Technician Referring MD: ?Nuria Martínez MD Medicines: ? [...] RN) documented in this encounter Care Teams Bone Grinder Relationship Specialty Start Date End Date Moira Arriaza MD [address] [place] [address] PCP - General 03/22/10 documented as of this encounter
--- OUTSIDE RECORDS SUMMARY | 2024-02-01 12:42 | XMS_ITS | Encounter Summary ---
Author Organization [facility] Address [facility] [place] [address] Care Team Providers Care Foil Wrapper Name Role Phone Moira Arriaza MD Primary Care Provider Reason for Visit * Reason Comments Establish Care Encounter Details Date Type Department Care Team (Late st Contact Info) Description 02/18/2014 11:20 AM EDT Office [place] [address] Isaura Tang MD [facility] [place] [address] Nicotine dependence; Obesity; Incisional hernia Discharge Disposition: [...] a referral from Dr. Moira Arriaza at [facility] for evaluation of a ventral [...] gangrene documented in this encounter Care Teams Foil Wrapper Relationship Specialty Start Date End Date Moira Arriaza MD [address] [place] [address] PCP - General 03/22/10 documented as of this encounter
--- OUTSIDE RECORDS SUMMARY | 2024-02-01 12:42 | XMS_ITS | Encounter Summary ---
Author Organization [facility] Address [address] [place] [address] Care Team Providers Care Geography Faculty Member Name Role Phone None, Provider Primary Care Provider Unavailabl e Encounter Details Date Type Department Care Team (Latest Contact Info) Description 12/10/2023 Lab Requisition [facility] Pathology & Laboratory Medicine - [facility] [address] [place] [address] Moira Arriaza MD [address] [place] [phone] Encounter for gynecological examination (general) (routine) without [...] 16, PCR Negative Negative 12/13/2023 15:07 EDT [facility] HPV High Risk type 18, PCR Negative Negative 12/13/2023 15:07 EDT [facility] HPV other High Risk types, PCR Negative Negative 12/13/2023 15:07 T [facility] Comment: The following Other High Risk HPV types were not detected: ??31,33, 35, 39, 45, 51, 52, 56, 58, 59, 66 and 68. Pap Test CERVIX UTERI STRUCTURE / Unknown 12/06/2023 12:05 EDT 12/12/2023 15:43 EDT Moira Arriaza MD MICROBIOLOGY - GENER AL ORDERABLES [facility] [address] [place] [address] * PAP TEST (12/06/2023 12:05 EDT) Specimens A. Cervix and/or Endocervix , ThinPrep Imaging System with Manual Evaluation 12/13/2023 15:07 [facility] Specimen Adequacy Satisfactory for Evaluation - transformation zone component present 12/13/2023 15:07 [facility] General Categorization Negative for intraepithelial lesion or malignancy 12/13/2023 15:07 [facility] Descriptive Diagnosis Shift in yvette present suggestive of bacterial vaginosis. 12/13/2023 15:07 [facility] Attestation . 12/13/2023 15:07 [facility] at 1507 Clinical History SEE BELOW 12/13/19 24 15:07 [facility] Performing Lab [facility] 12/13/2023 15:07 [facility] Scanned Images 12/13/2023 15:07 [facility] HPV High Risk type 16, PCR Negative 12/13/2023 15:07 [facility] HPV High Risk type 18, PCR Negative 12/13/2023 15:07 [facility] HPV Other High Risk Types, PCR Negative The following Other High Risk HPV types were not detected: 31,33, 35, 39, 45, 51, 52, 56, 58, 59, 66 and 68. 12/13/2023 15:07 EDT [facility] Pap Test CERVIX UTERI STRUCTURE / Unknown 12/06/2023 12:05 EDT 12/10/2023 14:52 EDT Moira Arriaza MD PATHOLOGY ORDERABLES Performing Organization Address City/State/[facility] Co de Phone Number [facility] [address] [place] [phone] documented in this encounter Visit Diagnoses Diagnosis Encounter for gynecological examination (general) (routine) without abnormal findings documented in this encounter Care Teams Geography Faculty Member Relationship Specialty Start Date End Date None, Provider PCP - General 07/27/11 documented as of this encounter
--- OUTSIDE RECORDS SUMMARY | 2024-02-01 12:42 | XMS_ITS | Encounter Summary ---
Author Organization [facility] [place] [address] Care Team Providers Care Warehouse Team Leader Name Role Phone Moira Arriaza MD Primary Care Provider [phone] Reason for Visit * Reason Comments Abdominal Pain Diarrhea Encounter Details Date Type Department Care Team (Late st Contact Info) Description 08/24/2010 11:00 AM EDT Office [place] [address] Nuria Negrete ANCIENT ART CURATOR [facility] [place] [address] Abdominal pain (Primary Dx) Discharge Disposition: Home [...] AM EDT Section of Gastroenterology and Hepatology [address] [place] [phone] @[facility]@ .Suzan Marie : 1960 Patient is here for further evaluation of gastrointestinal symptoms at the request of Dr. Moira Arriaza. HPI:Pt here for LUQ pain and ongoing diarrhea. In November 2009 at [facility] underwent an upper and lower endoscopy. Per note normal, however, no biopsies mentioned, per pt does not recallbiopsies being done. Abdominal CT performed at [facility], beginning of 2010, per note this [...] Celiac testing negative. Diet changes no effect. Korean food increases LUQ pain. Using Vicodin, helps [...] of unclear etiology. Will obtain CT from [facility]. Obtain labs CBC, CMP, TSH,lipase. Given ongoing [...] MD HEMATOLOGY ORDERABLE S Performing Organization Address [facility] Co de Phone Number CERLUISA DIASIUM * Lipase (08/24/2010 12:33 PM EDT) Lipase 39 0 - 60 unit/L CERNER MILLENNIUM Blood specimen (specimen) 08/24/2010 12:33 PM EDT 08/24/2010 12:36 PM EDT Chris Rodgers MD CHEMISTRY ORDERABLES Performing Organization Address [facility] Co de Phone Number CERLUISA BARKERENNIUM * TSH (08/24/2010 12:33 PM EDT) Thyroid Stimulating Hormone 2.64 0.27 - 4.20 mcIU/mL CERNER MILLENNIUM Blood specimen (specimen) 08/24/2010 12:33 PM EDT 08/24/2010 12:36 PM EDT Chris Rodgers MD CHEMISTRY ORDERABLES Performing Organization Address [facility] Co de Phone Number CERNER LUCEROENNIUM * [...] site documented in this encounter Care Teams Warehouse Team Leader Relationship Specialty Start Date End Date Moira Arriaza MD [address] [place] [address] PCP - General 03/22/10 documented as of this encounter
--- OUTSIDE RECORDS SUMMARY | 2024-02-01 12:42 | XMS_ITS | Encounter Summary ---
Author Organization [facility] Address [address] [place] [address] Care Team Providers Care Neurophysiology Tech Name Role Phone Unavailable Primary Care Provider Unavailabl e Encounter Details Date Type Department Care Team (Late st Contact Info) Description 2004 Results Only [facility] [address] [place] [address] Moira Arriaza MD [address] [place], [place] [id number] Social History Tobacco Use Types Packs/Day Years [...] ? SUZAN MOLINA ? Accession #: ? [id number] : ? 1960 (Age: 44) ??F ?Collect [...] Arriaza MD PATHOLOGY ORDERABLES [facility] [address] [place] [address] documented in this encounter Visit Diagnoses Not on filedocumented in this encounter
[2024-02-01 16:19] LABS: AST 18 U/L (15-37); Calculated LDL 69 mg/dL (<100); Cholesterol 141 mg/dL (<200); HDL Cholesterol 46 mg/dL (40-60); Triglyceride 131 mg/dL (<150)
[2024-02-01 16:44] LABS: Creatine Kinase 90 U/L (26-192)
== END 2024-02-01 12:37 | disposition home or self-care (01) ==
LOC: NCHCN 12:36
PROVIDERS: PCP Family Medicine; Visit Provider Family Medicine
DX: E78.5 Hyperlipidemia, unspecified (principal)
CPT/HCPCS: 80061; 82550; 84450

== ENCOUNTER 2024-05-06 17:05 | Outpatient (REF) | payer MEDICAID, SELFPAY ==
[2024-05-06 17:08] LABS: Hemoglobin A1C 5.9 % (<5.7)
[2024-05-06 17:33] LABS: ALT 35 U/L (14-59); AST 16 U/L (15-37); Albumin 3.7 g/dL (3.4-5.0); Alkaline Phosphatase 62 U/L (46-116); Anion Gap 9.1 mmol/L (3-11); BUN 14 mg/dL (7-18); Bilirubin, Total 0.36 mg/dL (0.2-1.0); CO2 25.9 mmol/L (21.0-32.0); CREATININE 0.9 mg/dL (0.55-1.02); Calculated LDL 72 mg/dL (<100); Chloride 108 mmol/L (98-107); Cholesterol 145 mg/dL (<200); Estimated GFR 72.28 (mL/min/1.73m2); Glucose 103 mg/dL (74-106); HDL Cholesterol 41 mg/dL (40-60); Potassium 4.3 mmol/L (3.5-5.1); Sodium 143 mmol/L (136-145); Total Protein 7.3 g/dL (6.4-8.2); Triglyceride 160 mg/dL (<150)
[2024-05-06 17:47] LABS: Creatine Kinase 89 U/L (26-192)
== END 2024-05-06 17:06 | disposition home or self-care (01) ==
LOC: NCHCN 17:05
PROVIDERS: PCP Family Medicine; Visit Provider Family Medicine
DX: E78.5 Hyperlipidemia, unspecified (principal); R73.03 Prediabetes
CPT/HCPCS: 80053; 80061; 82550; 83036

== ENCOUNTER 2024-09-18 16:36 | Outpatient (REF) | payer MEDICAID, SELFPAY ==
[2024-09-18 20:49] LABS: Iron 113 ug/dL (50-170)
[2024-09-18 21:10] LABS: Calculated LDL 74 mg/dL (<100); Cholesterol 159 mg/dL (<200); HDL Cholesterol 37 mg/dL (>or=50); Triglyceride 240 mg/dL (<150); Vitamin B12 407 pg/mL (193-986); Vitamin D 25 Total 33 ng/mL (30-100)
[2024-09-25 12:28] LABS: Hydrocodone Interpretation Positive.; Hydrocodone by LC-MS/MS 648 ng/mL (Cutoff: 25); Hydromorphone by LC-MS/MS 163 ng/mL (Cutoff: 25); Norhydrocodone by LC-MS/MS 339 ng/mL (Cutoff: 25)
== END 2024-09-18 16:37 | disposition home or self-care (01) ==
LOC: NCHCN 16:36
PROVIDERS: PCP Family Medicine; Visit Provider Family Medicine
DX: R73.03 Prediabetes (principal); E55.9 Vitamin D deficiency, unspecified; E78.5 Hyperlipidemia, unspecified; Z00.00 Encounter for general adult medical examination without abnormal findings; G89.29 Other chronic pain
CPT/HCPCS: 80061; 80361; 82306; 82607; 83036; 83540

== ENCOUNTER 2024-12-08 01:57 | Outpatient (CLI) | payer MEDICAID, SELFPAY ==
--- NOTE | 2024-12-08 06:45 | DI.US_ITS ---
Exam(s) US RENAL EXAM: US RENAL CLINICAL HISTORY: monitoring calculi,kidney stones,microscopic hematuria. TECHNIQUE: Vann scale imaging and color doppler were used. COMPARISON: US US RENAL from 01/01/2024 FINDINGS: Right kidney: 11.3cm Echogenicity: Normal Hydronephrosis: No Cyst or mass: No Nephrolithiasis: No Left kidney: 11.9cm Echogenicity: Normal Hydronephrosis: No Cyst or mass: Parapelvic cysts. Nephrolithiasis: Calculus noted at the lower pole measuring 1.6 cm on the previous exam which appears to have increased in size. Bladder:Normal. Prevoid vol: 456 cc Postvoid vol:0 cc IMPRESSION: Increased size of stone at lower pole left kidney. No evidence of hydronephrosis. No right renal calculi. DATA REPOSITORY:
== END 2024-12-08 02:17 ==
LOC: DI 01:57
PROVIDERS: PCP Family Medicine; Visit Provider Nurse Practitioner Gerontology
DX: N20.0 Calculus of kidney (principal); R31.29 Other microscopic hematuria
CPT/HCPCS: 76770

== ENCOUNTER 2024-12-10 14:41 | Outpatient (REF) | payer MEDICAID, SELFPAY ==
[2024-12-10 13:07] LABS: Glucose Negative (Negative)
[2024-12-10 13:58] LABS: C & S Indicated? No
== END 2024-12-10 14:42 | disposition home or self-care (01) ==
LOC: LBN 14:41
PROVIDERS: PCP Family Medicine; Visit Provider Nurse Practitioner Gerontology
DX: R31.29 Other microscopic hematuria (principal)
CPT/HCPCS: 81003; 81015

== ENCOUNTER 2025-01-20 17:55 | Outpatient (REF) | payer MEDICAID, SELFPAY ==
[2025-01-20 19:57] LABS: Calculated LDL 131 mg/dL (<100); Cholesterol 198 mg/dL (<200); HDL Cholesterol 40 mg/dL (>or=50); Triglyceride 136 mg/dL (<150)
== END 2025-01-20 17:56 | disposition home or self-care (01) ==
LOC: NCHCN 17:55
PROVIDERS: PCP Family Medicine; Visit Provider Family Medicine
DX: E78.5 Hyperlipidemia, unspecified (principal)
CPT/HCPCS: 80061

== ENCOUNTER 2025-04-21 13:47 | Outpatient (REF) | payer MEDICAID, SELFPAY ==
[2025-04-27 13:33] LABS: Hydrocodone Interpretation Positive.
== END 2025-04-21 13:48 | disposition home or self-care (01) ==
LOC: NCHCN 13:47
PROVIDERS: PCP Family Medicine; Visit Provider Family Medicine
DX: G89.29 Other chronic pain (principal); R73.03 Prediabetes
CPT/HCPCS: 80361; 82043; 82570